=== PATIENT | male | born 1940 | race Caucasian/White ===

== ENCOUNTER → 2016-05-19 | Outpatient (CLI) | payer OTHER ==
--- NOTE | 2016-05-21 10:42 | P.ARTDOP ---
Arterial Doppler LOWER EXTREMITY ARTERIAL DOPPLER: DATE OF SERVICE: 05/19/2016 Reason for study: Foot ulcer. Doppler waveforms: Normal multiphasic throughout on the left. Multiphasic but somewhat blunted distally on the right.. Pulse volume recording: Mild distal blunting on the right.. Pressure gradients: Mild distally on the right. Ankle-brachial indices: Cannot be occluded on either side. Toe pressures: 74 on the right, 113 on the left Impression: Essentially normal on the left. Possible mild distal disease on the right. Tissue perfusion appears adequate for healing. Suspect calcific wall disease of major vessels..
== END | disposition home or self-care (01) ==
LOC: RADUSWWP 08:54
PROVIDERS: ATTEND Family Medicine
DX: L97.509 Non-pressure chronic ulcer of other part of unspecified foot with unspecified severity (principal)
CPT/HCPCS: 93923

== ENCOUNTER 2016-10-01 23:18 | Inpatient (IN) | payer OTHER, MEDICARE ==
[2016-10-01] MEDS ORDERED: SODIUM CHLORIDE 0.9% 500 ML IV STA (23:22)
[2016-10-01] MEDS ORDERED: SODIUM CHLORIDE 0.9% 1,000 ML IV STA (23:22)
[2016-10-01] MEDS ORDERED: RX INFO: IV CONTRAST WAS GIVEN 1 EACH MISC MISCELLANE PRN (23:27)
--- NOTE | 2016-10-01 23:28 | ED ---
General Adult HPI - General Stated complaint: Syncope Time Seen by Provider: 10/01/16 23:22 Source: RN notes reviewed, old records reviewed - History of Present Illness Initial comments: This is a 76-year-old male here for evaluation of syncopal event. Patient is a talkative starting him episode of syncope. Patient has a medical history,. By diabetes high blood pressure high cholesterol. History of heart disease, patient's well as of late, states he felt well today. Again at this point he has no chest pain or short of breath, no abdominal pain or nausea vomiting. Patient just states he feels confused. No headaches, no injury from this syncopal event. Per standby he had no seizure-like activity - Related Data Home Medications Medication Instructions Recorded Confirmed Aspirin 81 mg PO DAILY 10/01/16 10/01/16 Atorvastatin [Lipitor] 20 mg PO DAILY 10/01/16 10/01/16 Cholecalciferol [Vitamin D3] 2,000 unit PO DAILY 10/01/16 10/01/16 Donepezil [Aricept] 10 mg PO DAILY 10/01/16 10/01/16 Insulin Detemir [Levemir] 15 unit SQ HS 10/01/16 10/01/16 Lisinopril-Hctz 10-12.5 mg 1 tab PO DAILY 10/01/16 10/01/16 [Zestoretic 10-12.5] Multivitamins, Thera [Multivitamin 1 tab PO DAILY 10/01/16 10/01/16 (formulary)] glipiZIDE [Glucotrol] 5 mg PO AC-BID 10/01/16 10/01/16 Allergies Allergy/AdvReac Type Severity Reaction Status Date / Time No Known Allergies Allergy Unverified 10/01/16 23:33 Review of Systems ROS Statement: Those systems with pertinent positive or pertinent negative responses have been documented in the HPI. ROS Other: All systems not noted in ROS Statement are negative. General Exam General appearance: alert, in no apparent distress, anxious Head exam: Present: atraumatic, normocephalic, normal inspection Eye exam: Present: normal appearance, PERRL, EOMI. Absent: scleral icterus, conjunctival injection, periorbital swelling ENT exam: Present: normal exam, mucous membranes moist Neck exam: Present: normal inspection. Absent: tenderness, meningismus, lymphadenopathy Respiratory exam: Present: normal lung sounds bilaterally. Absent: respiratory distress, wheezes, rales, rhonchi, stridor Cardiovascular Exam: Present: regular rate, normal rhythm, normal heart sounds. Absent: systolic murmur, diastolic murmur, rubs, gallop, clicks GI/Abdominal exam: Present: soft, normal bowel sounds. Absent: distended, tenderness, guarding, rebound, rigid Extremities exam: Present: normal inspection, full ROM, normal capillary refill. Absent: tenderness, pedal edema, joint swelling, calf tenderness Back exam: Present: normal inspection Neurological exam: Present: alert, oriented X3, CN II-XII intact Psychiatric exam: Present: normal affect, normal mood Skin exam: Present: warm, dry, intact, normal color. Absent: rash Course Vital Signs 10/01/16 10/01/16 23:33 23:54 Temperature 97.7 F Pulse Rate 56 L 53 L Respiratory 16 16 Rate Blood Pressure 241/116 224/96 O2 Sat by Pulse 98 98 Oximetry - Reevaluation(s) Reevaluation #1: 10/01/16 23:28 Per EMS patient was diaphoretic upon initial encounter Reevaluation #2: 10/01/16 23:28 Patient's blood pressure is is severely elevated upon arrival to emergency room 10/02/16 00:39 Patient bloodshot pressure rechecked EKG Findings - EKG Comments: EKG Findings:: EKG shows normal sinus rhythm rate of 61, MS 200, QRS 90, QTc 442. Repeat. EKG shows sinus rhythm rate of 60, MS 196, QRS 94, QTc 463 Medical Decision Making - Medical Decision Making 76-year-old years syncope today. Patient had syncope with no evidence of seizure-like activity, - Lab Data Result diagrams: 10/01/16 23:25 10/01/16 23:25 Lab Results 10/01/16 10/01/16 10/01/16 Range/Units 23:25 23:25 23:25 WBC 7.8 (3.8-10.6) k/uL RBC 4.39 (4.30-5.90) m/uL Hgb 14.2 (13.0-17.5) gm/dL Hct 42.3 (39.0-53.0) % MCV 96.4 (80.0-100.0) fL MCH 32.4 (25.0-35.0) pg MCHC 33.6 (31.0-37.0) g/dL RDW 13.7 (11.5-15.5) % Plt Count 193 (150-450) k/uL Neutrophils % 68 % Lymphocytes % 21 % Monocytes % 7 % Eosinophils % 2 % Basophils % 1 % Neutrophils # 5.3 (1.3-7.7) k/uL Lymphocytes # 1.6 (1.0-4.8) k/uL Monocytes # 0.5 (0-1.0) k/uL Eosinophils # 0.1 (0-0.7) k/uL Basophils # 0.1 (0-0.2) k/uL PT (9.0-12.0) sec INR (<1.1) APTT (22.0-30.0) sec D-Dimer (<0.60) mg/L FEU Sodium 141 (137-145) mmol/L Potassium 3.8 (3.5-5.1) mmol/L Chloride 106 (98-107) mmol/L Carbon Dioxide 22 (22-30) mmol/L Anion Gap 13 mmol/L BUN 27 H (9-20) mg/dL Creatinine 1.56 H (0.66-1.25) mg/dL Est GFR (MDRD) Af Amer 53 (>60 ml/min/1.73 sqM) Est GFR (MDRD) Non-Af 44 (>60 ml/min/1.73 sqM) Glucose 117 H (74-99) mg/dL Plasma Lactic Acid Jerome (0.7-2.0) mmol/L Calcium 9.7 (8.4-10.2) mg/dL Phosphorus 4.6 H (2.5-4.5) mg/dL Magnesium 2.1 (1.6-2.3) mg/dL Total Bilirubin 0.8 (0.2-1.3) mg/dL AST 27 (17-59) U/L ALT 26 (21-72) U/L Alkaline Phosphatase 80 (38-126) U/L Total Creatine Kinase 42 L (55-170) U/L CK-MB (CK-2) 1.5 (0.0-2.4) ng/mL CK-MB (CK-2) Rel Index 3.6 Troponin I 0.036 H* (0.000-0.034) ng/mL NT-Pro-B Natriuret Pep pg/mL Total Protein 7.4 (6.3-8.2) g/dL Albumin 4.4 (3.5-5.0) g/dL 10/01/16 10/01/16 10/01/16 Range/Units 23:25 23:25 23:45 WBC (3.8-10.6) k/uL RBC (4.30-5.90) m/uL Hgb (13.0-17.5) gm/dL Hct (39.0-53.0) % MCV (80.0-100.0) fL MCH (25.0-35.0) pg MCHC (31.0-37.0) g/dL RDW (11.5-15.5) % Plt Count (150-450) k/uL Neutrophils % % Lymphocytes % % Monocytes % % Eosinophils % % Basophils % % Neutrophils # (1.3-7.7) k/uL Lymphocytes # (1.0-4.8) k/uL Monocytes # (0-1.0) k/uL Eosinophils # (0-0.7) k/uL Basophils # (0-0.2) k/uL PT 10.3 (9.0-12.0) sec INR 1.0 (<1.1) APTT 23.8 (22.0-30.0) sec D-Dimer 0.52 (<0.60) mg/L FEU Sodium (137-145) mmol/L Potassium (3.5-5.1) mmol/L Chloride (98-107) mmol/L Carbon Dioxide (22-30) mmol/L Anion Gap mmol/L BUN (9-20) mg/dL Creatinine (0.66-1.25) mg/dL Est GFR (MDRD) Af Amer (>60 ml/min/1.73 sqM) Est GFR (MDRD) Non-Af (>60 ml/min/1.73 sqM) Glucose (74-99) mg/dL Plasma Lactic Acid Jerome 3.4 H* (0.7-2.0) mmol/L Calcium (8.4-10.2) mg/dL Phosphorus (2.5-4.5) mg/dL Magnesium (1.6-2.3) mg/dL Total Bilirubin (0.2-1.3) mg/dL AST (17-59) U/L ALT (21-72) U/L Alkaline Phosphatase (38-126) U/L Total Creatine Kinase (55-170) U/L CK-MB (CK-2) (0.0-2.4) ng/mL CK-MB (CK-2) Rel Index Troponin I (0.000-0.034) ng/mL NT-Pro-B Natriuret Pep 379 pg/mL Total Protein (6.3-8.2) g/dL Albumin (3.5-5.0) g/dL - Radiology Data Radiology results: report reviewed (CT brain is negative for acute disease, CT angio is negative for dissection), image reviewed Disposition Clinical Impression: Syncope, Elevated troponin, Dehydration, Lactic acidosis, Hypertensive urgency Disposition: ADMITTED IP TO THIS [facility] Condition: Fair Referrals: Raoul Pugh DO [Primary Care Provider] - 1-2 days
[2016-10-01 23:38] LABS: Basophils # (A) 0.1 k/uL (0-0.2); Basophils % (A) 1 %; CH 32.2; CHCM 33.5; Eosinophils # (A) 0.1 k/uL (0-0.7); Eosinophils % (A) 2 %; HCT 42.3 % (39.0-53.0); HDW 2.41; HGB 14.2 gm/dL (13.0-17.5); Luc % (Auto) 3; Lymphocytes # (A) 1.6 k/uL (1.0-4.8); Lymphocytes % (A) 21 %; MCH 32.4 pg (25.0-35.0); MCHC 33.6 g/dL (31.0-37.0); MCV 96.4 fL (80.0-100.0); Mean Platelet Volume 7.5; Monocytes # (A) 0.5 k/uL (0-1.0); Monocytes % (A) 7 %; Neutrophils # (A) 5.3 k/uL (1.3-7.7); Neutrophils % (A) 68 %; RBC 4.39 m/uL (4.30-5.90); RDW 13.7 % (11.5-15.5); WBC 7.8 k/uL (3.8-10.6); WBC (Perox) 7.72
[2016-10-01] MEDS ORDERED: hydrALAZINE HCL 20 MG/ML 1 ML VIAL IVP STA (23:45)
[2016-10-01 23:49] LABS: Calcium 9.7 mg/dL (8.4-10.2); Magnesium 2.1 mg/dL (1.6-2.3); Phosphorous 4.6 mg/dL (2.5-4.5); Potassium 3.8 mmol/L (3.5-5.1); Total Bilirubin 0.8 mg/dL (0.2-1.3); Total Protein 7.4 g/dL (6.3-8.2)
[2016-10-01 23:57] LABS: Partial Thromboplastin Time 23.8 sec (22.0-30.0); Prothrombin Time 10.3 sec (9.0-12.0)
[2016-10-02 00:13] LABS: Creatine Kinase MB 1.5 ng/mL (0.0-2.4)
[2016-10-02 00:20] LABS: Troponin I 0.036 ng/mL (0.000-0.034)
[2016-10-02] MEDS ORDERED: SODIUM CHLORIDE 0.9% 1,000 ML IV STA (00:36)
[2016-10-02] MEDS ORDERED: ASPIRIN 81 MG CHEW PO STA (00:50)
[2016-10-02] MEDS ORDERED: NITROGLYCERIN SL TABS 0.4 MG TAB SUBLINGUAL PRN (00:50)
[2016-10-02] MEDS ORDERED: ENALAPRILAT 1.25 MG/ML 1 ML VIAL IVP STA (00:56)
[2016-10-02] MEDS ORDERED: hydrALAZINE HCL 20 MG/ML 1 ML VIAL IVP PRN (00:56)
--- NOTE | 2016-10-02 00:57 | CT ---
EXAM: CT Head Without Intravenous Contrast CLINICAL HISTORY: Reason: Pain. syncope, history of DM, and dementia TECHNIQUE: Axial computed tomography images of the head/brain without intravenous contrast. CTDI is 60.30 mGy and DLP is 1108.40 mGy-cm. This CT exam was performed using one or more of the following dose reduction techniques: automated exposure control, adjustment of the mA and/or kV according to patient size, and/or use of iterative reconstruction technique. COMPARISON: None FINDINGS: Brain: No acute infarct or hemorrhage idenitified. No extra-axial fluid collection. No mass effect or midline shift. Mild scattered areas of hypoattenuation in the supratentorial white matter likely represent chronic small vessel ischemic changes. Involutional changes. Ventricles and sulci: Prominence of the ventricles and sulci is likely secondary to cerebral volume loss. Skull: Normal. No bony lesion or fracture. Subcutaneous tissues: Normal. Sinuses: Normal. No air-fluid levels or mucosal thickening. Orbits: Grossly unremarkable. Other: Atherosclerotic calcifications in the intracranial vasculature. IMPRESSION: 1. No acute intracranial abnormality. 2. Mild chronic small vessel ischemic changes and cerebral volume loss.
--- NOTE | 2016-10-02 01:09 | CT ---
EXAM: CT Angiography Chest With Intravenous Contrast CT Angiography Abdomen With Intravenous Contrast CLINICAL HISTORY: Reason: Pain. Syncope, history of dementia and DM. TECHNIQUE: Axial computed tomographic angiography images of the chest and abdomen with intravenous contrast using CT angiography protocol. CTDI is 86.90 mGy and DLP is 839.50 mGy-cm. This CT exam was performed using one or more of the following dose reduction techniques: automated exposure control, adjustment of the mA and/or kV according to patient size, and/or use of iterative reconstruction technique. MIP reconstructed images were created and reviewed. COMPARISON: None FINDINGS: Lung parenchyma: Mild atelectasis and scarring at the medial right lung base with mild bronchiectasis. No focal consolidation. No nodule. Pleural space: Normal. No pleural effusion or pneumothorax. Mediastinum/terrence: Small mediastinal lymph nodes, not pathologically enlarged. Heart: Coronary artery calcifications and mitral annular calcifications. No cardiomegaly or pericardial effusion. Vasculature: Not well evaluated due to suboptimal contrast enhancement. Aorta: Atherosclerotic changes of the aorta. No aneurysm or dissection. Airways: Patent. Bones: Degenerative changes of the spine. No bony lesion or acute fracture. Muscles: No mass. Subcutaneous tissues: Normal. Upper abdomen: Small nonspecific 1 cm nodule in the left adrenal gland. Small splenule noted. Diverticulosis without evidence of diverticulitis. . IMPRESSION: 1. The pulmonary arteries are not well evaluated due to suboptimal contrast bolus within the pulmonary arteries (suboptimal timing). If clinical concern for pulmonary emboli persist, consider repeat CT chest for PE. 2. No acute pulmonary abnormality identified.
[2016-10-02 04:42] LABS: Creatine Kinase MB 1.7 ng/mL (0.0-2.4); Troponin I 0.024 ng/mL (0.000-0.034)
[2016-10-02] MEDS: SODIUM CHLORIDE 0.9% 1,000 ML IV SCH ×3 (07:57→20:43)
[2016-10-02] MEDS: ATORVASTATIN 80 MG TAB PO SCH (11:52)
[2016-10-02 11:59] LABS: Glucose,Whole Blood 177 mg/dL (75-99)
[2016-10-02 12:34] LABS: Creatine Kinase MB 1.5 ng/mL (0.0-2.4)
[2016-10-02 12:47] LABS: Troponin I 0.042 ng/mL (0.000-0.034)
[2016-10-02 12:50] VITALS: BMI 28.3
--- NOTE | 2016-10-02 15:01 | XR ---
EXAMINATION TYPE: XR chest 1V portable DATE OF EXAM: 10/02/2016 2:48 PM COMPARISON: NONE HISTORY: CHF TECHNIQUE: Single frontal view of the chest is obtained. FINDINGS: Marked hypertrophy of the AC joints with remote left clavicular fracture there is hypertro phic change of the spine. No acute infiltrate or pleural effusion. No pneumothorax or overt failure. IMPRESSION: 1. No definite acute process.
[2016-10-02] MEDS: LISINOPRIL 10 MG TAB PO SCH (15:52)
[2016-10-02] MEDS: HEPARIN SODIUM,PORCINE 5,000 UNIT/ML 1 ML VIAL SQ SCH ×2 (15:52→20:40)
[2016-10-02 16:48] LABS: Glucose,Whole Blood 139 mg/dL (75-99)
[2016-10-02] MEDS: glipiZIDE 5 MG TAB PO SCH (17:03)
[2016-10-02] MEDS: INSULIN LISPRO (humaLOG) 300 UNIT/3 ML VIAL SQ SCH ×2 (17:08→20:41)
--- NOTE | 2016-10-02 17:35 | HP ---
CHIEF COMPLAINT: Syncope. HISTORY OF PRESENT ILLNESS: This 76-year-old gentleman with a past medical history of diabetes, hypertension, dementia, history of appendectomy, history of alcohol, 3 to 6 beers daily, being followed by Dr. Pugh in the outpatient setting, has apparently had multiple syncopal episodes recently. The last one was yesterday when the patient was sitting on a barstool in the living room and the patient was watched by his daughter. The patient apparently became confused and the patient became diaphoretic. Patient also sweaty. Patient became unresponsive, which lasted a few minutes, and the patient was confused after that. The EMS was called. Hypoglycemia was suspected. Blood pressure was noted to be normal and the patient was admitted for further evaluation and treatment. There is no history of any fever, rigors, chills. No history of any chest pain, palpitation, hematochezia, melena at this time. Multiple lab abnormalities, including a creatinine of 1.56 and plasma lactate 3.4. Troponin was found to be indeterminate at 0.236, 0.024 and 0.042. PAST MEDICAL HISTORY: History of diabetes, hypertension, history of dementia, history of alcohol. Medications prior to admission include: 1. Metformin 1000 mg p.o. b.i.d. 2. Levemir 15 subcu q.h.s. 3. Glucotrol 5 mg a.c. b.i.d. 4. Multivitamin 1 p.o. daily 5. Zestoretic /12.5 p.o. daily. 6. Aricept 10 mg daily. 7. Vitamin D3 2000. 8. Lipitor 20 mg daily. 9. Aspirin 81 mg. Allergies are none. FAMILY HISTORY: History of cancer in the family. SOCIAL HISTORY: History of alcohol as mentioned above. No history of smoking. REVIEW OF SYSTEMS: ENT: No diminishing hearing. No diminished vision. CARDIOVASCULAR: As mentioned earlier. RESPIRATORY: As mentioned earlier. GI: No nausea. : No dysuria. NERVOUS: As mentioned earlier. ALLERGY/IMMUNOLOGY: No asthma or hay fever. MUSCULOSKELETAL: As mentioned earlier. HEMATOLOGY/ONCOLOGY: No history of anemia. ENDOCRINE: As mentioned earlier. CONSTITUTIONAL: As mentioned earlier. DERMATOLOGY: Negative. PSYCHIATRY: As mentioned earlier. PHYSICAL EXAMINATION: Patient is alert and oriented x3. The pulse is 65, blood pressure 140/67, respiration 18, temperature 97.4, pulse ox 96% on room air. HEENT: Conjunctivae normal. Oral mucosa moist. NECK: No jugular venous distension. No carotid bruits. No lymph node enlargement. No thyroid enlargement. CARDIOVASCULAR: S1 and S2 muffled. No S3. No S4. RESPIRATORY: Breath sounds diminished in the bases. A few rhonchi. No crackles. ABDOMEN: Soft, nontender. No mass palpable. LEGS: No edema. No swelling. NERVOUS SYSTEM: Higher functions as mentioned. Moves all 4 limbs. No focal motor or sensory deficits. LYMPHATIC: No lymphadenopathy in neck, axillae or groin. SKIN: No ulcer, rash or bleeding. LABS: At this time show CBC within normal limits. Creatinine 1.5. Plasma lactic acid 3.4. Troponin 0.036. ASSESSMENT: 1. Recurrent syncope for evaluation, possibly vasovagal. Rule out cardiac arrhythmia. 2. Rule out acute coronary syndrome with non-ST segment elevation myocardial infarction. Troponin indeterminate at 0.36 and 0.042. 3. Increased plasma lactic acid. 4. Increased creatinine with possible acute renal failure, possibly prerenal. 5. Diabetes mellitus type 2. 6. History of ethanol. 7. History of hypertension, essential. 8. History of dementia. 9. History of left toe amputation. 10. FULL CODE. RECOMMENDATIONS AND DISCUSSION: In this 76-year-old gentleman who presented with multiple complex medical issues, will monitor the patient closely, continue with the current medications and symptomatic treatment. I will continue with the hydration. Otherwise, continue with the rest of the medications. Avoid diuretics for now. Other than that, cardiology consultation, 2-D echo with Doppler, possible stress test. The patient also might require outpatient evaluation, including Doppler monitoring or Reveal monitor. Otherwise, continue to monitor. I would also recommend the patient to alcohol cessation as well because of the high risk. The prognosis is guarded because of multiple complex medical issues. Further recommendations to follow. A copy of this dictation will be forwarded to Dr. Pugh, who is the primary physician.
[2016-10-02 20:23] LABS: Glucose,Whole Blood 176 mg/dL (75-99)
[2016-10-02] MEDS: INSULIN DETEMIR 100 UNIT/ML 10 ML VIAL SQ SCH (20:40)
[2016-10-02] MEDS ORDERED: metFORMIN 500 MG TAB PO SCH (21:00)
[2016-10-03 00:25] LABS: Appearance,Urine Clear (Clear); Bilirubin,Urine Negative (Negative); Glucose,Urine (UA) Negative (Negative); Ketones,Urine Negative (Negative); Leukocyte Esterase,Urine Negative (Negative); Mucus,Urine Rare /hpf; Nitrite,Urine Negative (Negative); PH, Urine 5.5 (5.0-8.0); Particle Count 708; Protein,Urine 1+ (Negative); RBC,Urine <1 /hpf (0-5); Specific Gravity,Urine 1.015 (1.001-1.035); UA Billing (MACRO vs. MICRO) MICRO; Urobilinogen,Urine <2.0 mg/dL (<2.0); WBC,Urine 1 /hpf (0-5)
[2016-10-03 05:52] LABS: Basophils % (A) 0 %; CH 32.5; CHCM 34.8; Eosinophils # (A) 0.2 k/uL (0-0.7); Eosinophils % (A) 4 %; HGB 11.6 gm/dL (13.0-17.5); Luc # (Auto) 0.17; Luc % (Auto) 3; Lymphocytes # (A) 1.4 k/uL (1.0-4.8); Lymphocytes % (A) 23 %; Mean Platelet Volume 7.4; Monocytes # (A) 0.4 k/uL (0-1.0); Monocytes % (A) 7 %; Neutrophils % (A) 64 %; RBC 3.62 m/uL (4.30-5.90); RDW 13.7 % (11.5-15.5); WBC 6.3 k/uL (3.8-10.6); WBC (Perox) 6.44
[2016-10-03] MEDS: SODIUM CHLORIDE 0.9% 1,000 ML IV SCH (06:02)
[2016-10-03 06:08] LABS: Anion Gap 9 mmol/L; Blood Urea Nitrogen 25 mg/dL (9-20); Calcium 8.7 mg/dL (8.4-10.2); Carbon Dioxide 23 mmol/L (22-30); Chloride 112 mmol/L (98-107); Cholesterol 112 mg/dL (<200); Glucose 64 mg/dL (74-99); HDL Cholesterol 44 mg/dL (40-60); Non-African American GFR(MDRD) 54 (>60 ml/min/1.73 sqM); Potassium 3.9 mmol/L (3.5-5.1); Sodium 144 mmol/L (137-145); Triglycerides 85 mg/dL (<150)
[2016-10-03] MEDS: INSULIN LISPRO (humaLOG) 300 UNIT/3 ML VIAL SQ SCH ×4 (06:24→22:09)
[2016-10-03 06:32] LABS: Glucose,Whole Blood 74 mg/dL (75-99)
[2016-10-03 07:54] LABS: Hemoglobin A1C 6.1 % (4.2-6.1)
[2016-10-03] MEDS: FOLIC ACID 1 MG TAB PO SCH (08:17)
[2016-10-03] MEDS: LISINOPRIL 10 MG TAB PO SCH (08:17)
[2016-10-03] MEDS: HEPARIN SODIUM,PORCINE 5,000 UNIT/ML 1 ML VIAL SQ SCH ×2 (08:17→22:09)
[2016-10-03] MEDS: ATORVASTATIN 80 MG TAB PO SCH (08:17)
[2016-10-03] MEDS: DONEPEZIL 10 MG TAB PO SCH (08:17)
[2016-10-03] MEDS: glipiZIDE 5 MG TAB PO SCH ×2 (08:18→17:45)
[2016-10-03] MEDS: THIAMINE 100 MG TAB PO SCH (08:18)
[2016-10-03] MEDS: CHOLECALCIFEROL 1,000 UNIT TAB PO SCH (08:18)
[2016-10-03] MEDS: MULTIVITAMINS, THERA 1 EACH TAB PO SCH (08:18)
[2016-10-03] MEDS: ASPIRIN 325 MG TAB PO SCH (08:18)
--- NOTE | 2016-10-03 08:36 | P.CRDCN ---
History of Present Illness Consult date: 10/03/16 Requesting physician: Angely Chu Consult reason: sycope Chief complaint: syncope History of present illness: This is a 76-year-old gentleman with known history of hypertension, diabetes, hyperlipidemia, EtOH use, who presents to the hospital following a syncopal episode. According to the patient, he was at his son's home sitting down having a beer, he was speaking with his grandson, he states that he stood up in the next thing he recalls is waking up on the floor. Patient denies any warning prior to passing out. He does state that his grandson was speaking to him and he was unable to hear the last few words he was saying. According to the grandson, the patient became quite pale and diaphoretic. He did not lose bowel or bladder function. Upon wakening he was alert and oriented 3. CT of the brain did not reveal any acute intracranial abnormality. Mild chronic small vessel ischemic change noted. Thoracic CT was performed, the pulmonary arteries were not well evaluated due to suboptimal contrast, could not rule out PE completely. No acute pulmonary abnormality noted. EKG shows normal sinus rhythm with no acute changes. No arrhythmias have been noted on the monitor. Chest x-ray does not reveal any acute process. Hemoglobin on admission 14.2, 11.6 this morning. Potassium 3.9, d-dimer 0.5. BUN 27, creatinine 1.5 yesterday , 1.3 this morning. Troponins 0.036, 0.0-4, 0.042. Blood pressure on arrival here 241/116 with a heart rate in the 50s. 98% on room air. Orthostatic blood pressure and heart rate were obtained which did not reveal any acute abnormality. Blood pressure this morning 152/62. At the time of my examination this morning, patient is sitting up in bed eating his breakfast, denies any dizziness or lightheadedness, no palpitations. Past Medical History Past Medical History: Diabetes Mellitus, Hypertension Additional Past Medical History / Comment(s): dementia History of Any Multi-Drug Resistant Organisms: None Reported Past Surgical History: Appendectomy Additional Past Surgical History / Comment(s): LEFT GREAT TOE HALF REMOVED. Past Anesthesia/Blood Transfusion Reactions: No Reported Reaction Past Psychological History: No Psychological Hx Reported Smoking Status: Never smoker Past Alcohol Use History: Abuse, Daily Additional Past Alcohol Use History / Comment(s): 3-6 BEERS A DAY. Past Drug Use History: None Reported - Past Family History Father Family Medical History: Cancer Mother History Unknown: Yes Medications and Allergies Home Medications Medication Instructions Recorded Confirmed Type Aspirin 81 mg PO DAILY 10/01/16 10/01/16 History Atorvastatin [Lipitor] 20 mg PO DAILY 10/01/16 10/01/16 History Cholecalciferol [Vitamin D3] 2,000 unit PO DAILY 10/01/16 10/01/16 History Donepezil [Aricept] 10 mg PO DAILY 10/01/16 10/01/16 History Insulin Detemir [Levemir] 15 unit SQ HS 10/01/16 10/01/16 History Lisinopril-Hctz 10-12.5 mg 1 tab PO DAILY 10/01/16 10/01/16 History [Zestoretic 10-12.5] Multivitamins, Thera [Multivitamin 1 tab PO DAILY 10/01/16 10/01/16 History (formulary)] glipiZIDE [Glucotrol] 5 mg PO AC-BID 10/01/16 10/01/16 History metFORMIN HCL [Metformin HCl] 1,000 mg PO BID 10/02/16 10/02/16 History Allergies Allergy/AdvReac Type Severity Reaction Status Date / Time No Known Allergies Allergy Unverified 10/01/16 23:33 Physical Exam Vitals: Vital Signs Temp Pulse Pulse Resp BP BP BP 10/03/16 05:59 63 18 152/76 10/03/16 04:00 63 16 152/76 10/03/16 00:00 98.2 F 65 18 185/93 10/02/16 20:00 99.2 F 64 18 140/69 10/02/16 16:00 98.0 F 62 18 153/67 10/02/16 11:35 97.5 F L 65 18 143/71 10/02/16 11:06 73 16 140/64 10/02/16 08:48 97.9 F 94 18 144/65 10/02/16 08:45 92 16 137/63 BP BP Pulse Ox 10/03/16 05:59 153/62 156/66 10/03/16 04:00 98 10/03/16 00:00 97 10/02/16 20:00 95 10/02/16 16:00 95 10/02/16 11:35 96 10/02/16 11:06 10/02/16 08:48 96 10/02/16 08:45 Intake and Output 10/02/16 10/03/16 10/03/16 22:59 06:59 14:59 Intake Total 100 Output Total 600 Balance 100 -600 Intake: Oral 100 Output: Urine 600 Other: # Voids 0 1 Weight 85.3 kg PHYSICAL EXAMINATION: HEENT: Head is atraumatic, normocephalic. Pupils equal, round. Neck is supple. There is no elevated jugular venous pressure. HEART EXAMINATION: Heart S1, S2 normal. No murmur or gallop heard. CHEST EXAMINATION: Lungs are clear to auscultation and precussion. No chest wall tenderness is noted on palpation or with deep breathing. ABDOMEN: Soft, nontender. Bowel sounds are heard. No organomegaly noted. EXTREMITIES: 2+ peripheral pulses with no evidence of peripheral edema and no calf tenderness noted. NEUROLOGIC patient is awake, alert and oriented -3. . Results 10/03/16 05:26 10/03/16 05:26 Cardiac Enzymes 10/02/16 Range/Units 11:37 CK-MB (CK-2) 1.5 (0.0-2.4) ng/mL Troponin I 0.042 H* (0.000-0.034) ng/mL Lipids 10/03/16 Range/Units 05:26 Triglycerides 85 (<150) mg/dL Cholesterol 112 (<200) mg/dL HDL Cholesterol 44 (40-60) mg/dL CBC 10/03/16 Range/Units 05:26 WBC 6.3 (3.8-10.6) k/uL RBC 3.62 L (4.30-5.90) m/uL Hgb 11.6 L (13.0-17.5) gm/dL Hct 34.0 L (39.0-53.0) % Plt Count 162 (150-450) k/uL Comprehensive Metabolic Panel 10/03/16 Range/Units 05:26 Sodium 144 (137-145) mmol/L Potassium 3.9 (3.5-5.1) mmol/L Chloride 112 H (98-107) mmol/L Carbon Dioxide 23 (22-30) mmol/L BUN 25 H (9-20) mg/dL Creatinine 1.30 H (0.66-1.25) mg/dL Glucose 64 L (74-99) mg/dL Calcium 8.7 (8.4-10.2) mg/dL Current Medications Generic Name Dose Route Start Last Admin Trade Name Freq PRN Reason Stop Dose Admin Aspirin 325 mg 10/03/16 09:00 10/03/16 08:18 Aspirin PO 325 mg DAILY VEENA Administration Atorvastatin Calcium 80 mg 10/02/16 09:00 10/03/16 08:17 Lipitor PO 80 mg DAILY VEENA Administration Cholecalciferol 2,000 unit 10/03/16 12:00 10/03/16 08:18 Vitamin D3 PO 2,000 unit 1200 VEENA Administration Donepezil HCl 10 mg 10/03/16 09:00 10/03/16 08:17 Aricept PO 10 mg DAILY VEENA Administration Folic Acid 1 mg 10/03/16 12:00 10/03/16 08:17 Folic Acid PO 1 mg DAILY@1200 VEENA Administration Glipizide 5 mg 10/02/16 17:30 10/03/16 08:18 Glucotrol PO 5 mg AC-BID VEENA Administration Heparin Sodium (Porcine) 5,000 unit 10/02/16 14:45 10/03/16 08:17 Heparin SQ 5,000 unit Q12HR VEENA Administration Hydralazine HCl 10 mg 10/02/16 00:56 10/02/16 07:56 Apresoline IVP 10 mg Q4HR PRN Administration Blood Pressure - High Sodium Chloride 1,000 mls @ 100 mls/hr 10/02/16 01:00 10/03/16 06:02 Saline 0.9% IV 100 mls/hr .Q10H VEENA Administration Insulin Detemir 15 unit 10/02/16 21:00 10/02/16 20:40 Levemir SQ 15 unit HS VEENA Administration Insulin Human Lispro 0 unit 10/02/16 17:30 10/03/16 06:24 Humalog SQ [facility] Protocol Lisinopril 10 mg 10/02/16 14:45 10/03/16 08:17 Zestril PO 10 mg DAILY VEENA Administration Metformin HCl 1,000 mg 10/04/16 21:00 Glucophage PO BID [facility] Miscellaneous Information 1 each 10/01/16 23:27 10/02/16 00:37 Rx Info: Iv Contrast Was Given MISCELLANE 10/03/16 23:27 1 each DAILY PRN Administration Per Protocol Multivitamins 1 each 10/03/16 12:00 10/03/16 08:18 Theragran PO 1 each 1200 VEENA Administration Nitroglycerin 0.4 mg 10/02/16 00:50 Nitrostat SUBLINGUAL Q5M PRN Chest Pain Thiamine HCl 100 mg 10/03/16 12:00 10/03/16 08:18 Vitamin B-1 PO 100 mg DAILY@1200 VEENA Administration Intake and Output 10/02/16 10/03/16 10/03/16 22:59 06:59 14:59 Intake Total 100 Output Total 600 Balance 100 -600 Intake: Oral 100 Output: Urine 600 Other: # Voids 0 1 Weight 85.3 kg 10/03/16 05:26 10/03/16 05:26 EKG Interpretations (text) EKG shows normal sinus rhythm with no acute changes. Assessment and Plan Plan: Assessment and plan #1 syncope, rule out cardiac causes. EKG shows normal sinus rhythm with no acute changes. No arrhythmias noted on the monitor. No orthostatics documented. #2 accelerated hypertension #3 history of hypertension #4 diabetes #5 hyperlipidemia #6 EtOH use, patient states he drinks 3-6 beers per day #7 Abnormal troponins, not consistent with acute coronary syndrome. Patient denies having any chest discomfort. EKG shows normal sinus rhythm with no acute changes. D-dimer negative. Plan We will obtain an echocardiogram with Doppler study. Continue to monitor for any tachycardia or bradycardia arrhythmias. Further recommendations to follow. DNP note has been reviewed, I agree with a documented findings and plan of care. Patient was seen and examined.
[2016-10-03] MEDS ORDERED: HYDROcodone/APAP 5-325MG 1 EACH TAB PO PRN (11:23)
[2016-10-03 11:36] LABS: Glucose,Whole Blood 147 mg/dL (75-99)
[2016-10-03] MEDS ORDERED: LISINOPRIL 10 MG TAB PO ONE (11:45)
--- NOTE | 2016-10-03 11:49 | P.PN ---
Progress Note - Text Patient interviewed and examined 2 episodes of presyncope on an Cynthia and one a few months back. Resents with staring spells and brief presyncope on those 2 occasions. Recent fall of unclear etiology a week back. This time he had a witnessed syncopal episode lasting for several minutes. He started staring into space became white is supposed and possibly ureña, his head fell forward he was sweating profusely, he did not have any warning symptoms, lost consciousness for several minutes according to the witness was spoke to, then regained consciousness before EMS arrived and had complete normal mentation within a minute of regaining consciousness no conversions no postictal state History of diabetes and hypertension and regular alcohol use Examination is normal Impression This is cardiac syncope likely paroxysmal AV block with sudden bradycardia or sudden sinus arrest. We do not have any documentation of this at this time Other possibilities include sudden ventricular tachycardia Stage III CKD Suggest Management of hypertension, maximize mary inhibitors TSH level 2-D echo and Doppler study Telemetry monitoring over the long weekend If he has any of the above I will address it appropriately If not he gets a loop monitor on Thursday Discussed with patient and his daughter and they're agreeable with the plan See full consultation note from Dr. hein
--- NOTE | 2016-10-03 15:00 | PN ---
DATE OF SERVICE: 10/03/2016 This 76-year-old gentleman who was admitted with recurrent syncope is being evaluated. The patient also was found to have bradycardia. Loop monitoring is also being considered at this time. No chest pain. No palpitation. Neurology evaluation in progress. PHYSICAL EXAMINATION: Patient is alert and oriented x3. Pulse is 59, blood pressure 152/76. No orthostatic changes. Respiration 18, temperature 97.7, pulse ox 98% on room air. HEENT: Conjunctivae normal. NECK: No jugular venous distention. CARDIOVASCULAR SYSTEM: S1, S2 muffled. RESPIRATORY SYSTEM: Breath sounds diminished at the bases. No rhonchi. No crackles. ABDOMEN: Soft, nontender. LEGS: No edema. No swelling. NERVOUS SYSTEM: No focal deficit. LABS: WBC 6.3. Hemoglobin 11.6. Creatinine 1.3. Glucose is 74 and 147. ASSESSMENT: 1. Recurrent syncope for evaluation, possibly vasovagal. Rule out cardiac arrhythmia. 2. Troponin indeterminate at 0.36 and 0.04, to rule out coronary artery disease. 3. Increased plasma lactic acid, present on admission, secondary to dehydration. 4. Increased creatinine with possible acute renal failure, possibly prerenal with dehydration. 5. Diabetes mellitus, type 2. 6. History of ethanol. 7. Hypertension, essential. 8. History of dementia. 9. History of left toe amputation. 10. Chronic kidney disease, stage III. 11. FULL CODE. RECOMMENDATIONS AND DISCUSSION: I recommend to continue with the current medications, continue with the monitoring, symptomatic treatment. Closely follow with Cardiology and Neurology. Neurovascular workup. Continue to monitor. A thoracic aortic CT scan did not show any acute abnormality. Otherwise, will continue to monitor. Creatinine is 1.30. See orders for further details. Discussed with the daughter at the bedside.
--- NOTE | 2016-10-03 15:43 | ECHOF ---
Referral Reason:chf MEASUREMENTS -------- HEIGHT: 172.7 cm WEIGHT: 84.4 kg BP: 143/71 RVIDd: 2.7 cm (< 3.3) IVSd: 1.3 cm (0.6 - 1.1) LVIDd: 5.1 cm (3.9 - 5.3) LVPWd: 1.3 cm (0.6 - 1.1) IVSs: 2.2 cm LVIDs: 1.8 cm LVPWs: 2.1 cm LAESV Index (A-L): 34.43 ml/m Ao Diam: 3.8 cm (2.0 - 3.7) AV Cusp: 1.4 cm (1.5 - 2.6) LA Diam: 4.6 cm (2.7 - 3.8) MV EXCURSION: 17.722 mm (> 18.000) MV EF SLOPE: 69 mm/s (70 - 150) EPSS: 0.6 cm MV E Chepe: 1.01 m/s MV DecT: 294 ms MV A Chepe: 0.99 m/s MV E/A Ratio: 1.01 RAP: 5.00 mmHg RVSP: 10.24 mmHg FINDINGS -------- Sinus rhythm. This was a technically good study. There is mild concentric left ventricular hypertrophy. The right ventricle is normal in size and function. LA is moderately dilated 34-39 ml/m2 The right atrium is normal in size. Aortic valve is trileaflet and is mildly thickened. There is no evidence of aortic regurgitation. There is no evidence of aortic stenosis. Mild mitral annular calcification present. There is trace to mild mitral regurgitation. Trace tricuspid regurgitation present. There is no evidence of pulmonary hypertension. The right ventricular systolic pressure, as measured by Doppler, is 10.24mmHg. The pulmonic valve was not well visualized. The aortic root size is normal. IVC Not well visulized. The pericardium is normal. There is no pericardial effusion. CONCLUSIONS -------- 1. Sinus rhythm. 2. The pulmonic valve was not well visualized. 3. The aortic root size is normal. 4. IVC Not well visulized. 5. There is no pericardial effusion. 6. There is mild concentric left ventricular hypertrophy. 7. LA is moderately dilated 34-39 ml/m2 8. Aortic valve is trileaflet and is mildly thickened. 9. Mild mitral annular calcification present. 10. There is trace to mild mitral regurgitation. 11. Trace tricuspid regurgitation present. 12. There is no evidence of pulmonary hypertension. 13. The right ventricular systolic pressure, as measured by Doppler, is 10.24mmHg. MAGNETIC PROSPECTING SUPERVISOR: Juan Luis Lemos RDCS
[2016-10-03 16:35] LABS: Glucose,Whole Blood 55 mg/dL (75-99)
[2016-10-03 16:58] LABS: Glucose,Whole Blood 245 mg/dL (75-99)
--- NOTE | 2016-10-03 18:06 | P.CNNES ---
History of Present Illness Consult date: 10/03/16 History of Present Illness: The patient is a 76-year-old right-handed white male who states that he passed out his son's home. Port that his son stated that he looked flushed been pale and diaphoretic and then passed out. Did bruise his left elbow. Apparently the patient has been having multiple syncopal events. As have dementia. Mass was called and he was transferred to [facility]. ALLERGY requested the patient regarding sink be. He denies any headache. He has no history of seizures. He reports the syncopal event occurred quite quickly. Patient had a CT of the brain in the emergency room which was unremarkable. Neurology been consulted. He does have bradycardia. The patient is undergoing full cardiac workup for possible cardiac syncope. He is also being considered for a loop monitor. Past Medical History Past Medical History: Diabetes Mellitus, Hypertension Additional Past Medical History / Comment(s): dementia History of Any Multi-Drug Resistant Organisms: None Reported Past Surgical History: Appendectomy Additional Past Surgical History / Comment(s): LEFT GREAT TOE HALF REMOVED. Past Anesthesia/Blood Transfusion Reactions: No Reported Reaction Past Psychological History: No Psychological Hx Reported Smoking Status: Never smoker Past Alcohol Use History: Abuse, Daily Additional Past Alcohol Use History / Comment(s): 3-6 BEERS A DAY. Past Drug Use History: None Reported - Past Family History Father Family Medical History: Cancer Mother History Unknown: Yes Medications and Allergies Home Medications Medication Instructions Recorded Confirmed Type Aspirin 81 mg PO DAILY 10/01/16 10/01/16 History Atorvastatin [Lipitor] 20 mg PO DAILY 10/01/16 10/01/16 History Cholecalciferol [Vitamin D3] 2,000 unit PO DAILY 10/01/16 10/01/16 History Donepezil [Aricept] 10 mg PO DAILY 10/01/16 10/01/16 History Insulin Detemir [Levemir] 15 unit SQ HS 10/01/16 10/01/16 History Lisinopril-Hctz 10-12.5 mg 1 tab PO DAILY 10/01/16 10/01/16 History [Zestoretic 10-12.5] Multivitamins, Thera [Multivitamin 1 tab PO DAILY 10/01/16 10/01/16 History (formulary)] glipiZIDE [Glucotrol] 5 mg PO AC-BID 10/01/16 10/01/16 History metFORMIN HCL [Metformin HCl] 1,000 mg PO BID 10/02/16 10/02/16 History Allergies Allergy/AdvReac Type Severity Reaction Status Date / Time No Known Allergies Allergy Unverified 10/01/16 23:33 Physical Examination - Vital Signs Vital Signs: Vital Signs Temp Pulse Resp BP BP BP BP 10/03/16 16:00 97.7 F 56 L 18 151/72 10/03/16 12:00 97.9 F 58 L 18 138/72 10/03/16 08:00 97.7 F 59 L 18 163/63 10/03/16 05:59 63 18 152/76 153/62 156/66 10/03/16 04:00 63 16 152/76 10/03/16 00:00 98.2 F 65 18 185/93 10/02/16 20:00 99.2 F 64 18 140/69 Pulse Ox 10/03/16 16:00 97 10/03/16 12:00 98 10/03/16 08:00 98 10/03/16 05:59 10/03/16 04:00 98 10/03/16 00:00 97 10/02/16 20:00 95 Intake and Output 10/03/16 10/03/16 10/03/16 06:59 14:59 22:59 Intake Total 600 Output Total 600 350 Balance -600 250 Intake: Oral 600 Output: Urine 600 350 Other: # Voids 1 1 Weight 85.3 kg - Constitutional General appearance: average body habitus, cooperative - EENT EENT: PERRL, hearing intact, vision intact - Respiratory Respiratory: lungs clear - Cardiovascular Cardiovascular: regular rate - Integumentary Integumentary: normal - Neurologic Mental status he was awake alert and oriented he had some short-term memory loss is able to give his name he knew his street but did not know the address however he did say he moved here recently. Is no a aphasia or dysarthria Cranial nerve examination: PERRL, EOMI, VFF, V1/V2/V3 grossly intact, face symmetric, tongue midline Speech examination: intact Sensorimotor examination: intact Detailed motor examination: grossly full strength in all extremities - Psychiatric Psychiatric: cooperative Results - Laboratory Findings CBC and BMP: 10/03/16 05:26 10/03/16 05:26 Abnormal Lab Findings: Abnormal Labs 10/01/16 10/01/16 10/01/16 23:25 23:25 23:45 RBC Hgb Hct Chloride BUN 27 H Creatinine 1.56 H Glucose 117 H POC Glucose (mg/dL) Plasma Lactic Acid Jerome 3.4 H* Phosphorus 4.6 H Total Creatine Kinase 42 L Troponin I 0.036 H* Urine Protein Urine Mucus 10/02/16 10/02/16 10/02/16 03:58 11:37 11:57 RBC Hgb Hct Chloride BUN Creatinine Glucose POC Glucose (mg/dL) 177 H Plasma Lactic Acid Jerome Phosphorus Total Creatine Kinase 53 L 43 L Troponin I 0.042 H* Urine Protein Urine Mucus 10/02/16 10/02/16 10/03/16 16:42 20:21 00:00 RBC Hgb Hct Chloride BUN Creatinine Glucose POC Glucose (mg/dL) 139 H 176 H Plasma Lactic Acid Jerome Phosphorus Total Creatine Kinase Troponin I Urine Protein 1+ H Urine Mucus Rare H 10/03/16 10/03/16 10/03/16 05:26 05:26 06:23 RBC 3.62 L Hgb 11.6 L Hct 34.0 L Chloride 112 H BUN 25 H Creatinine 1.30 H Glucose 64 L POC Glucose (mg/dL) 74 L Plasma Lactic Acid Jerome Phosphorus Total Creatine Kinase Troponin I Urine Protein Urine Mucus 10/03/16 10/03/16 10/03/16 11:34 16:29 16:46 RBC Hgb Hct Chloride BUN Creatinine Glucose POC Glucose (mg/dL) 147 H 55 L 245 H Plasma Lactic Acid Jerome Phosphorus Total Creatine Kinase Troponin I Urine Protein Urine Mucus Assessment and Plan (1) Syncope Status: Acute Code(s): R55 - SYNCOPE AND COLLAPSE (2) Elevated troponin Status: Acute Code(s): R74.8 - ABNORMAL LEVELS OF OTHER SERUM ENZYMES (3) Dehydration Status: Acute Code(s): E86.0 - DEHYDRATION (4) Dementia Status: Chronic Code(s): F03.90 - UNSPECIFIED DEMENTIA WITHOUT BEHAVIORAL DISTURBANCE Plan: The patient is a 76-year-old man with recurrent syncopal events. The patient does have bradycardia. The patient's presentation with pallor diaphoresis and syncope is suggestive of possible vasovagal. He is undergoing a cardiac workup for probable cardiac syncope. Will check EEG..
[2016-10-03 21:09] LABS: Glucose,Whole Blood 110 mg/dL (75-99)
[2016-10-03] MEDS: INSULIN DETEMIR 100 UNIT/ML 10 ML VIAL SQ SCH (22:09)
[2016-10-04] MEDS ORDERED: amLODIPine 10 MG TAB PO STA (02:45)
[2016-10-04] MEDS: INSULIN LISPRO (humaLOG) 300 UNIT/3 ML VIAL SQ SCH ×4 (06:31→20:51)
[2016-10-04 06:34] LABS: Basophils # (A) 0.1 k/uL (0-0.2); Basophils % (A) 1 %; CHCM 33.5; Eosinophils # (A) 0.3 k/uL (0-0.7); Eosinophils % (A) 5 %; HCT 36.1 % (39.0-53.0); HDW 2.38; HGB 11.7 gm/dL (13.0-17.5); Luc # (Auto) 0.18; Luc % (Auto) 3; Lymphocytes # (A) 1.2 k/uL (1.0-4.8); Lymphocytes % (A) 19 %; MCH 30.9 pg (25.0-35.0); MCHC 32.3 g/dL (31.0-37.0); MCV 95.9 fL (80.0-100.0); Mean Platelet Volume 7.5; Monocytes # (A) 0.5 k/uL (0-1.0); Monocytes % (A) 7 %; Neutrophils # (A) 4.3 k/uL (1.3-7.7); Neutrophils % (A) 66 %; RBC 3.77 m/uL (4.30-5.90); RDW 13.8 % (11.5-15.5); WBC 6.5 k/uL (3.8-10.6); WBC (Perox) 6.63
[2016-10-04 06:42] LABS: Anion Gap 8 mmol/L; Blood Urea Nitrogen 20 mg/dL (9-20); Carbon Dioxide 26 mmol/L (22-30); Chloride 109 mmol/L (98-107); Glucose 62 mg/dL (74-99); Non-African American GFR(MDRD) 59 (>60 ml/min/1.73 sqM); Potassium 4.2 mmol/L (3.5-5.1); Sodium 143 mmol/L (137-145)
[2016-10-04] MEDS: glipiZIDE 5 MG TAB PO SCH ×2 (06:46→18:27)
[2016-10-04 07:01] LABS: Glucose,Whole Blood 62 mg/dL (75-99)
[2016-10-04 07:01] LABS: Glucose,Whole Blood 121 mg/dL (75-99)
[2016-10-04] MEDS: ATORVASTATIN 80 MG TAB PO SCH (08:13)
[2016-10-04] MEDS: ASPIRIN 325 MG TAB PO SCH (08:13)
[2016-10-04] MEDS: HEPARIN SODIUM,PORCINE 5,000 UNIT/ML 1 ML VIAL SQ SCH ×2 (08:13→20:51)
[2016-10-04] MEDS: LISINOPRIL 20 MG TAB PO SCH ×2 (08:13→20:51)
[2016-10-04] MEDS: DONEPEZIL 10 MG TAB PO SCH (08:13)
[2016-10-04] MEDS: MULTIVITAMINS, THERA 1 EACH TAB PO SCH (08:14)
[2016-10-04] MEDS: FOLIC ACID 1 MG TAB PO SCH (08:14)
[2016-10-04] MEDS: amLODIPine 10 MG TAB PO SCH (08:14)
[2016-10-04] MEDS: CHOLECALCIFEROL 1,000 UNIT TAB PO SCH (08:14)
[2016-10-04] MEDS: THIAMINE 100 MG TAB PO SCH (08:15)
[2016-10-04] MEDS ORDERED: LISINOPRIL 20 MG TAB PO SCH (09:00)
--- NOTE | 2016-10-04 11:27 | P.PN ---
Subjective This is a 76-year-old gentleman with known history of hypertension, diabetes, hyperlipidemia, EtOH use, who presents to the hospital following a syncopal episode. According to the patient, he was at his son's home sitting down having a beer, he was speaking with his grandson, he states that he stood up in the next thing he recalls is waking up on the floor. Patient denies any warning prior to passing out. He does state that his grandson was speaking to him and he was unable to hear the last few words he was saying. According to the grandson, the patient became quite pale and diaphoretic. He did not lose bowel or bladder function. Upon wakening he was alert and oriented 3. CT of the brain did not reveal any acute intracranial abnormality. Mild chronic small vessel ischemic change noted. Thoracic CT was performed, the pulmonary arteries were not well evaluated due to suboptimal contrast, could not rule out PE completely. No acute pulmonary abnormality noted. EKG shows normal sinus rhythm with no acute changes. No arrhythmias have been noted on the monitor. Chest x-ray does not reveal any acute process. Hemoglobin on admission 14.2, 11.6 this morning. Potassium 3.9, d-dimer 0.5. BUN 27, creatinine 1.5 yesterday , 1.3 this morning. Troponins 0.036, 0.0-4, 0.042. Blood pressure on arrival here 241/116 with a heart rate in the 50s. 98% on room air. Orthostatic blood pressure and heart rate were obtained which did not reveal any acute abnormality. 10/04/2016. Pressure this morning 173/77, we will add Dyazide to the patient's medication regime. Objective - Vital Signs Vital signs: Vital Signs Temp 97.7 F 10/04/16 08:00 Pulse 69 10/04/16 08:00 Resp 18 10/04/16 08:00 BP 153/66 10/04/16 08:00 Pulse Ox 97 10/04/16 08:00 Intake & Output 10/03/16 10/04/16 10/04/16 18:59 06:59 18:59 Intake Total 840 Output Total 350 1125 Balance 490 -1125 Weight 84.7 kg Intake: Oral 840 Output: Urine 350 1125 Other: Voiding Method Toilet Toilet Urinal Urinal # Voids 1 1 - Exam PHYSICAL EXAMINATION: HEENT: Head is atraumatic, normocephalic. Pupils equal, round. Neck is supple. There is no elevated jugular venous pressure. HEART EXAMINATION: Heart S1, S2 normal. No murmur or gallop heard. CHEST EXAMINATION: Lungs are clear to auscultation and precussion. No chest wall tenderness is noted on palpation or with deep breathing. ABDOMEN: Soft, nontender. Bowel sounds are heard. No organomegaly noted. EXTREMITIES: 2+ peripheral pulses with no evidence of peripheral edema and no calf tenderness noted. NEUROLOGIC patient is awake, alert and oriented -3. . - Labs CBC & Chem 7: 10/04/16 06:04 10/04/16 06:04 Labs: Abnormal Lab Results - Last 24 Hours (Table) 10/03/16 10/03/16 10/03/16 Range/Units 11:34 16:29 16:46 RBC (4.30-5.90) m/uL Hgb (13.0-17.5) gm/dL Hct (39.0-53.0) % Chloride (98-107) mmol/L Glucose (74-99) mg/dL POC Glucose (mg/dL) 147 H 55 L 245 H (75-99) mg/dL 10/03/16 10/04/16 10/04/16 Range/Units 20:56 06:04 06:04 RBC 3.77 L (4.30-5.90) m/uL Hgb 11.7 L (13.0-17.5) gm/dL Hct 36.1 L (39.0-53.0) % Chloride 109 H (98-107) mmol/L Glucose 62 L (74-99) mg/dL POC Glucose (mg/dL) 110 H (75-99) mg/dL 10/04/16 10/04/16 Range/Units 06:28 06:49 RBC (4.30-5.90) m/uL Hgb (13.0-17.5) gm/dL Hct (39.0-53.0) % Chloride (98-107) mmol/L Glucose (74-99) mg/dL POC Glucose (mg/dL) 62 L 121 H (75-99) mg/dL Assessment and Plan Plan: Assessment and plan #1 syncope, rule out cardiac causes. EKG shows normal sinus rhythm with no acute changes. No arrhythmias noted on the monitor. No orthostatics documented. #2 accelerated hypertension #3 history of hypertension #4 diabetes #5 hyperlipidemia #6 EtOH use, patient states he drinks 3-6 beers per day #7 Abnormal troponins, not consistent with acute coronary syndrome. Patient denies having any chest discomfort. EKG shows normal sinus rhythm with no acute changes. D-dimer negative. Plan No arrhythmias have been noted on the monitor. Patient continues to be hypertensive. We will add Dyazide to the patients medication regime. DNP note has been reviewed, I agree with a documented findings and plan of care. Patient was seen and examined.
[2016-10-04 12:20] LABS: Glucose,Whole Blood 136 mg/dL (75-99)
[2016-10-04] MEDS: TRIAMTERENE-HCTZ 37.5-25MG 1 EACH CAP PO SCH (12:34)
[2016-10-04 17:04] LABS: Glucose,Whole Blood 94 mg/dL (75-99)
[2016-10-04] MEDS: INSULIN DETEMIR 100 UNIT/ML 10 ML VIAL SQ SCH (20:51)
[2016-10-04] MEDS: metFORMIN 500 MG TAB PO SCH (20:51)
[2016-10-04 21:00] LABS: Glucose,Whole Blood 237 mg/dL (75-99)
--- NOTE | 2016-10-04 22:07 | PN ---
DATE OF SERVICE: 10/04/2016 This 76-year-old gentleman who was admitted with recurrent syncope is being evaluated for cardiac arrhythmia. No chest pain. No palpitations. No fever. On exam, alert and oriented x3. Pulse 69, blood pressure 143/66, respirations 18, temperature 97.7, pulse ox 97% on room air. HEENT: Conjunctivae normal. NECK: No jugular venous distension. CARDIOVASCULAR: S1 and S2 muffled. RESPIRATORY: Breath sounds diminished at the bases. A few scattered rhonchi and crackles. ABDOMEN: Soft, nontender. LEGS: No edema. NERVOUS SYSTEM: Nonfocal. LABS: Hemoglobin 11.6. Accu-Cheks are noted. ASSESSMENT: 1. Recurrent syncope for evaluation, possibly vasovagal or cardiac arrhythmia. 2. Troponin indeterminate, 0.063, 0.042. Rule out coronary artery disease. 3. Increased plasma lactic acid present on admission secondary to dehydration. 4. Increased creatinine with possible acute renal failure, possibly prerenal with dehydration. 5. Diabetes mellitus type 2. 6. History of ethanol. 7. Hypertension, essential. 8. History of dementia. 9. History of left toe amputation. 10. Chronic kidney disease stage 3. 11. FULL CODE. RECOMMENDATIONS AND DISCUSSION: Recommend to continue current medications. Continue with monitoring and symptomatic treatment. I recommend to closely follow with Cardiology. Guarded prognosis because of multiple complex medical issues. Further recommendations to follow.
[2016-10-05 06:19] LABS: Basophils # (A) 0.1 k/uL (0-0.2); Basophils % (A) 1 %; CHCM 33.5; Eosinophils # (A) 0.2 k/uL (0-0.7); Eosinophils % (A) 4 %; HCT 36.2 % (39.0-53.0); HDW 2.42; Luc # (Auto) 0.16; Luc % (Auto) 3; Lymphocytes # (A) 1.1 k/uL (1.0-4.8); Lymphocytes % (A) 21 %; MCH 31.7 pg (25.0-35.0); MCV 96.1 fL (80.0-100.0); Mean Platelet Volume 7.6; Monocytes # (A) 0.4 k/uL (0-1.0); Monocytes % (A) 7 %; Neutrophils # (A) 3.5 k/uL (1.3-7.7); Neutrophils % (A) 64 %; RBC 3.77 m/uL (4.30-5.90); WBC 5.5 k/uL (3.8-10.6)
[2016-10-05 06:32] LABS: Anion Gap 8 mmol/L; Blood Urea Nitrogen 24 mg/dL (9-20); Calcium 9.1 mg/dL (8.4-10.2); Carbon Dioxide 24 mmol/L (22-30); Chloride 110 mmol/L (98-107); Glucose 63 mg/dL (74-99); Non-African American GFR(MDRD) 56 (>60 ml/min/1.73 sqM); Potassium 4.1 mmol/L (3.5-5.1); Sodium 142 mmol/L (137-145)
[2016-10-05 06:33] LABS: Glucose,Whole Blood 61 mg/dL (75-99)
[2016-10-05] MEDS: INSULIN LISPRO (humaLOG) 300 UNIT/3 ML VIAL SQ SCH ×4 (06:35→21:21)
[2016-10-05] MEDS: glipiZIDE 5 MG TAB PO SCH ×2 (06:37→17:15)
[2016-10-05 06:56] LABS: Glucose,Whole Blood 85 mg/dL (75-99)
[2016-10-05] MEDS: ASPIRIN 325 MG TAB PO SCH (08:59)
[2016-10-05] MEDS: ATORVASTATIN 80 MG TAB PO SCH (08:59)
[2016-10-05] MEDS: DONEPEZIL 10 MG TAB PO SCH (09:00)
[2016-10-05] MEDS: HEPARIN SODIUM,PORCINE 5,000 UNIT/ML 1 ML VIAL SQ SCH ×2 (09:00→19:36)
[2016-10-05] MEDS: amLODIPine 10 MG TAB PO SCH (09:00)
[2016-10-05] MEDS: LISINOPRIL 20 MG TAB PO SCH ×2 (09:00→19:36)
[2016-10-05] MEDS: MULTIVITAMINS, THERA 1 EACH TAB PO SCH (09:01)
[2016-10-05] MEDS: THIAMINE 100 MG TAB PO SCH (09:01)
[2016-10-05] MEDS: CHOLECALCIFEROL 1,000 UNIT TAB PO SCH (09:01)
[2016-10-05] MEDS: FOLIC ACID 1 MG TAB PO SCH (09:02)
[2016-10-05] MEDS: TRIAMTERENE-HCTZ 37.5-25MG 1 EACH CAP PO SCH (09:02)
[2016-10-05] MEDS: metFORMIN 500 MG TAB PO SCH ×2 (09:02→19:35)
--- NOTE | 2016-10-05 11:50 | PN ---
Mr. Balderas is lying comfortably in bed. He has not been getting out of his bed too much although I have been encouraging him to start walking and today I told him specifically that I would like him to walk up and down the hallways. His blood pressure was elevated. He presented with syncope. He has not had any syncope. His blood pressure is ( ) add Amlodipine and Lisinopril 20 mg twice daily along with Dyazide. He is also diabetic. On examination, he is afebrile, 97.3 degrees Fahrenheit, pulse rate is in the 50s. Blood pressure 129/57 mmHg. Respiratory rate normal. Head and neck examination is normal. Lungs clear to auscultation. Extremities warm and no edema. IMPRESSION: 1. Recurrent syncope. 2. Uncontrolled hypertension. 3. Diabetes. Suggest: Telemetry monitoring to look for any sudden bradycardia secondary to AV block sinus arrest and that would explain syncope. Control hypertension. PLAN: Continue telemetry monitoring.
[2016-10-05 12:31] LABS: Glucose,Whole Blood 134 mg/dL (75-99)
--- NOTE | 2016-10-05 13:39 | EEG ---
DATE OF SERVICE: 10/04/2016 INDICATIONS FOR EXAMINATION: This patient is a 76 -year-old male being evaluated for syncope and collapse. AGE: 76Y EEG FINDINGS: A routine 21 channel awake digital EEG recording was accomplished utilizing the 10-20 international system with bipolar and referential montages. The background activity in the most alert resting state consists of a low to medium amplitude, fairly well developed and well sustained 6 Hz activity over the posterior head regions. This posterior rhythm attenuates to eye opening. There is a small amount of low amplitude, 18-20 Hz bet activity seen maximally over the anterior head regions. Muscle and movement artifact was observed on a few occasions during the tracing. Hyperventilation was not performed. Photic stimulation at flash frequencies of 2-30 Hz produced a minimal occipital driving response. Towards the mid and latter portion of the tracing, the patient does drift into spontaneous drowsiness. No epileptiform discharges were seen. IMPRESSION: This EEG is mildly abnormal in a diffuse fashion due to slight slowing of the EEG background. The EEG failed to reveal any focal, lateralized or epileptiform abnormalities. Clinical correlation is recommended.
[2016-10-05 17:04] LABS: Glucose,Whole Blood 78 mg/dL (75-99)
[2016-10-05] MEDS: INSULIN DETEMIR 100 UNIT/ML 10 ML VIAL SQ SCH (21:21)
[2016-10-05 21:43] LABS: Glucose,Whole Blood 196 mg/dL (75-99)
[2016-10-06 06:00] LABS: Basophils # (A) 0.1 k/uL (0-0.2); Basophils % (A) 1 %; CH 32.5; CHCM 33.4; Eosinophils # (A) 0.2 k/uL (0-0.7); Eosinophils % (A) 4 %; HCT 38.4 % (39.0-53.0); HDW 2.39; HGB 12.6 gm/dL (13.0-17.5); Luc # (Auto) 0.18; Luc % (Auto) 3; Lymphocytes # (A) 1.3 k/uL (1.0-4.8); Lymphocytes % (A) 22 %; MCHC 32.7 g/dL (31.0-37.0); MCV 97.7 fL (80.0-100.0); Mean Platelet Volume 7.9; Monocytes # (A) 0.5 k/uL (0-1.0); Monocytes % (A) 8 %; Neutrophils # (A) 3.7 k/uL (1.3-7.7); Neutrophils % (A) 62 %; RBC 3.93 m/uL (4.30-5.90); WBC (Perox) 6.08
[2016-10-06 06:13] LABS: Anion Gap 7 mmol/L; Blood Urea Nitrogen 29 mg/dL (9-20); Calcium 9.5 mg/dL (8.4-10.2); Carbon Dioxide 28 mmol/L (22-30); Chloride 108 mmol/L (98-107); Glucose 56 mg/dL (74-99); Non-African American GFR(MDRD) 50 (>60 ml/min/1.73 sqM); Potassium 4.7 mmol/L (3.5-5.1); Sodium 143 mmol/L (137-145)
[2016-10-06] MEDS: INSULIN LISPRO (humaLOG) 300 UNIT/3 ML VIAL SQ SCH ×4 (06:27→21:42)
[2016-10-06] MEDS: glipiZIDE 5 MG TAB PO SCH ×2 (06:28→17:16)
[2016-10-06 06:46] LABS: Glucose,Whole Blood 93 mg/dL (75-99)
[2016-10-06 06:46] LABS: Glucose,Whole Blood 55 mg/dL (75-99)
[2016-10-06] MEDS: amLODIPine 10 MG TAB PO SCH (07:48)
[2016-10-06] MEDS: HEPARIN SODIUM,PORCINE 5,000 UNIT/ML 1 ML VIAL SQ SCH ×2 (07:48→19:47)
[2016-10-06] MEDS: ASPIRIN 325 MG TAB PO SCH (07:48)
[2016-10-06] MEDS: ATORVASTATIN 80 MG TAB PO SCH (07:48)
[2016-10-06] MEDS: LISINOPRIL 20 MG TAB PO SCH ×2 (07:48→19:47)
[2016-10-06] MEDS: DONEPEZIL 10 MG TAB PO SCH (07:48)
[2016-10-06] MEDS: TRIAMTERENE-HCTZ 37.5-25MG 1 EACH CAP PO SCH (07:49)
[2016-10-06] MEDS: metFORMIN 500 MG TAB PO SCH ×2 (07:49→19:47)
--- NOTE | 2016-10-06 10:14 | PN ---
Mr. Balderas is doing well. He has not had any syncope. He has not had any sudden episode of bradycardia. His blood pressures are very well controlled. He has the following issues: 1. Recurrent loss of consciousness of unclear etiology but worrisome for sudden sonia episodes. 2. Mild sinus bradycardia in the 50s. 3. Very high blood pressure. 4. History of diabetes. With antihypertensive therapy, his blood pressures are now very well controlled on amlodipine 10 mg daily, Lisinopril 20 b.i.d. along with diuretic. He is ambulating in the halls. He denies any chest discomfort, dizziness or lightheadedness. I have not seen any significant arrhythmia over the monitor. We will continue to monitor him for the next 24 hours. Heart sounds S1, S2 are normal. Blood pressure is in normal range now. Breath sounds are equal bilaterally. No rhonchi. No crackles. ABDOMEN: Soft, nontender. EXTREMITIES: Warm. No edema. IMPRESSION: 1. Recurrent syncope. 2. Essential hypertension. 3. Diabetes. SUGGEST: 1. Low-salt diet. 2. Minimal alcohol use. 3. Antihypertensive medications to continue lifelong. 4. Diabetes management per primary. 5. If he has no further arrhythmias ( ) than loop monitor will be implanted. This has all been discussed with him as well as his daughter.
--- NOTE | 2016-10-06 11:14 | PN ---
DATE OF SERVICE: 10/05/2016 This 76-year-old gentleman who was admitted with recurrent syncope is being closely monitored at this time. Cardiology is following the patient closely. Telemetry is being carried out by Cardiology looking for any bradycardia. No chest pain. No palpitations. No fever. On exam, alert, oriented x3. Pulse 57, blood pressure 140/74, respirations 18, temperature 98.2, pulse ox 97% on room air. HEENT: Conjunctivae normal. NECK: No jugular venous distention. CARDIOVASCULAR: S1 and S2. RESPIRATORY: Breath sounds diminished at the bases. ABDOMEN: Soft, nontender. LEGS: No edema, no swelling. NERVOUS SYSTEM: No focal deficits. Labs at this time shows WBC is 5.5, hemoglobin is 12 and glucose 134. ASSESSMENT: 1. Recurrent syncope for evaluation, possibly vasovagal or cardiac arrhythmias. 2. Troponin indeterminate, 0.060 and 0.04, rule out coronary artery disease. 3. Increased plasma lactic acid present on admission secondary to dehydration. 4. Increased creatinine, possible acute renal failure, possibly secondary to prerenal with dehydration, present on admission, improved. 5. Diabetes type 2. 6. History of ethanol. 7. Hypertension, essential. 8. History of dementia. 9. History of left toe amputations. 10. Chronic kidney disease, stage III. 11. FULL CODE. RECOMMENDATIONS AND DISCUSSION: I recommend to continue the current medications, continue monitoring and symptomatic treatment. Continue to monitor closely. Telemetry. Increase ambulation. Closely follow with Cardiology. Prognosis guarded. Further recommendations to follow.
[2016-10-06 12:09] LABS: Glucose,Whole Blood 89 mg/dL (75-99)
[2016-10-06] MEDS: FOLIC ACID 1 MG TAB PO SCH (12:14)
[2016-10-06] MEDS: CHOLECALCIFEROL 1,000 UNIT TAB PO SCH (12:14)
[2016-10-06] MEDS: SODIUM CHLORIDE 0.9% 1,000 ML IV SCH (12:14)
[2016-10-06] MEDS: THIAMINE 100 MG TAB PO SCH (12:14)
[2016-10-06] MEDS: MULTIVITAMINS, THERA 1 EACH TAB PO SCH (12:15)
[2016-10-06 17:12] LABS: Glucose,Whole Blood 94 mg/dL (75-99)
[2016-10-06 20:24] LABS: Glucose,Whole Blood 203 mg/dL (75-99)
[2016-10-06] MEDS ORDERED: INSULIN DETEMIR 100 UNIT/ML 10 ML VIAL SQ SCH (21:00)
[2016-10-07 05:52] LABS: Basophils # (A) 0.1 k/uL (0-0.2); Basophils % (A) 1 %; CH 32.5; CHCM 33.5; Eosinophils # (A) 0.2 k/uL (0-0.7); Eosinophils % (A) 4 %; HGB 12.5 gm/dL (13.0-17.5); Luc # (Auto) 0.18; Luc % (Auto) 3; Lymphocytes # (A) 1.2 k/uL (1.0-4.8); Lymphocytes % (A) 19 %; MCH 32.1 pg (25.0-35.0); MCV 97.5 fL (80.0-100.0); Mean Platelet Volume 7.9; Monocytes # (A) 0.4 k/uL (0-1.0); Monocytes % (A) 7 %; Neutrophils # (A) 4.3 k/uL (1.3-7.7); Neutrophils % (A) 67 %; RDW 13.8 % (11.5-15.5); WBC 6.4 k/uL (3.8-10.6); WBC (Perox) 6.49
[2016-10-07 06:01] LABS: Calcium 9.6 mg/dL (8.4-10.2); Potassium 4.6 mmol/L (3.5-5.1)
[2016-10-07 06:12] LABS: Glucose,Whole Blood 68 mg/dL (75-99)
[2016-10-07] MEDS: INSULIN LISPRO (humaLOG) 300 UNIT/3 ML VIAL SQ SCH ×3 (06:28→17:05)
[2016-10-07 06:30] LABS: Glucose,Whole Blood 90 mg/dL (75-99)
[2016-10-07] MEDS: glipiZIDE 5 MG TAB PO SCH ×2 (06:38→17:05)
--- NOTE | 2016-10-07 08:04 | PN ---
DATE OF SERVICE: 10/06/2016 This 76-year-old gentleman admitted with syncope is being closely monitored. The patient . Cardiology is following the patient closely. Recommended to continue the current medications. No chest pain, no palpitations. No fever. On exam, alert and oriented x3. Pulse is 54, blood pressure 120/66, respirations 17, temperature 97.2, pulse ox 94% on room air. HEENT: Conjunctivae normal. NECK: No jugular venous distention. CARDIOVASCULAR: S1 and S2. RESPIRATORY: Breath sounds diminished at the bases. No rhonchi, no crackles. ABDOMEN: Soft, nontender. LEGS: No edema, no swelling. NERVOUS SYSTEM: No focal deficits. LABS: WBC 6, hemoglobin 12, creatinine 1.38. ASSESSMENT: 1. Recurrent syncope for evaluation, possibly vasovagal, rule out cardiac arrhythmia. 2. Troponin indeterminate, 0.060 and 0.040, rule out coronary artery disease. 3. Increased plasma lactic acid present on admission secondary to dehydration. 4. Increased creatinine possibly acute renal failure, possibly secondary to renal failure with dehydration present on admission. 5. Diabetes mellitus type 2. 6. History of EtOH. 7. Hypertension, essential history. 8. History of dementia. 9. History of left toe amputation. 10. Chronic kidney disease stage III. 11. FULL CODE. RECOMMENDATIONS AND DISCUSSION: I recommend to continue the current medications, continue symptomatic treatment. Otherwise at this time, will monitor the patient closely. Otherwise, closely follow with cardiology. Continue with telemetry. Prognosis guarded. Monitor blood sugar closely. Further recommendations to follow. RACHELD
[2016-10-07] MEDS: MULTIVITAMINS, THERA 1 EACH TAB PO SCH (09:01)
[2016-10-07] MEDS: FOLIC ACID 1 MG TAB PO SCH (09:01)
[2016-10-07] MEDS: ASPIRIN 325 MG TAB PO SCH (09:01)
[2016-10-07] MEDS: ATORVASTATIN 80 MG TAB PO SCH (09:02)
[2016-10-07] MEDS: LISINOPRIL 20 MG TAB PO SCH (09:02)
[2016-10-07] MEDS: THIAMINE 100 MG TAB PO SCH (09:02)
[2016-10-07] MEDS: TRIAMTERENE-HCTZ 37.5-25MG 1 EACH CAP PO SCH (09:02)
[2016-10-07] MEDS: amLODIPine 10 MG TAB PO SCH (09:02)
[2016-10-07] MEDS: SODIUM CHLORIDE 0.9% 1,000 ML IV SCH (09:03)
[2016-10-07] MEDS: metFORMIN 500 MG TAB PO SCH (09:03)
[2016-10-07] MEDS: HEPARIN SODIUM,PORCINE 5,000 UNIT/ML 1 ML VIAL SQ SCH (09:03)
[2016-10-07] MEDS: CHOLECALCIFEROL 1,000 UNIT TAB PO SCH (09:03)
[2016-10-07] MEDS: DONEPEZIL 10 MG TAB PO SCH (09:03)
[2016-10-07 10:44] VITALS: RESP 18
[2016-10-07 12:21] LABS: Glucose,Whole Blood 95 mg/dL (75-99)
[2016-10-07] MEDS ORDERED: ceFAZolin 1,000 MG in DEXTROSE/WATER 1 50ML.BAG IVPB STA (12:48)
[2016-10-07] MEDS ORDERED: SODIUM CHLORIDE 0.9% 500 ML IV ONE (13:00)
[2016-10-07] MEDS ORDERED: MIDAZOLAM 2 MG/2 ML VIAL ONE (13:05)
[2016-10-07] MEDS ORDERED: MIDAZOLAM 2 MG/2 ML VIAL IV ONE (13:08)
[2016-10-07] MEDS ORDERED: LIDOCAINE 2% INJ 20 MG/ML SQ ONE (13:08)
--- NOTE | 2016-10-07 13:24 | P.PCN ---
Preoperative Diagnosis: Loop monitor implant Primary physicians: Dr. Kwan Continuous Dryout Operator Helper: Dr. Lopez Indication: Recurrent syncope while sitting Patient was brought to the EP lab in a fasting state. Written informed consent was obtained prior to the procedure. The left pectoral area was prepped and draped per protocol. Intravenous antibiotic was administered preoperatively. A subcutaneous Loop monitor was implanted successfully and the wound was closed per protocol. The device was programmed to detect significant sonia- arrhythmic and tachy-arrhythmic events, per protocol. Device and programming details: Syncope protocol Patient underwent EP procedure under conscious sedation/moderate sedation, monitoring of the level of consciousness and physiologic parameters including but not limited to vital signs and oxygenation. Patient tolerated the procedure well without any acute complications. Start time: 1308 Stop time: 1318 Postoperative Diagnosis: Procedure(s) Performed: Implants: Anesthesia: local, other Condition: stable Disposition: floor Indications for Procedure: Operative Findings: Description of Procedure:
--- NOTE | 2016-10-07 13:28 | P.PN ---
Progress Note - Text Impression Recurrent syncopal spells Mild sinus bradycardia mild WV prolongation no sudden bradycardia or arrhythmias noted in the last 72 hours on telemetry Uncontrolled hypertension with left ventricular hypertrophy Diabetes adult onset Stage III ckd Borderline troponins Status post implantation of a loop monitor On multiple antihypertensive medications at this time HDL 44 LDL 51 total cholesterol 112 triglycerides 85 Plan Continue antihypertensive therapy Follow-up in the office in 5 days He will dry
[2016-10-07 16:48] VITALS: BP 163/72; PULSE 65; TEMP 98.1
[2016-10-07 16:55] LABS: Glucose,Whole Blood 192 mg/dL (75-99)
--- NOTE | 2016-10-08 08:27 | DS ---
DATE OF ADMISSION: 10/02/2016 DATE OF DISCHARGE: 10/07/2016 DATE OF SERVICE: 09/27/2016 FINAL DIAGNOSES: 1. Recurrent syncope for evaluation possible vasovagal, rule out cardiac arrhythmia. 2. Troponin indeterminate at 0.060 and 0.040, rule out coronary artery disease. 3. Increased plasma lactic acid present on admission secondary to dehydration. 4. Increased creatinine, possibly acute renal failure, possibly secondary to renal failure with dehydration, present on admission. 5. Diabetes mellitus type 2. 6. History of ethyl alcohol. 7. Hypertension, essential history. 8. History of dimensions. 9. History of left toe amputation. 10. Chronic kidney disease stage III. 11. FULL CODE. DISCHARGE DISPOSITION: The patient will be discharged in a stable condition with guarded prognosis. HISTORY OF PRESENT ILLNESS: This is a 76-year-old gentleman with a past medical history of syncope. The patient was monitored on telemetry and did not show any acute abnormality and Loop monitor was inserted and Cardiology will follow the patient in the outpatient setting. On exam, vitals are stable. CARDIOVASCULAR: S1, S2. ABDOMEN: Soft, nontender. NERVOUS SYSTEM: No focal deficits. DISCHARGE ADVICE: 1. Diet is cardiac. 2. Activity limited until followup. 3. Follow up with Dr. Lawrence as advised. 4. Follow up with Dr. Pugh in 2 to 3 days. Medications are as follows: 1. Norvasc 10 mg p.o. daily. 2. Aspirin 81 mg daily. 3. Lipitor 80 mg q.h.s. 4. Vitamin D3 two thousand daily. 5. Aricept 10 mg daily. 6. Glucotrol 5 mg a.c. meals b.i.d. 7. Levemir 150 mg q.h.s. 8. Zestril 20 mg b.i.d. 9. Metformin 1000 mg b.i.d. 10. Multivitamin 1 p.o. daily. 11. Dyazide 37.5/25 mg p.o. q.a.m. Once again, the patient will be discharged in a stable condition with guarded prognosis.
== END 2016-10-07 18:19 | disposition home or self-care (01) | DRG 261 ==
LOC: EC 23:18 → 6SEL 10-02 00:50 → 2CATHESU 10-02 09:16 → 6SEL 10-02 11:27
PROVIDERS: ADMIT Hospitalist; ATTEND Hospitalist
PROC: 0JH632Z Insertion of Monitoring Device into Chest Subcutaneous Tissue and Fascia, Percutaneous Approach (ICD-10-PCS; principal; 2016-10-07 12:30)
DX: R55 Syncope and collapse (principal); N17.9 Acute kidney failure, unspecified; E11.22 Type 2 diabetes mellitus with diabetic chronic kidney disease; F03.90 Unspecified dementia, unspecified severity, without behavioral disturbance, psychotic disturbance, mood disturbance, and anxiety; E86.0 Dehydration; I49.9 Cardiac arrhythmia, unspecified; E78.00 Pure hypercholesterolemia, unspecified; E78.5 Hyperlipidemia, unspecified; I10 Essential (primary) hypertension; I51.7 Cardiomegaly; N18.3 Chronic kidney disease, stage 3 (moderate); R00.1 Bradycardia, unspecified; I25.10 Atherosclerotic heart disease of native coronary artery without angina pectoris; Z79.82 Long term (current) use of aspirin; Z79.899 Other long term (current) drug therapy; Z79.4 Long term (current) use of insulin; Z89.422 Acquired absence of other left toe(s)
CPT/HCPCS: 33282; 36415; 70450; 71010; 71275; 75635; 80048; 80053; 80061; 80306; 81001; 82550; 82553; 83036; 83605; 83735; 83880; 84100; 84484; 85025; 85379; 85610; 85730; 93005; 93306; 95819; 96361; 96374; 96375; 96376; 99285

== ENCOUNTER → 2017-02-20 | Outpatient (CLI) | payer OTHER, MEDICARE ==
[2017-02-20 16:48] LABS: CH 31.6; CHCM 32.1; HCT 39.7 % (39.0-53.0); HGB 12.7 gm/dL (13.0-17.5); MCH 31.6 pg (25.0-35.0); MCHC 31.9 g/dL (31.0-37.0); Mean Platelet Volume 8.3; RBC 4.01 m/uL (4.30-5.90); RDW 13.7 % (11.5-15.5); WBC 7.9 k/uL (3.8-10.6)
[2017-02-20 17:16] LABS: Calcium 9.2 mg/dL (8.4-10.2); Potassium 5.3 mmol/L (3.5-5.1)
== END ==
LOC: LABWHC1 16:28
PROVIDERS: ATTEND Internal Medicine Clinical Cardiac Electrophysiology
DX: I44.2 Atrioventricular block, complete (principal); R55 Syncope and collapse; I10 Essential (primary) hypertension
CPT/HCPCS: 36415; 80048; 85027

== ENCOUNTER 2018-04-01 20:10 | Inpatient (IN) | payer MEDICARE ==
[2018-04-01] MEDS ORDERED: SODIUM CHLORIDE 0.9% 1,000 ML IV STA (20:45)
--- NOTE | 2018-04-01 20:49 | ED ---
General Adult HPI - General Chief complaint: Dizziness Stated complaint: Foot infection Time Seen by Provider: 04/01/18 20:31 Source: patient, family, RN notes reviewed, old records reviewed Mode of arrival: ambulatory Limitations: no limitations - History of Present Illness Initial comments: 77-year-old male presents for evaluation of elevated blood sugar and erythema in his right foot. Patient is known diabetic, states his blood sugar has been running high. He noted some erythema in his right foot and discoloration of his right third toe approximately 2 days ago. Denies fever or chills. Denies headache. Denies chest pain. Denies focal numbness or weakness. Patient does report some unsteady gait. He also reports to daily drinking, drinks approximately 6 beers daily. - Related Data Home Medications Medication Instructions Recorded Confirmed Aspirin 81 mg PO BID 10/01/16 04/01/18 Cholecalciferol [Vitamin D3] 2,000 unit PO DAILY 10/01/16 04/01/18 Donepezil [Aricept] 10 mg PO DAILY 10/01/16 04/01/18 Insulin Detemir [Levemir] 15 unit SQ HS 10/01/16 04/01/18 Multivitamins, Thera [Multivitamin 1 tab PO DAILY 10/01/16 04/01/18 (formulary)] glipiZIDE [Glucotrol] 5 mg PO AC-BID 10/01/16 04/01/18 metFORMIN HCL [Metformin HCl] 1,000 mg PO BID 10/02/16 04/01/18 Calcium 80mg 80 mg PO HS 04/01/18 04/01/18 Previous Rx's Medication Instructions Recorded Lisinopril [Zestril] 20 mg PO BID #60 tab 10/07/16 Triamterene-Hctz 37.5-25Mg 1 cap PO QAM #90 capsule 10/07/16 [Dyazide 37.5-25 Capsule] amLODIPine [Norvasc] 10 mg PO DAILY #30 tab 10/07/16 Allergies Allergy/AdvReac Type Severity Reaction Status Date / Time No Known Allergies Allergy Verified 04/01/18 21:29 Review of Systems ROS Statement: Those systems with pertinent positive or pertinent negative responses have been documented in the HPI. ROS Other: All systems not noted in ROS Statement are negative. Past Medical History Past Medical History: Diabetes Mellitus, Hypertension Additional Past Medical History / Comment(s): dementia History of Any Multi-Drug Resistant Organisms: None Reported Past Surgical History: Appendectomy Additional Past Surgical History / Comment(s): LEFT GREAT TOE HALF REMOVED. Past Anesthesia/Blood Transfusion Reactions: No Reported Reaction Past Psychological History: No Psychological Hx Reported Smoking Status: Never smoker Past Alcohol Use History: Abuse, Daily Past Drug Use History: None Reported - Past Family History Father Family Medical History: Cancer Mother History Unknown: Yes General Exam Limitations: no limitations General appearance: alert, in no apparent distress Head exam: Present: atraumatic, normocephalic Eye exam: Present: normal appearance, PERRL ENT exam: Present: mucous membranes dry Neck exam: Present: normal inspection. Absent: tenderness, meningismus Respiratory exam: Present: normal lung sounds bilaterally. Absent: respiratory distress, wheezes Cardiovascular Exam: Present: regular rate, normal rhythm GI/Abdominal exam: Present: soft. Absent: distended, tenderness Extremities exam: Present: pedal edema, other ((Within normal limits, round, normal cap refill, no signs of infection. Right foot: Erythema which progresses to mid calf, there is gangrene of the third toe.) Neurological exam: Present: alert. Absent: motor sensory deficit Skin exam: Present: warm. Absent: cyanosis, diaphoretic Course Vital Signs 04/01/18 04/01/18 20:23 23:02 Temperature 98.9 F Pulse Rate 103 H 97 Respiratory 18 16 Rate Blood Pressure 153/71 167/82 O2 Sat by Pulse 98 97 Oximetry EKG Findings - EKG Comments: EKG Findings:: EKG: Sinus rhythm, premature atrial complexes, ventricular rate 96, NE interval 206, QRS duration 88, QTC [address] segment elevation or depression. Medical Decision Making - Medical Decision Making 71 sexual male presenting with multiple issues including dizziness, elevated blood sugar, and infection in his right foot. Workup in the emergency department reveals elevated white blood cell count 8.4, hemoglobin 12.8, normal lactic acid. Sodium is low 128, likely component of pseudohyponatremia secondary to hyperglycemia. Creatinine 1.63 which is baseline for this patient. Acetone is positive however CO2 is normal and anion gap is normal. Troponin elevated in the setting of renal failure and this is compared to old, patient has had previous troponin elevation. This level will be trended. X- ray of the foot shows some soft tissue gas at the base of the third digit consistent with exam, patient has gangrene and cellulitis up the foot into the mid calvo. He started on broad-spectrum antibiotics, ceftriaxone and vancomycin. He will be admitted for treatment of both hyperglycemia, and right foot infection. Vascular surgery placed on consult. - Lab Data Result diagrams: 04/01/18 21:30 04/01/18 21:30 Lab Results 04/01/18 04/01/18 04/01/18 Range/Units 20:42 21:30 21:30 WBC 18.4 H (3.8-10.6) k/uL RBC 4.15 L (4.30-5.90) m/uL Hgb 12.8 L (13.0-17.5) gm/dL Hct 38.2 L (39.0-53.0) % MCV 92.1 (80.0-100.0) fL MCH 30.8 (25.0-35.0) pg MCHC 33.4 (31.0-37.0) g/dL RDW 13.3 (11.5-15.5) % Plt Count 195 (150-450) k/uL Neutrophils % 92 % Lymphocytes % 3 % Monocytes % 4 % Eosinophils % 0 % Basophils % 0 % Neutrophils # 16.8 H (1.3-7.7) k/uL Lymphocytes # 0.5 L (1.0-4.8) k/uL Monocytes # 0.8 (0-1.0) k/uL Eosinophils # 0.1 (0-0.7) k/uL Basophils # 0.0 (0-0.2) k/uL PT (9.0-12.0) sec INR (<1.2) APTT (22.0-30.0) sec Sodium (137-145) mmol/L Potassium (3.5-5.1) mmol/L Chloride (98-107) mmol/L Carbon Dioxide (22-30) mmol/L Anion Gap mmol/L BUN (9-20) mg/dL Creatinine (0.66-1.25) mg/dL Est GFR (CKD-EPI)AfAm (>60 ml/min/1.73 sqM) Est GFR (CKD-EPI)NonAf (>60 ml/min/1.73 sqM) Glucose (74-99) mg/dL POC Glucose (mg/dL) 438 H (75-99) mg/dL POC Glu Park Keeper ID Amelia Brennan Plasma Lactic Acid Jerome (0.7-2.0) mmol/L Calcium (8.4-10.2) mg/dL Magnesium (1.6-2.3) mg/dL Total Bilirubin (0.2-1.3) mg/dL AST (17-59) U/L ALT (21-72) U/L Alkaline Phosphatase (38-126) U/L Total Creatine Kinase 42 L (55-170) U/L CK-MB (CK-2) 0.9 (0.0-2.4) ng/mL CK-MB (CK-2) Rel Index 2.1 Troponin I 0.054 H* (0.000-0.034) ng/mL Total Protein (6.3-8.2) g/dL Albumin (3.5-5.0) g/dL Acetone, Qual (Negative) 04/01/18 04/01/18 04/01/18 Range/Units 21:30 21:30 21:30 WBC (3.8-10.6) k/uL RBC (4.30-5.90) m/uL Hgb (13.0-17.5) gm/dL Hct (39.0-53.0) % MCV (80.0-100.0) fL MCH (25.0-35.0) pg MCHC (31.0-37.0) g/dL RDW (11.5-15.5) % Plt Count (150-450) k/uL Neutrophils % % Lymphocytes % % Monocytes % % Eosinophils % % Basophils % % Neutrophils # (1.3-7.7) k/uL Lymphocytes # (1.0-4.8) k/uL Monocytes # (0-1.0) k/uL Eosinophils # (0-0.7) k/uL Basophils # (0-0.2) k/uL PT 10.4 (9.0-12.0) sec INR 1.1 (<1.2) APTT 30.9 H (22.0-30.0) sec Sodium 128 L (137-145) mmol/L Potassium 5.0 (3.5-5.1) mmol/L Chloride 92 L (98-107) mmol/L Carbon Dioxide 23 (22-30) mmol/L Anion Gap 13 mmol/L BUN 34 H (9-20) mg/dL Creatinine 1.63 H (0.66-1.25) mg/dL Est GFR (CKD-EPI)AfAm 47 (>60 ml/min/1.73 sqM) Est GFR (CKD-EPI)NonAf 40 (>60 ml/min/1.73 sqM) Glucose 462 H (74-99) mg/dL POC Glucose (mg/dL) (75-99) mg/dL POC Glu Park Keeper ID Plasma Lactic Acid Jerome 2.0 (0.7-2.0) mmol/L Calcium 8.5 (8.4-10.2) mg/dL Magnesium 1.9 (1.6-2.3) mg/dL Total Bilirubin 0.7 (0.2-1.3) mg/dL AST 38 (17-59) U/L ALT 39 (21-72) U/L Alkaline Phosphatase 128 H (38-126) U/L Total Creatine Kinase (55-170) U/L CK-MB (CK-2) (0.0-2.4) ng/mL CK-MB (CK-2) Rel Index Troponin I (0.000-0.034) ng/mL Total Protein 6.0 L (6.3-8.2) g/dL Albumin 3.1 L (3.5-5.0) g/dL Acetone, Qual Positive (Negative) Disposition Clinical Impression: Dehydration, Gangrene of toe of right foot, Cellulitis, Elevated troponin, Dementia Disposition: ADMITTED IP TO THIS HOSP Condition: Stable Is patient prescribed a controlled substance at d/c from ED?: No Referrals: [facility],Clinic [Primary Care Provider] - 1-2 days Decision to Admit Reason: Admit from EC Decision Date: 04/01/18 Decision Time: 23:35
[2018-04-01 21:02] LABS: Glucose,Whole Blood 438 mg/dL (75-99)
[2018-04-01 21:50] LABS: Basophils % (A) 0 %; Eosinophils # (A) 0.1 k/uL (0-0.7); Eosinophils % (A) 0 %; HCT 38.2 % (39.0-53.0); HGB 12.8 gm/dL (13.0-17.5); Lymphocytes # (A) 0.5 k/uL (1.0-4.8); Lymphocytes % (A) 3 %; MCH 30.8 pg (25.0-35.0); MCHC 33.4 g/dL (31.0-37.0); MCV 92.1 fL (80.0-100.0); Mean Platelet Volume 7.5; Monocytes # (A) 0.8 k/uL (0-1.0); Monocytes % (A) 4 %; Neutrophils # (A) 16.8 k/uL (1.3-7.7); Neutrophils % (A) 92 %; Platelet Count 195 k/uL (150-450); RBC 4.15 m/uL (4.30-5.90); RDW 13.3 % (11.5-15.5); WBC 18.4 k/uL (3.8-10.6)
[2018-04-01] MEDS ORDERED: VANCOMYCIN IV PER PHARMACY 1 EACH MISC MISCELLANE PRN (21:59)
[2018-04-01 22:01] LABS: ALT 39 U/L (21-72); AST 38 U/L (17-59); Albumin 3.1 g/dL (3.5-5.0); Alkaline Phosphatase 128 U/L (38-126); Anion Gap 13 mmol/L; Blood Urea Nitrogen 34 mg/dL (9-20); Calcium 8.5 mg/dL (8.4-10.2); Carbon Dioxide 23 mmol/L (22-30); Chloride 92 mmol/L (98-107); Glucose 462 mg/dL (74-99); Magnesium 1.9 mg/dL (1.6-2.3); Sodium 128 mmol/L (137-145); Total Bilirubin 0.7 mg/dL (0.2-1.3)
[2018-04-01 22:02] LABS: INR 1.1 (<1.2); Prothrombin Time 10.4 sec (9.0-12.0)
[2018-04-01] MEDS ORDERED: VANCOMYCIN 1,500 MG in SODIUM CHLORIDE 0.9% 250 ML IVPB STA (22:02)
[2018-04-01 22:03] LABS: Partial Thromboplastin Time 30.9 sec (22.0-30.0)
[2018-04-01] MEDS ORDERED: INSULIN REGULAR 100 UNIT/ML VIAL IV ONE (22:22)
[2018-04-01] MEDS ORDERED: SODIUM CHLORIDE 0.9% 500 ML 500 ML IV ONE (22:22)
[2018-04-01 22:23] LABS: Creatine Kinase MB 0.9 ng/mL (0.0-2.4)
[2018-04-01 22:28] LABS: Troponin I 0.054 ng/mL (0.000-0.034)
[2018-04-01] MEDS ORDERED: THIAMINE 100 MG/ML 2 ML VIAL IM STA (22:53)
[2018-04-01] MEDS ORDERED: LORazepam 2 MG/ML INJ IV PRN ×3 (22:53)
--- NOTE | 2018-04-01 22:53 | CT ---
EXAMINATION TYPE: CT brain wo con DATE OF EXAM: 04/01/2018 COMPARISON: 10/01/2016 HISTORY: dizziness, syncope CT DLP: 1005.4 mGycm Automated exposure control for dose reduction was used. FINDINGS: There is cerebral cortical atrophy. There is no mass effect nor midline shift. There is no sign of in tracranial hemorrhage. The calvarium is intact. IMPRESSION: CEREBRAL ATROPHY. NO ACUTE INTRACRANIAL ABNORMALITY. NO CHANGE.
--- NOTE | 2018-04-01 22:55 | XR ---
EXAMINATION TYPE: XR foot complete RT DATE OF EXAM: 04/01/2018 COMPARISON: NONE HISTORY: Black middle toe TECHNIQUE: 3 views FINDINGS: There is severe narrowing of the first MP joint space with spur formation. There appears to be soft tissue air at the base of the first second and third toes. I see no fracture. There is no fo uarora bone destruction. There is a large plantar calcaneal spur. IMPRESSION: Soft tissue air as above could relate to gangrene. No fracture seen. 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
--- NOTE | 2018-04-01 22:56 | XR ---
EXAMINATION TYPE: XR chest 2V DATE OF EXAM: 04/01/2018 COMPARISON: 10/02/2016 HISTORY: Dizziness TECHNIQUE: Frontal and lateral views of the chest are obtained. FINDINGS: There is no heart failure nor confluent pneumonic infiltrate. Costophrenic angles are jarod r. There is left axillary pacemaker noted. Lead tips are over the right ventricle. Bony thorax appear s intact. IMPRESSION: No active cardiopulmonary disease. No change.
[2018-04-01] MEDS ORDERED: NALOXONE 0.4 MG/ML 1 ML VIAL IV PRN (23:19)
[2018-04-01] MEDS ORDERED: ASPIRIN 325 MG TAB PO STA (23:21)
[2018-04-02] MEDS: SODIUM CHLORIDE 0.9% 1,000 ML IV SCH ×3 (01:21→23:24)
[2018-04-02] MEDS: THIAMINE 100 MG TAB PO SCH ×3 (01:21→16:27)
[2018-04-02 05:05] LABS: Troponin I 0.073 ng/mL (0.000-0.034)
[2018-04-02 06:19] LABS: Glucose,Whole Blood 351 mg/dL (75-99)
[2018-04-02] MEDS: INSULIN ASPART 100 UNIT/ML 1 ML 10 ML VIAL SQ SCH ×4 (06:54→23:20)
[2018-04-02] MEDS: DONEPEZIL 10 MG TAB PO SCH (09:00)
[2018-04-02] MEDS: ASPIRIN 81 MG PO SCH ×2 (09:00→20:46)
[2018-04-02] MEDS: amLODIPine 10 MG TAB PO SCH (09:00)
[2018-04-02] MEDS: LISINOPRIL 20 MG TAB PO SCH ×2 (09:00→20:46)
[2018-04-02] MEDS: metFORMIN 500 MG TAB PO SCH ×2 (09:00→23:14)
[2018-04-02 10:22] LABS: Creatine Kinase MB 1.2 ng/mL (0.0-2.4)
[2018-04-02 10:33] LABS: Troponin I 0.054 ng/mL (0.000-0.034)
[2018-04-02] MEDS: TRIAMTERENE-HCTZ 37.5-25MG 1 EACH CAP PO SCH (11:54)
[2018-04-02 12:29] LABS: Glucose,Whole Blood 285 mg/dL (75-99)
[2018-04-02] MEDS ORDERED: SODIUM CHLORIDE 0.9% 1,000 ML IV ONE (12:39)
[2018-04-02] MEDS ORDERED: HYDROcodone/APAP 5-325MG 1 EACH TAB PO PRN (12:57)
[2018-04-02] MEDS ORDERED: MELATONIN 3 MG TABLET PO PRN (12:57)
[2018-04-02] MEDS ORDERED: ALPRAZolam 0.25 MG TAB PO PRN (12:57)
--- NOTE | 2018-04-02 13:11 | P.PN ---
Progress Note - Text 77-year-old white male came to the emergency room with a high blood sugar. Patient has developed right foot second toe wet gangrene with marked swelling redness on the dorsal aspect of the foot patient was seen by the infectious disease on IV antibiotic. Vascular examination brachial radial pulses are present femorals are 1+ dorsal pedis by the Doppler patient has a wet gangrene in the right foot second toe and marked cellulitis or redness noted on the dorsal suspect of the foot plan is a had amputation the right foot second toe and we take the deep culture this can complication discussed with the patient
--- NOTE | 2018-04-02 13:22 | CONS ---
CONSULTATION This is a 77-year-old diabetic male who has been admitted with history of right foot second toe wet gangrene. The patient has been started on IV antibiotic. MEDICAL HISTORY: History of diabetes, hypertension. SURGICAL HISTORY: History of appendectomy in the past. PERSONAL HISTORY: ALLERGIES: No known allergies. PHYSICAL EXAMINATION: On examination: Neck is supple. Trachea central. Chest is clear to auscultation and percussion. Abdomen is soft, nontender. Vascular examination femorals are 1+ on the right side, left side is 2+. Posterior tibial, dorsalis pedis by the Doppler. The patient has a wet gangrene of the right foot second toe. There is marked redness of the dorsal aspect of the foot and also on the plantar aspect of the foot. There is a foul odor smell noted of the right foot second toe. PLAN: Ray amputation. Risks and complications of bleeding, infection, nonhealing has been discussed. MMODL / IJN: [id number] /
[2018-04-02] MEDS ORDERED: fentaNYL (PF) 50 MCG/ML 2 ML AMP ONE (14:10)
[2018-04-02] MEDS ORDERED: MIDAZOLAM 2 MG/2 ML VIAL ONE (14:10)
[2018-04-02] MEDS ORDERED: PROPOFOL 10 MG/ML 20 ML VIAL IV ONE (14:10)
[2018-04-02] MEDS ORDERED: LIDOCAINE 1% INJ 10MG/ML (20 ML MDV) SQ ONE ×2 (14:37)
[2018-04-02 15:18] LABS: Glucose,Whole Blood 239 mg/dL (75-99)
[2018-04-02] MEDS ORDERED: INSULIN ASPART 100 UNIT/ML 1 ML 10 ML VIAL SQ ONE (15:27)
--- NOTE | 2018-04-02 15:55 | OP ---
OPERATIVE REPORT PREOPERATIVE DIAGNOSIS: Wet gangrene of the right foot second toe and skin necrosis noted on the plantar and dorsal aspects of the foot with redness. PROCEDURE: Ray amputation of the right foot second toe and head of the metatarsal bone of the second toe and deep culture for aerobic and anaerobic. PROCEDURE DESCRIPTION: This patient was brought to the operating room. Right foot was prepped and draped in sterile manner. Under local and IV sedation, elliptical incisions were made on the dorsal aspect of the foot, went circumferentially around the second toe, and the incision was extended to the plantar aspect of the foot, deepened through skin, fat and fascia. Tendons were divided of the dorsum and plantar aspects of the foot. There was foul odor noted. There was extensive necrotic tissue present, and all the necrotic tissue was excised from the plantar and dorsal aspects of the foot. Head of the metatarsal was also necrotic, which was excised with the bone cutter, and specimen was removed. We took deep culture from the wound and hemostasis was controlled. Wound was irrigated with hydrogen peroxide and saline. Iodoform gauze was applied to the wound and dressing was applied. Prognosis is guarded. We will watch him very closely. He may lose the third toe also. PLAN: We will continue the IV and local wound care. We will change dressing tomorrow. MMODL / IJN: [id number] /
[2018-04-02] MEDS: glipiZIDE 5 MG TAB PO SCH ×2 (16:27→16:28)
[2018-04-02 16:46] LABS: Glucose,Whole Blood 246 mg/dL (75-99)
[2018-04-02] MEDS ORDERED: TEMAZEPAM 15 MG CAP PO PRN (17:32)
[2018-04-02 17:33] LABS: Amorphous Sediment,Urine Rare /hpf; Appearance,Urine Clear (Clear); Bilirubin,Urine Negative (Negative); Blood,Urine Trace (Negative); Color,Urine Light Yellow; Glucose,Urine (UA) 3+ (Negative); Ketones,Urine Trace (Negative); Leukocyte Esterase,Urine Negative (Negative); Mucus,Urine Rare /hpf; Nitrite,Urine Negative (Negative); PH, Urine 5.5 (5.0-8.0); Protein,Urine 1+ (Negative); RBC,Urine <1 /hpf (0-5); Specific Gravity,Urine 1.008 (1.001-1.035); Urobilinogen,Urine <2.0 mg/dL (<2.0); WBC,Urine 1 /hpf (0-5)
[2018-04-02] MEDS ORDERED: cloNIDine HCL 0.1 MG TAB PO PRN (17:35)
--- NOTE | 2018-04-02 19:25 | HP ---
HISTORY AND PHYSICAL DATE OF SERVICE: 04/02/2018. CHIEF COMPLAINT: Dizziness as well as right toe gangrene. HISTORY: This 77-year-old gentleman with a past medical history of multiple medical problems including CHF, history of dementia, diabetes, hypertension, syncope, being followed by [facility] and Dr. Pugh in the outpatient setting, was noted to have right foot ulcer. The patient apparently bumped into something which is increasing in intensity. Patient came to [facility]. Gangrene was noted and Dr. Espinoza performed amputation of right foot second toe and head of the metatarsal bone on the second toe. Deep culture was taken. Initial culture showed gram-positive cocci in chains. Patient started on combination of vancomycin and antibiotics. Dr. William is also following the patient closely: Of note, patient also reports drinking 1 to 2 drinks per day and the patient has some shaking chills at this time, indicating possibly early withdrawal symptom. There is no history of fever. No history of headache, loss of consciousness, chest pain, palpitations, hematochezia or melena at this time. PAST MEDICAL HISTORY: History of CHF, dementia, diabetes type 2, hypertension, syncope, history of appendectomy, history of EtOH. MEDICATIONS: 1. Metformin 1000 mg p.o. b.i.d. 2. Glucotrol 5 mg with meals b.i.d. 3. Dyazide 1 capsule every a.m. 4. Multivitamins 1 orally daily. 5. Zestril 20 mg p.o. b.i.d. 6. Levemir 15 units subcu at bedtime. 7. Aricept 10 mg p.o. daily. 8. D3, 2000 daily. 9. Calcium 80 mg at bedtime. 10.Aspirin 81 mg p.o. b.i.d. ALLERGIES: None family. FAMILY HISTORY: History of cancer in the family. SOCIAL HISTORY: No history of smoking. History of alcohol as mentioned earlier. REVIEW OF SYSTEMS: ENT: No diminished hearing or vision. CARDIOVASCULAR: No angina. GI: No nausea. : No dysuria or retention. ALLERGY: No history of asthma or hayfever. MUSCULOSKELETAL: As mentioned earlier. HEMATOLOGY/ONCOLOGY: No history of anemia. ENDOCRINE: Diabetes. CONSTITUTIONAL: As mentioned earlier. PHYSICAL EXAMINATION: Alert and oriented x3. Pulse 77, blood pressure 157/70, respiration 18, temperature 98.3, pulse ox 97% on room air. HEENT: Oral mucosa moist. NECK: No jugular venous distention. No lymph node enlargement. CARDIOVASCULAR: S1 and S2 muffled. LUNGS: Breath sounds diminished at the bases. No rhonchi or crackles. ABDOMEN: Soft, nontender. No mass palpable. LEGS: No edema. NERVOUS SYSTEM: No focal deficits. His right foot status post surgery. LAB INVESTIGATIONS: At this time shows WBC 18, hemoglobin 12.8, creatinine 1.63. Troponins are noted. ASSESSMENT: 1. Acute right foot second toe gangrene with sepsis present on admission. 2. Status post amputation of the second toe as well as metatarsophalangeal head. 3. Troponin 0.05 indeterminate. 4. Diabetes mellitus type 2, uncontrolled. 5. Increased creatinine with chronic kidney stage III. 6. Hyponatremia. 7. Increased WBC. 8. Anemia, normocytic, of undetermined etiology. 9. History of congestive heart failure. 10.Dementia. 11.Hypertension. 12.Diabetes mellitus type 2. 13.History of syncope. 14.History of peripheral vascular disease. 15.History of EtOH. RECOMMENDATIONS AND DISCUSSION: This 77-year-old gentleman presented with multiple complex medical problems. We will monitor the patient closely. Continue the current management and current treatment. I would recommend broad-spectrum IV antibiotics, vancomycin. Follow the cultures. DVT prophylaxis. I would also recommend [facility] protocol for alcohol withdrawal symptoms. Ativan may be used for anxiety and as well as withdrawal symptoms and agitation. Otherwise, DVT prophylaxis. See orders for details. Prognosis guarded and further recommendations to follow. MMODL / IJN: [id number] /
[2018-04-02] MEDS: ACETAMINOPHEN TAB 325 MG TAB PO PRN (20:45)
[2018-04-02] MEDS: HEPARIN SODIUM,PORCINE 5,000 UNIT/ML 1 ML VIAL SQ SCH (20:46)
[2018-04-02] MEDS: INSULIN DETEMIR 100 UNIT/ML 10 ML VIAL SQ SCH (20:46)
[2018-04-02 20:59] LABS: Glucose,Whole Blood 230 mg/dL (75-99)
[2018-04-02] MEDS ORDERED: VANCOMYCIN 1,500 MG in SODIUM CHLORIDE 0.9% 250 ML IVPB SCH (22:00)
[2018-04-03] MEDS: AMPICILLIN-SULBACTAM 3 GM in SODIUM CHLORIDE 0.9% 100 ML IVPB SCH ×4 (02:47→21:23)
--- NOTE | 2018-04-03 02:58 | CONS ---
CONSULTATION DATE OF SERVICE: 04/02/2018. REASON FOR CONSULTATION: Right second toe gangrene and diabetic foot infection. HISTORY OF PRESENT ILLNESS: The patient is a 77-year-old male with past medical history significant for diabetes mellitus uncontrolled presenting to the ER with chief complaints of right 2nd toe getting discolored over the last 2 days. The patient did not recall any history of any trauma to the toe, he may have had a small wound that her noticed with also some swelling and redness of the toes that has progressed to becoming necrotic for the last 2 days. The patient did have underlying diabetic neuropathy. He denies significant pain. Some occasional dull aching and pressure sensation that he describes for the last 2 days. Intensity is noted 10 of 10 and no radiation. The patient did have associated swelling and redness of the dorsum of his left foot. Some mild foul smelling drainage. The patient did have some chills for the last day or 2, but no fever was recorded when he presented to hospital with the patient was evaluated by the ER physician. On arrival to the ER, the patient did have a chest x-ray as well as x- rays of the right foot which shows narrowing of the 1st MTP joint space with spur formation. This should be soft tissue area in the base of the 1st, 2nd and 3rd toes. The patient subsequently was evaluated by Vascular Surgery. He was taken to the OR and is status post amputation of his gangrenous toe right 2nd. He was noted to have significant infection at that site. The patient did have blood cultures drawn, which subsequently grew positive for gram-positive cocci. The patient did spike a fever of 101.9 degrees Fahrenheit this evening that prompted this infectious disease consultation. REVIEW OF SYSTEMS: Constitutional: Positive for weakness along with fever and chills. Eyes: No complaint. ENT no complaint. Respiratory: No complaint. Cardiovascular no complaint. Genitourinary no complaint. Gastrointestinal: No complaint. Musculoskeletal no complaint. . Integumentary as per HPI. Psychological no complaint. Endocrine: Blood sugar has been high with no symptoms. Neurological: No complaint. PAST MEDICAL HISTORY: Significant for diabetes mellitus, insulin dependent wound, hypertension. PAST SURGICAL HISTORY: Appendectomy and left big toe partial amputation. SOCIAL HISTORY: Denies smoking. Does admit to drinking. No drug use. FAMILY HISTORY: Father history of cancer. Mother: No medical problems. ALLERGIES: No known drug allergies. MEDICATION: Include the patient is currently on Tylenol, Fitzpatrick, Xanax, Norvasc, Rocephin 1 g daily, aspirin, vitamin D3, Catapres, Aricept, Glucotrol, NovoLog, Levemir, Zestril, Ativan, melatonin, Glucophage, Theragran, Narcan, Protonix, Restoril, Dyazide. PHYSICAL EXAMINATION: Blood pressure is 139/77 with a pulse of 83, temperature 101.9. He is 97% on room air. General description is an elderly male lying in bed in no distress. No tachypnea or accessory muscle of respiration use. HEENT: Shows pallor. No scleral icterus. Oral mucosa membranes is dry. No pharyngeal erythema or thrush. Neck: Trachea central. No thyromegaly. Lungs: Unlabored breathing. Clear to auscultation anteriorly. No wheeze or crackles. Heart S1, S2. Regular rate and rhythm. ABDOMEN: Soft, no tenderness. No guarding or rigidity. EXTREMITIES: No edema of the feet. Examination of the right foot 2nd toe was gangrenous with malodorous drainage at the base with erythema extending to the dorsum of his right foot which is warm to touch. No blister formation. NEUROLOGIC: The patient is awake, alert, oriented times three. Mood and affect normal. LABS: Hemoglobin is 12.8, white count of 18.4, BUN of 34, creatinine is 1.63. Electrolytes have been normal. Liver enzymes are normal. Troponin slightly elevated. Urine is negative. DIAGNOSTIC IMPRESSION/PLAN: 1. Patient admitted to the hospital with right diabetic foot infection. Adela's grade 4 with creatinine of the right second toe with significant foul smelling drainage and associated cellulitis likely organism to cover would be the polymicrobial beni including both gram-positive as well as gram-negative. The patient has not been on antibiotic in the recent past, could be sensitive MSSA and staph however resistant pathogen not excluded. 2. Patient with gram-positive bacteremia, concern for possible Staphylococcus aureus and possible community sensitive MRSA. 3. The patient kidney function putting him at high risk of drug associated nephrotoxicity. PLAN: 1. Blood culture has been repeated to document clearance of bacteremia. 2. Discontinue Rocephin. 3. We will start the patient on Unasyn 3 g every 6 hours. 4. Vancomycin, pharmacy to dose, target of 15 while watching the vanco trough and the kidney function closely. 5. We will follow up on his clinical condition and culture to further adjust medication if needed. Thank you for this consultation. We will follow this patient along with you. GEGE / ANTONIAN: [id number] /
[2018-04-03 08:58] LABS: Basophils % (A) 0 %; Eosinophils # (A) 0.3 k/uL (0-0.7); Eosinophils % (A) 2 %; HGB 10.9 gm/dL (13.0-17.5); Lymphocytes # (A) 0.7 k/uL (1.0-4.8); Lymphocytes % (A) 6 %; MCH 30.6 pg (25.0-35.0); MCV 92.7 fL (80.0-100.0); Mean Platelet Volume 7.3; Monocytes # (A) 0.5 k/uL (0-1.0); Monocytes % (A) 4 %; Neutrophils % (A) 87 %; Platelet Count 198 k/uL (150-450); RBC 3.56 m/uL (4.30-5.90); RDW 13.7 % (11.5-15.5); WBC 12.6 k/uL (3.8-10.6)
[2018-04-03] MEDS: INSULIN ASPART 100 UNIT/ML 1 ML 10 ML VIAL SQ SCH ×4 (09:26→21:18)
[2018-04-03 09:30] LABS: Calcium 7.7 mg/dL (8.4-10.2)
[2018-04-03] MEDS: CHOLECALCIFEROL 1,000 UNIT TAB PO SCH (09:34)
[2018-04-03] MEDS: LISINOPRIL 20 MG TAB PO SCH ×2 (09:34→21:18)
[2018-04-03] MEDS: ASPIRIN 81 MG PO SCH ×2 (09:34→21:23)
[2018-04-03] MEDS: PANTOPRAZOLE 40 MG TABLET PO SCH (09:34)
[2018-04-03] MEDS: amLODIPine 10 MG TAB PO SCH (09:34)
[2018-04-03] MEDS: glipiZIDE 5 MG TAB PO SCH ×2 (09:34→17:37)
[2018-04-03] MEDS: HEPARIN SODIUM,PORCINE 5,000 UNIT/ML 1 ML VIAL SQ SCH ×2 (09:34→21:18)
[2018-04-03] MEDS: DONEPEZIL 10 MG TAB PO SCH (09:34)
[2018-04-03] MEDS: metFORMIN 500 MG TAB PO SCH ×2 (09:34→21:17)
[2018-04-03] MEDS: SODIUM CHLORIDE 0.9% 1,000 ML IV SCH (09:35)
--- NOTE | 2018-04-03 09:35 | PN ---
PROGRESS NOTE This is a 77 -year-old gentleman who came with infected gangrene right foot second toe. Patient went for ray amputation with extensive debridement. This morning we have changed the dressing. We will use Santyl cream and IV antibiotic. Continue with local wound care. MMLOVELYL / IJN: [id number] /
[2018-04-03 10:40] VITALS: BMI 26.6
[2018-04-03 12:31] LABS: Glucose,Whole Blood 141 mg/dL (75-99)
[2018-04-03] MEDS: THIAMINE 100 MG TAB PO SCH ×2 (13:47→18:19)
[2018-04-03] MEDS: MULTIVITAMINS, THERA 1 EACH TAB PO SCH (13:48)
[2018-04-03] MEDS: TRIAMTERENE-HCTZ 37.5-25MG 1 EACH CAP PO SCH ×2 (13:49→13:50)
--- NOTE | 2018-04-03 15:05 | PN ---
PROGRESS NOTE DATE OF SERVICE: 04/03/2018 This 77-year-old gentleman who was admitted with acute right foot gangrene, had surgery. The patient is being closely monitored. Dr. William is also following the patient closely. The cultures are showing Staph aureus. Final ID is pending at this time. Patient is on broad spectrum IV antibiotics. Dr. Espinoza is also following the patient closely. PAST MEDICAL HISTORY: Reviewed. REVIEW OF SYSTEMS: CARDIOVASCULAR: No angina or palpitations. RESPIRATORY: As mentioned earlier. GI: As mentioned earlier. : No dysuria. NERVOUS SYSTEM: noted MEDICATIONS: Current medications are reviewed and include: 1. Tylenol 650 q.6 p.r.n. 2. [place] 5 mg q.6 p.r.n. 3. Xanax 0.25 t.i.d. 4. Norvasc 10 mg daily. 5. Aspirin 81 mg. 6. Vitamin D3, 2000 daily. 7. Catapres 0.1 q.4 p.r.n. 8. Santyl application daily. 9. Aricept 10 mg daily. 10.Glucotrol 5 mg a.c. b.i.d. 11.Heparin 5000 subcutaneous b.i.d. 12.NovoLog insulin. 13.Levemir 15 units subcutaneous q.h.s. 14.Zestril 20 mg b.i.d. 15.Ativan. 16.Glucophage 1000 mg p.o. b.i.d. 17.Narcan. 18.Protonix. 19.Restoril. 20.Vitamin B1, 100 mg p.o. b.i.d. 21.Dyazide 1 daily. 22.Vancomycin 1.5 grams daily. PHYSICAL EXAM: Patient is alert and oriented x3. Pulse 83, blood pressure 134/67, respiration 18, temperature 98.4, pulse ox 94% on room air. HEENT: Conjunctivae normal. Oral mucosa moist. Neck is no jugular venous distention. No carotid bruit. No lymph node enlargement. CARDIOVASCULAR: S1, S2 muffled. RESPIRATORY: Breath sounds diminished in the bases. No rhonchi, no crackles. ABDOMEN: Soft, nontender. No mass palpable. LEGS: Status post surgery on the right foot. NERVOUS SYSTEM: No focal deficits. LABS: WBC 12.6, hemoglobin 10.9. Sodium 137, potassium 4. Calcium is 7.7. ASSESSMENT: 1. Acute right foot second toe gangrene with sepsis, status post amputation of the second toe as well as metatarsophalangeal head. 2. Troponin 0.05 indeterminate. 3. Diabetes mellitus type 2, uncontrolled. 4. Increased creatinine with chronic kidney disease stage III. 5. Hyponatremia. 6. Increased WBC. 7. Anemia, normocytic of undetermined etiology. 8. History of congestive heart failure. 9. Dementia. 10.Hypertension. 11.Diabetes mellitus type 2. 12.History of syncope. 13.History of peripheral vascular disease. 14.History of EtOH. 15.Gait dysfunction. 16.FULL CODE. RECOMMENDATIONS AND DISCUSSION: I recommend to continue current medications and symptomatic treatment. Otherwise monitor blood sugars closely, insulin scale, DVT prophylaxis. The patient is on IV Unasyn. Closely follow with Dr. William. Await final culture report. Continue the vancomycin. Guarded prognosis. Further recommendations to follow. MMODL / IJN: [id number] / MTDAmos
[2018-04-03 17:15] LABS: Glucose,Whole Blood 132 mg/dL (75-99)
[2018-04-03] MEDS: COLLAGENASE 250 UNIT/GM OINTMENT 30 GM TUBE TOPICAL SCH (17:37)
[2018-04-03] MEDS: VANCOMYCIN 1,500 MG in SODIUM CHLORIDE 0.9% 250 ML IVPB SCH (18:20)
[2018-04-03] MEDS: ATORVASTATIN 40 MG TAB PO SCH (19:34)
[2018-04-03 20:52] LABS: Glucose,Whole Blood 137 mg/dL (75-99)
[2018-04-03] MEDS: ACETAMINOPHEN TAB 325 MG TAB PO PRN (21:17)
[2018-04-03] MEDS: INSULIN DETEMIR 100 UNIT/ML 10 ML VIAL SQ SCH (21:19)
--- NOTE | 2018-04-03 22:44 | CONS ---
CONSULTATION HISTORY: Mr. Balderas is a 77-year-old male who has a known history of diabetes mellitus, who has a history of hypertension, followed at the [facility], was found to have a right foot ulcer and underwent amputation of the 2nd toe by Dr. Espinoza. Cardiology consultation was requested because of mild elevation of the troponin. The patient denies any symptoms of chest discomfort. Denies any tightness in the chest. Denies any prior cardiac history. He has a history of peripheral vascular disease. According to the record, he has a history of dementia and chronic alcohol intake. He has peripheral edema. Denies any PND or orthopnea. No syncope. He denies smoking. MEDICATION: At home include: 1. Metformin. 2. Glucotrol. 3. Norvasc 10 mg daily. 4. Dyazide once a day. 5. Lisinopril 20 mg twice a day. 6. Aricept. 7. Calcium. 8. Aspirin. REVIEW OF SYSTEMS: RESPIRATORY: He denies any wheezing or cough. No history of obstructive lung disease. GI SYSTEM: No recent GI bleeding. No peptic ulcer disease. SYSTEM: No dysuria or hematuria. NERVOUS SYSTEM:He denies stroke or seizure. PHYSICAL EXAMINATION: A 77-year-old male, alert, in no apparent distress. Blood pressure 134/67 with a heart in the 80s. HEAD: Normocephalic. Eyes, sclerae anicteric. NECK: Good upstroke, no bruits, no jugular venous distention. LUNGS: Clear to auscultation. HEART: Regular rate and rhythm. S1, S2. No S3. No rub or gallop appreciated. ABDOMEN: Soft nontender. EXTREMITIES: No edema. Reviewing the old records, the patient was admitted to the hospital in September 2016 and at that time had an echocardiogram which revealed a preserved ventricular size and systolic function with no significant valvular disease. LAB DATA: Showed BUN and creatinine 22 and 1.2. Hemoglobin of 10.9. His troponin was 0.073 and 0.054. In September of 2016 his troponin was mildly elevated as well. His EKG on this admission revealed a sinus mechanism with rare PACs and nonspecific ST-T wave changes. His chest x-ray shows no acute infiltrate. IMPRESSION: 1. Gangrene of the toe on the right foot status post amputation with peripheral vascular disease. 2. Mild elevation of the troponin, most likely representing a type 2 myocardial infarction. 3. History of chronic alcohol intake. 4. Hypertension. 5. Diabetes mellitus. 6. History of dementia. RECOMMENDATIONS: From the cardiac standpoint, I will obtain an echocardiogram with Doppler. I will add to his regimen a statin. Depending on his progress, further recommendations will be made. Of note, the patient had a permanent pacemaker implantation performed in February of [address] Lawrence because of bradycardia and pauses noted on his loop recorder. MMODL / IJN: [id number] /
[2018-04-04] MEDS: AMPICILLIN-SULBACTAM 3 GM in SODIUM CHLORIDE 0.9% 100 ML IVPB SCH ×3 (02:11→13:26)
[2018-04-04] MEDS: SODIUM CHLORIDE 0.9% 1,000 ML IV SCH (05:39)
--- NOTE | 2018-04-04 06:36 | PN ---
PROGRESS NOTE DATE OF SERVICE: 04/03/2018 REASON FOR FOLLOWUP: Right diabetic foot infection ( ) with staph bacteremia. INTERVAL HISTORY: The patient is currently afebrile. He has been breathing comfortably. Denies having any chest pain, shortness of breath or cough. No abdominal pain or any pain to the right foot area. No diarrhea. EXAMINATION: Blood pressure 140/74 with a pulse of 82, temperature of 99.8. He is 96% on room air. General description is an elderly male lying in bed in no distress. Respiratory System: Unlabored breathing, clear to auscultation anteriorly. Heart S1, S2. Regular rate and rhythm. Right foot significantly deep wound at the site of the 2nd toe amputation. Minimal surrounding swelling and redness and no drainage. LABS: Hemoglobin is 10.8, white count 6. BUN of 22, creatinine 1.20. Blood cultures as well as wound culture showing staph aureus. DIAGNOSTIC IMPRESSION AND PLAN: Patient with right diabetic foot infection, Xiong's grade 4 with gangrenous 2nd toe which has been amputated. The wound looks deep with concern for underlying osteomyelitis. The patient did have evidence of Staphylococcus aureus bacteremia. Patient to continue on vancomycin pharmacy to dose as well as Unasyn while waiting for the final ID of this pathogen. Repeat blood culture has been ordered to document clearance of bacteremia and continue supportive care. MMODL / IJN: [id number] /
[2018-04-04 07:05] LABS: Glucose,Whole Blood 63 mg/dL (75-99)
[2018-04-04 07:28] LABS: Glucose,Whole Blood 93 mg/dL (75-99)
[2018-04-04] MEDS: INSULIN ASPART 100 UNIT/ML 1 ML 10 ML VIAL SQ SCH ×4 (07:37→21:11)
[2018-04-04 07:49] LABS: Basophils % (A) 0 %; Eosinophils # (A) 0.4 k/uL (0-0.7); Eosinophils % (A) 3 %; HCT 32.8 % (39.0-53.0); HGB 10.8 gm/dL (13.0-17.5); Lymphocytes # (A) 1.4 k/uL (1.0-4.8); Lymphocytes % (A) 11 %; MCH 30.9 pg (25.0-35.0); MCV 93.5 fL (80.0-100.0); Mean Platelet Volume 7.8; Monocytes # (A) 0.5 k/uL (0-1.0); Monocytes % (A) 4 %; Neutrophils # (A) 9.9 k/uL (1.3-7.7); Neutrophils % (A) 80 %; Platelet Count 206 k/uL (150-450); RDW 13.5 % (11.5-15.5); WBC 12.4 k/uL (3.8-10.6)
[2018-04-04 08:12] LABS: Calcium 7.7 mg/dL (8.4-10.2); Potassium 3.7 mmol/L (3.5-5.1)
[2018-04-04] MEDS: PANTOPRAZOLE 40 MG TABLET PO SCH (09:08)
[2018-04-04] MEDS: MULTIVITAMINS, THERA 1 EACH TAB PO SCH (09:08)
[2018-04-04] MEDS: metFORMIN 500 MG TAB PO SCH ×2 (09:08→21:08)
[2018-04-04] MEDS: glipiZIDE 5 MG TAB PO SCH ×2 (09:08→17:52)
[2018-04-04] MEDS: amLODIPine 10 MG TAB PO SCH (09:09)
[2018-04-04] MEDS: THIAMINE 100 MG TAB PO SCH ×2 (09:09→17:52)
[2018-04-04] MEDS: LISINOPRIL 20 MG TAB PO SCH ×2 (09:09→21:08)
[2018-04-04] MEDS: ASPIRIN 81 MG PO SCH ×2 (09:09→21:08)
[2018-04-04] MEDS: DONEPEZIL 10 MG TAB PO SCH (09:09)
[2018-04-04] MEDS: HEPARIN SODIUM,PORCINE 5,000 UNIT/ML 1 ML VIAL SQ SCH ×2 (09:09→21:07)
[2018-04-04] MEDS: CHOLECALCIFEROL 1,000 UNIT TAB PO SCH (09:09)
[2018-04-04] MEDS: ATORVASTATIN 40 MG TAB PO SCH (09:09)
[2018-04-04] MEDS: VANCOMYCIN 1,500 MG in SODIUM CHLORIDE 0.9% 250 ML IVPB SCH (09:17)
[2018-04-04 11:46] LABS: Glucose,Whole Blood 197 mg/dL (75-99)
--- NOTE | 2018-04-04 13:21 | PN ---
PROGRESS NOTE Mr. Balderas is a 77-year-old male who underwent amputation of his toes. He has a history of permanent pacemaker implantation. He continues to be in sinus mechanism. He denies any chest pain. His breathing has been stable. He denies any dizziness or palpitation. He had minimal elevation of troponin that does not appear to be related to a primary event and most likely represents type 2 myocardial infarction. He continues to be at this time on amlodipine 10 mg daily, aspirin 81 mg daily, Lipitor 40 mg daily, glipizide, Aricept, insulin, Zestril 20 mg twice a day, metformin, and Dyazide. PHYSICAL EXAMINATION: Blood pressure 136/60 with a heart rate in the 70s. LUNGS: Clear. Heart regular rate and rhythm. S1, S2. No S3. No rub. With a systolic murmur. ABDOMEN: Soft, nontender. Extremities: Dressing in place. No significant edema. LAB DATA: BUN and creatinine of 19 and 1.45, potassium 3.7, hemoglobin of 10.8. IMPRESSION: 1. Status post amputation of the toe on the right foot. 2. Status post permanent pacemaker implantation. 3. Hypertension. 4. Diabetes mellitus. RECOMMENDATIONS: From the cardiac standpoint, he is stable. We will continue present therapy. I would expect he should be able to be discharged home soon and he can follow up as an outpatient with Dr. Lawrence. I will see him on as needed basis. Please feel free to call us for any questions. MMODL / IJN: [id number] /
[2018-04-04] MEDS: metroNIDAZOLE 500 MG TAB PO SCH ×2 (17:52→21:08)
[2018-04-04] MEDS: ACETAMINOPHEN TAB 325 MG TAB PO PRN (17:52)
[2018-04-04] MEDS: ceFAZolin IN SWFI 2 GM/20 ML SYRINGE IVP SCH (17:52)
[2018-04-04 17:56] LABS: Glucose,Whole Blood 216 mg/dL (75-99)
[2018-04-04] MEDS: COLLAGENASE 250 UNIT/GM OINTMENT 30 GM TUBE TOPICAL SCH (21:08)
[2018-04-04] MEDS: INSULIN DETEMIR 100 UNIT/ML 10 ML VIAL SQ SCH (21:08)
[2018-04-04 21:27] LABS: Glucose,Whole Blood 221 mg/dL (75-99)
[2018-04-04] MEDS ORDERED: VANCOMYCIN TROUGH DUE 1 EACH MISC MISCELLANE ONE (23:00)
--- NOTE | 2018-04-04 23:18 | PN ---
PROGRESS NOTE DATE OF SERVICE: 04/04/2018 This 77-year-old gentleman who was admitted with right foot gangrene, is being closely monitored. No chest pain. No palpitations. No fever. Patient also complains of gait dysfunction. On exam, the patient running fever. PAST MEDICAL HISTORY: Reviewed. REVIEW OF SYSTEMS: CARDIOVASCULAR: No angina or palpitations. Respiration: As mentioned. GI: No nausea or vomiting. no dysuria. Nervous system: No numbness, weakness. Musculoskeletal: As mentioned earlier. CURRENT MEDICATIONS ARE: Reviewed and include: 1. Tylenol 650 q.6h p.r.n. 2. Gordon 5 mg q.i.d. p.r.n. 3. Xanax 0.25 t.i.d. 4. Norvasc 10 mg. 5. Aspirin 81 mg b.i.d. 6. Lipitor 40 mg. 7. Kefzol 2 g IV q.8 hours. 8. Santyl. 9. Aricept. 10.Glucotrol. 11.NovoLog. 12.Levemir 15 subcu q.h.s. 13.Zestril. 14.Ativan. 15.Melatonin. 16.Glucophage. 17.Flagyl. 18.Multivitamins. 19.Protonix. 20. . 21.Vitamin B1. 22.Dyazide. PHYSICAL EXAM: Patient is alert, oriented x3. Pulse 89, blood pressure 153/80, respirations 16 , temperature 100.8, pulse ox 98% on room air. HEENT: Conjunctivae normal. Oral mucosa moist. Neck is no jugular venous distention. No carotid bruit. No lymph node enlargement. No thyroid enlargement. Cardiovascular systems: S1, S2 muffled. Respirations: Breath sounds diminished in the bases. Breath sounds diminished in the bases. A few scattered rhonchi. ABDOMEN: Soft, nontender. Legs: Right 3rd toe gangrene present. Central nervous system: No focal deficits. LAB STUDIES: WBC 12.8, hemoglobin is 10.2, sodium 140, potassium 4.7, glucose noted, fluctuating. ASSESSMENT: 1. Acute right foot second toe gangrene and sepsis status post amputation of the 2nd as well as metatarsophalangeal head. MSSA 2. Troponin 0.0 0.5 indeterminate. 3. Diabetes mellitus type 2, uncontrolled with hyper and hypoglycemia. 4. Increased creatinine with chronic kidney stage 3. 5. Hyponatremia. 6. Increased WBC. 7. Anemia, normocytic with undetermined etiology. 8. History of congestive heart failure. 9. Demential. 10.Hypertension. 11.History of syncope. 12.History of peripheral vascular disease. 13.History of EtOH. 14.Gait dysfunction. 15.FULL CODE. RECOMMENDATIONS AND DISCUSSION: Recommend to continue current medications. Continue to monitor. Continue symptomatic treatment. Otherwise, closely monitor. The patient is currently on broad- spectrum IV antibiotics. Recommend cultures because of continued fever. Monitor blood sugars closely. Continue the DVT prophylaxis. Guarded prognosis because of multiple complex medical issues. Further recommendations recommendations to follow. The patient is on insulin at home as well. MMODL / IJN: [id number] / ANN-MARIE
--- NOTE | 2018-04-04 23:54 | PN ---
PROGRESS NOTE DATE OF SERVICE: 04/04/2018. REASON FOR FOLLOWUP: Right diabetic foot infection with MSSA bacteremia. INTERVAL HISTORY: The patient did have a low-grade fever of 100.8 this afternoon. The patient denies having any chest pain, shortness of breath or cough. No abdominal pain or any worsening pain to the right foot area. EXAMINATION: Blood pressure is 144/73 with a pulse of 73, temperature 98, T-max is 100.8. He is 97% on room air. GENERAL DESCRIPTION: An elderly male lying in bed in no distress. RESPIRATORY SYSTEM: Unlabored breathing. Clear to auscultation anteriorly. HEART: S1, S2. Regular rate and rhythm. ABDOMEN: Soft, no tenderness. EXTREMITIES: Right foot wound is currently dressed. No obvious drainage on the dressing. LABS: Blood culture as well as local culture positive for MSSA. DIAGNOSTIC IMPRESSION AND PLAN: Patient with MSSA bacteremia secondary to right diabetic foot infection, status post amputation of the right second toe. Plan at this time is to switch antibiotic therapy to cefazolin 2 g daily along with oral Flagyl. Will get a PICC line once his followup blood culture has been negative for outpatient IV antibiotic therapy, which could be either IV cefazolin, however, in view of national shortage of this medication may send home on daptomycin. Continue supportive care. MMODL / IJN: [id number] /
[2018-04-05] MEDS: ceFAZolin IN SWFI 2 GM/20 ML SYRINGE IVP SCH ×4 (00:37→23:29)
[2018-04-05] MEDS: SODIUM CHLORIDE 0.9% 1,000 ML IV SCH ×3 (00:38→21:03)
[2018-04-05 07:19] LABS: Glucose,Whole Blood 55 mg/dL (75-99)
[2018-04-05] MEDS: INSULIN ASPART 100 UNIT/ML 1 ML 10 ML VIAL SQ SCH ×4 (07:25→21:03)
[2018-04-05 08:12] LABS: Glucose,Whole Blood 85 mg/dL (75-99)
[2018-04-05 08:21] LABS: Basophils % (A) 0 %; Eosinophils # (A) 0.2 k/uL (0-0.7); Eosinophils % (A) 2 %; HCT 34.9 % (39.0-53.0); Lymphocytes # (A) 0.7 k/uL (1.0-4.8); Lymphocytes % (A) 6 %; MCH 29.7 pg (25.0-35.0); MCHC 31.4 g/dL (31.0-37.0); MCV 94.6 fL (80.0-100.0); Mean Platelet Volume 7.2; Monocytes # (A) 0.6 k/uL (0-1.0); Monocytes % (A) 4 %; Neutrophils # (A) 11.3 k/uL (1.3-7.7); Neutrophils % (A) 87 %; Platelet Count 254 k/uL (150-450); RBC 3.69 m/uL (4.30-5.90); RDW 13.7 % (11.5-15.5); WBC 13.1 k/uL (3.8-10.6)
[2018-04-05 08:35] LABS: Calcium 8.1 mg/dL (8.4-10.2); Potassium 4.3 mmol/L (3.5-5.1)
[2018-04-05 09:09] LABS: C Reactive Protein 243.6 mg/L (<10.0)
--- NOTE | 2018-04-05 11:19 | ECHOF ---
Referral Reason:htn MEASUREMENTS -------- HEIGHT: 180.3 cm WEIGHT: 81.6 kg BP: 158/72 IVSd: 1.3 cm (0.6 - 1.1) LVIDd: 3.5 cm (3.9 - 5.3) LVPWd: 1.4 cm (0.6 - 1.1) IVSs: 1.8 cm LVIDs: 2.1 cm LVPWs: 1.8 cm Ao Diam: 3.5 cm (2.0 - 3.7) AV Cusp: 2.3 cm (1.5 - 2.6) LA Diam: 3.0 cm (2.7 - 3.8) MV EXCURSION: 14.230 mm (> 18.000) MV EF SLOPE: 50 mm/s (70 - 150) EPSS: 0.5 cm MV E Chepe: 1.10 m/s MV DecT: 191 ms MV A Chepe: 0.91 m/s MV E/A Ratio: 1.20 RAP: 5.00 mmHg RVSP: 11.24 mmHg FINDINGS -------- Sinus rhythm. Pacerwire seen in RV and RA. This was a technically difficult study with suboptimal views. The left ventricular size is normal. There is mild concentric left ventricular hypertrophy. Overa ll left ventricular systolic function is normal with, an EF between 55 - 60 %. The right ventricle is normal in size and function. The left atrium is normal in size. The right atrium is normal in size. Lumason used The aortic valve is trileaflet, and appears structurally normal. No aortic stenosis or regurgitation. The mitral valve is normal. There is trace mitral regurgitation. Trace tricuspid regurgitation present. There is no evidence of pulmonary hypertension. The right ventricular systolic pressure, as measured by Doppler, is 11.24mmHg. There is no pulmonic regurgitation present. The aortic root size is normal. There is no pericardial effusion. CONCLUSIONS -------- 1. Sinus rhythm. 2. Pacerwire seen in RV and RA. 3. This was a technically difficult study with suboptimal views. 4. The left ventricular size is normal. 5. There is mild concentric left ventricular hypertrophy. 6. Overall left ventricular systolic function is normal with, an EF between 55 - 60 %. 7. The left atrium is normal in size. 8. Lumason used 9. The aortic valve is trileaflet, and appears structurally normal. No aortic stenosis or regurgitati on. 10. There is trace mitral regurgitation. 11. Trace tricuspid regurgitation present. 12. There is no evidence of pulmonary hypertension. 13. There is no pulmonic regurgitation present. 14. The aortic root size is normal. 15. There is no pericardial effusion. PORT CAPTAIN: Daphne Almodovar RDCS
[2018-04-05] MEDS: LISINOPRIL 20 MG TAB PO SCH ×2 (11:47→21:07)
[2018-04-05] MEDS: CHOLECALCIFEROL 1,000 UNIT TAB PO SCH (11:47)
[2018-04-05] MEDS: MULTIVITAMINS, THERA 1 EACH TAB PO SCH (11:48)
[2018-04-05] MEDS: amLODIPine 10 MG TAB PO SCH (11:48)
[2018-04-05] MEDS: PANTOPRAZOLE 40 MG TABLET PO SCH (11:48)
[2018-04-05] MEDS: TRIAMTERENE-HCTZ 37.5-25MG 1 EACH CAP PO SCH (11:48)
[2018-04-05] MEDS: ASPIRIN 81 MG PO SCH ×2 (11:48→21:04)
[2018-04-05] MEDS: metroNIDAZOLE 500 MG TAB PO SCH ×3 (11:48→21:04)
[2018-04-05] MEDS: HEPARIN SODIUM,PORCINE 5,000 UNIT/ML 1 ML VIAL SQ SCH ×2 (11:48→21:04)
[2018-04-05] MEDS: ATORVASTATIN 40 MG TAB PO SCH (11:48)
[2018-04-05] MEDS: THIAMINE 100 MG TAB PO SCH ×2 (11:49→18:26)
[2018-04-05] MEDS: DONEPEZIL 10 MG TAB PO SCH (11:49)
[2018-04-05] MEDS: metFORMIN 500 MG TAB PO SCH ×2 (11:49→21:04)
[2018-04-05 11:54] LABS: Glucose,Whole Blood 134 mg/dL (75-99)
[2018-04-05] MEDS: glipiZIDE 5 MG TAB PO SCH ×2 (12:36→18:27)
[2018-04-05] MEDS: COLLAGENASE 250 UNIT/GM OINTMENT 30 GM TUBE TOPICAL SCH (12:37)
--- NOTE | 2018-04-05 13:04 | PN ---
PROGRESS NOTE This is a 77-year-old gentleman who had a right foot second toe ray amputation for an infected gangrene of the toe. We took the deep culture. The culture is pending. Today, we changed the dressing. We have been using Santyl cream for chemical debridement. PLAN: Continue with IV antibiotic. If the patient goes home, we need home care for local wound care and the patient will be seen by me in the wound clinic next Thursday. In the meantime, we will follow with you. MMODL / IJN: [id number] /
[2018-04-05 15:19] LABS: Erythrocyte Sedimentation Rate 104 mm/hr (0-15)
--- NOTE | 2018-04-05 15:59 | P.PN ---
Subjective Progress Note Date: 04/05/18 Progress Note being dictated for Dr. Chu. Interval history: This is a 77-year-old gentleman admitted with right foot gangrene. Maintained on IV antibiotics as per infectious disease. T-max 100.8. Renal function improving, creatinine down to 1.3. Denies chest pain, palpitations. Denies increased shortness of breath. Objective - Vital Signs Vital signs: Vital Signs Temp 98 F 04/05/18 15:00 Pulse 70 04/05/18 15:00 Resp 16 04/05/18 15:00 BP 144/70 04/05/18 15:00 Pulse Ox 98 04/05/18 15:00 Intake & Output 04/04/18 04/05/18 04/05/18 18:59 06:59 18:59 Intake Total 575 1210 Output Total 400 Balance 575 -400 1210 Weight 81.647 kg Intake: Intake, IV Titration 575 550 Amount Sodium Chloride 0.9% 1, 450 550 000 ml @ 75 mls/hr IV . [id number] VEENA Rx#:[id number] Vancomycin 1,500 mg In 125 Sodium Chloride 0.9% 250 ml @ 125 mls/hr IVPB Q16H VEENA Rx#:[id number] Oral 660 Output: Urine 400 Other: # Voids 1 2 - Exam PHYSICAL EXAM: VITAL SIGNS: As above GENERAL: Sitting up in bed, no acute distress HEENT: Conjunctivae normal. eyes normal. Oral mucosa moist NECK: No JVD. No thyroid enlargement. No LNs CARDIOVASCULAR: S1, S2 muffled. No murmur RESPIRATION: Breath sounds diminished in the bases. Occasional scattered rhonchi. No crackles. No bronchial breathing. ABDOMEN: Soft, nontender . No guarding. no masses palpable. No ascites, No hepatosplenomegaly.Bowel sounds heard. LEGS: RIght foot wound dressing clean, dry and intact. PSYCHIATRY: Alert and oriented -3, mood and affect normal. NERVOUS SYSTEM: Cranial N 2-12 grossly normal. Moves all 4 limbs. Diffuse weakness No focal deficits. Joints: No active swelling. No inflammation. Lymphatic system. No LN neck axilla or groin. Microbiology 04/04/18 21:03 Urine,Clean Catch Urine Culture - Preliminary 04/01/18 21:30 Blood Blood Culture Gram Stain - Final 04/01/18 21:30 Blood Blood Culture - Final Staphylococcus aureus 04/01/18 21:30 Blood Blood Culture Gram Stain - Final 04/01/18 21:30 Blood Blood Culture - Final Staphylococcus aureus 04/03/18 00:20 Blood Blood Culture - Preliminary No Growth after 48 hours 04/02/18 14:45 Toe - Right Second Gram Stain - Final 04/02/18 14:45 Toe - Right Second Wound Culture - Final Staphylococcus aureus 04/02/18 14:45 Toe - Right Second Gram Stain - Final 04/02/18 14:45 Toe - Right Second Wound Culture - Final Staphylococcus aureus 04/02/18 14:45 Toe - Right Second Anaerobic Culture - Preliminary 04/02/18 14:45 Toe - Right Second Anaerobic Culture - Preliminary 04/01/18 21:30 Blood Blood Culture - Final - Labs CBC & Chem 7: 04/05/18 07:51 04/05/18 07:51 Labs: Abnormal Lab Results - Last 24 Hours (Table) 04/04/18 04/04/18 04/05/18 Range/Units 17:54 21:07 07:18 WBC (3.8-10.6) k/uL RBC (4.30-5.90) m/uL Hgb (13.0-17.5) gm/dL Hct (39.0-53.0) % Neutrophils # (1.3-7.7) k/uL Lymphocytes # (1.0-4.8) k/uL ESR (0-15) mm/hr Chloride (98-107) mmol/L Creatinine (0.66-1.25) mg/dL Glucose (74-99) mg/dL POC Glucose (mg/dL) 216 H 221 H 55 L (75-99) mg/dL Calcium (8.4-10.2) mg/dL C-Reactive Protein (<10.0) mg/L 04/05/18 04/05/18 04/05/18 Range/Units 07:51 07:51 11:43 WBC 13.1 H (3.8-10.6) k/uL RBC 3.69 L (4.30-5.90) m/uL Hgb 11.0 L (13.0-17.5) gm/dL Hct 34.9 L (39.0-53.0) % Neutrophils # 11.3 H (1.3-7.7) k/uL Lymphocytes # 0.7 L (1.0-4.8) k/uL ESR 104 H (0-15) mm/hr Chloride 109 H (98-107) mmol/L Creatinine 1.30 H (0.66-1.25) mg/dL Glucose 104 H (74-99) mg/dL POC Glucose (mg/dL) 134 H (75-99) mg/dL Calcium 8.1 L (8.4-10.2) mg/dL C-Reactive Protein 243.6 H (<10.0) mg/L Microbiology - Last 24 Hours (Table) 04/04/18 21:03 Urine Culture - Preliminary Urine,Clean Catch 04/01/18 21:30 Blood Culture Gram Stain - Final Blood Blood Culture - Final Staphylococcus aureus 04/01/18 21:30 Blood Culture Gram Stain - Final Blood Blood Culture - Final Staphylococcus aureus 04/03/18 00:20 Blood Culture - Preliminary Blood No Growth after 48 hours 04/02/18 14:45 Gram Stain - Final Toe - Right Second Wound Culture - Final Staphylococcus aureus 04/02/18 14:45 Gram Stain - Final Toe - Right Second Wound Culture - Final Staphylococcus aureus Assessment and Plan Assessment: -Acute right foot second toe gait creatinine and sepsis status post amputation of the second toe as well as metartarsophalangeal head.MSSA Bacteremia -Troponin 0.054, indeterminate -Diabetes mellitus type 2, uncontrolled with hyper and hypoglycemia -Acute on chronic renal failure, stage III -Hyponatremia -Leukocytosis -Anemia, normocytic with undetermined etiology -History of CHF -Dementia -Hypertension -Gait dysfunction Plan: Continue current medication regime ,monitoring and symptomatic treatment. Maintain IV antibiotics as per infectious disease. Follow up cultures in progress.Close monitoring of renal function with repeat labs ordered for a.m. Close monitoring of Accu-Cheks. Discharge planning in progress for tomorrow. The impression and plan of care has been dictated as directed. : I performed a history and examination of this patient, discussed the same with the dictator. I agree with the dictator's note ,documented as a scribe. Any additional findings or plans will be noted.
[2018-04-05 17:06] LABS: Glucose,Whole Blood 182 mg/dL (75-99)
[2018-04-05 20:39] LABS: Glucose,Whole Blood 220 mg/dL (75-99)
--- NOTE | 2018-04-05 20:46 | PN ---
PROGRESS NOTE DATE OF SERVICE: 04/05/2018 REASON FOR FOLLOWUP: Right diabetic foot infection with gangrene. INTERVAL HISTORY: The patient has been afebrile. He has been breathing comfortably. Denies significant chest pain, shortness of breath or cough. No abdominal pain or any worsening pain in the right foot area and no diarrhea. PHYSICAL EXAMINATION: Blood pressure 144/70 with a pulse of 70, temperature 98. He is 98% on room air. General description is an elderly male lying in bed in no distress. RESPIRATORY SYSTEM: Unlabored breathing. Clear to auscultation anteriorly. HEART: S1, S2. Regular rate and rhythm. ABDOMEN: Soft. No tenderness. Right foot is currently dressed up. No obvious drainage on the dressing. LABS: Hemoglobin is 11, white count 13.1 and BUN of 14, creatinine 1.30, sed rate of 104 with a CRP of 243. DIAGNOSTIC IMPRESSION AND PLAN: Patient with a right diabetic foot infection, Adela's grade 4, in a patient who did have acute osteomyelitis with underlying diabetes mellitus. Culture positive for MSSA and anaerobic gram-positive cocci. Patient is currently covered with cefazolin 2 grams q.8 in addition to the oral Flagyl. That should be continued for at least 6 weeks. To get a PICC line tomorrow. If outpatient IV cefazolin is not available because of national shortage, he will be transitioned to daptomycin 6 mg/kg in addition with oral Flagyl. Continue with supportive care. MMODL / IJN: [id number] /
[2018-04-05] MEDS: INSULIN DETEMIR 100 UNIT/ML 10 ML VIAL SQ SCH (21:03)
[2018-04-06 00:46] VITALS: RESP 16
[2018-04-06 07:09] LABS: Basophils % (A) 0 %; Eosinophils # (A) 0.3 k/uL (0-0.7); Eosinophils % (A) 3 %; HCT 34.7 % (39.0-53.0); HGB 10.9 gm/dL (13.0-17.5); Lymphocytes # (A) 0.8 k/uL (1.0-4.8); Lymphocytes % (A) 7 %; MCH 29.8 pg (25.0-35.0); MCHC 31.4 g/dL (31.0-37.0); MCV 94.8 fL (80.0-100.0); Mean Platelet Volume 8.6; Monocytes # (A) 0.6 k/uL (0-1.0); Monocytes % (A) 5 %; Neutrophils % (A) 84 %; Platelet Count 273 k/uL (150-450); RBC 3.66 m/uL (4.30-5.90); RDW 13.8 % (11.5-15.5); WBC 11.9 k/uL (3.8-10.6)
[2018-04-06 07:16] LABS: Glucose,Whole Blood 67 mg/dL (75-99)
[2018-04-06 07:33] LABS: Glucose,Whole Blood 82 mg/dL (75-99)
[2018-04-06 07:42] LABS: Calcium 8.1 mg/dL (8.4-10.2); Potassium 4.1 mmol/L (3.5-5.1)
[2018-04-06] MEDS: metFORMIN 500 MG TAB PO SCH (08:07)
[2018-04-06] MEDS: HEPARIN SODIUM,PORCINE 5,000 UNIT/ML 1 ML VIAL SQ SCH (08:07)
[2018-04-06] MEDS: ASPIRIN 81 MG PO SCH (08:08)
[2018-04-06] MEDS: PANTOPRAZOLE 40 MG TABLET PO SCH (08:08)
[2018-04-06] MEDS: LISINOPRIL 20 MG TAB PO SCH (08:08)
[2018-04-06] MEDS: metroNIDAZOLE 500 MG TAB PO SCH ×2 (08:08→17:36)
[2018-04-06] MEDS: DONEPEZIL 10 MG TAB PO SCH (08:08)
[2018-04-06] MEDS: glipiZIDE 5 MG TAB PO SCH ×2 (08:08→17:36)
[2018-04-06] MEDS: ATORVASTATIN 40 MG TAB PO SCH (08:08)
[2018-04-06] MEDS: CHOLECALCIFEROL 1,000 UNIT TAB PO SCH (08:08)
[2018-04-06] MEDS: ceFAZolin IN SWFI 2 GM/20 ML SYRINGE IVP SCH ×2 (08:11→17:37)
[2018-04-06] MEDS: INSULIN ASPART 100 UNIT/ML 1 ML 10 ML VIAL SQ SCH ×2 (08:11→17:39)
[2018-04-06] MEDS: amLODIPine 10 MG TAB PO SCH (10:07)
[2018-04-06] MEDS: TRIAMTERENE-HCTZ 37.5-25MG 1 EACH CAP PO SCH (10:07)
[2018-04-06 11:49] LABS: Glucose,Whole Blood 127 mg/dL (75-99)
--- NOTE | 2018-04-06 14:58 | P.DS ---
Providers Date of admission: 04/01/18 23:35 Attending physician: Angely Chu Consults: 04/01/18 23:24 Consult Physician Routine Consulting Provider: Giacomo Espinoza Consult Reason/Comments: Gangrene right third toe Do you want consulting provider notified?: Yes 04/02/18 12:54 Consult Physician Routine Consulting Provider: Viji Mak Consult Reason/Comments: indeterminate trops Do you want consulting provider notified?: Yes 04/02/18 23:16 Consult Physician Routine Consulting Provider: Alli William Consult Reason/Comments: positive blood cultures Do you want consulting provider notified?: Already Contacted Primary care physician: [facility] Hospital Course: Final diagnosis Acute right foot the second toe gangrene and sepsis status post amputation of the second toe as well as metatarsophalangeal head MSSA Troponin 0.053 indeterminate Diabetes mellitus type 2 uncontrolled hyperglycemia and hypoglycemia Acute on chronic renal failure stage III Hyponatremia Leukocytosis Anemia normocytic of undetermined etiology. History of CHF. Ejection fraction unknown. History dementia. History hypertension. gait dysfunction. History of present illness this 77-year-old gentleman with a past medical history multiple medical problems was admitted with acute right foot second toe gangrene and as well as sepsis. Dr. Espinoza performed palpitation as well as metatarsophalangeal had amputation. the patient improved significantly. Patient treated antibiotics. MSSA was grown from the cultures. The patient had a PICC line. Infectious diseases recommended outpatient antibiotics. Patient be discharged in a stable condition with guarded prognosis to the [facility] Total time taken 35 minutes. On exam vitals stable. Cardio S1 and S2 normal. Respirator system clear to auscultation. Abdomen soft nontender. Nervous system no focal deficit. Right foot postoperative wound present Patient Condition at Discharge: Stable Plan - Discharge Summary Discharge Rx Participant: No New Discharge Prescriptions: New Acetaminophen Tab [Tylenol] 650 mg PO Q6HR PRN tab PRN Reason: Mild Pain Or Fever > 100.5 Atorvastatin [Lipitor] 40 mg PO DAILY tab Collagenase [Santyl] 1 applic TOPICAL DAILY applic Folic Acid 1 mg PO DAILY #30 tablet Insulin Aspart [NovoLOG (formulary)] 0 unit SQ ACHS vial metroNIDAZOLE [Flagyl] 500 mg PO TID #21 tab Pantoprazole [Protonix] 40 mg PO AC-BRKFST tablet. Thiamine [Vitamin B-1] 100 mg PO BID@1200,1700 tab Continue Insulin Detemir [Levemir] 15 unit SQ HS glipiZIDE [Glucotrol] 5 mg PO AC-BID Multivitamins, Thera [Multivitamin (formulary)] 1 tab PO DAILY Donepezil [Aricept] 10 mg PO DAILY Cholecalciferol [Vitamin D3] 2,000 unit PO DAILY Aspirin 81 mg PO BID metFORMIN HCL [Metformin HCl] 1,000 mg PO BID amLODIPine [Norvasc] 10 mg PO DAILY #30 tab Lisinopril [Zestril] 20 mg PO BID #60 tab Triamterene-Hctz 37.5-25Mg [Dyazide 37.5-25 Capsule] 1 cap PO QAM #90 capsule Calcium 80mg 80 mg PO HS Discharge Medication List Aspirin 81 mg PO BID 10/01/16 [History] Cholecalciferol [Vitamin D3] 2,000 unit PO DAILY 10/01/16 [History] Donepezil [Aricept] 10 mg PO DAILY 10/01/16 [History] Insulin Detemir [Levemir] 15 unit SQ HS 10/01/16 [History] Multivitamins, Thera [Multivitamin (formulary)] 1 tab PO DAILY 10/01/16 [History ] glipiZIDE [Glucotrol] 5 mg PO AC-BID 10/01/16 [History] metFORMIN HCL [Metformin HCl] 1,000 mg PO BID 10/02/16 [History] Lisinopril [Zestril] 20 mg PO BID #60 tab 10/07/16 [Rx] Triamterene-Hctz 37.5-25Mg [Dyazide 37.5-25 Capsule] 1 cap PO QAM #90 capsule [Rx] amLODIPine [Norvasc] 10 mg PO DAILY #30 tab 10/07/16 [Rx] Calcium 80mg 80 mg PO HS 04/01/18 [History] Acetaminophen Tab [Tylenol] 650 mg PO Q6HR PRN tab 04/06/18 [Rx] Atorvastatin [Lipitor] 40 mg PO DAILY tab 04/06/18 [Rx] Collagenase [Santyl] 1 applic TOPICAL DAILY applic 04/06/18 [Rx] Folic Acid 1 mg PO DAILY #30 tablet 04/06/18 [Rx] Insulin Aspart [NovoLOG (formulary)] 0 unit SQ ACHS vial 04/06/18 [Rx] Pantoprazole [Protonix] 40 mg PO AC-BRKFST tablet. 04/06/18 [Rx] Thiamine [Vitamin B-1] 100 mg PO BID@1200,1700 tab 04/06/18 [Rx] metroNIDAZOLE [Flagyl] 500 mg PO TID #21 tab 04/06/18 [Rx] Follow up Appointment(s)/Referral(s): [facility],Clinic [Primary Care Provider] - 1-2 days Activity/Diet/Wound Care/Special Instructions: picc line placement wound care center weekly with Dr. Espinoza antibiotics per ID Discharge Disposition: HOME WITH HOME HEALTH SERVICES
[2018-04-06 16:03] VITALS: BP 149/68; PULSE 75; TEMP 98.1
[2018-04-06] MEDS: COLLAGENASE 250 UNIT/GM OINTMENT 30 GM TUBE TOPICAL SCH (17:33)
[2018-04-06] MEDS: MULTIVITAMINS, THERA 1 EACH TAB PO SCH (17:36)
--- NOTE | 2018-04-06 18:05 | PN ---
PROGRESS NOTE DATE OF SERVICE: 04/06/2018. REASON FOR FOLLOWUP: Right diabetic foot infection with gangrenous second toe. INTERVAL HISTORY: The patient is currently afebrile. He did get his PICC line. He is currently waiting for placement. Denies having any chest pain, shortness of breath, cough. No abdominal pain, diarrhea, no pain to the right foot. EXAMINATION: Blood pressure 149/68 with a pulse of 75, temperature 98.1. He is 98% on room air. General description is an elderly male lying in bed in no distress. Respiratory system: Unlabored breathing, clear to auscultation anteriorly. Heart S1, S2. Regular rate and rhythm. Abdomen soft, no tenderness. Right foot is currently dressed up. No obvious drainage on the dressing. LABS: Hemoglobin is 10.1, white count 11.9, BUN of 13, creatinine 1.25. DIAGNOSTIC IMPRESSION AND PLAN: Patient with right diabetic foot infection with second toe underlying osteomyelitis. Plan will be for cefazolin 2 g q.8h in addition to oral Flagyl 500 mg 3 times a day for a total of 6 weeks with weekly monitoring of CBC, BMP and sed rate. Follow up in the office in 1 week. Continue supportive care. MMODL / IJN: [id number] /
--- NOTE | 2018-04-07 09:20 | IR ---
PICC LINE PLACEMENT: HISTORY: Infection requiring long-term antibiotic therapy PROCEDURE: Ultrasound and fluoroscopic guidance of PICC line placement. COMPLICATIONS: None ANESTHESIA: 1. 1% Lidocaine locally. FINDINGS/TECHNIQUE: The procedure was explained to the patient. The risks, complications, benefits and alternatives were discussed and any questions were answered. Informed consent was obtained. The patient was placed supine on the fluoroscopic table and prepped and draped in the usual sterile fash ion. Utilizing a 21 gauge needle and sonographic and fluoroscopic guidance, access in the right bas ilic vein was achieved and there is placement of a 0.018 guidewire. The vein is patent. A 4-F sheat h was placed over the guidewire. The guidewire and dilator were removed and a 4-F. PICC line was anna eulalio through the sheath with the tip at the level of the SVC. The sheath was removed, the catheter wa s flushed and sutured into position. The patient was stable throughout the procedure and remained st able upon discharge from the Department of Radiology. The vein puncture was patent under ultrasound. A ureña scale image was obtained to document patency of the vein punctured. All elements of the maximal barrier technique were utilized. FLUOROSCOPY TIME: One image submitted and 0.4 minutes of fluoroscopy provided IMPRESSION: Successful PICC line placement under ultrasound and fluoroscopic guidance.
--- NOTE | 2018-04-07 13:09 | CDI ---
Last Revision, April 2017 Documentation Clarification Form Date: 04/07/2018 1:01:45 PM From: Tomasa Don Phone: If you have a question about this query, please contact Dominique Kam Cash Teller at [phone] between 8am and 5pm. Admit Date: 04/01/2018 11:35:00 PM Patient Name: Gilberto Balderas Visit Number: [id number] Discharge Date:04/06/18 ATTENTION: The Clinical Documentation Specialists (CDI) and [facility] Coding Staff appreciate your assistance in clarifying documentation. Please respond to the clarification below the line at the bottom and electronically sign. The CDI & [facility] Coding staff will review the response and follow-up if needed. Please note: Queries are made part of the Legal Health Record. If you have any questions, please contact the author of this message via ITS. Angely Clemente MD Conflicting documentation has been found in the medical record. Cardiology documents elevation of troponins in consult and progress notes as Type 2 IL. DCS documents elevated troponins as Indeterminate. Please clarify. History/Risk Factors: sepsis, gangrene, MSSA, HTN, CKD, hx of CHF Clinical Indicators: Troponin 0.053 In your opinion what is the most clinically appropriate diagnosis for this patient? Type 2 IL elevated troponins Other explanation of clinical findings Unable to determine (no explanation for clinical findings) Type 2 IL elevated troponins MTDD
--- NOTE | 2018-04-15 05:10 | CDI ---
Last Revision, April 2017 Documentation Clarification Form Date: 04/15/2018 4:53:42 AM From: Tomasa Don Phone: If you have a question about this query, please contact Dominique Kam Comb Winder at [phone] between 8am and 5pm. Admit Date: 04/01/2018 11:35:00 PM Patient Name: Gilberto Balderas Visit Number: [id number] Discharge Date:04/06/18 ATTENTION: The Clinical Documentation Specialists (CDI) and [facility] Coding Staff appreciate your assistance in clarifying documentation. Please respond to the clarification below the line at the bottom and electronically sign. The CDI & [facility] Coding staff will review the response and follow-up if needed. Please note: Queries are made part of the Legal Health Record. If you have any questions, please contact the author of this message via ITS. Angely Clemente MD Acute osteomyelitis has been documented in the path report, but has not been carried through chart or in DCS. Please clarifiy if patient had acute osteomyelitis. History/Risk Factors: DM uncontrolled, gangrene right foot second toe, sepsis, MSSA X-Ray Results:No fracture Osteoarthritis first MP, Soft tissue air Treatment: Amputation Please clarify, did patient have: Acute osteomyelitis Osteomyelitis ruled out Unable to determine Other:(please specify): Associated condition (if applicable): Diabetic Major osseous defect (specify site) Other (please specify): Acute osteomyelitis MTDD
== END 2018-04-06 17:57 | DRG 853 ==
LOC: EC 20:10 → 3SCARD 23:35 → 4SSUR 04-03 00:09
PROVIDERS: ADMIT Hospitalist; ATTEND Hospitalist
PROC: 0Y6M0ZB Detachment at Right Foot, Partial 2nd Ray, Open Approach (ICD-10-PCS; 2018-04-02)
PROC: 0Y6R0Z0 Detachment at Right 2nd Toe, Complete, Open Approach (ICD-10-PCS; principal; 2018-04-02 09:00)
PROC: 02HV33Z Insertion of Infusion Device into Superior Vena Cava, Percutaneous Approach (ICD-10-PCS; 2018-04-06 08:37)
DX: A41.01 Sepsis due to Methicillin susceptible Staphylococcus aureus (principal); I21.A1 Myocardial infarction type 2; E11.52 Type 2 diabetes mellitus with diabetic peripheral angiopathy with gangrene; I96 Gangrene, not elsewhere classified; E87.1 Hypo-osmolality and hyponatremia; I13.0 Hypertensive heart and chronic kidney disease with heart failure and stage 1 through stage 4 chronic kidney disease, or unspecified chronic kidney disease; L03.115 Cellulitis of right lower limb; N17.9 Acute kidney failure, unspecified; F10.239 Alcohol dependence with withdrawal, unspecified; M86.171 Other acute osteomyelitis, right ankle and foot; E11.65 Type 2 diabetes mellitus with hyperglycemia; Z79.4 Long term (current) use of insulin; D64.9 Anemia, unspecified; E11.22 Type 2 diabetes mellitus with diabetic chronic kidney disease; E11.40 Type 2 diabetes mellitus with diabetic neuropathy, unspecified; E11.621 Type 2 diabetes mellitus with foot ulcer; E11.628 Type 2 diabetes mellitus with other skin complications; E11.649 Type 2 diabetes mellitus with hypoglycemia without coma; E86.0 Dehydration; F03.90 Unspecified dementia, unspecified severity, without behavioral disturbance, psychotic disturbance, mood disturbance, and anxiety; I50.9 Heart failure, unspecified; L97.519 Non-pressure chronic ulcer of other part of right foot with unspecified severity; N18.3 Chronic kidney disease, stage 3 (moderate); Z79.82 Long term (current) use of aspirin; Z79.899 Other long term (current) drug therapy; Z80.9 Family history of malignant neoplasm, unspecified; Z95.0 Presence of cardiac pacemaker; R26.9 Unspecified abnormalities of gait and mobility; M77.8 Other enthesopathies, not elsewhere classified; E11.69 Type 2 diabetes mellitus with other specified complication
CPT/HCPCS: 36415; 36569; 70450; 71046; 76937; 77001; 80048; 80053; 81001; 82009; 82550; 82553; 83036; 83605; 83735; 84484; 85025; 85610; 85652; 85730; 86140; 87040; 87070; 87075; 87077; 87086; 87186; 87205; 88305; 88311; 93005; 93306; 94760; 96361; 96365; 96367; 99285

== ENCOUNTER 2018-05-25 19:41 | Observation (INO) | payer MEDICARE ==
[2018-05-25 20:07] LABS: Glucose,Whole Blood 106 mg/dL (75-99)
[2018-05-25] MEDS ORDERED: SODIUM CHLORIDE 0.9% 500 ML 500 ML IV STA (20:09)
--- NOTE | 2018-05-25 20:18 | ED ---
General Adult HPI - General Chief complaint: Syncope Stated complaint: Syncope Time Seen by Provider: 05/25/18 19:45 Source: patient, RN notes reviewed Mode of arrival: wheelchair Limitations: no limitations - History of Present Illness Initial comments: This is a 77-year-old male who has a past medical history significant for diabetes. Patient recently had his toe amputated secondary to diabetes. Patient was at [facility] and his family decided to come out to a restaurant. Patient sat down at the table did not eat and then slowly became unresponsive. Family states he was unresponsive for about 1-2 minutes. They were able to get him up and get him into the car and drive him to the hospital on the way he also became unresponsive for another one to 2 minutes. Patient states he had no chest pain before after the event he had no difficulty breathing before or after the event patient denies any palpitations prior to or after the event. Patient states currently he feels at his baseline a family states he is at his baseline currently. Patient has had no recent fever or chills. Patient denies feeling lightheaded or dizzy. Patient's sugar on arrival was 110. Patient denies any headache patient denies any numbness or weakness. - Related Data Home Medications Medication Instructions Recorded Confirmed Aspirin 81 mg PO HS 10/01/16 05/25/18 Donepezil [Aricept] 10 mg PO HS 10/01/16 05/25/18 Insulin Detemir [Levemir] 15 unit SQ HS 10/01/16 05/25/18 Multivitamins, Thera [Multivitamin 1 tab PO HS 10/01/16 05/25/18 (formulary)] glipiZIDE [Glucotrol] 5 mg PO AC-BID 10/01/16 05/25/18 Acetaminophen Tab [Tylenol] 650 mg PO Q6HR PRN 05/25/18 05/25/18 Ampicillin Sodium/Sulbactam Na 3 gm IVPB Q6H 05/25/18 05/25/18 [Ampicillin-Sulbactam 3 gm Vial] DAPTOmycin [Cubicin Rf] 500 mg IVPB HS 05/25/18 05/25/18 Famotidine [Pepcid] 20 mg PO BID 05/25/18 05/25/18 Folic Acid 1 mg PO HS 05/25/18 05/25/18 HYDROcodone/APAP 5-325MG [[place] 5] 1 tab PO Q6H PRN 05/25/18 05/25/18 INSULIN LISPRO (humaLOG) [humaLOG] See Protocol SQ ACHS 05/25/18 05/25/18 Insulin Aspart [NovoLOG 5 unit SQ AC-TID 05/25/18 05/25/18 (formulary)] L.acidoph,Paracasei, B.lactis 2 cap PO HS 05/25/18 05/25/18 [Probiotic] Lisinopril [Zestril] 20 mg PO DAILY 05/25/18 05/25/18 Melatonin 3 mg PO HS 05/25/18 05/25/18 Menthol-Zinc Oxide Oint 1 applic TOPICAL TID 05/25/18 05/25/18 [Calmoseptine Oint] Thiamine [Vitamin B-1] 100 mg PO BID 05/25/18 05/25/18 guaiFENesin-DM 600/30MG [Mucinex 1 tab PO Q12HR 05/25/18 05/25/18 Dm] Previous Rx's Medication Instructions Recorded amLODIPine [Norvasc] 10 mg PO DAILY #30 tab 10/07/16 Allergies Allergy/AdvReac Type Severity Reaction Status Date / Time No Known Allergies Allergy Verified 05/25/18 20:39 Review of Systems ROS Statement: Those systems with pertinent positive or pertinent negative responses have been documented in the HPI. ROS Other: All systems not noted in ROS Statement are negative. Past Medical History Past Medical History: Heart Failure, Dementia, Diabetes Mellitus, Hypertension, Syncope Additional Past Medical History / Comment(s): PT. HAD SEVERAL SYNCOPAL EPISODES PRIOR TO RECEIVING HIS PACEMAKER,PVD History of Any Multi-Drug Resistant Organisms: None Reported Past Surgical History: Appendectomy, Pacemaker Additional Past Surgical History / Comment(s): LEFT GREAT TOE HALF REMOVED. Past Anesthesia/Blood Transfusion Reactions: Previous Problems w/ Anesthesia Additional Past Anesthesia/Blood Transfusion Reaction / Comment(s): PER PTS. DAUGHTER HE HAS A HARD TIME WAKING UP FROM ANESETHIA Type of Cardiac Device: Permanent Pacemaker Device Placement Date:: 03/02/2017 Past Psychological History: No Psychological Hx Reported Smoking Status: Never smoker Past Alcohol Use History: Abuse, Daily Past Drug Use History: None Reported - Past Family History Father Family Medical History: Cancer Mother History Unknown: Yes General Exam - General Exam Comments Initial Comments: GENERAL: Patient is well-developed and well-nourished. Patient is nontoxic and well- hydrated and is in no acute distress. ENT: Neck is soft and supple. No significant lymphadenopathy is noted. Oropharynx is clear. Moist mucous membranes. Neck has full range of motion without eliciting any pain. EYES: The sclera were anicteric and conjunctiva were pink and moist. Extraocular movements were intact and pupils were equal round and reactive to light. Eyelids were unremarkable. PULMONARY: Unlabored respirations. Good breath sounds bilaterally. No audible rales rhonchi or wheezing was noted. CARDIOVASCULAR: There is a regular rate and rhythm without any murmurs gallops or rubs. ABDOMEN: Soft and nontender with normal bowel sounds. No palpable organomegaly was noted. There is no palpable pulsatile mass. SKIN: Skin is clear with no lesions or rashes and otherwise unremarkable. NEUROLOGIC: Patient is alert and oriented x3. Cranial nerves II through XII are grossly intact. Motor and sensory are also intact. Normal speech, volume and content. Symmetrical smile. MUSCULOSKELETAL: Normal extremities with adequate strength and full range of motion. LYMPHATICS: No significant lymphadenopathy is noted PSYCHIATRIC: Normal psychiatric evaluation. Limitations: no limitations Course Vital Signs 05/25/18 05/25/18 19:42 20:21 Temperature 97.6 F Pulse Rate 57 L Pulse Rate [ 69 Left Sitting Pulse Oximetery ] Pulse Rate [ 64 Left Standing Pulse Oximetery ] Pulse Rate [ 59 L Left Supine Pulse Oximetery ] Respiratory 18 18 Rate Blood Pressure 101/59 Blood Pressure 105/54 [Left Arm Sitting] Blood Pressure 114/67 [Left Arm Standing] Blood Pressure 142/63 [Left Arm Supine] O2 Sat by Pulse 98 Oximetry Medical Decision Making - Medical Decision Making EKG shows sinus bradycardia 54 bpm [place] interval is 258 QRSs 80 QT interval 440 QTC is 417. Patient's EKG shows no ST segment elevation or depression or T wave abnormalities are noted. Patient's d-dimer came back elevated however patient's creatinine was such that a CAT scan could not be done a VQ scan will be done in the morning in the meantime I will heparinize the patient - Lab Data Result diagrams: 05/25/18 20:05 05/25/18 20:05 Lab Results 05/25/18 05/25/18 05/25/18 Range/Units 19:55 20:05 20:05 WBC 9.9 (3.8-10.6) k/uL RBC 3.83 L (4.30-5.90) m/uL Hgb 11.3 L (13.0-17.5) gm/dL Hct 34.7 L (39.0-53.0) % MCV 90.7 (80.0-100.0) fL MCH 29.6 (25.0-35.0) pg MCHC 32.6 (31.0-37.0) g/dL RDW 13.7 (11.5-15.5) % Plt Count 284 (150-450) k/uL Neutrophils % 73 % Lymphocytes % 13 % Monocytes % 6 % Eosinophils % 5 % Basophils % 1 % Neutrophils # 7.2 (1.3-7.7) k/uL Lymphocytes # 1.2 (1.0-4.8) k/uL Monocytes # 0.6 (0-1.0) k/uL Eosinophils # 0.5 (0-0.7) k/uL Basophils # 0.1 (0-0.2) k/uL PT (9.0-12.0) sec INR (<1.2) APTT (22.0-30.0) sec D-Dimer (<0.60) mg/L FEU Sodium (137-145) mmol/L Potassium (3.5-5.1) mmol/L Chloride (98-107) mmol/L Carbon Dioxide (22-30) mmol/L Anion Gap mmol/L BUN (9-20) mg/dL Creatinine (0.66-1.25) mg/dL Est GFR (CKD-EPI)AfAm (>60 ml/min/1.73 sqM) Est GFR (CKD-EPI)NonAf (>60 ml/min/1.73 sqM) Glucose (74-99) mg/dL POC Glucose (mg/dL) 106 H (75-99) mg/dL POC Glu Medical Claims Manager ID Lashay Darling Calcium (8.4-10.2) mg/dL Magnesium (1.6-2.3) mg/dL Total Bilirubin (0.2-1.3) mg/dL AST (17-59) U/L ALT (21-72) U/L Alkaline Phosphatase (38-126) U/L Total Creatine Kinase 32 L (55-170) U/L CK-MB (CK-2) 1.1 (0.0-2.4) ng/mL CK-MB (CK-2) Rel Index 3.4 Troponin I <0.012 (0.000-0.034) ng/mL NT-Pro-B Natriuret Pep pg/mL Total Protein (6.3-8.2) g/dL Albumin (3.5-5.0) g/dL 05/25/18 05/25/18 05/25/18 Range/Units 20:05 20:05 20:05 WBC (3.8-10.6) k/uL RBC (4.30-5.90) m/uL Hgb (13.0-17.5) gm/dL Hct (39.0-53.0) % MCV (80.0-100.0) fL MCH (25.0-35.0) pg MCHC (31.0-37.0) g/dL RDW (11.5-15.5) % Plt Count (150-450) k/uL Neutrophils % % Lymphocytes % % Monocytes % % Eosinophils % % Basophils % % Neutrophils # (1.3-7.7) k/uL Lymphocytes # (1.0-4.8) k/uL Monocytes # (0-1.0) k/uL Eosinophils # (0-0.7) k/uL Basophils # (0-0.2) k/uL PT 10.3 (9.0-12.0) sec INR 1.0 (<1.2) APTT 28.9 (22.0-30.0) sec D-Dimer 1.36 H (<0.60) mg/L FEU Sodium 140 (137-145) mmol/L Potassium 4.6 (3.5-5.1) mmol/L Chloride 105 (98-107) mmol/L Carbon Dioxide 23 (22-30) mmol/L Anion Gap 12 mmol/L BUN 20 (9-20) mg/dL Creatinine 1.80 H (0.66-1.25) mg/dL Est GFR (CKD-EPI)AfAm 41 (>60 ml/min/1.73 sqM) Est GFR (CKD-EPI)NonAf 36 (>60 ml/min/1.73 sqM) Glucose 88 (74-99) mg/dL POC Glucose (mg/dL) (75-99) mg/dL POC Glu Medical Claims Manager ID Calcium 9.3 (8.4-10.2) mg/dL Magnesium 2.2 (1.6-2.3) mg/dL Total Bilirubin 0.4 (0.2-1.3) mg/dL AST 66 H (17-59) U/L ALT 117 H (21-72) U/L Alkaline Phosphatase 86 (38-126) U/L Total Creatine Kinase (55-170) U/L CK-MB (CK-2) (0.0-2.4) ng/mL CK-MB (CK-2) Rel Index Troponin I (0.000-0.034) ng/mL NT-Pro-B Natriuret Pep 146 pg/mL Total Protein 7.3 (6.3-8.2) g/dL Albumin 3.8 (3.5-5.0) g/dL Disposition Clinical Impression: Syncope and collapse, Elevated d-dimer, Orthostatic hypotension Disposition: ADMITTED IP TO THIS HOSP Referrals: [facility] [Primary Care Provider] - 1-2 days Time of Disposition: 21:08
[2018-05-25 20:31] LABS: Basophils # (A) 0.1 k/uL (0-0.2); Basophils % (A) 1 %; Eosinophils # (A) 0.5 k/uL (0-0.7); Eosinophils % (A) 5 %; HCT 34.7 % (39.0-53.0); HGB 11.3 gm/dL (13.0-17.5); Lymphocytes # (A) 1.2 k/uL (1.0-4.8); Lymphocytes % (A) 13 %; MCH 29.6 pg (25.0-35.0); MCHC 32.6 g/dL (31.0-37.0); MCV 90.7 fL (80.0-100.0); Mean Platelet Volume 7.4; Monocytes # (A) 0.6 k/uL (0-1.0); Monocytes % (A) 6 %; Neutrophils # (A) 7.2 k/uL (1.3-7.7); Neutrophils % (A) 73 %; Platelet Count 284 k/uL (150-450); RBC 3.83 m/uL (4.30-5.90); RDW 13.7 % (11.5-15.5); WBC 9.9 k/uL (3.8-10.6)
[2018-05-25 20:42] LABS: Albumin 3.8 g/dL (3.5-5.0); Calcium 9.3 mg/dL (8.4-10.2); Magnesium 2.2 mg/dL (1.6-2.3); Potassium 4.6 mmol/L (3.5-5.1); Total Bilirubin 0.4 mg/dL (0.2-1.3); Total Protein 7.3 g/dL (6.3-8.2)
[2018-05-25 20:45] LABS: Partial Thromboplastin Time 28.9 sec (22.0-30.0); Prothrombin Time 10.3 sec (9.0-12.0)
[2018-05-25 20:50] LABS: Creatine Kinase 32 U/L (55-170)
[2018-05-25 20:51] LABS: D-Dimer 1.36 mg/L FEU (<0.60)
--- NOTE | 2018-05-25 20:55 | XR ---
EXAMINATION: XR chest 2V DATE AND TIME: 05/25/2018 8:40 PM CLINICAL INDICATION: PHH; Chest Pain TECHNIQUE: PA and 2 lateral views COMPARISON: 04/01/2018 FINDINGS: Cardiac pacemaker appears similar to the prior study. Right upper extremity PICC line tip s uperimposes over the proximal SVC. The cardiac silhouette is mildly enlarged, unchanged. The lungs are clear. The pleural spaces are negative. The skeletal structures and soft tissues are negative for acute findings. IMPRESSION: NO ACUTE PROCESS.
[2018-05-25] MEDS ORDERED: SODIUM CHLORIDE 0.9% 500 ML 500 ML IV ONE (20:56)
[2018-05-25 21:03] LABS: Creatine Kinase MB 1.1 ng/mL (0.0-2.4); Troponin I <0.012 ng/mL (0.000-0.034)
[2018-05-25] MEDS ORDERED: NITROGLYCERIN SL TABS 0.4 MG TAB SUBLINGUAL PRN (21:09)
[2018-05-25] MEDS ORDERED: HEPARIN SODIUM,PORCINE 10,000 UNIT/ML 1 ML VIAL IV ONE (21:15)
[2018-05-25 22:00] LABS: Creatine Kinase 31 U/L (55-170)
[2018-05-25] MEDS: HEPARIN SOD,PORK IN 0.45% NACL 25,000 UNIT in 0.45% NACL 1 250ML.BAG IV SCH (22:08)
[2018-05-25 22:14] LABS: Creatine Kinase MB 1.1 ng/mL (0.0-2.4); Troponin I <0.012 ng/mL (0.000-0.034)
[2018-05-25] MEDS: SODIUM CHLORIDE 0.9% 1,000 ML IV SCH (22:16)
[2018-05-26 03:41] LABS: Cholesterol 179 mg/dL (<200); HDL Cholesterol 26 mg/dL (40-60); LDL Cholesterol,Calculated 134 mg/dL (0-99); Triglycerides 97 mg/dL (<150)
[2018-05-26 03:50] LABS: Creatine Kinase 31 U/L (55-170)
[2018-05-26 04:03] LABS: Creatine Kinase MB 1.3 ng/mL (0.0-2.4); Troponin I <0.012 ng/mL (0.000-0.034)
--- NOTE | 2018-05-26 09:12 | P.HPIM ---
History of Present Illness This is a pleasant 77 years old male with past medical history of dementia, diabetes mellitus, hypertension, heart failure, syncope with history of several syncopal episodes. Patient status post pacemaker. Patient has been evaluated by neurologist for similar syncopal attack on last September 2016. It's mostly cardiac in origin. This time patient presents with syncope 2. Patient says that he was watching TV on his chair when he passed out. He couldn't give wished details and he wasn't sure how long it lasted. Patient denies headache or vision his tongue. No urine or bowel incontinence. He states that his son who lives next are found his slight done and came to check on him and then he came to the emergency room. Patient denies chest pain or dyspnea. No blurry vision. No weakness in arms or legs or abnormal sensation or numbness. No diarrhea. No change in urine or bowel habits. No abdominal pain or nausea or vomiting. No fever. Patient states that usually he follows up with [facility] and last time he presented to them was about 8-10 months ago as per patient. Also is complaining of from right foods ulcer with a wedge wounds between the first and the second toe but not much pain On admission his has Vitas looks stable. Heart rate in 50s to 60s. Blood pressure 140/69. CBC and CMP were unremarkable except for creatinine 1.8, baseline is 1.2-1.4, EKG shows sinus bradycardia with first-degree AV block, at a rate of 54/m and QTC 417. Chest x-ray: No acute event as per radiologist Review of Systems CONSTITUTIONAL: No fever, no malaise, no fatigue. HEENT: No recent visual problems or hearing problems. Denied any sore throat. CARDIOVASCULAR: No orthopnea, PND, no palpitations, no syncope. PULMONARY: No shortness of breath, no cough, no hemoptysis. GASTROINTESTINAL: No diarrhea, no nausea, no vomiting, no abdominal pain. Normoactive bowel sounds. NEUROLOGICAL: No headaches, no weakness, no numbness. HEMATOLOGICAL: Denies any bleeding or petechiae. GENITOURINARY: Denies any burning micturition, frequency, or urgency. MUSCULOSKELETAL/RHEUMATOLOGICAL: Denies any joint pain, swelling, or any muscle pain. ENDOCRINE: Denies any polyuria or polydipsia. Past Medical History Past Medical History: Heart Failure, Dementia, Diabetes Mellitus, Hypertension, Syncope Additional Past Medical History / Comment(s): PT. HAD SEVERAL SYNCOPAL EPISODES PRIOR TO RECEIVING HIS PACEMAKER,PVD History of Any Multi-Drug Resistant Organisms: None Reported Past Surgical History: Appendectomy, Pacemaker Additional Past Surgical History / Comment(s): LEFT GREAT TOE HALF REMOVED. Past Anesthesia/Blood Transfusion Reactions: Previous Problems w/ Anesthesia Additional Past Anesthesia/Blood Transfusion Reaction / Comment(s): PER PTS. DAUGHTER HE HAS A HARD TIME WAKING UP FROM ANESETHIA Type of Cardiac Device: Permanent Pacemaker Device Placement Date:: 03/02/2017 Past Psychological History: No Psychological Hx Reported Smoking Status: Never smoker Past Alcohol Use History: Abuse, Daily Past Drug Use History: None Reported - Past Family History Father Family Medical History: Cancer Mother History Unknown: Yes Medications and Allergies Home Medications Medication Instructions Recorded Confirmed Type Aspirin 81 mg PO HS 10/01/16 05/25/18 History Donepezil [Aricept] 10 mg PO HS 10/01/16 05/25/18 History Insulin Detemir [Levemir] 15 unit SQ HS 10/01/16 05/25/18 History Multivitamins, Thera [Multivitamin 1 tab PO HS 10/01/16 05/25/18 History (formulary)] glipiZIDE [Glucotrol] 5 mg PO AC-BID 10/01/16 05/25/18 History amLODIPine [Norvasc] 10 mg PO DAILY #30 tab 10/07/16 05/25/18 Rx Acetaminophen Tab [Tylenol] 650 mg PO Q6HR PRN 05/25/18 05/25/18 History Ampicillin Sodium/Sulbactam Na 3 gm IVPB Q6H 05/25/18 05/25/18 History [Ampicillin-Sulbactam 3 gm Vial] DAPTOmycin [Cubicin Rf] 500 mg IVPB HS 05/25/18 05/25/18 History Famotidine [Pepcid] 20 mg PO BID 05/25/18 05/25/18 History Folic Acid 1 mg PO HS 05/25/18 05/25/18 History HYDROcodone/APAP 5-325MG [[place] 5] 1 tab PO Q6H PRN 05/25/18 05/25/18 History INSULIN LISPRO (humaLOG) [humaLOG] See Protocol SQ ACHS 05/25/18 05/25/18 History Insulin Aspart [NovoLOG 5 unit SQ AC-TID 05/25/18 05/25/18 History (formulary)] L.acidoph,Paracasei, B.lactis 2 cap PO HS 05/25/18 05/25/18 History [Probiotic] Lisinopril [Zestril] 20 mg PO DAILY 05/25/18 05/25/18 History Melatonin 3 mg PO HS 05/25/18 05/25/18 History Menthol-Zinc Oxide Oint 1 applic TOPICAL TID 05/25/18 05/25/18 History [Calmoseptine Oint] Thiamine [Vitamin B-1] 100 mg PO BID 05/25/18 05/25/18 History guaiFENesin-DM 600/30MG [Mucinex 1 tab PO Q12HR 05/25/18 05/25/18 History Dm] Allergies Allergy/AdvReac Type Severity Reaction Status Date / Time No Known Allergies Allergy Verified 05/25/18 20:39 Physical Exam Vitals: Vital Signs Temp Pulse Pulse Pulse Pulse Resp BP 05/26/18 06:24 98.1 F 73 17 149/76 05/26/18 06:00 67 10 L 05/26/18 05:00 60 17 05/26/18 04:00 59 L 17 142/73 05/26/18 03:00 60 19 131/73 05/26/18 02:00 56 L 18 141/70 05/26/18 01:19 63 18 141/70 05/26/18 01:00 61 17 145/63 05/26/18 00:22 60 18 145/63 05/25/18 23:30 05/25/18 23:00 68 18 143/62 05/25/18 20:21 69 64 59 L 18 05/25/18 19:42 97.6 F 57 L 18 101/59 BP BP BP Pulse Ox 05/26/18 06:24 97 05/26/18 06:00 05/26/18 05:00 05/26/18 04:00 05/26/18 03:00 05/26/18 02:00 95 05/26/18 01:19 97 05/26/18 01:00 95 05/26/18 00:22 95 05/25/18 23:30 97 05/25/18 23:00 97 01/15/19 20:21 105/54 114/67 142/63 05/25/18 19:42 98 Intake and Output 05/25/18 05/26/18 05/26/18 22:59 06:59 14:59 Intake Total 103.963 Balance 103.963 Intake: Intake, IV Titration 103.963 Amount Heparin Sod,Pork in 0.45% 103.963 NaCl 25,000 unit In 0.45 % NaCl 1 250ml.bag @ 18 UNITS/KG/HR 16.16 mls/hr IV .[id number] ON LICENSE OF [facility] Rx#: [id number] Other: Weight 89.811 kg GENERAL: The patient is alert and oriented x3, not in any acute distress. Well developed, well nourished. HEENT: Pupils are round and equally reacting to light. EOMI. No scleral icterus. No conjunctival pallor. Normocephalic, atraumatic. No pharyngeal erythema. No thyromegaly. CARDIOVASCULAR: S1 and S2 present. No murmurs, rubs, or gallops. PULMONARY: Chest is clear to auscultation, no wheezing or crackles. ABDOMEN: Soft, nontender, nondistended, normoactive bowel sounds. No palpable organomegaly. MUSCULOSKELETAL: No joint swelling or deformity. EXTREMITIES: No cyanosis, clubbing, or pedal edema. Right foods: wedge wounds between the first and the second toe with granulation tissue and some greenish purulent discharge, no surrounding cellulitis. NEUROLOGICAL: Gross neurological examination did not reveal any focal deficits. SKIN: No rashes. Results CBC & Chem 7: 05/25/18 20:05 05/25/18 20:05 Labs: Abnormal Lab Results - Last 24 Hours (Table) 05/25/18 05/25/18 05/25/18 Range/Units 19:55 20:05 20:05 RBC 3.83 L (4.30-5.90) m/uL Hgb 11.3 L (13.0-17.5) gm/dL Hct 34.7 L (39.0-53.0) % APTT (22.0-30.0) sec D-Dimer (<0.60) mg/L FEU Creatinine (0.66-1.25) mg/dL POC Glucose (mg/dL) 106 H (75-99) mg/dL AST (17-59) U/L ALT (21-72) U/L Total Creatine Kinase 32 L (55-170) U/L LDL Cholesterol, Calc (0-99) mg/dL HDL Cholesterol (40-60) mg/dL 05/25/18 05/25/18 05/25/18 Range/Units 20:05 20:05 21:22 RBC (4.30-5.90) m/uL Hgb (13.0-17.5) gm/dL Hct (39.0-53.0) % APTT (22.0-30.0) sec D-Dimer 1.36 H (<0.60) mg/L FEU Creatinine 1.80 H (0.66-1.25) mg/dL POC Glucose (mg/dL) (75-99) mg/dL AST 66 H (17-59) U/L ALT 117 H (21-72) U/L Total Creatine Kinase 31 L (55-170) U/L LDL Cholesterol, Calc (0-99) mg/dL HDL Cholesterol (40-60) mg/dL 05/26/18 05/26/18 05/26/18 Range/Units 03:06 03:06 03:06 RBC (4.30-5.90) m/uL Hgb (13.0-17.5) gm/dL Hct (39.0-53.0) % APTT >200.0 H* (22.0-30.0) sec D-Dimer (<0.60) mg/L FEU Creatinine (0.66-1.25) mg/dL POC Glucose (mg/dL) (75-99) mg/dL AST (17-59) U/L ALT (21-72) U/L Total Creatine Kinase 31 L (55-170) U/L LDL Cholesterol, Calc 134 H (0-99) mg/dL HDL Cholesterol 26 L (40-60) mg/dL Assessment and Plan Assessment: Syncope Recurrent syncope attacks Acute kidney injury Right Diabetic foot ulcer Mild leukocytosis with no fever. Most likely reactive. Follow-up WBC History of dementia Diabetes mellitus Essential hypertension History of heart regular Plan: This is a pleasant 77 years old male who presents because of recurrent syncope. Cardiology been consulted. Continue with IV fluids and check hemoglobin A1c. Pain management. Continue with IV fluids. We'll check ESR: Infectious disease consult for his right foods.Labs and medication were reviewed.. Continue same treatment. Continue with symptomatic treatment. Resume home medication. Monitor lytes and vitals. DVT and GI prophylaxis. Further recommendations of the clinical course of the patient DVT prophylaxis: Subcutaneous heparin GI Prophylaxis: Pepcid PT/OT: Pending Prognosis is guarded
--- NOTE | 2018-05-26 09:33 | CONS ---
BIRD Au is a 77-year-old gentleman with history of diabetes, hypertension, right foot ulcer who underwent amputation of the second toe in March of 2018. He comes into hospital having had an episode of syncope. The patient is recuperating in a group home and apparently suddenly passed out. He has had 2 episodes of this. Sudden onset at rest without clear-cut relieving or exacerbating factors, it was unassociated with any focal neurological deficits. There is no history of seizure disorder. No bladder or bowel incontinence. At the time of my evaluation, he appears comfortable at rest and is free of significant symptoms. Patient has known permanent pacemaker secondary because of history of bradycardia. PAST MEDICAL HISTORY: Significant for [id number] diabetes, hypertension, dyslipidemia, sick sinus syndrome status post permanent pacemaker. MEDICATIONS: Include Glucotrol 5 b.i.d., Norvasc 10 q. daily, thiamine, multivitamin, Zestril 20 q. daily, insulin, Pepcid, folic acid. ALLERGIES: There are no known drug allergies. FAMILY HISTORY: Negative for premature coronary artery disease. SOCIAL HISTORY: Negative for current smoking, EtOH abuse, or drug abuse. REVIEW OF SYSTEMS: HEENT is unremarkable. CARDIAC: As described above. RESPIRATORY: Negative. GI: Negative. GENITOURINARY: Negative. ALLERGY/IMMUNOLOGY: Negative. MUSCULOSKELETAL: Significant for arthritis. PSYCHOSOCIAL: Negative. ENDOCRINE: Negative. DERM: Negative. CONSTITUTIONAL: Negative. ONCOLOGICAL: Negative. Rest of the system review is not relevant. PHYSICAL EXAM: Patient is comfortable at rest. Heart rate is 73 beats per minute. Blood pressure is 150/70, respiratory rate is 18. There is no jugular venous distention. Chest exam reveals good air entry bilaterally. Heart exam reveals first and second heart sounds. No gallop. No murmur. Abdomen is soft. Exam of the extremities reveals that the dorsalis pedis pulses are palpable. Patient is status post toe amputation. LABS: Show that the troponins are negative. Creatinine is 1.8. D-dimer is elevated at 1.3. Hemoglobin is 11.3. Patient has orthostatic changes. The blood pressure dropping from 140 to 105. EKG shows sinus bradycardia. ASSESSMENT: 1. Syncope, rule out cardiac causes. 2. Elevated D-dimer, rule out pulmonary embolism. 3. History of bradycardia, status post permanent pacemaker. 4. Hypertension. 5. Dyslipidemia. 6. Status post amputation. PLAN: Patient underwent a V/Q scan to rule out pulmonary embolism. I will obtain a 2D echo. Will check his pacemaker to make sure that it is functioning appropriately. Myocardial infarction is ruled out. If there is no recent stress test after discharge, we can perform an outpatient stress test on him. GEGE / DEVEN: [id number] /
--- NOTE | 2018-05-26 11:35 | ECHOF ---
Referral Reason:Syncope MEASUREMENTS -------- HEIGHT: 172.7 cm WEIGHT: 89.8 kg BP: 149/76 RVIDd: 3.8 cm (< 3.3) IVSd: 1.6 cm (0.6 - 1.1) LVIDd: 4.4 cm (3.9 - 5.3) LVPWd: 1.4 cm (0.6 - 1.1) IVSs: 2.0 cm LVIDs: 2.9 cm LVPWs: 1.6 cm LA Diam: 3.1 cm (2.7 - 3.8) LAESV Index (A-L): 32.76 ml/m Ao Diam: 4.0 cm (2.0 - 3.7) AV Cusp: 2.5 cm (1.5 - 2.6) EPSS: 0.3 cm MV E Chepe: 1.04 m/s MV DecT: 292 ms MV A Chepe: 0.97 m/s MV E/A Ratio: 1.06 RAP: 15.00 mmHg RVSP: 40.46 mmHg MV EF SLOPE: 71.15 mm/s (70 - 150) MV EXCURSION: 2.14 cm (> 18.000) FINDINGS -------- Paced rhythm. This was a technically good study. The left ventricular size is normal. There is moderate concentric left ventricular hypertrophy. O verall left ventricular systolic function is normal with, an EF between 55 - 60 %. The right ventricle is mild to moderately enlarged. LA is midly dilated 29-33ml/m2. The right atrium is normal in size. Aortic valve is trileaflet and is mildly thickened. Trace amount of aortic regurgitation. There is trace to mild mitral regurgitation. Mild tricuspid regurgitation present. There is mild pulmonary hypertension. The right ventricular systolic pressure, as measured by Doppler, is 40.46mmHg. There is no pulmonic regurgitation present. The aortic root is dilated measuring 4.0cm. The inferior vena cava is dilated with no significant inspiratory collapse which is consistent estima jessie right atrial pressure of >15 mmHg. CONCLUSIONS -------- 1. Paced rhythm. 2. This was a technically good study. 3. The left ventricular size is normal. 4. There is moderate concentric left ventricular hypertrophy. 5. The right ventricle is mild to moderately enlarged. 6. LA is midly dilated 29-33ml/m2. 7. The right atrium is normal in size. 8. Aortic valve is trileaflet and is mildly thickened. 9. Trace amount of aortic regurgitation. 10. There is trace to mild mitral regurgitation. 11. Mild tricuspid regurgitation present. 12. There is mild pulmonary hypertension. 13. The right ventricular systolic pressure, as measured by Doppler, is 40.46mmHg. 14. There is no pulmonic regurgitation present. 15. The aortic root is dilated measuring 4.0cm. 16. The inferior vena cava is dilated with no significant inspiratory collapse which is consistent es timated right atrial pressure of >15 mmHg. INSPECTOR PLATING: SKY Paul
--- NOTE | 2018-05-26 11:39 | NM ---
EXAMINATION TYPE: NM pul vent and perfuse DATE OF EXAM: 05/26/2018 COMPARISON: Chest x-ray 05/25/2017 HISTORY: Elevated d-dimer, syncope, difficulty breathing TECHNIQUE: Utilizing inhalation of 35.7 mCi Tc 99m DTPA aerosol and intravenous injection of 5 mCi o f Tc 99m MAA, ventilation and perfusion images are acquired post injection in multiple projections. FINDINGS: Normal radiotracer distribution is noted in the lungs. There is no evidence of mismatched defects. IMPRESSION: Low probability for pulmonary embolism
[2018-05-26 12:04] LABS: Glucose,Whole Blood 106 mg/dL (75-99)
[2018-05-26] MEDS ORDERED: HYDROcodone/APAP 5-325MG 1 EACH TAB PO PRN (13:21)
[2018-05-26] MEDS ORDERED: ACETAMINOPHEN TAB 325 MG TAB PO PRN (13:21)
[2018-05-26] MEDS ORDERED: AMPICILLIN-SULBACTAM 3 GM in SODIUM CHLORIDE 0.9% 100 ML IVPB STA (16:06)
[2018-05-26 16:13] LABS: Glucose,Whole Blood 194 mg/dL (75-99)
[2018-05-26] MEDS: LISINOPRIL 20 MG TAB PO SCH (16:49)
[2018-05-26] MEDS: glipiZIDE 5 MG TAB PO SCH (16:49)
[2018-05-26] MEDS: FAMOTIDINE 20 MG TAB PO SCH ×2 (16:49→21:52)
[2018-05-26] MEDS: ASPIRIN 325 MG TAB PO SCH (16:50)
[2018-05-26] MEDS: INSULIN ASPART 100 UNIT/ML 1 ML 10 ML VIAL SQ SCH ×3 (16:50→21:34)
[2018-05-26] MEDS: MENTHOL-ZINC OXIDE OINT 113 GM TUBE TOPICAL SCH ×2 (16:50→21:58)
[2018-05-26] MEDS: DAPTOmycin 500 MG in SODIUM CHLORIDE 0.9% 50 ML IVPB SCH (17:02)
[2018-05-26] MEDS ORDERED: INSULIN ASPART 100 UNIT/ML 1 ML 10 ML VIAL SQ SCH (17:30)
[2018-05-26] MEDS: HEPARIN SOD,PORK IN 0.45% NACL 25,000 UNIT in 0.45% NACL 1 250ML.BAG IV SCH (18:13)
[2018-05-26 19:33] LABS: Hemoglobin A1C 7.6 % (4.0-6.0)
[2018-05-26] MEDS: SODIUM CHLORIDE 0.9% 1,000 ML IV SCH ×2 (20:56→21:52)
[2018-05-26 21:09] LABS: Glucose,Whole Blood 102 mg/dL (75-99)
[2018-05-26] MEDS: DONEPEZIL 10 MG TAB PO SCH (21:48)
[2018-05-26] MEDS: LACTOBACILLUS ACIDOPH & BULGAR 1 EACH PACKET PO SCH (21:48)
[2018-05-26] MEDS: MULTIVITAMINS, THERA 1 EACH TAB PO SCH (21:48)
[2018-05-26] MEDS: MELATONIN 3 MG TABLET PO SCH (21:48)
[2018-05-26] MEDS: FOLIC ACID 1 MG TAB PO SCH (21:48)
[2018-05-26] MEDS: THIAMINE 100 MG TAB PO SCH (21:48)
[2018-05-26] MEDS: guaiFENesin-DM 600/30MG 1 EACH TAB.ER.12H PO SCH (21:49)
[2018-05-27] MEDS: INSULIN DETEMIR 100 UNIT/ML 10 ML VIAL SQ SCH ×2 (00:04→21:41)
[2018-05-27 05:36] LABS: Glucose,Whole Blood 103 mg/dL (75-99)
[2018-05-27] MEDS: INSULIN ASPART 100 UNIT/ML 1 ML 10 ML VIAL SQ SCH ×7 (05:41→21:34)
[2018-05-27] MEDS: HEPARIN SOD,PORK IN 0.45% NACL 25,000 UNIT in 0.45% NACL 1 250ML.BAG IV SCH (06:14)
[2018-05-27] MEDS: SODIUM CHLORIDE 0.9% 1,000 ML IV SCH ×2 (06:14→17:50)
--- NOTE | 2018-05-27 07:59 | CONS ---
CONSULTATION DATE OF SERVICE: 05/26/2018 REASON FOR CONSULTATION: Right diabetic foot wound and osteomyelitis. HISTORY OF PRESENT ILLNESS: The patient is a 77-year-old male well known to my service in this patient who did have history of right second toe gangrene status post amputation. The patient's blood and local wound culture were positive for MSSA. The patient is status post amputation of his right second toe and subsequently patient was sent to the [facility] for rehab. While there, the patient did develop worsening of his wound with secondary infection as the patient did have cultures done at the [facility] which VRE and . Thus antibiotic has been switched over to daptomycin and Unasyn which the patient currently has been receiving. Local wound care has been Hydrofera Blue dressing. The patient apparently went with his family for dinner yesterday while he was sitting there the patient apparently did pass out and then passed out again on the way to the hospital. The patient did not recall the events. Denies having any dizziness or any headache. No fever. No chills. No chest pain. No shortness of breath or cough. No abdominal pain or pain to the right foot. Only pain to the right foot when the dressing was changed or somebody messed his foot per the patient. The patient denies any problem with the PICC line and no diarrhea with antibiotic therapy. The patient subsequently was evaluated by the ER physician. On arrival to the hospital, the patient did have a chest x-ray that was negative for any acute pulmonary process. The patient did have ventilation-perfusion lung test which was low probability for PE. The patient has been afebrile and hemodynamically stable. The creatinine was mildly elevated at 1.80, white count was normal at 9.9. I was asked to see the patient for continued care of his foot wound as well as antibiotic therapy. REVIEW OF SYSTEMS: Positive points have been mentioned in HPI. Rest of the system has been negative. 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 Also history of hypertension and syncope. PAST SURGICAL HISTORY: Appendectomy, pacemaker placement and right second toe amputation. SOCIAL HISTORY: No history of smoking. Did admit to drinking. No drug use. FAMILY HISTORY: Father history of cancer. ALLERGIES: No known drug allergies. MEDICATIONS: Medications include the patient is currently on Tylenol, [place], Norvasc, aspirin, Calmoseptine, Aricept, Pepcid, folic acid, Glucotrol, heparin, NovoLog, Levemir, Lactinex, Zestril, Melatonin, Nitrostat and vitamin B1. PHYSICAL EXAMINATION: On examination, blood pressure is 165/73 with a pulse of 72, temperature 98.5. He is 96% on room air. General description is an elderly male lying in bed in no distress. No tachypnea or accessory muscle of respiration use. HEENT examination shows slight pallor. No scleral icterus. Oral mucous membrane is dry. No pharyngeal erythema or thrush. NECK: Trachea central. No thyromegaly. LUNGS: Unlabored breathing, clear to auscultation anteriorly. No wheeze or crackle. HEART: S1, S2. Regular rate and rhythm. ABDOMEN: Soft, no tenderness. No guarding or rigidity. EXTREMITIES: No edema of feet. Examination right foot wound with minimal slough tissue at the base of the wound. No significant swelling, redness or any foul-smelling drainage. NEUROLOGICAL: Patient is awake, alert, oriented x3. Mood and affect normal. LABS: Hemoglobin 11.3, white count of 9.9, BUN of 20, creatinine 1.80. Electrolytes have been normal. Liver enzymes slightly elevated. DIAGNOSTIC IMPRESSION AND PLAN: 1. Patient with right diabetic foot wound in this patient who did have a history of right second toe gangrene status post amputation initial culture with MSSA. Followup culture has been VRE and for which the patient currently receiving daptomycin and Unasyn. The patient being admitted to the hospital with syncopal episodes, being monitored and managed by the admitting and cardiology team. 2. The patient with elevated liver enzymes, questionable drug effect versus gallbladder disease. PLAN: 1. We will restart the patient on daptomycin mg daily and Unasyn 3 grams q.6 hours. 2. Local wound care to the right foot wound with Medihoney to be changed daily. 3. We will obtain ultrasound of the gallbladder and the liver area in view of elevated liver enzymes. 4. We will follow up on his clinical condition and culture to further adjust medication if needed. Thank you for this consultation. Will follow this patient along with you. MMODL / IJN: [id number] /
[2018-05-27] MEDS: amLODIPine 10 MG TAB PO SCH (08:10)
[2018-05-27] MEDS: LISINOPRIL 20 MG TAB PO SCH (08:10)
[2018-05-27] MEDS: ASPIRIN 325 MG TAB PO SCH (08:10)
[2018-05-27] MEDS: glipiZIDE 5 MG TAB PO SCH ×2 (08:10→17:49)
[2018-05-27] MEDS: FAMOTIDINE 20 MG TAB PO SCH (08:10)
[2018-05-27] MEDS: THIAMINE 100 MG TAB PO SCH ×2 (08:10→21:42)
--- NOTE | 2018-05-27 08:29 | US ---
EXAMINATION TYPE: US abdomen limited DATE OF EXAM: 05/27/2018 COMPARISON: NONE CLINICAL HISTORY: elevated LFT. EXAM MEASUREMENTS: Liver Length: 15.5 cm Gallbladder Wall: 0.2 cm CBD: 0.3 cm Right Kidney: 10.6 x 5.7 x 4.5 cm Pancreas: Tail obscured by overlying bowel gas Liver: Very limited exam due to overlying bowel gas and patient body habitus. There is increased ech ogenicity of the hepatic parenchyma with diminished visualization of the portal triads most commonly relating to hepatic steatosis and limiting evaluation for underlying hepatic masses. Gallbladder: Limited visualization, visualized portions show no stones or sludge. No gallbladder wal l thickening Evidence for sonographic Pineda's sign: No CBD: wnl as visualized, distal portion obscured by bowel gas Right Kidney: No hydronephrosis or masses seen IMPRESSION: Although visualization is suboptimal as there appears to be increased echogenicity of the hepatic parenchyma most commonly related to hepatic steatosis. Correlate with liver function tests r esults.
[2018-05-27] MEDS: MENTHOL-ZINC OXIDE OINT 113 GM TUBE TOPICAL SCH ×3 (09:02→21:42)
[2018-05-27] MEDS: guaiFENesin-DM 600/30MG 1 EACH TAB.ER.12H PO SCH ×2 (09:02→21:34)
[2018-05-27 11:50] LABS: Glucose,Whole Blood 107 mg/dL (75-99)
[2018-05-27] MEDS: MIDODRINE 5 MG TAB PO SCH ×2 (16:56→17:49)
[2018-05-27 17:29] LABS: Glucose,Whole Blood 84 mg/dL (75-99)
[2018-05-27] MEDS: DAPTOmycin 500 MG in SODIUM CHLORIDE 0.9% 50 ML IVPB SCH (17:51)
[2018-05-27 20:46] LABS: Glucose,Whole Blood 123 mg/dL (75-99)
[2018-05-27] MEDS: LACTOBACILLUS ACIDOPH & BULGAR 1 EACH PACKET PO SCH (21:41)
[2018-05-27] MEDS: MELATONIN 3 MG TABLET PO SCH (21:42)
[2018-05-27] MEDS: HEPARIN SODIUM,PORCINE 5,000 UNIT/ML 1 ML VIAL SQ SCH (21:42)
[2018-05-27] MEDS: MULTIVITAMINS, THERA 1 EACH TAB PO SCH (21:42)
[2018-05-27] MEDS: FOLIC ACID 1 MG TAB PO SCH (21:42)
[2018-05-27] MEDS: DONEPEZIL 10 MG TAB PO SCH (21:42)
[2018-05-27 21:56] VITALS: RESP 16
--- NOTE | 2018-05-27 23:13 | PN ---
PROGRESS NOTE DATE OF SERVICE: 05/27/2018 This 77-year-old gentleman with recurrent episode of syncope. Patient also had acute kidney injury. The patient being closely monitored at this time. The blood pressure is 151/88 and multiple consultants are following the patient closely. EKG, present on admission, showed some sinus bradycardia with first-degree AV block. Cardiology has seen the patient today and evaluating to rule out the possibility of any cardiac cause. The D-dimer was found to be 1.36 at this time. A V/Q scan was done to rule the possibility of pulmonary embolus, which was low probability. A 2D echo with Doppler was also done which showed ejection fraction about 55 to 60 percent and mild valvular abnormalities with some moderate ventricular hypertrophy. PAST MEDICAL HISTORY: Reviewed. REVIEW OF SYSTEMS: CARDIOVASCULAR: No angina. No palpitations. RESPIRATORY: As mentioned earlier. GI as mentioned earlier. : No dysuria. CENTRAL NERVOUS SYSTEM: No focal deficits. CURRENT MEDICATIONS: Reviewed and include: 1. Tylenol 650 q.6. 2. [place] 5 mg. 3. Norvasc 10 mg. 4. Aspirin 320. 5. Ketamine ointment. 6. Daptomycin 500 mg daily. 7. Aricept 10 mg q.h.s. 8. Pepcid 20 mg daily. 9. Folic acid. 10.Glucotrol. 11.Mucinex. 12.Heparin 5000 subcu b.i.d. 13.Levemir 15 units subcu q.h.s. 14.Lactinex. 15.Zestril 20 mg p.o. daily. 16.Melatonin 3 mg q.h.s. 17.Midodrine. 18.Multivitamins one p.o. daily. 19.Nitrostat. 20.Thiamine 100 mg p.o. daily. PHYSICAL EXAM: Patient is alert, oriented times three. Pulse is 66. Blood pressure 151/70, respiration 18, temperature 98.4, pulse ox 98% on room air. HEENT: Conjunctivae normal. NECK: No jugular venous distention. CARDIOVASCULAR: S1, S2. RESPIRATORY: Breath sounds diminished in the bases. A few scattered rhonchi and crackles. Abdomen is soft, nontender. LEGS: No edema, no swelling. CENTRAL NERVOUS SYSTEM: No focal deficits. LABS: WBC 9.2, hemoglobin 11.3, and D-dimer is 1.38. Creatinine is 1.8. AST/ALT noted. LDL is 134. ASSESSMENT: 1. Recurrent syncope for evaluation, rule out cardiac cause. 2. Sinus bradycardia, prolonged [place] interval, present on admission. 3. Acute kidney injury, present on admission. 4. Right foot diabetic ulcer. 5. Leukocytosis. 6. History of dementia. 7. History of recent 2nd toe gangrenous sepsis and amputation of the 2nd toe as well as metatarsal phalangeal head with MSSA. 8. Indeterminate troponin recently. 9. History of congestive heart failure with chronic diastolic dysfunction, ejection fraction 55-60 percent. 10.History of hypertension. 11.Gait dysfunction. RECOMMENDATIONS AND DISCUSSION: In this 77-year-old gentleman who presented with multiple complex medical issues, we will monitor the patient closely, continue the current medications, management and symptomatic treatment. Recommend repeat labs. I would also recommend continue to monitor closely. Empiric antibiotics. Antibiotics given, continued by Infectious Disease in the form of daptomycin. I would recommend orthostatic vitals and closely monitor. Guarded prognosis because of multiple complex medical issues. Further recommendations to follow. See orders for details. MMODL / IJN: [id number] /
--- NOTE | 2018-05-27 23:43 | PN ---
PROGRESS NOTE DATE OF SERVICE: 05/27/2018 REASON FOR FOLLOWUP: Right diabetic foot wound and osteomyelitis. INTERVAL HISTORY: The patient is currently afebrile. He has been breathing comfortably. He denies having any chest pain, shortness of breath or cough. No abdominal pain and no diarrhea. PHYSICAL EXAMINATION: Blood pressure is 147/66, pulse of 58, temperature 98.4. He is 96% on room air. General description is an elderly male lying in bed in no distress. RESPIRATORY SYSTEM: Unlabored breathing. Clear to auscultation anteriorly. HEART: S1, S2. Regular rate and rhythm. ABDOMEN: Soft. No tenderness. Right foot is currently dressed up, with no obvious drainage on the dressing. LABS: Hemoglobin 11.3, white count 9.9. No BNP was done. CRP was 70.6. DIAGNOSTIC IMPRESSION AND PLAN: Patient with right diabetic foot infection in this patient who did have right second toe gangrene, status post amputation. Initial culture with MSSA. Repeat has been VRE, . Patient is currently on daptomycin and Unasyn; to continue. Local wound care with [facility]. Re-evaluate the patient tomorrow. Continue supportive care. MMODL / IJN: [id number] /
--- NOTE | 2018-05-28 00:19 | US ---
EXAMINATION TYPE: US carotid duplex BILAT DATE OF EXAM: 05/27/2018 COMPARISON: NONE CLINICAL HISTORY: syncope. Syncope EXAM MEASUREMENTS: RIGHT: Peak Systolic Velocity (PSV) cm/sec ----- Right CCA: 91.4 ----- Right ICA: 230.2 ----- Right ECA: 324.8 ICA/CCA ratio: 2.5 RIGHT: End Diastole cm/sec ----- Right CCA: 11.5 ----- Right ICA: 40.7 ----- Right ECA: 0 LEFT: Peak Systolic Velocity (PSV) cm/sec ----- Left CCA: 114.0 ----- Left ICA: 153.0 ----- Left ECA: 212.1 ICA/CCA ratio: 1.3 LEFT: End Diastole cm/sec ----- Left CCA: 7.4 ----- Left ICA: 24.8 ----- Left ECA: 0 VERTEBRALS (direction of flow): Right Vertebral: Antegrade Left Vertebral: Antegrade Rhythm: Normal Elevated velocities in bilateral ICA and ECA. Bilateral plaque visualized. IMPRESSION: There is bilateral plaque formation. There is evidence for more than 70% stenosis of the right internal carotid artery and 50-70% stenosis of the left internal carotid artery. There is ante grade flow in the vertebral arteries. Criteria for Assigning % of Stenosis / Diameter reduction (Estimation based on the indirect measurements of the internal carotid artery velocities (ICA PSV). 1. Normal (no stenosis)=ICA PSV < 125 cm/s: ratio < 2.0: ICA EDV<40 cm/s. 2. Less than 50% stenosis=ICA PSV < 125 cm/s: ratio < 2.0: ICA EDV<40 cm/s. 3. 50 to 69% stenosis=ICA PSV of 125 to 230 cm/s: ration 2.0 ? 4.0: ICA EDV 40-100 cm/s. 4. Greater than 70% stenosis to near occlusion= ICA PSV > 230 cm/s: ratio > 4.0: ICA EDV > 100 cm/s. 5. Near occlusion= ICA PSV velocities may be low or undetectable: variable ratio and ICA EDV. 6. Total occlusion=unable to detect flow.
[2018-05-28 03:37] LABS: Appearance,Urine Clear (Clear); Bilirubin,Urine Negative (Negative); Blood,Urine Negative (Negative); Color,Urine Light Yellow; Glucose,Urine (UA) Negative (Negative); Ketones,Urine Negative (Negative); Leukocyte Esterase,Urine Negative (Negative); Nitrite,Urine Negative (Negative); Protein,Urine 1+ (Negative); RBC,Urine 1 /hpf (0-5); Specific Gravity,Urine 1.007 (1.001-1.035); Squamous Epithelial Cell,Urine <1 /hpf (0-4); Urobilinogen,Urine <2.0 mg/dL (<2.0); WBC,Urine <1 /hpf (0-5)
[2018-05-28 03:46] LABS: Amphetamine Screen,Urine Not Detected (NotDetected); Barbiturate Screen,Urine Not Detected (NotDetected); Benzodiazepines Screen,Urine Not Detected (NotDetected); Cocaine Screen,Urine Not Detected (NotDetected); Methadone Screen, Urine Not Detected (NotDetected); Opiate Screen,Urine Not Detected (NotDetected); Oxycodone Screen, Urine Not Detected (NotDetected); Phencyclidine Screen,Urine Not Detected (NotDetected); Tricyclic Antidepressant,Urine Not Detected (NotDetected); Urn Cannabinoid Scrn Not Detected (NotDetected)
[2018-05-28 06:04] LABS: Glucose,Whole Blood 49 mg/dL (75-99)
[2018-05-28] MEDS: INSULIN ASPART 100 UNIT/ML 1 ML 10 ML VIAL SQ SCH ×4 (06:08→11:54)
[2018-05-28 06:24] LABS: Glucose,Whole Blood 70 mg/dL (75-99)
[2018-05-28 06:36] LABS: Basophils # (A) 0.1 k/uL (0-0.2); Basophils % (A) 1 %; Eosinophils # (A) 0.3 k/uL (0-0.7); Eosinophils % (A) 4 %; HCT 32.8 % (39.0-53.0); HGB 10.2 gm/dL (13.0-17.5); Lymphocytes # (A) 1.4 k/uL (1.0-4.8); Lymphocytes % (A) 17 %; MCHC 30.9 g/dL (31.0-37.0); MCV 90.7 fL (80.0-100.0); Mean Platelet Volume 6.9; Monocytes # (A) 0.5 k/uL (0-1.0); Monocytes % (A) 6 %; Neutrophils # (A) 5.6 k/uL (1.3-7.7); Neutrophils % (A) 69 %; Platelet Count 275 k/uL (150-450); RBC 3.62 m/uL (4.30-5.90); RDW 13.7 % (11.5-15.5); WBC 8.1 k/uL (3.8-10.6)
[2018-05-28 06:47] LABS: Glucose,Whole Blood 115 mg/dL (75-99)
[2018-05-28 06:54] LABS: Calcium 8.8 mg/dL (8.4-10.2); Potassium 4.5 mmol/L (3.5-5.1); Total Bilirubin 0.3 mg/dL (0.2-1.3); Total Protein 6.1 g/dL (6.3-8.2)
[2018-05-28] MEDS: MIDODRINE 5 MG TAB PO SCH ×2 (07:00→12:32)
[2018-05-28] MEDS: SODIUM CHLORIDE 0.9% 1,000 ML IV SCH (07:01)
[2018-05-28] MEDS: glipiZIDE 5 MG TAB PO SCH (07:43)
--- NOTE | 2018-05-28 08:09 | CT ---
EXAMINATION TYPE: CT brain wo con DATE OF EXAM: 05/28/2018 COMPARISON: 04/01/2018 HISTORY: weakness CT DLP: 1099.[address] of the brain was performed. The ventricles, basal cisterns and sulci overlying the cerebral convexities demonstrate mild enlargem ent. There is no evidence for intracranial hemorrhage or sulcal effacement. There is decreased attenuation about the periventricular white matter and deep white matter of both c erebral hemispheres, compatible with chronic small vessel ischemia. Differential diagnosis does inclu de demyelination. No mass effects are seen.No midline shift. Osseous calvarium is intact. If symptoms persist consider MRI. IMPRESSION: 1. Age related atrophic and chronic small vessel ischemic change without acute intracranial process s een at this time.
[2018-05-28] MEDS ORDERED: FAMOTIDINE 20 MG TAB PO SCH (09:00)
[2018-05-28 09:03] VITALS: TEMP 97.4
[2018-05-28] MEDS: LISINOPRIL 20 MG TAB PO SCH (09:09)
[2018-05-28] MEDS: THIAMINE 100 MG TAB PO SCH (09:10)
[2018-05-28] MEDS: HEPARIN SODIUM,PORCINE 5,000 UNIT/ML 1 ML VIAL SQ SCH (09:10)
[2018-05-28] MEDS: MENTHOL-ZINC OXIDE OINT 113 GM TUBE TOPICAL SCH (09:10)
[2018-05-28] MEDS: ASPIRIN 325 MG TAB PO SCH (09:10)
[2018-05-28] MEDS: amLODIPine 10 MG TAB PO SCH (09:10)
[2018-05-28] MEDS: guaiFENesin-DM 600/30MG 1 EACH TAB.ER.12H PO SCH (09:10)
[2018-05-28 11:22] LABS: Glucose,Whole Blood 95 mg/dL (75-99)
--- NOTE | 2018-05-28 11:38 | P.PN ---
Subjective Progress Note Date: 05/28/18 Principal diagnosis: Syncope This is a 77-year-old gentleman with known history of hypertension, diabetes, status post amputation of the second toe on his right foot in March of this year, dementia, presented to the hospital after experiencing an episode of syncope. He resides in an extended care facility. Patient does have history of prior pacemaker implantation. His EKG on admission here showed a sinus bradycardia with first-degree AV block. Echocardiogram with Doppler study was performed which revealed an ejection fraction of 55-60%. Ultrasound of the abdomen was performed which revealed increase echogenicity of the hepatic parenchyma most likely related to hepatic steatosis. Carotid Doppler study revealed bilateral plaque formation. Evidence for more than 70% stenosis of the right internal carotid artery and around 50-70% stenosis of the left internal carotid artery. CAT scan of the brain revealed age-related atrophic and chronic small vessel ischemic change without any acute intracranial process. Orthostatics were obtained yesterday which came back to be positive, 132/60 lying and 110/60 standing. He was initiated yesterday on a small dose of midodrine. At the time of my examination today he is sitting up in the chair at bedside. Denies any dizziness or lightheadedness. White blood cell count 8.1, hemoglobin 10.2, platelet count 275. Sodium 139, potassium 4.5, BUN 15, creatinine 1.3. Objective - Vital Signs Vital signs: Vital Signs Temp 97.4 F L 05/28/18 08:00 Pulse 58 L 05/28/18 08:00 Resp 16 05/28/18 08:00 BP 147/65 05/28/18 08:00 Pulse Ox 100 05/28/18 08:00 Intake & Output 05/27/18 05/28/18 05/28/18 18:59 06:59 18:59 Intake Total 186.784 240 Output Total 1000 300 320 Balance -813.216 -300 -80 Weight 89.7 kg Intake: Intake, IV Titration 186.784 Amount Heparin Sod,Pork in 0.45% 186.784 NaCl 25,000 unit In 0.45 % NaCl 1 250ml.bag @ 18 UNITS/KG/HR 16.16 mls/hr IV .[id number] [facility] Rx#: [id number] Oral 240 Output: Urine 1000 300 320 Other: Voiding Method Diaper # Voids 1 - Exam PHYSICAL EXAMINATION: GENERAL: 77-year-old gentleman in no acute distress at the time of my examination HEENT: Head is atraumatic, normocephalic. Pupils equal, round. Sclera anicteric. Conjunctiva are clear. Mucous membranes of the mouth are moist. Neck is supple. There is no elevated jugular venous pressure. bruit is heard. HEART EXAMINATION: Heart S1, S2 normal. No murmur or gallop heard. CHEST EXAMINATION: Lungs are clear to auscultation and precussion. No chest wall tenderness is noted on palpation or with deep breathing. ABDOMEN: Soft, nontender. Bowel sounds are heard. No organomegaly noted. EXTREMITIES: 2+ peripheral pulses with no evidence of peripheral edema and no calf tenderness noted. NEUROLOGIC patient is awake, alert and oriented 2. . - Labs CBC & Chem 7: 05/28/18 05:27 05/28/18 05:27 Labs: Abnormal Lab Results - Last 24 Hours (Table) 05/27/18 05/27/18 05/28/18 Range/Units 11:45 20:44 03:26 RBC (4.30-5.90) m/uL Hgb (13.0-17.5) gm/dL Hct (39.0-53.0) % MCHC (31.0-37.0) g/dL Chloride (98-107) mmol/L Carbon Dioxide (22-30) mmol/L Creatinine (0.66-1.25) mg/dL Glucose (74-99) mg/dL POC Glucose (mg/dL) 107 H 123 H (75-99) mg/dL Total Protein (6.3-8.2) g/dL Albumin (3.5-5.0) g/dL Urine Protein 1+ H (Negative) 05/28/18 05/28/18 05/28/18 Range/Units 05:27 05:27 06:02 RBC 3.62 L (4.30-5.90) m/uL Hgb 10.2 L (13.0-17.5) gm/dL Hct 32.8 L (39.0-53.0) % MCHC 30.9 L (31.0-37.0) g/dL Chloride 112 H (98-107) mmol/L Carbon Dioxide 20 L (22-30) mmol/L Creatinine 1.37 H (0.66-1.25) mg/dL Glucose 42 L* (74-99) mg/dL POC Glucose (mg/dL) 49 L (75-99) mg/dL Total Protein 6.1 L (6.3-8.2) g/dL Albumin 3.0 L (3.5-5.0) g/dL Urine Protein (Negative) 05/28/18 05/28/18 Range/Units 06:22 06:46 RBC (4.30-5.90) m/uL Hgb (13.0-17.5) gm/dL Hct (39.0-53.0) % MCHC (31.0-37.0) g/dL Chloride (98-107) mmol/L Carbon Dioxide (22-30) mmol/L Creatinine (0.66-1.25) mg/dL Glucose (74-99) mg/dL POC Glucose (mg/dL) 70 L 115 H (75-99) mg/dL Total Protein (6.3-8.2) g/dL Albumin (3.5-5.0) g/dL Urine Protein (Negative) Assessment and Plan Plan: Assessment and plan #1 syncope, could be secondary to orthostatic hypotension. Midodrine was added yesterday #2 history of permanent pacemaker, we will interrogate the pacemaker today. #3 hypertension #4 hyperlipidemia #5 status post amputation of the second toe on the right foot in March Plan Echocardiogram with Doppler study was performed which revealed a normal left ventricular systolic function. We will continue the patient on midodrine, we will also interrogate his pacemaker today. DNP note has been reviewed, I agree with a documented findings and plan of care. Patient was seen and examined.
[2018-05-28 11:56] VITALS: BP 148/70
[2018-05-28 11:58] VITALS: PULSE 74
--- NOTE | 2018-05-28 15:03 | P.DS ---
Providers Date of admission: 05/25/18 21:11 Expected date of discharge: 05/28/18 Attending physician: MD Dr. Vlad Morrow Consults: 05/25/18 21:25 Consult Physician Stat Consulting Provider: [facility] Consult Reason/Comments: syncope Do you want consulting provider notified?: Yes, Notify in am 05/26/18 10:25 Consult Physician Routine Consulting Provider: Alli William Consult Reason/Comments: infection right 2nd toe amputation Do you want consulting provider notified?: Yes Primary care physician: [facility] Hospital Course: Final Diagnoses: -Recurrent syncope for evaluation, possibly related to orthostatic hypotension, pacemaker interrogated. -Bilateral carotid stenosis, follow-up with vascular surgery next week. -Sinus bradycardia, prolonged [place] interval, present on admission -Acute renal failure, present on admission -Right foot diabetic ulcer -Recent second toe gangrene sepsis and amputation,[facility] Hospital course: This is a 77-year-old gentleman admitted with recurrent syncope , acute renal failure, multiple complex medical issues. Evaluated by multiple consults. EKG on admission showed sinus bradycardia first-degree AV block. Pacemaker interrogated,cleared by cardiology. VQ scan reported low probability for PE. 2-D echo reported EF 55-60% with mild valvular abnormalities, some moderate ventricular hypertrophy. Positive for orthostatic hypotension, Midodrin added to med. regimen with significant clinical improvement. Brain CT nonacute. Bilateral carotid stenosis, 70% right internal carotid stenosis of 50 -70% stenosis of left internal carotid artery-to follow with vascular surgery next week. Patient has been cleared by all consults. Patient is being discharged back to [facility] subacute rehab to complete IV antibiotic therapy in a stable condition with guarded prognosis. EXAM: GENERAL: Alert and oriented 3, no acute distress. CV: Regular S1-S2. LUNGS. Bilateral bases diminished.ABD.: Soft, nontender, positive bowel sounds. NEURO: No focal Deficits. The impression and plan of care has been dictated as directed. : I performed a history and examination of this patient, discussed the same with the dictator. I agree with the dictator's note ,documented as a scribe. Any additional findings or plans will be noted. Time taken: 35 minutes Patient Condition at Discharge: Stable Plan - Discharge Summary Discharge Rx Participant: No New Discharge Prescriptions: New Midodrine [ProAmatine] 2.5 mg PO AC-TID tab Continue Insulin Detemir [Levemir] 15 unit SQ HS glipiZIDE [Glucotrol] 5 mg PO AC-BID Multivitamins, Thera [Multivitamin (formulary)] 1 tab PO HS Donepezil [Aricept] 10 mg PO HS Aspirin 81 mg PO HS amLODIPine [Norvasc] 10 mg PO DAILY #30 tab guaiFENesin-DM 600/30MG [Mucinex Dm] 1 tab PO Q12HR Melatonin 3 mg PO HS Famotidine [Pepcid] 20 mg PO BID DAPTOmycin [Cubicin Rf] 500 mg IVPB HS Menthol-Zinc Oxide Oint [Calmoseptine Oint] 1 applic TOPICAL TID L.acidoph,Paracasei, B.lactis [Probiotic] 2 cap PO HS INSULIN LISPRO (humaLOG) [humaLOG] See Protocol SQ ACHS Ampicillin Sodium/Sulbactam Na [Ampicillin-Sulbactam 3 gm Vial] 3 gm IVPB Q6H Lisinopril [Zestril] 20 mg PO DAILY Insulin Aspart [NovoLOG (formulary)] 5 unit SQ AC-TID Folic Acid 1 mg PO HS Acetaminophen Tab [Tylenol] 650 mg PO Q6HR PRN PRN Reason: Fever And/ Or Pain Thiamine [Vitamin B-1] 100 mg PO BID HYDROcodone/APAP 5-325MG [[place] 5-325] 1 tab PO Q6H PRN #12 tab PRN Reason: Pain Discharge Medication List Aspirin 81 mg PO HS 10/01/16 [History] Donepezil [Aricept] 10 mg PO HS 10/01/16 [History] Insulin Detemir [Levemir] 15 unit SQ HS 10/01/16 [History] Multivitamins, Thera [Multivitamin (formulary)] 1 tab PO HS 10/01/16 [History] glipiZIDE [Glucotrol] 5 mg PO AC-BID 10/01/16 [History] amLODIPine [Norvasc] 10 mg PO DAILY #30 tab 10/07/16 [Rx] Acetaminophen Tab [Tylenol] 650 mg PO Q6HR PRN 05/25/18 [History] Ampicillin Sodium/Sulbactam Na [Ampicillin-Sulbactam 3 gm Vial] 3 gm IVPB Q6H [History] DAPTOmycin [Cubicin Rf] 500 mg IVPB HS 05/25/18 [History] Famotidine [Pepcid] 20 mg PO BID 05/25/18 [History] Folic Acid 1 mg PO HS 05/25/18 [History] INSULIN LISPRO (humaLOG) [humaLOG] See Protocol SQ ACHS 05/25/18 [History] Insulin Aspart [NovoLOG (formulary)] 5 unit SQ AC-TID 05/25/18 [History] L.acidoph,Paracasei, B.lactis [Probiotic] 2 cap PO HS 05/25/18 [History] Lisinopril [Zestril] 20 mg PO DAILY 05/25/18 [History] Melatonin 3 mg PO HS 05/25/18 [History] Menthol-Zinc Oxide Oint [Calmoseptine Oint] 1 applic TOPICAL TID 05/25/18 [ History] Thiamine [Vitamin B-1] 100 mg PO BID 05/25/18 [History] guaiFENesin-DM 600/30MG [Mucinex Dm] 1 tab PO Q12HR 05/25/18 [History] HYDROcodone/APAP 5-325MG [[place] 5-325] 1 tab PO Q6H PRN #12 tab 05/28/18 [Rx] Midodrine [ProAmatine] 2.5 mg PO AC-TID tab 05/28/18 [Rx] Follow up Appointment(s)/Referral(s): [facility] [Provider Group] - 1 Week Russ York MD [REFERRING] - 1 Week Tiburcio Martines [NON-STAFF] - 1 Week [facility] [Primary Care Provider] - 1 Week (Per office policy, you must call to make your own appointment After DC from subacute rehab) Giacomo Espinoza MD [STAFF PHYSICIAN] - 1 Week Patient Instructions/Handouts: Syncope (DC), Pain Management (DC), Safe Use of Opioids (DC) Activity/Diet/Wound Care/Special Instructions: Confirm Cardiology F/U Prior to dc. F/U with ID as prev. scheduled. CBC, BMP in 3 days Diet: Consistent carb Activity: As tolerated
[2018-05-28 16:13] LABS: Glucose,Whole Blood 123 mg/dL (75-99)
--- NOTE | 2018-05-28 17:00 | PN ---
PROGRESS NOTE DATE OF SERVICE: 05/28/2018. REASON FOR FOLLOW UP: Right diabetic foot wound and osteomyelitis. INTERVAL HISTORY: The patient is currently afebrile. He is breathing comfortably. The patient denies having any chest pain, shortness of breath, cough, abdominal pain, or any worsening pain in the right foot area. PHYSICAL EXAMINATION: Blood pressure 143/57, pulse of 64, temp 97.4. He is 95% on room air. General description is an elderly male lying in bed in no distress. Respiratory system: Unlabored breathing. Clear to auscultation anteriorly. Heart S1, S2. Regular rate and rhythm. Abdomen soft, no tenderness. Right foot is currently dressed up. No obvious drainage on the dressing. LABS: Hemoglobin 10.2, white count 8.1. BUN of 15, creatinine is 1.37. DIAGNOSTIC IMPRESSION AND PLAN: Patient with right diabetic foot infection Adela's Grade IV in a patient who did have a right second toe gangrene status post amputation. Initial culture MSSA. Repeat has been VRE and Acinetobacter. Patient on daptomycin and Unasyn that will be continued with expected last day of antibiotics to be on June 04. Local wound care will be switched over to Hydrofera blue dressing to be changed q.48 hours and will re-evaluate patient [facility] before making any further plans for antibiotics continue. Plan of care discussed in detail with the caser shoe parts. Questions were answered. Continue supportive care. MMODL / IJN: [id number] /
== END 2018-05-28 17:31 ==
LOC: EC 19:41 → 3SCARD 21:11
PROVIDERS: ADMIT Internal Medicine; ATTEND Internal Medicine
DX: R55 Syncope and collapse (principal); I95.1 Orthostatic hypotension; I65.23 Occlusion and stenosis of bilateral carotid arteries; N17.9 Acute kidney failure, unspecified; I44.0 Atrioventricular block, first degree; R00.1 Bradycardia, unspecified; E11.621 Type 2 diabetes mellitus with foot ulcer; L97.519 Non-pressure chronic ulcer of other part of right foot with unspecified severity; E11.628 Type 2 diabetes mellitus with other skin complications; E11.69 Type 2 diabetes mellitus with other specified complication; I50.32 Chronic diastolic (congestive) heart failure; I11.0 Hypertensive heart disease with heart failure; F03.90 Unspecified dementia, unspecified severity, without behavioral disturbance, psychotic disturbance, mood disturbance, and anxiety; Z95.0 Presence of cardiac pacemaker; R26.9 Unspecified abnormalities of gait and mobility; E78.5 Hyperlipidemia, unspecified; K76.0 Fatty (change of) liver, not elsewhere classified; D72.829 Elevated white blood cell count, unspecified; R79.89 Other specified abnormal findings of blood chemistry; Z89.412 Acquired absence of left great toe; Z89.421 Acquired absence of other right toe(s); Z80.9 Family history of malignant neoplasm, unspecified; Z79.82 Long term (current) use of aspirin; Z79.4 Long term (current) use of insulin; Z79.899 Other long term (current) drug therapy; Z79.84 Long term (current) use of oral hypoglycemic drugs; Z86.19 Personal history of other infectious and parasitic diseases
CPT/HCPCS: 96361 ×4; 96366 ×4; 96372 ×2; 96368; 96376; 96365; 99285; 36415; 94760; 93005; 93306; 97116; 97162; 97530; 97165; 85379; 83880; 80061; 80053 ×2; 85652; 82550 ×2; 82553 ×2; 83735; 84484 ×2; 85025 ×2; 85610; 85730 ×3; 86140; 81001; 80306; 83036; 71046; 76705; 93880; 70450; 78582; G0378 ×4; A9540; A9567; J1644 ×5; J0878 ×2; J0295; 96367

== ENCOUNTER 2019-08-06 23:44 | Inpatient (IN) | payer BC, MEDICARE ==
[2019-08-07] MEDS ORDERED: MORPHINE SULFATE 4 MG/ML SYRINGE IV STA (00:11)
[2019-08-07 00:28] LABS: Basophils % (A) 0 %; Eosinophils # (A) 0.7 k/uL (0-0.7); Eosinophils % (A) 6 %; HCT 36.2 % (39.0-53.0); HGB 11.9 gm/dL (13.0-17.5); Lymphocytes % (A) 9 %; MCH 28.6 pg (25.0-35.0); MCV 86.8 fL (80.0-100.0); Mean Platelet Volume 7.8; Monocytes # (A) 0.7 k/uL (0-1.0); Monocytes % (A) 6 %; Neutrophils # (A) 8.5 k/uL (1.3-7.7); Neutrophils % (A) 76 %; Platelet Count 335 k/uL (150-450); RBC 4.17 m/uL (4.30-5.90); RDW 12.5 % (11.5-15.5); WBC 11.2 k/uL (3.8-10.6)
[2019-08-07 00:46] LABS: Albumin 2.8 g/dL (3.5-5.0); Calcium 7.7 mg/dL (8.4-10.2); Potassium 5.1 mmol/L (3.5-5.1); Total Bilirubin 0.4 mg/dL (0.2-1.3); Total Protein 5.7 g/dL (6.3-8.2)
[2019-08-07 00:53] LABS: Creatine Kinase MB 2.5 ng/mL (0.0-2.4); Troponin I 0.012 ng/mL (0.000-0.034)
[2019-08-07 01:09] LABS: Appearance,Urine Clear (Clear); Bilirubin,Urine Negative (Negative); Blood,Urine Negative (Negative); Color,Urine Light Yellow; Glucose,Urine (UA) 4+ (Negative); Ketones,Urine Negative (Negative); Leukocyte Esterase,Urine Negative (Negative); Mucus,Urine Rare /hpf; Nitrite,Urine Negative (Negative); Protein,Urine 3+ (Negative); RBC,Urine <1 /hpf (0-5); Squamous Epithelial Cell,Urine <1 /hpf (0-4); Urobilinogen,Urine <2.0 mg/dL (<2.0); WBC,Urine 2 /hpf (0-5)
[2019-08-07] MEDS ORDERED: INSULIN REGULAR 100 UNIT/ML VIAL IV STA (01:42)
[2019-08-07] MEDS ORDERED: SODIUM CHLORIDE 0.9% 1,000 ML IV ONE (01:42)
[2019-08-07] MEDS ORDERED: HYDROcodone/APAP 5-325MG 1 EACH TAB PO PRN (01:45)
[2019-08-07] MEDS ORDERED: ACETAMINOPHEN TAB 325 MG TAB PO PRN (01:45)
[2019-08-07] MEDS ORDERED: NALOXONE 0.4 MG/ML 1 ML VIAL IV PRN (01:45)
--- NOTE | 2019-08-07 01:53 | ED ---
Extremity Problem HPI - General Chief complaint: Extremity Problem,Nontraumatic Stated complaint: Lt foot infection Time Seen by Provider: 08/06/19 23:57 Source: patient, EMS Mode of arrival: EMS Limitations: physical limitation - History of Present Illness Initial comments: This patient is a 79-year-old man with history of diabetes and hypertension who presents to have evaluation of his left foot. The patient states that his daughter had called the ambulance after noting that there was no blackness to the distal end of his left second toe. Patient states she had similar that required amputation of the distal portion of this left first toe. Patient denies systemic symptoms of infection. He has not had fever or chills, palpitations, dyspnea chest pain, nausea or vomiting. He does complain of little bit of discomfort to the left forefoot and toe. The patient states that he hasn't noted symptoms going back for a few days. MD Complaint: extremity pain, extremity swelling Onset/Timin -: days(s) Location: left, lower extremity History of Same: Yes Radiation: none Quality: aching Consistency: constant Improves with: nothing Worsens with: walking Associated Symptoms: denies other symptoms - Related Data Home Medications Medication Instructions Recorded Confirmed Aspirin 81 mg PO HS 10/01/16 05/25/18 Donepezil [Aricept] 10 mg PO HS 10/01/16 05/25/18 Insulin Detemir (Levemir) [Levemir] 15 unit SQ HS 10/01/16 05/25/18 Multivitamins, Thera [Multivitamin 1 tab PO HS 10/01/16 05/25/18 (formulary)] glipiZIDE [Glucotrol] 5 mg PO AC-BID 10/01/16 05/25/18 Acetaminophen Tab [Tylenol] 650 mg PO Q6HR PRN 05/25/18 05/25/18 Ampicillin Sodium/Sulbactam Na 3 gm IVPB Q6H 05/25/18 05/25/18 [Ampicillin-Sulbactam 3 gm Vial] DAPTOmycin [Cubicin Rf] 500 mg IVPB HS 05/25/18 05/25/18 Famotidine [Pepcid] 20 mg PO BID 05/25/18 05/25/18 Folic Acid 1 mg PO HS 05/25/18 05/25/18 INSULIN LISPRO (humaLOG) [humaLOG] See Protocol SQ ACHS 05/25/18 05/25/18 L.acidoph,Paracasei, B.lactis 2 cap PO HS 05/25/18 05/25/18 [Probiotic] Lisinopril [Zestril] 20 mg PO DAILY 05/25/18 05/25/18 Melatonin 3 mg PO HS 05/25/18 05/25/18 Menthol-Zinc Oxide Oint 1 applic TOPICAL TID 05/25/18 05/25/18 [Calmoseptine Oint] Thiamine [Vitamin B-1] 100 mg PO BID 05/25/18 05/25/18 guaiFENesin-DM 600/30MG [Mucinex 1 tab PO Q12HR 05/25/18 05/25/18 Dm] Previous Rx's Medication Instructions Recorded amLODIPine [Norvasc] 10 mg PO DAILY #30 tab 10/07/16 HYDROcodone/APAP 5-325MG [[place] 1 tab PO Q6H PRN #12 tab 05/28/18 5-325] Midodrine [ProAmatine] 2.5 mg PO AC-TID tab 05/28/18 Allergies Allergy/AdvReac Type Severity Reaction Status Date / Time No Known Allergies Allergy Verified 05/25/18 20:39 Review of Systems ROS Statement: Those systems with pertinent positive or pertinent negative responses have been documented in the HPI. ROS Other: All systems not noted in ROS Statement are negative. Constitutional: Denies: fever, chills Respiratory: Denies: cough, dyspnea Cardiovascular: Denies: chest pain, palpitations, edema, syncope Gastrointestinal: Denies: abdominal pain, nausea, vomiting Genitourinary: Denies: dysuria, hematuria Skin: Reports: as per HPI, change in color. Denies: rash Neurological: Denies: headache, weakness, numbness Past Medical History Past Medical History: Heart Failure, Dementia, Diabetes Mellitus, Hypertension, Syncope, Vascular Disorder Additional Past Medical History / Comment(s): IDDM type II, recent R 3rd toe amputation/wound, SEVERAL SYNCOPAL EPISODES PRIOR TO RECEIVING HIS PACEMAKER, PVD History of Any Multi-Drug Resistant Organisms: None Reported Past Surgical History: Appendectomy, Pacemaker, Tonsillectomy Additional Past Surgical History / Comment(s): LEFT GREAT TOE HALF REMOVED, R 3RD TOE AMP, PICC LINE IN UPPER R ARM, COLONOSCOPY. Past Anesthesia/Blood Transfusion Reactions: Previous Problems w/ Anesthesia Additional Past Anesthesia/Blood Transfusion Reaction / Comment(s): HARD TIME WAKING UP FROM ANESETHIA Type of Cardiac Device: Permanent Pacemaker Device Placement Date:: 03/02/2017 Past Psychological History: No Psychological Hx Reported Smoking Status: Never smoker - Past Family History Father Family Medical History: Cancer Additional Family Medical History / Comment(s): PT STATES HIS FATHER NEVER WENT TO THE DOCTORS. HE HAD A BAD COUGH AND AT THE AGE OF 78YRS. Mother History Unknown: Yes Additional Family Medical History / Comment(s): MOTHER LEFT FAMILY WHEN PT WAS 12 YRS OLD. PT STATES SHE WAS A HEAVY SMOKER. General Exam Limitations: physical limitation General appearance: alert, in no apparent distress Head exam: Present: atraumatic, normocephalic Eye exam: Present: normal appearance. Absent: scleral icterus, conjunctival injection Respiratory exam: Present: normal lung sounds bilaterally. Absent: respiratory distress, wheezes, rales, rhonchi, stridor Cardiovascular Exam: Present: regular rate, normal rhythm, normal heart sounds. Absent: systolic murmur, diastolic murmur, rubs, gallop GI/Abdominal exam: Present: soft. Absent: distended, tenderness, guarding, rebound, rigid, mass Extremities exam: Present: normal capillary refill, other (Patient does have dry gangrene to the distal centimeter of the left second toe. Proximal to that there is a little bit of erythema and some duskiness to the base of the toe. There is no erythema or warmth. No drainage.). Absent: normal inspection, pedal edema, calf tenderness Neurological exam: Present: alert. Absent: motor sensory deficit Skin exam: Present: warm, dry, intact, other (See above). Absent: rash Course Vital Signs 08/06/19 23:46 Temperature 97.0 F L Pulse Rate 65 Respiratory 16 Rate Blood Pressure 149/79 O2 Sat by Pulse 99 Oximetry Medical Decision Making - Medical Decision Making Patient is 71-year-old man with diabetes and history of previous amputation of the left first toe. Presents with dry gangrene to the distal portion of the second toe. At this point there is not appear to be significant secondary i nfection. More concerning, the patient's creatinine is well e his baseline. I will admit patient to manage his blood sugar, to provide some some analgesia for the toe and to also have vascular surgery consultation, though at this point it does not appear any emergent intervention is necessary. - Lab Data Result diagrams: 08/07/19 00:15 08/07/19 00:15 Lab Results 08/07/19 08/07/19 08/07/19 Range/Units 00:15 00:15 00:15 WBC 11.2 H (3.8-10.6) k/uL RBC 4.17 L (4.30-5.90) m/uL Hgb 11.9 L (13.0-17.5) gm/dL Hct 36.2 L (39.0-53.0) % MCV 86.8 (80.0-100.0) fL MCH 28.6 (25.0-35.0) pg MCHC 33.0 (31.0-37.0) g/dL RDW 12.5 (11.5-15.5) % Plt Count 335 (150-450) k/uL Neutrophils % 76 % Lymphocytes % 9 % Monocytes % 6 % Eosinophils % 6 % Basophils % 0 % Neutrophils # 8.5 H (1.3-7.7) k/uL Lymphocytes # 1.0 (1.0-4.8) k/uL Monocytes # 0.7 (0-1.0) k/uL Eosinophils # 0.7 (0-0.7) k/uL Basophils # 0.0 (0-0.2) k/uL Sodium 126 L (137-145) mmol/L Potassium 5.1 (3.5-5.1) mmol/L Chloride 93 L (98-107) mmol/L Carbon Dioxide 24 (22-30) mmol/L Anion Gap 9 mmol/L BUN 46 H (9-20) mg/dL Creatinine 2.26 H (0.66-1.25) mg/dL Est GFR (CKD-EPI)AfAm 31 (>60 ml/min/1.73 sqM) Est GFR (CKD-EPI)NonAf 27 (>60 ml/min/1.73 sqM) Glucose 420 H (74-99) mg/dL Plasma Lactic Acid Jerome 1.7 (0.7-2.0) mmol/L Calcium 7.7 L (8.4-10.2) mg/dL Total Bilirubin 0.4 (0.2-1.3) mg/dL AST 28 (17-59) U/L ALT 15 (4-49) U/L Alkaline Phosphatase 144 H (38-126) U/L CK-MB (CK-2) (0.0-2.4) ng/mL Troponin I (0.000-0.034) ng/mL Total Protein 5.7 L (6.3-8.2) g/dL Albumin 2.8 L (3.5-5.0) g/dL Urine Color Urine Appearance (Clear) Urine pH (5.0-8.0) Ur Specific Percival (1.001-1.035) Urine Protein (Negative) Urine Glucose (UA) (Negative) Urine Ketones (Negative) Urine Blood (Negative) Urine Nitrite (Negative) Urine Bilirubin (Negative) Urine Urobilinogen (<2.0) mg/dL Ur Leukocyte Esterase (Negative) Urine RBC (0-5) /hpf Urine WBC (0-5) /hpf Ur Squamous Epith Cells (0-4) /hpf Urine Mucus (None) /hpf 08/07/19 08/07/19 Range/Units 00:15 01:00 WBC (3.8-10.6) k/uL RBC (4.30-5.90) m/uL Hgb (13.0-17.5) gm/dL Hct (39.0-53.0) % MCV (80.0-100.0) fL MCH (25.0-35.0) pg MCHC (31.0-37.0) g/dL RDW (11.5-15.5) % Plt Count (150-450) k/uL Neutrophils % % Lymphocytes % % Monocytes % % Eosinophils % % Basophils % % Neutrophils # (1.3-7.7) k/uL Lymphocytes # (1.0-4.8) k/uL Monocytes # (0-1.0) k/uL Eosinophils # (0-0.7) k/uL Basophils # (0-0.2) k/uL Sodium (137-145) mmol/L Potassium (3.5-5.1) mmol/L Chloride (98-107) mmol/L Carbon Dioxide (22-30) mmol/L Anion Gap mmol/L BUN (9-20) mg/dL Creatinine (0.66-1.25) mg/dL Est GFR (CKD-EPI)AfAm (>60 ml/min/1.73 sqM) Est GFR (CKD-EPI)NonAf (>60 ml/min/1.73 sqM) Glucose (74-99) mg/dL Plasma Lactic Acid Jerome (0.7-2.0) mmol/L Calcium (8.4-10.2) mg/dL Total Bilirubin (0.2-1.3) mg/dL AST (17-59) U/L ALT (4-49) U/L Alkaline Phosphatase (38-126) U/L CK-MB (CK-2) 2.5 H (0.0-2.4) ng/mL Troponin I 0.012 (0.000-0.034) ng/mL Total Protein (6.3-8.2) g/dL Albumin (3.5-5.0) g/dL Urine Color Light Yellow Urine Appearance Clear (Clear) Urine pH 6.0 (5.0-8.0) Ur Specific Percival 1.010 (1.001-1.035) Urine Protein 3+ H (Negative) Urine Glucose (UA) 4+ H (Negative) Urine Ketones Negative (Negative) Urine Blood Negative (Negative) Urine Nitrite Negative (Negative) Urine Bilirubin Negative (Negative) Urine Urobilinogen <2.0 (<2.0) mg/dL Ur Leukocyte Esterase Negative (Negative) Urine RBC <1 (0-5) /hpf Urine WBC 2 (0-5) /hpf Ur Squamous Epith Cells <1 (0-4) /hpf Urine Mucus Rare H (None) /hpf Disposition Clinical Impression: Acute kidney injury, Hyperglycemia, Gangrene of toe of left foot Narrative: First visit for gangrene to the second toe left foot. Disposition: ADMITTED IP TO THIS HOSP Condition: Fair Referrals: [facility],Clinic [Primary Care Provider] - 1-2 days
[2019-08-07 02:59] LABS: Glucose,Whole Blood 335 mg/dL (75-99)
[2019-08-07 07:03] LABS: Glucose,Whole Blood 216 mg/dL (75-99)
[2019-08-07] MEDS: amLODIPine 10 MG TAB PO SCH (08:48)
[2019-08-07] MEDS: MIDODRINE 5 MG TAB PO SCH ×3 (08:48→17:10)
[2019-08-07] MEDS: THIAMINE 100 MG TAB PO SCH ×2 (08:48→21:49)
[2019-08-07] MEDS: glipiZIDE 5 MG TAB PO SCH ×2 (08:49→17:10)
[2019-08-07] MEDS: FAMOTIDINE 20 MG TAB PO SCH ×2 (08:49→21:49)
[2019-08-07] MEDS: guaiFENesin-DM 600/30MG 1 EACH TAB.ER.12H PO SCH ×2 (08:52→21:50)
[2019-08-07] MEDS ORDERED: LISINOPRIL 20 MG TAB PO SCH (09:00)
--- NOTE | 2019-08-07 10:59 | P.GSCN ---
History of Present Illness Consult date: 08/07/19 Reason for Consult: Gangrene left second toe History of present illness: This patient is a 79-year-old man with history of diabetes and hypertension who presents to have evaluation of his left foot. The patient has a history of a right below-knee amputation which he states was due to gangrene. He also has a great toe amputation on the left which she states was from gangrene a couple years ago. Currently he denies any fevers, chills, chest pain or shortness of breath. Per the nursing staff last night he had some episodes of altered mental status and requires a sitter currently. He states he has not seen a vascular surgeon in a while and has not had any evaluation of his lower extremity including arterial Dopplers. Review of Systems All systems: negative (What is mentioned in the HPI or past medical history) Past Medical History Past Medical History: Heart Failure, Dementia, Diabetes Mellitus, Hypertension, Syncope, Vascular Disorder Additional Past Medical History / Comment(s): IDDM type II, recent R 3rd toe amputation/wound, SEVERAL SYNCOPAL EPISODES PRIOR TO RECEIVING HIS PACEMAKER, PVD, carotid stenosis History of Any Multi-Drug Resistant Organisms: None Reported Past Surgical History: Appendectomy, Pacemaker, Tonsillectomy Additional Past Surgical History / Comment(s): LEFT GREAT TOE HALF REMOVED, R 3RD TOE AMP, PICC LINE IN UPPER R ARM, COLONOSCOPY. Past Anesthesia/Blood Transfusion Reactions: Previous Problems w/ Anesthesia Additional Past Anesthesia/Blood Transfusion Reaction / Comm: HARD TIME WAKING UP FROM ANESETHIA Type of Cardiac Device: Permanent Pacemaker Device Placement Date:: 03/02/2017 Past Psychological History: No Psychological Hx Reported Additional Psychological History / Comment(s): PT CURRENTLY AT [facility]. NORMALLY LIVES ALONE. PT IS GETTING UP WITH WALKER. HE NORMALLY IS INDEPENDENT. Smoking Status: Never smoker Past Alcohol Use History: Abuse, Daily Additional Past Alcohol Use History / Comment(s): PT. REPORTS DRINKING 2-3 BEERS A DAY BUT NONE SINCE GOING TO [facility], PER PAST MEDICAL RECORD, PTS. DAUGHTER HAS STATED IT IS MORE THAN THAT AND ALSO INCLUDES SCOTCH Past Drug Use History: None Reported - Past Family History Father Family Medical History: Cancer Additional Family Medical History / Comment(s): PT STATES HIS FATHER NEVER WENT TO THE DOCTORS. HE HAD A BAD COUGH AND AT THE AGE OF 78YRS. Mother History Unknown: Yes Additional Family Medical History / Comment(s): MOTHER LEFT FAMILY WHEN PT WAS 12 YRS OLD. PT STATES SHE WAS A HEAVY SMOKER. Medications and Allergies Home Medications Medication Instructions Recorded Confirmed Type Donepezil [Aricept] 10 mg PO DAILY 10/01/16 08/07/19 History Insulin Detemir (Levemir) [Levemir] 15 unit SQ HS 10/01/16 08/07/19 History Folic Acid 1 mg PO DAILY 05/25/18 08/07/19 History Thiamine [Vitamin B-1] 100 mg PO BID 05/25/18 08/07/19 History Apixaban [Eliquis] 2.5 mg PO BID 08/07/19 08/07/19 History Atorvastatin [Lipitor] 80 mg PO HS 08/07/19 08/07/19 History Cholecalciferol [Vitamin D3 (25 1,000 unit PO DAILY 08/07/19 08/07/19 History Mcg = 1000 Iu)] DULoxetine HCL [Cymbalta] 30 mg PO DAILY 08/07/19 08/07/19 History Triamterene/Hydrochlorothiazid 1 tab PO DAILY 08/07/19 08/07/19 History [Triamterene-Hctz 37.5-25 mg Tb] amLODIPine [Norvasc] 5 mg PO DAILY 08/07/19 08/07/19 History Allergies Allergy/AdvReac Type Severity Reaction Status Date / Time No Known Allergies Allergy Verified 08/07/19 09:43 Surgical - Exam Vital Signs Temp Pulse Resp BP Pulse Ox 97.0 F L 65 16 149/79 99 08/06/19 23:46 08/06/19 23:46 08/06/19 23:46 08/06/19 23:46 08/06/19 23:46 Right below knee amputation site is well-healed without any signs of infection or wounds. Palpable femoral pulse on the right. There is a scar noted at the right lower quadrant consistent of an appendectomy. Palpable left femoral pulse and popliteal pulse. Nonpalpable DP or PT pulses. Left great toe amputation is well-healed. There is gangrene noted at the base of the second toe extending to the tip. There is some malodor but otherwise dry. No purulent drainage noted. No tenderness to palpation. There is a small wound noted on the dorsal surface of the foot as well as. - General well developed, well nourished, no distress - Eyes PERRL - Neck no masses - Respiratory normal expansion - Cardiovascular Rhythm: regular - Abdomen Abdomen: soft, non tender - Integumentary no rash - Neurologic no normal sensation - Psychiatric oriented to person, speech is normal Results - Labs 08/07/19 00:15 08/07/19 00:15 Abnormal Lab Results - Last 24 Hours (Table) 08/07/19 08/07/19 08/07/19 Range/Units 00:15 00:15 00:15 WBC 11.2 H (3.8-10.6) k/uL RBC 4.17 L (4.30-5.90) m/uL Hgb 11.9 L (13.0-17.5) gm/dL Hct 36.2 L (39.0-53.0) % Neutrophils # 8.5 H (1.3-7.7) k/uL Sodium 126 L (137-145) mmol/L Chloride 93 L (98-107) mmol/L BUN 46 H (9-20) mg/dL Creatinine 2.26 H (0.66-1.25) mg/dL Glucose 420 H (74-99) mg/dL POC Glucose (mg/dL) (75-99) mg/dL Calcium 7.7 L (8.4-10.2) mg/dL Alkaline Phosphatase 144 H (38-126) U/L CK-MB (CK-2) 2.5 H (0.0-2.4) ng/mL Total Protein 5.7 L (6.3-8.2) g/dL Albumin 2.8 L (3.5-5.0) g/dL Urine Protein (Negative) Urine Glucose (UA) (Negative) Urine Mucus (None) /hpf 08/07/19 08/07/19 08/07/19 Range/Units 01:00 02:55 07:01 WBC (3.8-10.6) k/uL RBC (4.30-5.90) m/uL Hgb (13.0-17.5) gm/dL Hct (39.0-53.0) % Neutrophils # (1.3-7.7) k/uL Sodium (137-145) mmol/L Chloride (98-107) mmol/L BUN (9-20) mg/dL Creatinine (0.66-1.25) mg/dL Glucose (74-99) mg/dL POC Glucose (mg/dL) 335 H 216 H (75-99) mg/dL Calcium (8.4-10.2) mg/dL Alkaline Phosphatase (38-126) U/L CK-MB (CK-2) (0.0-2.4) ng/mL Total Protein (6.3-8.2) g/dL Albumin (3.5-5.0) g/dL Urine Protein 3+ H (Negative) Urine Glucose (UA) 4+ H (Negative) Urine Mucus Rare H (None) /hpf Diabetes panel 08/07/19 Range/Units 00:15 Sodium 126 L (137-145) mmol/L Potassium 5.1 (3.5-5.1) mmol/L Chloride 93 L (98-107) mmol/L Carbon Dioxide 24 (22-30) mmol/L BUN 46 H (9-20) mg/dL Creatinine 2.26 H (0.66-1.25) mg/dL Glucose 420 H (74-99) mg/dL Calcium 7.7 L (8.4-10.2) mg/dL AST 28 (17-59) U/L ALT 15 (4-49) U/L Alkaline Phosphatase 144 H (38-126) U/L Total Protein 5.7 L (6.3-8.2) g/dL Albumin 2.8 L (3.5-5.0) g/dL Calcium panel 08/07/19 Range/Units 00:15 Calcium 7.7 L (8.4-10.2) mg/dL Albumin 2.8 L (3.5-5.0) g/dL Pituitary panel 08/07/19 Range/Units 00:15 Sodium 126 L (137-145) mmol/L Potassium 5.1 (3.5-5.1) mmol/L Chloride 93 L (98-107) mmol/L Carbon Dioxide 24 (22-30) mmol/L BUN 46 H (9-20) mg/dL Creatinine 2.26 H (0.66-1.25) mg/dL Glucose 420 H (74-99) mg/dL Calcium 7.7 L (8.4-10.2) mg/dL Adrenal panel 08/07/19 Range/Units 00:15 Sodium 126 L (137-145) mmol/L Potassium 5.1 (3.5-5.1) mmol/L Chloride 93 L (98-107) mmol/L Carbon Dioxide 24 (22-30) mmol/L BUN 46 H (9-20) mg/dL Creatinine 2.26 H (0.66-1.25) mg/dL Glucose 420 H (74-99) mg/dL Calcium 7.7 L (8.4-10.2) mg/dL Total Bilirubin 0.4 (0.2-1.3) mg/dL AST 28 (17-59) U/L ALT 15 (4-49) U/L Alkaline Phosphatase 144 H (38-126) U/L Total Protein 5.7 L (6.3-8.2) g/dL Albumin 2.8 L (3.5-5.0) g/dL Assessment and Plan Assessment: #1 left lower extremity critical limb ischemia with second toe gangrene #2 diabetes #3 acute kidney injury #4 history of right below-knee amputation #5 bilateral internal carotid artery stenosis seen on Plan: Continue antibiotics. Will need likely amputation of his second toe this week. We will obtain arterial Dopplers of the left lower extremity to evaluate the extent of his travis pheral vascular disease. We will also continue to monitor him in the outpatient setting for his carotid stenosis. Thank you for allowing me to participate in your patient's care.
[2019-08-07 11:33] LABS: Glucose,Whole Blood 252 mg/dL (75-99)
[2019-08-07 12:39] VITALS: BMI 23.2
[2019-08-07] MEDS ORDERED: VANCOMYCIN IV PER PHARMACY 1 EACH MISC MISCELLANE PRN (12:41)
[2019-08-07] MEDS: INSULIN ASPART (NovoLOG) 100 UNIT/ML VIAL SQ SCH ×3 (12:55→21:50)
[2019-08-07] MEDS ORDERED: VANCOMYCIN 1,500 MG in SODIUM CHLORIDE 0.9% 250 ML IVPB SCH (14:00)
--- NOTE | 2019-08-07 14:13 | P.HPIM ---
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 Patient is having cellulitis and gangrene in the right foot second toe with cellulitis on the dorsal and plantar aspect of the right foot appears to be bit gangrene and infectious gangrene. Patient is diabetic patient the was on ceftezole and which will be discontinued and patient will be started on Zosyn to cover anaerobes including pseudomonas and gram- negative organisms and vancomycin infectious disease consult and vascular surgery did evaluate the patient and the recommending amputation and Doppler of the left lower limb is being updated at this time. Review of Systems REVIEW OF SYSTEMS: CONSTITUTIONAL: No fever, no malaise, no fatigue. HEENT: No recent visual problems or hearing problems. Denied any sore throat. CARDIOVASCULAR: No chest pain, orthopnea, PND, no palpitations, no syncope. PULMONARY: No shortness of breath, no cough, no hemoptysis. GASTROINTESTINAL: No diarrhea, no nausea, no vomiting, no abdominal pain. NEUROLOGICAL: No headaches, no weakness, no numbness. HEMATOLOGICAL: Denies any bleeding or petechiae. GENITOURINARY: Denies any burning micturition, frequency, or urgency. MUSCULOSKELETAL/RHEUMATOLOGICAL: As mentioned in HPI ENDOCRINE: Denies any polyuria or polydipsia. The rest of the 14-point review of systems is negative. Past Medical History Past Medical History: Heart Failure, Dementia, Diabetes Mellitus, Hypertension, Syncope, Vascular Disorder Additional Past Medical History / Comment(s): IDDM type II, recent R 3rd toe amputation/wound, SEVERAL SYNCOPAL EPISODES PRIOR TO RECEIVING HIS PACEMAKER, PVD, carotid stenosis History of Any Multi-Drug Resistant Organisms: None Reported Past Surgical History: Appendectomy, Pacemaker, Tonsillectomy Additional Past Surgical History / Comment(s): LEFT GREAT TOE HALF REMOVED, R 3RD TOE AMP, PICC LINE IN UPPER R ARM, COLONOSCOPY. Past Anesthesia/Blood Transfusion Reactions: Previous Problems w/ Anesthesia Additional Past Anesthesia/Blood Transfusion Reaction / Comment(s): HARD TIME WAKING UP FROM ANESETHIA Type of Cardiac Device: Permanent Pacemaker Device Placement Date:: 03/02/2017 Past Psychological History: No Psychological Hx Reported Additional Psychological History / Comment(s): PT CURRENTLY AT [facility] FOR [facility]. NORMALLY LIVES ALONE. PT IS GETTING UP WITH WALKER. HE NORMALLY IS INDEPENDENT. Smoking Status: Never smoker Past Alcohol Use History: Abuse, Daily Additional Past Alcohol Use History / Comment(s): PT. REPORTS DRINKING 2-3 BEERS A DAY BUT NONE SINCE GOING TO [facility], PER PAST MEDICAL RECORD, PTS. DAUGHTER HAS STATED IT IS MORE THAN THAT AND ALSO INCLUDES SCOTCH Past Drug Use History: None Reported - Past Family History Father Family Medical History: Cancer Additional Family Medical History / Comment(s): PT STATES HIS FATHER NEVER WENT TO THE DOCTORS. HE HAD A BAD COUGH AND AT THE AGE OF 78YRS. Mother History Unknown: Yes Additional Family Medical History / Comment(s): MOTHER LEFT FAMILY WHEN PT WAS 12 YRS OLD. PT STATES SHE WAS A HEAVY SMOKER. Medications and Allergies Home Medications Medication Instructions Recorded Confirmed Type Donepezil [Aricept] 10 mg PO DAILY 10/01/16 08/07/19 History Insulin Detemir (Levemir) [Levemir] 15 unit SQ 10/01/16 08/07/19 History Folic Acid 1 mg PO DAILY 05/25/18 08/07/19 History Thiamine [Vitamin B-1] 100 mg PO BID 05/25/18 08/07/19 History Apixaban [Eliquis] 2.5 mg PO BID 08/07/19 08/07/19 History Atorvastatin [Lipitor] 80 mg PO HS 08/07/19 08/07/19 History Cholecalciferol [Vitamin D3 (25 1,000 unit PO DAILY 08/07/19 08/07/19 History Mcg = 1000 Iu)] DULoxetine HCL [Cymbalta] 30 mg PO DAILY 08/07/19 08/07/19 History Triamterene/Hydrochlorothiazid 1 tab PO DAILY 08/07/19 08/07/19 History [Triamterene-Hctz 37.5-25 mg Tb] amLODIPine [Norvasc] 5 mg PO DAILY 08/07/19 08/07/19 History Allergies Allergy/AdvReac Type Severity Reaction Status Date / Time No Known Allergies Allergy Verified 08/07/19 09:43 Physical Exam Vitals: Vital Signs Temp Pulse Pulse Resp BP BP Pulse Ox 08/07/19 04:59 97.3 F L 63 16 120/68 99 08/07/19 03:06 97.4 F L 58 L 16 149/76 99 08/07/19 02:00 97.8 F 57 L 18 136/74 99 08/06/19 23:46 97.0 F L 65 16 149/79 99 Intake and Output 08/06/19 08/07/19 08/07/19 22:59 06:59 14:59 Output Total 200 Balance -200 Output: Urine 200 Other: Voiding Method Urinal Weight 73.482 kg 73.482 kg PHYSICAL EXAMINATION: GENERAL: The patient is alert and oriented x3, not in any acute distress. Well developed, well nourished. HEENT: Pupils are round and equally reacting to light. EOMI. No scleral icterus. No conjunctival pallor. Normocephalic, atraumatic. No pharyngeal erythema. No thyromegaly. CARDIOVASCULAR: S1 and S2 present. No murmurs, rubs, or gallops. PULMONARY: Chest is clear to auscultation, no wheezing or crackles. ABDOMEN: Soft, nontender, nondistended, normoactive bowel sounds. No palpable organomegaly. MUSCULOSKELETAL: No joint swelling or deformity. EXTREMITIES: No cyanosis, clubbing, or pedal edema. Patient has a right below- knee amputation and left side patient has gangrenous second toe gangrene extending up to the proximal phalangeal joint with cellulitis on the dorsal and plantar aspect of the left foot doesn't appear to be infectious gangrene NEUROLOGICAL: Gross neurological examination did not reveal any focal deficits. SKIN: No rashes. Results CBC & Chem 7: 08/07/19 00:15 08/07/19 00:15 Labs: Abnormal Lab Results - Last 24 Hours (Table) 08/07/19 08/07/19 08/07/19 Range/Units 00:15 00:15 00:15 WBC 11.2 H (3.8-10.6) k/uL RBC 4.17 L (4.30-5.90) m/uL Hgb 11.9 L (13.0-17.5) gm/dL Hct 36.2 L (39.0-53.0) % Neutrophils # 8.5 H (1.3-7.7) k/uL Sodium 126 L (137-145) mmol/L Chloride 93 L (98-107) mmol/L BUN 46 H (9-20) mg/dL Creatinine 2.26 H (0.66-1.25) mg/dL Glucose 420 H (74-99) mg/dL POC Glucose (mg/dL) (75-99) mg/dL Calcium 7.7 L (8.4-10.2) mg/dL Alkaline Phosphatase 144 H (38-126) U/L CK-MB (CK-2) 2.5 H (0.0-2.4) ng/mL Total Protein 5.7 L (6.3-8.2) g/dL Albumin 2.8 L (3.5-5.0) g/dL Urine Protein (Negative) Urine Glucose (UA) (Negative) Urine Mucus (None) /hpf 08/07/19 08/07/19 08/07/19 Range/Units 01:00 02:55 07:01 WBC (3.8-10.6) k/uL RBC (4.30-5.90) m/uL Hgb (13.0-17.5) gm/dL Hct (39.0-53.0) % Neutrophils # (1.3-7.7) k/uL Sodium (137-145) mmol/L Chloride (98-107) mmol/L BUN (9-20) mg/dL Creatinine (0.66-1.25) mg/dL Glucose (74-99) mg/dL POC Glucose (mg/dL) 335 H 216 H (75-99) mg/dL Calcium (8.4-10.2) mg/dL Alkaline Phosphatase (38-126) U/L CK-MB (CK-2) (0.0-2.4) ng/mL Total Protein (6.3-8.2) g/dL Albumin (3.5-5.0) g/dL Urine Protein 3+ H (Negative) Urine Glucose (UA) 4+ H (Negative) Urine Mucus Rare H (None) /hpf 08/07/19 Range/Units 11:31 WBC (3.8-10.6) k/uL RBC (4.30-5.90) m/uL Hgb (13.0-17.5) gm/dL Hct (39.0-53.0) % Neutrophils # (1.3-7.7) k/uL Sodium (137-145) mmol/L Chloride (98-107) mmol/L BUN (9-20) mg/dL Creatinine (0.66-1.25) mg/dL Glucose (74-99) mg/dL POC Glucose (mg/dL) 252 H (75-99) mg/dL Calcium (8.4-10.2) mg/dL Alkaline Phosphatase (38-126) U/L CK-MB (CK-2) (0.0-2.4) ng/mL Total Protein (6.3-8.2) g/dL Albumin (3.5-5.0) g/dL Urine Protein (Negative) Urine Glucose (UA) (Negative) Urine Mucus (None) /hpf Thrombosis Risk Factor Assmnt - Choose All That Apply Each Factor Represents 1 point: Age 41-60 years Each Risk Factor Represents 3 Points: Age 75 years or older Thrombosis Risk Factor Assessment Total Risk Factor Score: 4 Thrombosis Risk Factor Assessment Level: Moderate Risk Assessment and Plan Plan: -Gangrene of the toe patient has diabetes and critical limb ischemia: Patient will be started on broad-spectrum antibiotics although patient has poor renal function because of his is a concern with vancomycin and infectious disease will be consulted if he can the culture any of the discharge on the gangrenous area will obtain wound cultures and blood culture was obtained -Hyponatremia hypovolemic hyponatremia and secondary to beer patient was started on IV fluids and the diuretics will be discontinued. 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
[2019-08-07] MEDS: SODIUM CHLORIDE 0.9% 1,000 ML IV SCH ×2 (14:37→21:51)
[2019-08-07] MEDS ORDERED: PIPERACILLIN-TAZOBACTAM 3.375 GM in SODIUM CHLORIDE 0.9% 100 ML IVPB SCH (16:00)
[2019-08-07 16:51] LABS: Glucose,Whole Blood 95 mg/dL (75-99)
[2019-08-07] MEDS: HEPARIN SODIUM,PORCINE 5,000 UNIT/ML 1 ML VIAL SQ SCH ×2 (17:10→23:53)
[2019-08-07 20:44] LABS: Glucose,Whole Blood 278 mg/dL (75-99)
[2019-08-07] MEDS ORDERED: INSULIN DETEMIR (LEVEMIR) 100 UNIT/ML SYR SQ SCH (21:00)
[2019-08-07] MEDS: DONEPEZIL 10 MG TAB PO SCH (21:49)
[2019-08-07] MEDS: ASPIRIN 81 MG PO SCH (21:49)
[2019-08-07] MEDS: FOLIC ACID 1 MG TAB PO SCH (21:49)
[2019-08-07] MEDS: MULTIVITAMINS, THERA 1 EACH TAB PO SCH (21:49)
[2019-08-07] MEDS: MELATONIN 3 MG TABLET PO SCH (21:49)
[2019-08-07] MEDS: INSULIN DETEMIR (LEVEMIR) 100 UNIT/ML SYR SQ SCH (21:50)
--- NOTE | 2019-08-07 23:53 | P.CONS ---
History of Present Illness - Reason for Consult Consult date: 08/07/19 left diabetic foot infection Requesting physician: Kamilla Ho - Chief Complaint left 2nd toe discoloed x few days - History of Present Illness Patient is a 79-year male with past medical history taken for right upper to full infection ended up right below the knee amputation in this patient now presenting to the hospital with a left second toe infection apparently the patient also noticed his left second toe to be coming swollen and discolored EMS was called and the patient has been brought to the hospital patient did not recall if he has any trauma or anything fell on his left foot patient did have diabetic neuropathy denies pain to the left foot area patient denies high-grade fever or chills no chest pain shortness with cough no abdominal pain or any diarrhea on presented to the hospital patient has been afebrile white count was mild elevated 11.2 creatinine is 2.26 urine has been negative patient previous culture positive for MSSA anaerobic gram-positive cocci patient did not have any x-rays he has been started on vancomycin and Zosyn infectious disease was consulted for further recommendation regarding antibiotic therapy. Review of Systems Positive point has been mentioned in HPI rest of the systems are negative Past Medical History Past Medical History: Heart Failure, Dementia, Diabetes Mellitus, Hypertension, Syncope, Vascular Disorder Additional Past Medical History / Comment(s): IDDM type II, recent R 3rd toe amputation/wound, SEVERAL SYNCOPAL EPISODES PRIOR TO RECEIVING HIS PACEMAKER, PVD, carotid stenosis History of Any Multi-Drug Resistant Organisms: None Reported Past Surgical History: Appendectomy, Pacemaker, Tonsillectomy Additional Past Surgical History / Comment(s): LEFT GREAT TOE HALF REMOVED, R 3RD TOE AMP, PICC LINE IN UPPER R ARM, COLONOSCOPY. Past Anesthesia/Blood Transfusion Reactions: Previous Problems w/ Anesthesia Additional Past Anesthesia/Blood Transfusion Reaction / Comm: HARD TIME WAKING UP FROM ANESETHIA Type of Cardiac Device: Permanent Pacemaker Device Placement Date:: 03/02/2017 Past Psychological History: No Psychological Hx Reported Additional Psychological History / Comment(s): PT CURRENTLY AT [facility] FOR REHAB. NORMALLY LIVES ALONE. PT IS GETTING UP WITH WALKER. HE NORMALLY IS INDEPENDENT. Smoking Status: Never smoker Past Alcohol Use History: Abuse, Daily Additional Past Alcohol Use History / Comment(s): PT. REPORTS DRINKING 2-3 BEERS A DAY BUT NONE SINCE GOING TO [facility], PER PAST MEDICAL RECORD, PTS. DAUGHTER HAS STATED IT IS MORE THAN THAT AND ALSO INCLUDES SCOTCH Past Drug Use History: None Reported - Past Family History Father Family Medical History: Cancer Additional Family Medical History / Comment(s): PT STATES HIS FATHER NEVER WENT TO THE DOCTORS. HE HAD A BAD COUGH AND AT THE AGE OF 78YRS. Mother History Unknown: Yes Additional Family Medical History / Comment(s): MOTHER LEFT FAMILY WHEN PT WAS 12 YRS OLD. PT STATES SHE WAS A HEAVY SMOKER. Medications and Allergies Home Medications Medication Instructions Recorded Confirmed Type Donepezil [Aricept] 10 mg PO DAILY 10/01/16 08/07/19 History Insulin Detemir (Levemir) [Levemir] 15 unit SQ HS 10/01/16 08/07/19 History Folic Acid 1 mg PO DAILY 05/25/18 08/07/19 History Thiamine [Vitamin B-1] 100 mg PO BID 05/25/18 08/07/19 History Apixaban [Eliquis] 2.5 mg PO BID 08/07/19 08/07/19 History Atorvastatin [Lipitor] 80 mg PO HS 08/07/19 08/07/19 History Cholecalciferol [Vitamin D3 (25 1,000 unit PO DAILY 08/07/19 08/07/19 History Mcg = 1000 Iu)] DULoxetine HCL [Cymbalta] 30 mg PO DAILY 08/07/19 08/07/19 History Triamterene/Hydrochlorothiazid 1 tab PO DAILY 08/07/19 08/07/19 History [Triamterene-Hctz 37.5-25 mg Tb] amLODIPine [Norvasc] 5 mg PO DAILY 08/07/19 08/07/19 History Allergies Allergy/AdvReac Type Severity Reaction Status Date / Time No Known Allergies Allergy Verified 08/07/19 09:43 Physical Exam Vitals: Vital Signs Temp Pulse Pulse Resp BP BP Pulse Ox 08/07/19 04:59 97.3 F L 63 16 120/68 99 08/07/19 03:06 97.4 F L 58 L 16 149/76 99 08/07/19 02:00 97.8 F 57 L 18 136/74 99 08/06/19 23:46 97.0 F L 65 16 149/79 99 Intake and Output 08/06/19 08/07/19 08/07/19 22:59 06:59 14:59 Output Total 200 Balance -200 Output: Urine 200 Other: Voiding Method Urinal Weight 73.482 kg 73.482 kg GENERAL DESCRIPTION: Elderly male lying in bed, no distress. No tachypnea or accessory muscle of respiration use. HEENT: Shows Pallor , no scleral icterus. Oral mucous membrane is dry. NECK: Trachea central, no thyromegaly. LUNGS: Unlabored breathing. Clear to auscultation anteriorly. No wheeze or crackle. HEART: S1, S2, regular rate and rhythm. ABDOMEN: Soft, no tenderness , guarding or rigidity EXTREMITIES: Left second toe is swollen red with some discoloration and some redness extending to dorsum of the left foot. SKIN: No rash, no masses palpable. NEUROLOGICAL: The patient is awake, alert, oriented x3, mood and affect normal. Results CBC & Chem 7: 08/07/19 00:15 08/07/19 00:15 Labs: Abnormal Lab Results - Last 24 Hours (Table) 08/07/19 08/07/19 08/07/19 Range/Units 00:15 00:15 00:15 WBC 11.2 H (3.8-10.6) k/uL RBC 4.17 L (4.30-5.90) m/uL Hgb 11.9 L (13.0-17.5) gm/dL Hct 36.2 L (39.0-53.0) % Neutrophils # 8.5 H (1.3-7.7) k/uL Sodium 126 L (137-145) mmol/L Chloride 93 L (98-107) mmol/L BUN 46 H (9-20) mg/dL Creatinine 2.26 H (0.66-1.25) mg/dL Glucose 420 H (74-99) mg/dL POC Glucose (mg/dL) (75-99) mg/dL Calcium 7.7 L (8.4-10.2) mg/dL Alkaline Phosphatase 144 H (38-126) U/L CK-MB (CK-2) 2.5 H (0.0-2.4) ng/mL Total Protein 5.7 L (6.3-8.2) g/dL Albumin 2.8 L (3.5-5.0) g/dL Urine Protein (Negative) Urine Glucose (UA) (Negative) Urine Mucus (None) /hpf 08/07/19 08/07/19 08/07/19 Range/Units 01:00 02:55 07:01 WBC (3.8-10.6) k/uL RBC (4.30-5.90) m/uL Hgb (13.0-17.5) gm/dL Hct (39.0-53.0) % Neutrophils # (1.3-7.7) k/uL Sodium (137-145) mmol/L Chloride (98-107) mmol/L BUN (9-20) mg/dL Creatinine (0.66-1.25) mg/dL Glucose (74-99) mg/dL POC Glucose (mg/dL) 335 H 216 H (75-99) mg/dL Calcium (8.4-10.2) mg/dL Alkaline Phosphatase (38-126) U/L CK-MB (CK-2) (0.0-2.4) ng/mL Total Protein (6.3-8.2) g/dL Albumin (3.5-5.0) g/dL Urine Protein 3+ H (Negative) Urine Glucose (UA) 4+ H (Negative) Urine Mucus Rare H (None) /hpf 08/07/19 Range/Units 11:31 WBC (3.8-10.6) k/uL RBC (4.30-5.90) m/uL Hgb (13.0-17.5) gm/dL Hct (39.0-53.0) % Neutrophils # (1.3-7.7) k/uL Sodium (137-145) mmol/L Chloride (98-107) mmol/L BUN (9-20) mg/dL Creatinine (0.66-1.25) mg/dL Glucose (74-99) mg/dL POC Glucose (mg/dL) 252 H (75-99) mg/dL Calcium (8.4-10.2) mg/dL Alkaline Phosphatase (38-126) U/L CK-MB (CK-2) (0.0-2.4) ng/mL Total Protein (6.3-8.2) g/dL Albumin (3.5-5.0) g/dL Urine Protein (Negative) Urine Glucose (UA) (Negative) Urine Mucus (None) /hpf Assessment and Plan Assessment: 1-patient with a left foot diabetic foot infection in this patient presented hospital with possible gangrene of his left second toe and will need to call for both gram-positive as well as gram-negative pathogen in this patient previously has grown MSSA and anaerobic gram-positive cocci 2-patient with borderline kidney function and high risk of nephrotoxicity from vancomycin (1) Cellulitis of left foot Current Visit: Yes Status: Acute Code(s): L03.116 - CELLULITIS OF LEFT LOWER LIMB SNOMED Code(s): 183390679 (2) Gangrene of toe of left foot Current Visit: Yes Status: Acute Code(s): I96 - GANGRENE, NOT ELSEWHERE CLASSIFIED SNOMED Code(s): 92636646745592824 Plan: 1-discontinue vancomycin and Zosyn 2-we will start the patient on Unasyn 3 g every 12 hour 3-obtain x-rays of the left foot We will follow on clinical condition and cultures to further adjust medication if needed Thank you for this consultation we will follow the patient along with you Time with Patient: Greater than 30
[2019-08-08] MEDS: AMPICILLIN-SULBACTAM 3 GM in SODIUM CHLORIDE 0.9% 100 ML IVPB SCH ×3 (00:10→23:39)
[2019-08-08 06:27] LABS: HCT 31.1 % (39.0-53.0); HGB 10.6 gm/dL (13.0-17.5); MCH 29.5 pg (25.0-35.0); MCHC 34.2 g/dL (31.0-37.0); MCV 86.3 fL (80.0-100.0); Mean Platelet Volume 7.6; Platelet Count 326 k/uL (150-450); RDW 12.6 % (11.5-15.5); WBC 10.8 k/uL (3.8-10.6)
[2019-08-08 06:51] LABS: Calcium 7.4 mg/dL (8.4-10.2)
[2019-08-08 07:23] LABS: Glucose,Whole Blood 71 mg/dL (75-99)
[2019-08-08] MEDS: amLODIPine 10 MG TAB PO SCH (07:30)
[2019-08-08] MEDS: INSULIN ASPART (NovoLOG) 100 UNIT/ML VIAL SQ SCH ×4 (07:30→21:19)
[2019-08-08] MEDS: glipiZIDE 5 MG TAB PO SCH ×2 (07:30→17:14)
[2019-08-08] MEDS: guaiFENesin-DM 600/30MG 1 EACH TAB.ER.12H PO SCH ×2 (07:30→21:19)
[2019-08-08] MEDS: HEPARIN SODIUM,PORCINE 5,000 UNIT/ML 1 ML VIAL SQ SCH ×3 (07:30→23:39)
[2019-08-08] MEDS: THIAMINE 100 MG TAB PO SCH ×2 (07:30→21:19)
[2019-08-08] MEDS: MIDODRINE 5 MG TAB PO SCH ×3 (07:30→17:14)
[2019-08-08] MEDS: FAMOTIDINE 20 MG TAB PO SCH (07:30)
[2019-08-08] MEDS: SODIUM CHLORIDE 0.9% 1,000 ML IV SCH ×2 (07:31→17:15)
--- NOTE | 2019-08-08 08:41 | XR ---
EXAMINATION TYPE: XR foot complete LT DATE OF EXAM: 08/08/2019 CLINICAL HISTORY: Left second toe diabetic foot infection TECHNIQUE: Frontal, lateral and oblique images of the left foot are obtained. COMPARISON: None. FINDINGS: There appears to be soft tissue ulceration at the tip of the left second toe. Correlate cli nically. Vague lucency involving the subungual tuft of the distal phalanx left second toe suspicious for underlying osteomyelitis. Correlate clinically. No acute fracture or dislocation is seen. IMPRESSION: Correlate for osteomyelitis of the subungual tuft distal phalanx left second toe. ICD 10 NO FRACTURE, INITIAL EVALUATION
[2019-08-08 12:30] LABS: Glucose,Whole Blood 192 mg/dL (75-99)
--- NOTE | 2019-08-08 13:05 | P.PN ---
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 Patient is having cellulitis and gangrene in the right foot second toe with cellulitis on the dorsal and plantar aspect of the right foot appears to be bit gangrene and infectious gangrene. Patient is diabetic patient the was on ceftezole and which will be discontinued and patient will be started on Zosyn to cover anaerobes including pseudomonas and gram-negative organisms and vancomycin infectious disease consult and vascular surgery did evaluate the patient and the recommending amputation and Doppler of the left lower limb is being updated at this time. 08/08/2019 Patient is seen and evaluated in follow-up today and currently remains on IV antibiotics in the form of Unasyn. Infectious disease is following. Patient is scheduled to undergo left second toe amputation tomorrow. No acute overnight events. Currently no reports of chest pain, shortness of breath, or palpitations. Patient is afebrile. No reports of nausea or vomiting and patient is tolerating diet. Objective - Vital Signs Vital signs: Vital Signs Temp 97.8 F 08/08/19 05:16 Pulse 63 08/08/19 05:16 Resp 16 08/08/19 05:16 BP 132/53 08/08/19 05:16 Pulse Ox 97 08/08/19 05:16 Intake & Output 08/07/19 08/08/19 08/08/19 18:59 06:59 18:59 Intake Total 0 Output Total 800 Balance 0 -800 Weight 73.482 kg Intake: Other 0 Output: Urine 800 Other: Voiding Method Urinal - Exam GENERAL: The patient is alert and oriented x3, not in any acute distress. Well developed, well nourished. HEENT: Pupils are round and equally reacting to light. EOMI. No scleral icterus. No conjunctival pallor. Normocephalic, atraumatic. No pharyngeal erythema. No thyromegaly. CARDIOVASCULAR: S1 and S2 present. No murmurs, rubs, or gallops. PULMONARY: Chest is clear to auscultation, no wheezing or crackles. ABDOMEN: Soft, nontender, nondistended, normoactive bowel sounds. No palpable organomegaly. MUSCULOSKELETAL: No joint swelling or deformity. EXTREMITIES: No cyanosis, clubbing, or pedal edema. Patient has a right below-knee amputation. left side patient has gangrenous second toe, gangrene extending up to the proximal phalangeal joint with cellulitis on the dorsal and plantar aspect of the left foot doesn't appear to be infectious gangrene NEUROLOGICAL: Gross neurological examination did not reveal any focal deficits. SKIN: No rashes. - Labs CBC & Chem 7: 08/08/19 05:45 08/08/19 05:45 Labs: Abnormal Lab Results - Last 24 Hours (Table) 08/07/19 08/07/19 08/08/19 Range/Units 11:31 20:41 05:45 WBC 10.8 H (3.8-10.6) k/uL RBC 3.60 L (4.30-5.90) m/uL Hgb 10.6 L (13.0-17.5) gm/dL Hct 31.1 L (39.0-53.0) % Sodium (137-145) mmol/L BUN (9-20) mg/dL Creatinine (0.66-1.25) mg/dL Glucose (74-99) mg/dL POC Glucose (mg/dL) 252 H 278 H (75-99) mg/dL Calcium (8.4-10.2) mg/dL 08/08/19 08/08/19 Range/Units 05:45 07:21 WBC (3.8-10.6) k/uL RBC (4.30-5.90) m/uL Hgb (13.0-17.5) gm/dL Hct (39.0-53.0) % Sodium 136 L (137-145) mmol/L BUN 40 H (9-20) mg/dL Creatinine 2.30 H (0.66-1.25) mg/dL Glucose 58 L (74-99) mg/dL POC Glucose (mg/dL) 71 L (75-99) mg/dL Calcium 7.4 L (8.4-10.2) mg/dL Microbiology - Last 24 Hours (Table) 08/07/19 00:15 Blood Culture - Preliminary Blood No Growth after 24 hours Assessment and Plan Assessment: -Gangrene of the second toe left foot. Patient has diabetes and critical limb ischemia: Patient currently remains on Unasyn and will continue at this time. Infectious disease is following. Plan is for left second toe amputation tomorrow. -Hyponatremia hypovolemic hyponatremia and secondary to beer. Patient remains on IV fluids normal saline at 100 mL per hour. Sodium today is 136. -Acute renal failure prerenal azotemia from diuretic therapy which is being held and lisinopril is being held as well amlodipine will be continued and patient was started on IV fluids. Creatinine continues to be elevated and is 2.30. 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 Doppler study of the left lower extremity was done and is pending at this time. -DVT prophylaxis with subcutaneous heparin
--- NOTE | 2019-08-08 13:35 | CDI ---
Documentation Clarification Form Date: 08/08/2019 12:42:33 PM From: Fern Arauz Admit Date: 08/07/2019 01:51:00 AM Patient Name: Gilberto Balderas Visit Number: [id number] Discharge Date: ATTENTION: The Clinical Documentation Specialists (CDI) and [facility] Coding Staff appreciate your assistance in clarifying documentation. Please respond to the clarification below the line at the bottom and electronically sign. The CDI & [facility] Coding staff will review the response and follow-up if needed. Please note: Queries are made part of the Legal Health Record. If you have any questions, please contact the author of this message via ITS. Dr. Kamilla Ho The patient has diabetes, as indicated on H&P 08/06 History/Risk Factors: 71-year-old male presents to the ED for evaluation of his left foot with blackness to the distal end of the left second toe. Medical History of DM 2, Dementia, HTN and recent third toe amputation. Clinical Indicators: Per the ED Note 08/06 I will admit patient to manage his blood sugar< to provide some analgesia for the toe and to also have vascular surg. Labs POC Glucose 08/06 02:55 355, 07:01 216, 11:31 252, 16:49 95, 20:41 278, 08/07 07:21 71 Treatment: 08/06 10 units iv x1, Levemir HS 22 units, Novolog 2 Units ACHS Please document any body system complications or specific manifestations related to the diabetes: Poorly controlled Type 2 Diabetes with Hyperglycemia Other, please specify Unable to determine. Diabetes mellitus2, poorly controlled, with hyperglycemia Documented in DCS 08/08 Dr. Ho (Last Revision: February 2017) MTDD
--- NOTE | 2019-08-08 13:37 | CDI ---
Documentation Clarification Form Date: 08/08/2019 01:22:56 PM From: Fern Arauz Admit Date: 08/07/2019 01:51:00 AM Patient Name: Gilberto Balderas Visit Number: [id number] Discharge Date: ATTENTION: The Clinical Documentation Specialists (CDI) and [facility] Coding Staff appreciate your assistance in clarifying documentation. Please respond to the clarification below the line at the bottom and electronically sign. The CDI & [facility] Coding staff will review the response and follow-up if needed. Please note: Queries are made part of the Legal Health Record. If you have any questions, please contact the author of this message via ITS. Dr. Kamilla Ho The patient has Type 2 DM documented in the H&P 08/06 History/Risk Factors: 71-year-old male presents to the ED for evaluation of his left foot with blackness to the distal end of the left second toe. Medical History of DM 2, Dementia, HTN and recent third toe amputation. 08/06 ID consult Cellulitis of left foot. Clinical Indicators: Treatment: 08/06 Cefazolin Ivpb Q 12 Hrs, Vancomycin Ivpb x1, Piperacillin Ivpb Q 8 Hrs, 08/06 10 units iv x1, Levemir HS 22 units, Novolog 2 Units ACHS Please document any body system complications or specific manifestations related to the diabetes: Left foot Cellulitis Associated with Diabetes No association with Diabetes Other condition Unable to Determine Left foot cellulitis possibly due to diabetes mellitus 2 Documented In DCS 08/08 Dr. Ho (Last Revision: February 2017) MTDD
--- NOTE | 2019-08-08 15:42 | P.PN ---
Subjective Progress Note Date: 08/08/19 Patient was seen and examined at the bedside with Dr. Lynn. The patient has a history of a right qbuen-hhd-qazx amputation several years ago and left great toe amputation a couple years ago which was also due to gangrene. The patient currently denies any fevers, chills, chest pain or shortness of breath. No acute changes through the night. Arterial Doppler studies to the lower extremity showed a right brachial index of 147 with a left brachial index 144, left PT and DP noncompressible. However does show positive waveforms. X-ray of left foot shows soft tissue ulceration at the tip the left second toe. Correlate for osteomyelitis of the subungual tuft distal phalanx left second toe. Objective - Vital Signs Vital signs: Vital Signs Temp 97.8 F 08/08/19 05:16 Pulse 63 08/08/19 05:16 Resp 16 08/08/19 05:16 BP 132/53 08/08/19 05:16 Pulse Ox 97 08/08/19 05:16 Intake & Output 08/07/19 08/08/19 08/08/19 18:59 06:59 18:59 Intake Total 0 Output Total 800 200 Balance 0 -800 -200 Weight 73.482 kg Intake: Other 0 Output: Urine 800 200 Other: Voiding Method Urinal - Exam General appearance: The patient is alert, oriented, in no acute distress. HET: Head is normocephalic and atraumatic. Pupils are equal and reactive. Neck: Supple without lymphadenopathy. Trachea midline. Heart: S1 S2. Regular rate and rhythm. Lungs: No crackles or wheezes are heard. Extremities: Left lower extremity without palpable PT or DP pulses. Left foot pink and warm to the touch. Left second toe with dry gangrene with surrounding erythema and scaling to dorsal side of foot with malodor. Left foot medial dorsal region with small wound, without drainage or erythema. Neurological: No focal deficits. Strength and sensation are grossly intact. - Labs CBC & Chem 7: 08/08/19 05:45 08/08/19 05:45 Labs: Abnormal Lab Results - Last 24 Hours (Table) 08/07/19 08/08/19 08/08/19 Range/Units 20:41 05:45 05:45 WBC 10.8 H (3.8-10.6) k/uL RBC 3.60 L (4.30-5.90) m/uL Hgb 10.6 L (13.0-17.5) gm/dL Hct 31.1 L (39.0-53.0) % Sodium 136 L (137-145) mmol/L BUN 40 H (9-20) mg/dL Creatinine 2.30 H (0.66-1.25) mg/dL Glucose 58 L (74-99) mg/dL POC Glucose (mg/dL) 278 H (75-99) mg/dL Calcium 7.4 L (8.4-10.2) mg/dL 08/08/19 Range/Units 07:21 WBC (3.8-10.6) k/uL RBC (4.30-5.90) m/uL Hgb (13.0-17.5) gm/dL Hct (39.0-53.0) % Sodium (137-145) mmol/L BUN (9-20) mg/dL Creatinine (0.66-1.25) mg/dL Glucose (74-99) mg/dL POC Glucose (mg/dL) 71 L (75-99) mg/dL Calcium (8.4-10.2) mg/dL Microbiology - Last 24 Hours (Table) 08/07/19 00:15 Blood Culture - Preliminary Blood No Growth after 24 hours Assessment and Plan Assessment: 1. Left lower extremity critical limb ischemia was second toe gangrene. 2. Diabetes 3. Acute kidney injury 4. History of right tdvzc-tio-cwlc amputation 5. Bilateral internal carotid artery stenosis Plan: Continue current antibiotics. Patient is to be nothing by mouth after midnight. Plan for scheduled left second toe amputation tomorrow morning. Continue to follow recommendations per infectious disease.
[2019-08-08 17:03] LABS: Glucose,Whole Blood 132 mg/dL (75-99)
[2019-08-08 20:06] LABS: Glucose,Whole Blood 249 mg/dL (75-99)
[2019-08-08] MEDS: MELATONIN 3 MG TABLET PO SCH (21:19)
[2019-08-08] MEDS: MULTIVITAMINS, THERA 1 EACH TAB PO SCH (21:19)
[2019-08-08] MEDS: FOLIC ACID 1 MG TAB PO SCH (21:19)
[2019-08-08] MEDS: ASPIRIN 81 MG PO SCH (21:19)
[2019-08-08] MEDS: DONEPEZIL 10 MG TAB PO SCH (21:19)
[2019-08-08] MEDS: INSULIN DETEMIR (LEVEMIR) 100 UNIT/ML SYR SQ SCH (21:20)
--- NOTE | 2019-08-09 00:11 | PN ---
PROGRESS NOTE DATE OF SERVICE: 08/08/2019. REASON FOR FOLLOW UP: Left second toe cellulitis. INTERVAL HISTORY: The patient is currently afebrile. Patient has been breathing comfortably. The patient denies having any chest pain or shortness of breath or cough. No nausea or abdominal pain. No pain to the left foot area. PHYSICAL EXAMINATION: Blood pressure is 137/63 with a pulse of 50, temperature 97.7. He is 98% on room air. General description: The patient is an elderly male lying in bed in no distress. Respiratory system: Unlabored breathing. Clear to auscultation anteriorly. Heart S1, S2. Regular rate and rhythm. Abdomen soft, no tenderness. Left second toe still having swelling and redness. No drainage. LABS: Hemoglobin is 10.6, white count 10.9, BUN of 40, creatinine is 2.30. Blood culture has been negative. No local cultures were done. X-rays of the foot: Correlate for osteomyelitis. DIAGNOSTIC IMPRESSION AND PLAN: Patient with left second toe diabetic foot infection with concern for underlying ischemia and osteomyelitis. Patient is covered with Unasyn. Await surgical debridement and deep cultures. Continue with Unasyn. Monitor clinical course closely. MMODL / IJN: [id number] /
[2019-08-09] MEDS: SODIUM CHLORIDE 0.9% 1,000 ML IV SCH ×2 (04:09→11:03)
[2019-08-09] MEDS: HEPARIN SODIUM,PORCINE 5,000 UNIT/ML 1 ML VIAL SQ SCH ×2 (06:33→15:05)
[2019-08-09] MEDS ORDERED: LACTATED RINGERS 1,000 ML IV ONE (06:55)
[2019-08-09 07:11] LABS: Glucose,Whole Blood 90 mg/dL (75-99)
[2019-08-09] MEDS ORDERED: diphenhydrAMINE 50 MG/ML 1 ML VIAL ONE (07:23)
[2019-08-09] MEDS ORDERED: MIDAZOLAM 2 MG/2 ML VIAL ONE (07:23)
[2019-08-09] MEDS ORDERED: fentaNYL (PF) 50 MCG/ML 2 ML AMP ONE (07:23)
[2019-08-09] MEDS ORDERED: LIDOCAINE 1% (PF) 10 MG/ML (30 ML SDV) SQ ONE (07:30)
[2019-08-09] MEDS: INSULIN ASPART (NovoLOG) 100 UNIT/ML VIAL SQ SCH ×2 (08:07→12:27)
--- NOTE | 2019-08-09 08:33 | P.OP ---
Date of Procedure: 08/09/19 Description of Procedure: SURGEON: Jackie Lynn DO [employer] SUPPLY TECHNICIAN: None PREOPERATIVE DIAGNOSIS: Gangrene left second toe with abscess. POSTOPERATIVE DIAGNOSIS: [Same]. OPERATION: [Left second toe amputation. ANESTHESIA: Monitored anesthesia care with local anesthetic ESTIMATED BLOOD LOSS: 5 mL SPECIMENS REMOVED: Left second toe, culture COMPLICATIONS: None immediately apparent OPERATIVE FINDINGS: The patient is a 79-year-old male previous partial great toe amputation and a right lower extremity below-knee amputation who presented with abscess and infection of his left second toe with gangrene. Initial ankle brachial indices were performed revealing noncompressibility but biphasic appearing waveforms. He had palpable pulses to the popliteal artery. At this time discussion was had with him regarding a second toe amputation and if there is nonhealing to go forward with possible use of revascularization. He is in agreement with this plan, we'll give this a chance to heal and if it has any further issues going forward with local wound care, then would plan further interventions. He is here today for a second toe amputation. Risks and benefits were discussed. He seemingly understands and is willing proceed DESCRIPTION OF PROCEDURE: This patient was brought to the operating room, and given local and IV sedation. The operative foot was prepped and draped in sterile manner. An incision was made at the base of the second toe deep into skin and fascia on plantar and dorsal aspect until we reached the head of the metatarsal bone. There was no evidence of abscess at this spot. The bone itself looked to be in adequate healthy condition. The head of the metatarsal was from the second toe. The tendons were divided in plantar and dorsal aspects. The second toe was removed. There were minimal bleeding points which were controlled with electrocautery. Base of the wound looked clean, and the wound was copiously irrigated with saline. Tissue was approximated with 3-0 Vicryl interrupted sutures. The skin was reapproximated with interrupted sutures of 3-0 nylon. Hemostasis was well controlled and pressure dressing was applied. The patient tolerated the procedure well.
[2019-08-09] MEDS ORDERED: FAMOTIDINE 20 MG TAB PO SCH (09:00)
[2019-08-09] MEDS: amLODIPine 10 MG TAB PO SCH (09:22)
[2019-08-09] MEDS: THIAMINE 100 MG TAB PO SCH (09:22)
[2019-08-09] MEDS: MIDODRINE 5 MG TAB PO SCH ×2 (09:22→11:03)
[2019-08-09] MEDS: guaiFENesin-DM 600/30MG 1 EACH TAB.ER.12H PO SCH (09:22)
[2019-08-09] MEDS: glipiZIDE 5 MG TAB PO SCH (09:22)
[2019-08-09] MEDS: AMPICILLIN-SULBACTAM 3 GM in SODIUM CHLORIDE 0.9% 100 ML IVPB SCH (11:03)
[2019-08-09 12:07] LABS: Glucose,Whole Blood 82 mg/dL (75-99)
--- NOTE | 2019-08-09 12:53 | P.DS ---
Providers Date of admission: 08/07/19 01:51 Expected date of discharge: 08/09/19 Attending physician: Angely Chu Consults: 08/07/19 01:46 Consult Physician Routine Consulting Provider: Tomy Portillo Consult Reason/Comments: Toe gangrene. Do you want consulting provider notified?: Yes 08/07/19 14:04 Consult Physician Routine Consulting Provider: Alli William Consult Reason/Comments: gangrene Do you want consulting provider notified?: Yes Primary care physician: [facility] Course: Final diagnosis -Gangrene of the second toe left foot. 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 Patient will continue on a short course of oral antibiotics in the form of Augmentin twice daily for the next 3 days and then may discontinue. Patient will need follow-up with Dr. Lynn vascular surgery in 2-3 weeks upon discharge. Total time taken is 35 minutes. History of present illness This is a 79-year-old male who was recently admitted for left foot pain, gangrene, and cellulitis and is being closely monitored. Infectious disease is following. Patient was treated with IV antibiotics in the form of Unasyn and will transition to oral Augmentin for the next 3 days and then may discontinue. Patient underwent left second toe amputation today with Dr. Lynn and will need follow-up in the outpatient setting in 2-3 weeks in her office. Patient is to remain heal touch weightbearing of the left foot and will need continued PT/OT therapy. 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 Patient does have poorly controlled diabetes mellitus type 2 and will need continued blood glucose monitoring before meals at bedtime and treat accordingly with sliding scale along with oral diabetic medications. Currently no reports of chest pain, shortness of breath, or palpitations. Patient is afebrile. No reports of nausea or vomiting and patient is tolerating diet. Patient will be going to ECF today. Recommended repeat labs in 2-3 days to monitor creatinine as it was slightly elevated. Lisinopril and chlorthalidone being held due to current creatinine. On exam vital signs are stable. Temp is 98F, pulse is 55, respirations are 18, blood pressure is 136/63, oxygen saturation is 100% on room air. Cardio S1, S2 are present. Respiratory shows clear to auscultation. Abdomen is soft and nontender. Nervous system shows no focal deficits. Please refer to medication reconciliation sheet for a list of medications. Patient Condition at Discharge: Stable Plan - Discharge Summary Discharge Rx Participant: No New Discharge Prescriptions: New Aspirin 81 mg PO HS chew Amoxic-Pot Clav 875-125Mg [Augmentin 875-125] 1 tab PO Q12HR 3 Days #6 tab glipiZIDE [Glucotrol] 5 mg PO AC-BID tab Insulin Detemir (Levemir) [Levemir] 22 unit SQ HS syr Melatonin 3 mg PO HS tablet guaiFENesin-DM 600/30MG [Mucinex Dm] 1 each PO Q12HR tab.er.12h Multivitamins, Thera [Multivitamin (formulary)] 1 each PO HS tab HYDROcodone/APAP 5-325MG [[place] 5-325] 1 each PO Q4HR PRN #4 tab PRN Reason: Moderate Pain amLODIPine [Norvasc] 10 mg PO DAILY tab INSULIN ASPART (NovoLOG) [NovoLOG (formulary)] 0 unit SQ ACHS vial Famotidine [Pepcid] 20 mg PO DAILY tab Midodrine [ProAmatine] 2.5 mg PO AC-TID tab Acetaminophen Tab [Tylenol] 650 mg PO Q6HR PRN tab PRN Reason: Mild Pain Or Fever > 100.5 Continue Donepezil [Aricept] 10 mg PO DAILY Folic Acid 1 mg PO DAILY Thiamine [Vitamin B-1] 100 mg PO BID Atorvastatin [Lipitor] 80 mg PO HS Cholecalciferol [Vitamin D3 (25 Mcg = 1000 Iu)] 1,000 unit PO DAILY DULoxetine HCL [Cymbalta] 30 mg PO DAILY Apixaban [Eliquis] 2.5 mg PO BID #0 Discontinued Insulin Detemir (Levemir) [Levemir] 15 unit SQ HS amLODIPine [Norvasc] 5 mg PO DAILY Triamterene/Hydrochlorothiazid [Triamterene-Hctz 37.5-25 mg Tb] 1 tab PO DAILY Discharge Medication List Donepezil [Aricept] 10 mg PO DAILY 10/01/16 [History] Folic Acid 1 mg PO DAILY 05/25/18 [History] Thiamine [Vitamin B-1] 100 mg PO BID 05/25/18 [History] Atorvastatin [Lipitor] 80 mg PO HS 08/07/19 [History] Cholecalciferol [Vitamin D3 (25 Mcg = 1000 Iu)] 1,000 unit PO DAILY 08/07/19 [History] DULoxetine HCL [Cymbalta] 30 mg PO DAILY 08/07/19 [History] Acetaminophen Tab [Tylenol] 650 mg PO Q6HR PRN tab 08/09/19 [Rx] Amoxic-Pot Clav 875-125Mg [Augmentin 875-125] 1 tab PO Q12HR 3 Days #6 tab 08/09/19 [Rx] Apixaban [Eliquis] 2.5 mg PO BID #0 08/09/19 [Rx] Aspirin 81 mg PO HS chew 08/09/19 [Rx] Famotidine [Pepcid] 20 mg PO DAILY tab 08/09/19 [Rx] HYDROcodone/APAP 5-325MG [[place] 5-325] 1 each PO Q4HR PRN #4 tab 08/09/19 [Rx] INSULIN ASPART (NovoLOG) [NovoLOG (formulary)] 0 unit SQ ACHS vial 08/09/19 [Rx] Insulin Detemir (Levemir) [Levemir] 22 unit SQ HS syr 08/09/19 [Rx] Melatonin 3 mg PO HS tablet 08/09/19 [Rx] Midodrine [ProAmatine] 2.5 mg PO AC-TID tab 08/09/19 [Rx] Multivitamins, Thera [Multivitamin (formulary)] 1 each PO HS tab 08/09/19 [Rx] amLODIPine [Norvasc] 10 mg PO DAILY tab 08/09/19 [Rx] glipiZIDE [Glucotrol] 5 mg PO AC-BID tab 08/09/19 [Rx] guaiFENesin-DM 600/30MG [Mucinex Dm] 1 each PO Q12HR tab.er.12h 08/09/19 [Rx] Follow up Appointment(s)/Referral(s): Jackie Lynn DO [STAFF PHYSICIAN] - 2 Weeks [facility],Clinic [Primary Care Provider] - 1-2 days Ambulatory/Diagnostic Orders: Basic Metabolic Panel [LAB.AMB] Time Frame: 2 Days, Location: None Selected Activity/Diet/Wound Care/Special Instructions: Patient is going to [facility] Continue current diet Activity as tolerated Patient is to maintain heel touch weightbearing of the left foot Continue with antibiotics for 3 days and then may discontinue Follow-up with Dr. Lynn vascular surgery in 2-3 weeks Continue working with physical therapy Continue monitoring blood sugars before meals at bedtime and treat accordingly with sliding scale Repeat labs in 2-3 days Discharge Disposition: TRANSFER TO SNF/ECF
[2019-08-09 14:27] VITALS: BP 168/72; PULSE 52; RESP 16; TEMP 96.8
--- NOTE | 2019-08-09 14:37 | PN ---
PROGRESS NOTE DATE OF SERVICE: 08/09/2019 REASON FOR FOLLOWUP: Left second toe gangrene. INTERVAL HISTORY: Patient is currently afebrile. The patient is taken to OR. The patient amputation of the left second toe. Patient tolerated the procedure. Deep culture has been obtained for the vascular surgery. Infection is out and would like the patient to be discharged home. The patient currently has no symptoms. PHYSICAL EXAMINATION: Blood pressure 128/63 with a pulse of 56 temperature 98 he is 98% on room air the patient is an elderly male lying in bed in no distress respiratory system: Unlabored breathing to auscultation anteriorly heart S1, S2. Regular rate and rhythm. LABS: No new labs have been obtained today. DIAGNOSTIC IMPRESSION AND PLAN: Patient with left diabetic foot infection with secondary left second toe. The patient overall clinical improvement. Will give a short course of oral Augmentin on discharge and monitor clinical course closely. MMODL / IJN: [id number] /
[2019-08-09 17:14] LABS: Glucose,Whole Blood 202 mg/dL (75-99)
--- NOTE | 2019-08-10 11:52 | CDI ---
Documentation Clarification Form Date: 08/10/19 From: Amber Bills Phone: If you have a question about this query, please contact Dominique Kam, Permastone Applicator at [phone] between 8am and 5pm. Admit Date: 08/07/19 Discharge Date: 08/09/19 Patient Name: COCO LIZARRAGA Visit Number: [id number] ATTENTION: The Clinical Documentation Specialists (CDI) and [facility] Coding Staff appreciate your assistance in clarifying documentation. Please respond to the clarification below the line at the bottom and electronically sign. The CDI & [facility] Coding staff will review the response and follow-up if needed. Please note: Queries are made part of the Legal Health Record. If you have any questions, please contact the author of this message via ITS. Dear Dr. Jackie Lynn, PVD is documented in the ED Note, both consults and H&P. History/Risk Factors: DM w gangrene, CKD, hyperglycemia, HTN w CKD II & heart failure, KATHY Clinical Indicators: Gangrene of left second toe w ulcer. Doppler Reports: Right brachial index of 147 with left brachial index of 144, left PT and DP noncompressible. Left foot x-ray: shows soft tissue ulceration at the tip the left second toe. Treatment: Left second toe amputation In your professional opinion, can the PVD be further specified? Type of PVD Due to atherosclerosis Not due to atherosclerosis Can you please clarify the type of vessel if known? [place] G[place] Autologous vein Nonautologous biological Nonbiological Other, please specify Unable to Determine Other, please specify Unable to determine In your professional opinion, in order to capture the severity of condition; can you please clarify if the above clinical indicators and treatment signify if there were any associated conditions? Gangrene Intermittent Claudication Rest Pain Ulceration No related conditions Other, please specify Unable to determine MTDD
--- NOTE | 2019-08-10 13:22 | P.ARTDOP ---
Arterial Doppler LOWER EXTREMITY ARTERIAL DOPPLER: DATE OF SERVICE: 08/07/2019 Reason for study: Gangrene toes left foot. Doppler waveforms: Blunted but multiphasic throughout. Pulse volume recording: []. Pressure gradients: No pressures recorded. Ankle-brachial indices: []. Toe brachial indices: [] on the right, [] on the left Impression: Limited study. No pressures done. Waveforms appear to suggest adequate flow at least in the proximal areas..
--- NOTE | 2019-08-15 07:39 | CDI ---
Documentation Clarification Form Date: 08/10/19 From: Amber Bills Phone: If you have a question about this query, please contact Dominique Kam, Filter Changing Technician at [phone] between 8am and 5pm. Admit Date: 08/07/19 Discharge Date: 08/09/19 Patient Name: COCO LIZARRAGA Visit Number: [id number] ATTENTION: The Clinical Documentation Specialists (CDI) and [facility] Coding Staff appreciate your assistance in clarifying documentation. Please respond to the clarification below the line at the bottom and electronically sign. The CDI & [facility] Coding staff will review the response and follow-up if needed. Please note: Queries are made part of the Legal Health Record. If you have any questions, please contact the author of this message via ITS. Dear Dr. Jackie Lynn, PVD is documented in the ED Note, both consults and H&P. History/Risk Factors: DM w gangrene, CKD, hyperglycemia, HTN w CKD II & heart failure, KATHY Clinical Indicators: Gangrene of left second toe w ulcer. Doppler Reports: Right brachial index of 147 with left brachial index of 144, left PT and DP noncompressible. Left foot x-ray: shows soft tissue ulceration at the tip the left second toe. Treatment: Left second toe amputation In your professional opinion, can the PVD be further specified? Type of PVD Due to atherosclerosis Can you please clarify the type of vessel if known? [place] In your professional opinion, in order to capture the severity of condition; can you please clarify if the above clinical indicators and treatment signify if there were any associated conditions? Gangrene MTDD
== END 2019-08-09 17:33 | DRG 256 ==
LOC: EC 23:44 → 6NMEDSUR 08-07 01:51
PROVIDERS: ADMIT Hospitalist; ATTEND Hospitalist
PROC: 0Y6S0Z0 Detachment at Left 2nd Toe, Complete, Open Approach (ICD-10-PCS; principal; 2019-08-07)
DX: E11.52 Type 2 diabetes mellitus with diabetic peripheral angiopathy with gangrene (principal); I96 Gangrene, not elsewhere classified; N17.9 Acute kidney failure, unspecified; L03.116 Cellulitis of left lower limb; I13.0 Hypertensive heart and chronic kidney disease with heart failure and stage 1 through stage 4 chronic kidney disease, or unspecified chronic kidney disease; E87.1 Hypo-osmolality and hyponatremia; E11.22 Type 2 diabetes mellitus with diabetic chronic kidney disease; E11.621 Type 2 diabetes mellitus with foot ulcer; I50.9 Heart failure, unspecified; L97.529 Non-pressure chronic ulcer of other part of left foot with unspecified severity; F03.90 Unspecified dementia, unspecified severity, without behavioral disturbance, psychotic disturbance, mood disturbance, and anxiety; L03.032 Cellulitis of left toe; E11.65 Type 2 diabetes mellitus with hyperglycemia; N18.2 Chronic kidney disease, stage 2 (mild); I99.8 Other disorder of circulatory system; E86.1 Hypovolemia; I65.23 Occlusion and stenosis of bilateral carotid arteries; R40.2362 Coma scale, best motor response, obeys commands, at arrival to emergency department; R40.2142 Coma scale, eyes open, spontaneous, at arrival to emergency department; R40.2242 Coma scale, best verbal response, confused conversation, at arrival to emergency department; Z79.01 Long term (current) use of anticoagulants; Z79.4 Long term (current) use of insulin; Z79.899 Other long term (current) drug therapy; Z95.0 Presence of cardiac pacemaker; Z89.511 Acquired absence of right leg below knee; Z89.412 Acquired absence of left great toe; Z90.49 Acquired absence of other specified parts of digestive tract; Z98.890 Other specified postprocedural states
CPT/HCPCS: 36415; 80048; 80053; 81001; 82553; 83605; 84484; 85025; 85027; 87040; 87070; 87075; 87077; 87186; 87205; 88305; 88311; 93922; 96365; 96374; 99285

== ENCOUNTER 2019-09-21 13:47 | Inpatient (IN) | payer OTHER, MEDICARE ==
[2019-09-21 14:03] LABS: Glucose,Whole Blood 103 mg/dL (75-99)
[2019-09-21 14:52] LABS: Basophils % (A) 0 %; Eosinophils % (A) 0 %; HCT 28.8 % (39.0-53.0); HGB 9.2 gm/dL (13.0-17.5); Hypochromasia Slight; Lymphocytes # (A) 0.4 k/uL (1.0-4.8); Lymphocytes % (A) 2 %; MCH 28.2 pg (25.0-35.0); MCHC 31.8 g/dL (31.0-37.0); MCV 88.7 fL (80.0-100.0); Mean Platelet Volume 7.7; Monocytes # (A) 0.7 k/uL (0-1.0); Monocytes % (A) 5 %; Neutrophils # (A) 13.9 k/uL (1.3-7.7); Neutrophils % (A) 91 %; Platelet Count 276 k/uL (150-450); RBC 3.24 m/uL (4.30-5.90); RDW 13.6 % (11.5-15.5); WBC 15.2 k/uL (3.8-10.6)
[2019-09-21 15:04] LABS: Albumin 2.9 g/dL (3.5-5.0); Calcium 7.9 mg/dL (8.4-10.2); Potassium 3.5 mmol/L (3.5-5.1); Total Bilirubin 0.3 mg/dL (0.2-1.3)
--- NOTE | 2019-09-21 15:06 | ED ---
General Adult HPI - General Chief complaint: Recheck/Abnormal Lab/Rx Stated complaint: Low Blood Sugar Time Seen by Provider: 09/21/19 13:55 Source: patient, EMS Mode of arrival: EMS Limitations: no limitations - History of Present Illness Initial comments: The patient is a 79-year-old male with past history of diabetes, hypertension and dementia who presents to the emergency room after he was found unresponsive at home. The patient states that he did not eat breakfast and then took his insulin. He was found by his daughter who lives next door. The patient reports that he felt as if he was went to pass out previous to the event therefore sat down without suffering any trauma. EMS arrived and found the patient to have a blood sugar of 40. They gave him an amp of D50 and the patient had improvement in his mental status. The patient denies any blunt head trauma or neck pain. Denies any chest pain or shortness of breath. No pain in his extremities. Denies any abdominal pain. The patient is not really with his medications however he does have medication list at bedside. It shows the patient takes insulin at night. The patient denies taking any of his excess medications. Denies any new medications. Patient states he felt well over the past 4 days. No fevers or chills. There are no other alleviating, precipitating or modifying factors - Related Data Home Medications Medication Instructions Recorded Confirmed Donepezil [Aricept] 10 mg PO DAILY 10/01/16 09/21/19 Atorvastatin [Lipitor] 80 mg PO HS 08/07/19 09/21/19 Cholecalciferol [Vitamin D3 (25 1,000 unit PO DAILY 08/07/19 09/21/19 Mcg = 1000 Iu)] DULoxetine HCL [Cymbalta] 30 mg PO DAILY 08/07/19 09/21/19 INSULIN ASPART (NovoLOG) [NovoLOG 4 unit SQ AC-TID 09/21/19 09/21/19 (formulary)] Insulin Glargine,Hum.rec.anlog 22 unit SQ HS 09/21/19 09/21/19 [Lantus Solostar] Midodrine [ProAmatine] 2.5 mg PO Q8H 09/21/19 09/21/19 Omeprazole 20 mg PO DAILY 09/21/19 09/21/19 amLODIPine BESYLATE 5 mg PO DAILY 09/21/19 09/21/19 glipiZIDE [Glucotrol] 5 mg PO BID 09/21/19 09/21/19 Previous Rx's Medication Instructions Recorded Apixaban [Eliquis] 2.5 mg PO BID #0 08/09/19 Aspirin 81 mg PO HS chew 08/09/19 Allergies Allergy/AdvReac Type Severity Reaction Status Date / Time No Known Allergies Allergy Verified 09/21/19 17:47 Review of Systems ROS Statement: Those systems with pertinent positive or pertinent negative responses have been documented in the HPI. ROS Other: All systems not noted in ROS Statement are negative. Past Medical History Past Medical History: Heart Failure, Dementia, Diabetes Mellitus, Hypertension, Syncope, Vascular Disorder Additional Past Medical History / Comment(s): IDDM type II, recent R 3rd toe amputation/wound, SEVERAL SYNCOPAL EPISODES PRIOR TO RECEIVING HIS PACEMAKER, PVD, carotid stenosis History of Any Multi-Drug Resistant Organisms: None Reported Past Surgical History: Appendectomy, Pacemaker, Tonsillectomy Additional Past Surgical History / Comment(s): LEFT GREAT TOE HALF REMOVED, R 3RD TOE AMP, PICC LINE IN UPPER R ARM, COLONOSCOPY. Past Anesthesia/Blood Transfusion Reactions: Previous Problems w/ Anesthesia Additional Past Anesthesia/Blood Transfusion Reaction / Comment(s): HARD TIME WAKING UP FROM ANESETHIA Type of Cardiac Device: Permanent Pacemaker Device Placement Date:: 03/02/2017 Past Psychological History: No Psychological Hx Reported Smoking Status: Never smoker Past Alcohol Use History: Abuse, Daily Past Drug Use History: None Reported - Past Family History Father Family Medical History: Cancer Additional Family Medical History / Comment(s): PT STATES HIS FATHER NEVER WENT TO THE DOCTORS. HE HAD A BAD COUGH AND AT THE AGE OF 78YRS. Mother History Unknown: Yes Additional Family Medical History / Comment(s): MOTHER LEFT FAMILY WHEN PT WAS 12 YRS OLD. PT STATES SHE WAS A HEAVY SMOKER. General Exam Limitations: no limitations General appearance: alert, in no apparent distress Head exam: Present: atraumatic, normocephalic, normal inspection Eye exam: Present: normal appearance, PERRL, EOMI. Absent: scleral icterus, conjunctival injection, periorbital swelling ENT exam: Present: normal exam, mucous membranes moist Neck exam: Present: normal inspection. Absent: tenderness, meningismus, lymphadenopathy Respiratory exam: Present: normal lung sounds bilaterally. Absent: respiratory distress, wheezes, rales, rhonchi, stridor Cardiovascular Exam: Present: regular rate, normal rhythm, normal heart sounds. Absent: systolic murmur, diastolic murmur, rubs, gallop, clicks GI/Abdominal exam: Present: soft, normal bowel sounds. Absent: distended, tenderness, guarding, rebound, rigid Extremities exam: Present: normal capillary refill, other (right BKA, left has amputation of second digit. surgical incision is open with purulent drainage and surrounding redness. ). Absent: tenderness, pedal edema, joint swelling, calf tenderness Back exam: Present: normal inspection Neurological exam: Present: alert, oriented X3, CN II-XII intact Psychiatric exam: Present: normal affect, normal mood Skin exam: Present: warm, dry, intact, normal color. Absent: rash Course Vital Signs 09/21/19 09/21/19 09/21/19 13:53 15:07 16:16 Temperature 97.8 F Pulse Rate 67 67 75 Respiratory 18 16 18 Rate Blood Pressure 139/79 149/75 135/68 O2 Sat by Pulse 95 99 100 Oximetry 09/21/19 17:20 Temperature Pulse Rate 68 Respiratory 16 Rate Blood Pressure 141/75 O2 Sat by Pulse 99 Oximetry EKG Findings - EKG Comments: EKG Findings:: EKG demonstrates an atrial sensed, ventricularly paced rhythm with a rate of 70. TN interval 128. QRS 168. QTC of 586. Negative for sgarbossa criteria. Medical Decision Making - Medical Decision Making Upon arrival the patient is placed in room 23. A thorough history of physical exam was performed. The patient does have a wound on his left second toe which does appear to have surrounding cellulitis. There is pertinent drainage from the site. I did review the patient's records as he is a poor historian. We did complete an Accu-Chek on the patient which demonstrates blood sugars 103. Remainder of laboratory studies demonstrate a white blood count of 15.2. Sodium 134. Creatinine 2.9 from patient's baseline of 2.3. I did complete an x-ray of the left foot which demonstrated interval amputation of the second digit. Did culture the patient's wound. Recommend hospital admission for IV antibi otics and evaluation by vascular. I also recommended trending patient's hemoglobin. The patient did agree to this. I call discuss case with Dr. Foster who accepted admission. He is awaiting a bed on the floor - Lab Data Result diagrams: 09/22/19 07:45 09/22/19 07:45 Lab Results 09/21/19 09/21/19 09/21/19 Range/Units 13:59 14:48 14:48 WBC 15.2 H (3.8-10.6) k/uL RBC 3.24 L (4.30-5.90) m/uL Hgb 9.2 L (13.0-17.5) gm/dL Hct 28.8 L (39.0-53.0) % MCV 88.7 (80.0-100.0) fL MCH 28.2 (25.0-35.0) pg MCHC 31.8 (31.0-37.0) g/dL RDW 13.6 (11.5-15.5) % Plt Count 276 (150-450) k/uL Neutrophils % 91 % Lymphocytes % 2 % Monocytes % 5 % Eosinophils % 0 % Basophils % 0 % Neutrophils # 13.9 H (1.3-7.7) k/uL Lymphocytes # 0.4 L (1.0-4.8) k/uL Monocytes # 0.7 (0-1.0) k/uL Eosinophils # 0.0 (0-0.7) k/uL Basophils # 0.0 (0-0.2) k/uL Hypochromasia Slight PT 10.2 (9.0-12.0) sec INR 1.0 (<1.2) APTT 33.5 H (22.0-30.0) sec Sodium (137-145) mmol/L Potassium (3.5-5.1) mmol/L Chloride (98-107) mmol/L Carbon Dioxide (22-30) mmol/L Anion Gap mmol/L BUN (9-20) mg/dL Creatinine (0.66-1.25) mg/dL Est GFR (CKD-EPI)AfAm (>60 ml/min/1.73 sqM) Est GFR (CKD-EPI)NonAf (>60 ml/min/1.73 sqM) Glucose (74-99) mg/dL POC Glucose (mg/dL) 103 H (75-99) mg/dL POC Glu Skip Operator ID Millicent Sterling Plasma Lactic Acid Jerome (0.7-2.0) mmol/L Calcium (8.4-10.2) mg/dL Total Bilirubin (0.2-1.3) mg/dL AST (17-59) U/L ALT (4-49) U/L Alkaline Phosphatase (38-126) U/L Total Protein (6.3-8.2) g/dL Albumin (3.5-5.0) g/dL 09/21/19 09/21/19 Range/Units 14:48 14:48 WBC (3.8-10.6) k/uL RBC (4.30-5.90) m/uL Hgb (13.0-17.5) gm/dL Hct (39.0-53.0) % MCV (80.0-100.0) fL MCH (25.0-35.0) pg MCHC (31.0-37.0) g/dL RDW (11.5-15.5) % Plt Count (150-450) k/uL Neutrophils % % Lymphocytes % % Monocytes % % Eosinophils % % Basophils % % Neutrophils # (1.3-7.7) k/uL Lymphocytes # (1.0-4.8) k/uL Monocytes # (0-1.0) k/uL Eosinophils # (0-0.7) k/uL Basophils # (0-0.2) k/uL Hypochromasia PT (9.0-12.0) sec INR (<1.2) APTT (22.0-30.0) sec Sodium 134 L (137-145) mmol/L Potassium 3.5 (3.5-5.1) mmol/L Chloride 104 (98-107) mmol/L Carbon Dioxide 22 (22-30) mmol/L Anion Gap 8 mmol/L BUN 32 H (9-20) mg/dL Creatinine 2.93 H (0.66-1.25) mg/dL Est GFR (CKD-EPI)AfAm 23 (>60 ml/min/1.73 sqM) Est GFR (CKD-EPI)NonAf 20 (>60 ml/min/1.73 sqM) Glucose 85 (74-99) mg/dL POC Glucose (mg/dL) (75-99) mg/dL POC Glu Skip Operator ID Plasma Lactic Acid Jerome 1.0 (0.7-2.0) mmol/L Calcium 7.9 L (8.4-10.2) mg/dL Total Bilirubin 0.3 (0.2-1.3) mg/dL AST 42 (17-59) U/L ALT 20 (4-49) U/L Alkaline Phosphatase 103 (38-126) U/L Total Protein 6.0 L (6.3-8.2) g/dL Albumin 2.9 L (3.5-5.0) g/dL Disposition Clinical Impression: Syncope and collapse, Cellulitis of left foot, Hypoglycemia Disposition: ADMITTED IP TO THIS [facility] Condition: Stable Is patient prescribed a controlled substance at d/c from ED?: No Decision to Admit Reason: Admit from EC Decision Date: 09/21/19 Decision Time: 16:21
[2019-09-21 15:24] LABS: Partial Thromboplastin Time 33.5 sec (22.0-30.0); Prothrombin Time 10.2 sec (9.0-12.0)
--- NOTE | 2019-09-21 15:37 | XR ---
EXAMINATION TYPE: XR foot complete LT DATE OF EXAM: 09/21/2019 COMPARISON: 08/08/2019 HISTORY: Infection TECHNIQUE: Three-view left foot FINDINGS: There is been prior amputation of the distal phalanx of the first digit. There is amputatio n of the second digit at the metatarsal phalangeal joint space. Large plantar calcaneal heel spur is present. No suspicious cortical erosions are identified. IMPRESSION: 1. Interval amputation of the second digit.
[2019-09-21] MEDS ORDERED: NALOXONE 0.4 MG/ML 1 ML VIAL IV PRN (16:21)
[2019-09-21] MEDS ORDERED: SODIUM CHLORIDE 0.9% 1,000 ML IV SCH (16:30)
[2019-09-21 16:34] LABS: Glucose,Whole Blood 85 mg/dL (75-99)
[2019-09-21 18:02] LABS: Glucose,Whole Blood 88 mg/dL (75-99)
--- NOTE | 2019-09-21 18:18 | P.GSCN ---
History of Present Illness Consult date: 09/21/19 History of present illness: Patient is a 79-year-old male who is known to me from previous left second toe amputation due to gangrene. He was supposed to have a follow-up appointment in the office but declined due to increasing swelling. He has a past medical history including diabetes, peripheral arterial disease, right below-knee amputation who presented for increasing swelling and wanting his incision site evaluated. He denies any fevers or chills. He denies any nausea or vomiting. He denies any significant pain. He does state he isn't having some increasing swelling in his left upper extremity that is new from previously. He does have a history of a PICC line that has been removed. Past Medical History Past Medical History: Heart Failure, Dementia, Diabetes Mellitus, Hypertension, Syncope, Vascular Disorder Additional Past Medical History / Comment(s): IDDM type II, recent R 3rd toe amputation/wound, SEVERAL SYNCOPAL EPISODES PRIOR TO RECEIVING HIS PACEMAKER, PVD, carotid stenosis History of Any Multi-Drug Resistant Organisms: None Reported Past Surgical History: Appendectomy, Pacemaker, Tonsillectomy Additional Past Surgical History / Comment(s): LEFT GREAT TOE HALF REMOVED, R 3RD TOE AMP, PICC LINE IN UPPER R ARM, COLONOSCOPY. Past Anesthesia/Blood Transfusion Reactions: Previous Problems w/ Anesthesia Additional Past Anesthesia/Blood Transfusion Reaction / Comm: HARD TIME WAKING UP FROM ANESETHIA Type of Cardiac Device: Permanent Pacemaker Device Placement Date:: 03/02/2017 Past Psychological History: No Psychological Hx Reported Smoking Status: Never smoker Past Alcohol Use History: Abuse, Daily Past Drug Use History: None Reported - Past Family History Father Family Medical History: Cancer Additional Family Medical History / Comment(s): PT STATES HIS FATHER NEVER WENT TO THE DOCTORS. HE HAD A BAD COUGH AND AT THE AGE OF 78YRS. Mother History Unknown: Yes Additional Family Medical History / Comment(s): MOTHER LEFT FAMILY WHEN PT WAS 12 YRS OLD. PT STATES SHE WAS A HEAVY SMOKER. Medications and Allergies Home Medications Medication Instructions Recorded Confirmed Type RX: Donepezil [Aricept] 10 mg PO DAILY 10/01/16 09/21/19 History RX: Atorvastatin [Lipitor] 80 mg PO HS 08/07/19 09/21/19 History RX: Cholecalciferol [Vitamin D3 1,000 unit PO DAILY 08/07/19 09/21/19 History (25 Mcg = 1000 Iu)] RX: DULoxetine HCL [Cymbalta] 30 mg PO DAILY 08/07/19 09/21/19 History RX: Apixaban [Eliquis] 2.5 mg PO BID #0 08/09/19 09/21/19 Rx RX: Aspirin 81 mg PO HS chew 08/09/19 09/21/19 Rx Insulin Glargine,Hum.rec.anlog 22 unit SQ HS 09/21/19 09/21/19 History [Lantus Solostar] RX: INSULIN ASPART (NovoLOG) 4 unit SQ AC-TID 09/21/19 09/21/19 History [NovoLOG (formulary)] RX: Midodrine [ProAmatine] 2.5 mg PO Q8H 09/21/19 09/21/19 History RX: Omeprazole 20 mg PO DAILY 09/21/19 09/21/19 History RX: amLODIPine BESYLATE 5 mg PO DAILY 09/21/19 09/21/19 History RX: glipiZIDE [Glucotrol] 5 mg PO BID 09/21/19 09/21/19 History Allergies Allergy/AdvReac Type Severity Reaction Status Date / Time No Known Allergies Allergy Verified 09/21/19 17:47 Surgical - Exam Vital Signs Temp Pulse Resp BP Pulse Ox 97.8 F 67 18 139/79 95 09/21/19 13:53 09/21/19 13:53 09/21/19 13:53 09/21/19 13:53 09/21/19 13:53 Genitals a pleasant cooperative male in no acute distress. HEENT is normal cephalic, atraumatic, excellent motion intact, poor dentition. Heart is regular at this time. Lungs are clear bilaterally. Heart is soft, obese and nontender. The left upper extremity there is significant 2+ edema up to the level of the shoulder. His right lower extremity BKA which is well-healed. The left lower extremity is clean and dry. There is 1+ edema. Sutures are ingrown at the second toe amputation site and are removed. The areas probed. There is no purulent drainage. It is probed to bone without any significant necrotic appearing tissue. Overall the majority of it does appear to be healing well. Soft tissue is removed sharply. The deep tissues are cultured. Normal mood and affect. Cranial nerves II through XII grossly intact Results - Labs 09/21/19 14:48 09/21/19 14:48 Abnormal Lab Results - Last 24 Hours (Table) 09/21/19 09/21/19 09/21/19 Range/Units 13:59 14:48 14:48 WBC 15.2 H (3.8-10.6) k/uL RBC 3.24 L (4.30-5.90) m/uL Hgb 9.2 L (13.0-17.5) gm/dL Hct 28.8 L (39.0-53.0) % Neutrophils # 13.9 H (1.3-7.7) k/uL Lymphocytes # 0.4 L (1.0-4.8) k/uL APTT 33.5 H (22.0-30.0) sec Sodium (137-145) mmol/L BUN (9-20) mg/dL Creatinine (0.66-1.25) mg/dL POC Glucose (mg/dL) 103 H (75-99) mg/dL Calcium (8.4-10.2) mg/dL Total Protein (6.3-8.2) g/dL Albumin (3.5-5.0) g/dL 09/21/19 Range/Units 14:48 WBC (3.8-10.6) k/uL RBC (4.30-5.90) m/uL Hgb (13.0-17.5) gm/dL Hct (39.0-53.0) % Neutrophils # (1.3-7.7) k/uL Lymphocytes # (1.0-4.8) k/uL APTT (22.0-30.0) sec Sodium 134 L (137-145) mmol/L BUN 32 H (9-20) mg/dL Creatinine 2.93 H (0.66-1.25) mg/dL POC Glucose (mg/dL) (75-99) mg/dL Calcium 7.9 L (8.4-10.2) mg/dL Total Protein 6.0 L (6.3-8.2) g/dL Albumin 2.9 L (3.5-5.0) g/dL Diabetes panel 09/21/19 Range/Units 14:48 Sodium 134 L (137-145) mmol/L Potassium 3.5 (3.5-5.1) mmol/L Chloride 104 (98-107) mmol/L Carbon Dioxide 22 (22-30) mmol/L BUN 32 H (9-20) mg/dL Creatinine 2.93 H (0.66-1.25) mg/dL Glucose 85 (74-99) mg/dL Calcium 7.9 L (8.4-10.2) mg/dL AST 42 (17-59) U/L ALT 20 (4-49) U/L Alkaline Phosphatase 103 (38-126) U/L Total Protein 6.0 L (6.3-8.2) g/dL Albumin 2.9 L (3.5-5.0) g/dL Calcium panel 09/21/19 Range/Units 14:48 Calcium 7.9 L (8.4-10.2) mg/dL Albumin 2.9 L (3.5-5.0) g/dL Pituitary panel 09/21/19 Range/Units 14:48 Sodium 134 L (137-145) mmol/L Potassium 3.5 (3.5-5.1) mmol/L Chloride 104 (98-107) mmol/L Carbon Dioxide 22 (22-30) mmol/L BUN 32 H (9-20) mg/dL Creatinine 2.93 H (0.66-1.25) mg/dL Glucose 85 (74-99) mg/dL Calcium 7.9 L (8.4-10.2) mg/dL Adrenal panel 09/21/19 Range/Units 14:48 Sodium 134 L (137-145) mmol/L Potassium 3.5 (3.5-5.1) mmol/L Chloride 104 (98-107) mmol/L Carbon Dioxide 22 (22-30) mmol/L BUN 32 H (9-20) mg/dL Creatinine 2.93 H (0.66-1.25) mg/dL Glucose 85 (74-99) mg/dL Calcium 7.9 L (8.4-10.2) mg/dL Total Bilirubin 0.3 (0.2-1.3) mg/dL AST 42 (17-59) U/L ALT 20 (4-49) U/L Alkaline Phosphatase 103 (38-126) U/L Total Protein 6.0 L (6.3-8.2) g/dL Albumin 2.9 L (3.5-5.0) g/dL Assessment and Plan Assessment: #1 left second toe gangrene status post amputation, nonhealing wound #2 left upper extremity swelling #3 diabetes #4 hypertension Plan: At this point doubt significant overall infection to the left toe amputation sit e. Local wound care at this time with wet-to-dry dressings. X-ray was reviewed, no evidence of bony disruption. Await cultures. Antibiotics per primary. I will also obtain a left upper cavity ultrasound to evaluate for DVT.
--- NOTE | 2019-09-21 19:33 | US ---
EXAMINATION TYPE: US venous doppler duplex UE LT DATE OF EXAM: 09/21/2019 COMPARISON: NONE CLINICAL HISTORY: UE Swelling, r/o DVT. UE swelling x 1 month. R/O DVT. Patient takes blood thinners. SIDE PERFORMED: Left Left Arm: No evidence of DVT in veins imaged at this time in left arm. There appears to be edema left forearm. IMPRESSION: No ultrasound evidence for acute deep or superficial venous thrombus in the left upper ex tremity. Moderate subcutaneous edema seen at level of left forearm towards end of study.
[2019-09-21 20:26] LABS: Glucose,Whole Blood 49 mg/dL (75-99)
[2019-09-21 20:38] LABS: Glucose,Whole Blood 47 mg/dL (75-99)
[2019-09-21 21:02] LABS: Glucose,Whole Blood 86 mg/dL (75-99)
[2019-09-21] MEDS: APIXABAN 2.5 MG TABLET PO SCH (23:06)
[2019-09-21] MEDS: MIDODRINE 5 MG TAB PO SCH (23:07)
[2019-09-21] MEDS ORDERED: INSULIN DETEMIR (LEVEMIR) 100 UNIT/ML SYR SQ SCH (23:30)
--- NOTE | 2019-09-21 23:35 | P.HPIM ---
History of Present Illness H&P Date: 09/21/19 Chief Complaint: Passed out Patient is a 79-year-old male with a known history of hypertension, diabetes type 2 insulin-dependent, dementia, vascular disease status post right BKA and history of recent left second toe amputation and other multiple medical problems including pacemaker placement was brought to the ER after he was found unresponsive at home. Patient is currently awake alert and oriented now. States that he did not eat his breakfast and took his insulin and also he takes glipizide. Patient was found by his daughter who lives next door. Patient states that he did not fall suddenly and sat down without suffering any trauma. Denied any head injury. Patient does have some left hip soreness otherwise able to bear weight. Patient was found to have blood sugar 40 by EMS. He was given D50 and patient is doing improved clinically and improved mental status as well. Otherwise patient denied any complaints of chest pain or shortness of breath. Denied any recent illnesses. No fever no chills. Patient denied any taking excess insulin. No complaints of chest pain or shortness of breath. No dysuria or hematuria. Patient also noticed to have some serous discharge from the ambulation site of the left second toe and some swelling of the foot last couple of days. Denied any purulent discharge. X-ray of the foot showed interval amputation of the second digit EKG showed atrial sensing ventricular paced rhythm Laboratory data showed WBC 15.2, hemoglobin 9.2, lymphocytes 0.4 Sodium 134, potassium 3.5, BUN 32 and creatinine 2.93 Calcium 7.9 Albumin 2.9 and blood sugar is 49 now Review of Systems Constitutional: Patient denies any fever or chills . No generalized weakness or weight loss. Abdomen: Patient denied nausea vomiting and diarrhea and abdominal pain. Cardiovascular: Patient denies any chest pain or short of breath no palpitations. Respiratory: patient denied any cough is from production. No shortness of breath Neurologic: Patient denied any numbness or tingling. Musculoskeletal: Patient denies any complaints of joint swelling or deformity. Skin: Negative Psychiatric: Negative Endocrine: No heat or cold intolerance. No recent weight gain. Genitourinary: No dysuria or hematuria. All other 14 point ROS negative except the above Past Medical History Past Medical History: Heart Failure, Dementia, Diabetes Mellitus, Hypertension, Syncope, Vascular Disorder Additional Past Medical History / Comment(s): IDDM type II, recent R 3rd toe amputation/wound, SEVERAL SYNCOPAL EPISODES PRIOR TO RECEIVING HIS PACEMAKER, PVD, carotid stenosis History of Any Multi-Drug Resistant Organisms: None Reported Past Surgical History: Appendectomy, Pacemaker, Tonsillectomy Additional Past Surgical History / Comment(s): LEFT GREAT TOE HALF REMOVED, R 3RD TOE AMP, PICC LINE IN UPPER R ARM, COLONOSCOPY. Past Anesthesia/Blood Transfusion Reactions: Previous Problems w/ Anesthesia Additional Past Anesthesia/Blood Transfusion Reaction / Comment(s): HARD TIME WAKING UP FROM ANESETHIA Type of Cardiac Device: Permanent Pacemaker Device Placement Date:: 03/02/2017 Past Psychological History: No Psychological Hx Reported Smoking Status: Never smoker Past Alcohol Use History: Abuse, Daily Past Drug Use History: None Reported - Past Family History Father Family Medical History: Cancer Additional Family Medical History / Comment(s): PT STATES HIS FATHER NEVER WENT TO THE DOCTORS. HE HAD A BAD COUGH AND AT THE AGE OF 78YRS. Mother History Unknown: Yes Additional Family Medical History / Comment(s): MOTHER LEFT FAMILY WHEN PT WAS 12 YRS OLD. PT STATES SHE WAS A HEAVY SMOKER. Medications and Allergies Home Medications Medication Instructions Recorded Confirmed Type Donepezil [Aricept] 10 mg PO DAILY 10/01/16 09/21/19 History Atorvastatin [Lipitor] 80 mg PO HS 08/07/19 09/21/19 History Cholecalciferol [Vitamin D3 (25 1,000 unit PO DAILY 08/07/19 09/21/19 History Mcg = 1000 Iu)] DULoxetine HCL [Cymbalta] 30 mg PO DAILY 08/07/19 09/21/19 History Apixaban [Eliquis] 2.5 mg PO BID #0 08/09/19 09/21/19 Rx Aspirin 81 mg PO HS chew 08/09/19 09/21/19 Rx INSULIN ASPART (NovoLOG) [NovoLOG 4 unit SQ AC-TID 09/21/19 09/21/19 History (formulary)] Insulin Glargine,Hum.rec.anlog 22 unit SQ HS 09/21/19 09/21/19 History [Lantus Solostar] Midodrine [ProAmatine] 2.5 mg PO Q8H 09/21/19 09/21/19 History Omeprazole 20 mg PO DAILY 09/21/19 09/21/19 History amLODIPine BESYLATE 5 mg PO DAILY 09/21/19 09/21/19 History glipiZIDE [Glucotrol] 5 mg PO BID 09/21/19 09/21/19 History Allergies Allergy/AdvReac Type Severity Reaction Status Date / Time No Known Allergies Allergy Verified 09/21/19 17:47 Physical Exam Vitals: Vital Signs Temp Pulse Pulse Resp BP BP Pulse Ox 09/21/19 21:36 98.2 F 71 18 158/74 93 L 09/21/19 19:15 16 09/21/19 17:36 98 F 09/21/19 17:20 68 16 141/75 99 09/21/19 16:16 75 18 135/68 100 09/21/19 15:07 67 16 149/75 99 09/21/19 13:53 97.8 F 67 18 139/79 95 Intake and Output 09/21/19 09/21/19 09/22/19 14:59 22:59 06:59 Other: Voiding Method Urinal Weight 83.915 kg 83.915 kg PHYSICAL EXAMINATION: Patient is lying in the bed comfortably, no acute distress, awake alert and oriented.. HEENT: Normocephalic. Neck is supple. Pupils reactive. Nostrils clear. Oral cavity is moist. Ears reveal no drainage. Neck reveals no JVD, carotid bruits, or thyromegaly. CHEST EXAMINATION: Trachea is central. Symmetrical expansion. Lung conklin clear to auscultation and percussion. CARDIAC: Normal S1, S2 with no gallops. No murmurs ABDOMEN: Soft. Bowel sounds normal. No organomegaly. No abdominal bruits. Extremities: reveal no edema. LUE swelling. RT BKA, No clubbing or cyanosis Left second toe amputation site intact. Redness and serous discharge noted around the amputation site. Minimal tenderness and warmth. Neurologically awake, alert, oriented x3 with well-coordinated movements. No focal deficits noted Skin: No rash or skin lesions. Psychiatric: Coperative. Nonsuicidal Musculoskeletal: No joint swelling or deformity. Normal range of motion. Results CBC & Chem 7: 09/21/19 14:48 09/21/19 14:48 Labs: Abnormal Lab Results - Last 24 Hours (Table) 09/21/19 09/21/19 09/21/19 Range/Units 13:59 14:48 14:48 WBC 15.2 H (3.8-10.6) k/uL RBC 3.24 L (4.30-5.90) m/uL Hgb 9.2 L (13.0-17.5) gm/dL Hct 28.8 L (39.0-53.0) % Neutrophils # 13.9 H (1.3-7.7) k/uL Lymphocytes # 0.4 L (1.0-4.8) k/uL APTT 33.5 H (22.0-30.0) sec Sodium (137-145) mmol/L BUN (9-20) mg/dL Creatinine (0.66-1.25) mg/dL POC Glucose (mg/dL) 103 H (75-99) mg/dL Calcium (8.4-10.2) mg/dL Total Protein (6.3-8.2) g/dL Albumin (3.5-5.0) g/dL 09/21/19 09/21/19 09/21/19 Range/Units 14:48 20:21 20:37 WBC (3.8-10.6) k/uL RBC (4.30-5.90) m/uL Hgb (13.0-17.5) gm/dL Hct (39.0-53.0) % Neutrophils # (1.3-7.7) k/uL Lymphocytes # (1.0-4.8) k/uL APTT (22.0-30.0) sec Sodium 134 L (137-145) mmol/L BUN 32 H (9-20) mg/dL Creatinine 2.93 H (0.66-1.25) mg/dL POC Glucose (mg/dL) 49 L 47 L (75-99) mg/dL Calcium 7.9 L (8.4-10.2) mg/dL Total Protein 6.0 L (6.3-8.2) g/dL Albumin 2.9 L (3.5-5.0) g/dL Thrombosis Risk Factor Assmnt - DVT/VTE Prophylaxis DVT/VTE Prophylaxis: Pharmacologic Prophylaxis ordered - Choose All That Apply Each Factor Represents 1 point: Medical pt on bed rest, Obesity (BMI >25), Swollen legs (current) Each Risk Factor Represents 3 Points: Age 75 years or older Thrombosis Risk Factor Assessment Total Risk Factor Score: 6 Thrombosis Risk Factor Assessment Level: High Risk Assessment and Plan Assessment: Unresponsiveness due to hypoglycemia. Not encephalopathic. Hypoglycemia due to insulin and leukocyte. Left direct second toe serous discharge with surrounding redness. Possible infection at the amputation site. Peripheral vascular disease with history of right BKA and left second toe amputation Diabetes type 2 insulin-dependent Hypertension Dementia Chronic CHF ejection fraction unknown Previous history of syncopal episode prior to receiving pacemaker History of carotid stenosis Daily alcohol abuse DVT prophylaxis patient is already on Eliquis at home. Plan: Patient was given D50 and blood sugar is improving now. Will hold Lantus tonight and continue with insulin sliding scale. Glipizide will be held. Patient was given a dose of ceftezole in the ER. Wound cultures will be sent. Monitor WBC count. Continue with antibiotics and vascular surgery as well as ID will be consulted. Continue the home medications and follow-up closely. Pain management. Further recommendations based on the clinical course. Time with Patient: Greater than 30
[2019-09-22] MEDS: DEXTROSE 5%-0.9% NACL 1,000 ML IV SCH ×2 (01:12→11:01)
[2019-09-22] MEDS: AMPICILLIN-SULBACTAM 3 GM in SODIUM CHLORIDE 0.9% 100 ML IVPB SCH ×2 (01:12→10:59)
[2019-09-22 01:58] LABS: Glucose,Whole Blood 92 mg/dL (75-99)
[2019-09-22] MEDS ORDERED: INSULIN DETEMIR (LEVEMIR) 100 UNIT/ML SYR SQ SCH ×2 (04:07→21:00)
[2019-09-22 06:56] LABS: Glucose,Whole Blood 102 mg/dL (75-99)
[2019-09-22] MEDS ORDERED: INSULIN ASPART (NovoLOG) 100 UNIT/ML VIAL SQ SCH (07:30)
[2019-09-22 08:46] LABS: Basophils % (A) 0 %; Eosinophils # (A) 0.1 k/uL (0-0.7); Eosinophils % (A) 1 %; HCT 28.2 % (39.0-53.0); HGB 9.1 gm/dL (13.0-17.5); Hypochromasia Slight; Lymphocytes % (A) 8 %; MCH 28.5 pg (25.0-35.0); MCHC 32.3 g/dL (31.0-37.0); MCV 88.2 fL (80.0-100.0); Mean Platelet Volume 7.9; Monocytes # (A) 0.7 k/uL (0-1.0); Monocytes % (A) 6 %; Neutrophils # (A) 10.1 k/uL (1.3-7.7); Neutrophils % (A) 83 %; Platelet Count 304 k/uL (150-450); RBC 3.19 m/uL (4.30-5.90); RDW 13.5 % (11.5-15.5); WBC 12.2 k/uL (3.8-10.6)
[2019-09-22 08:48] LABS: Calcium 7.7 mg/dL (8.4-10.2); Potassium 3.8 mmol/L (3.5-5.1)
[2019-09-22] MEDS: DULoxetine HCL 30 MG CAPSULE.DR PO SCH (09:25)
[2019-09-22] MEDS: MIDODRINE 5 MG TAB PO SCH ×3 (09:25→16:54)
[2019-09-22] MEDS: APIXABAN 2.5 MG TABLET PO SCH ×2 (09:25→21:13)
[2019-09-22] MEDS: DONEPEZIL 10 MG TAB PO SCH (09:27)
[2019-09-22] MEDS: amLODIPine 5 MG TAB PO SCH (09:27)
--- NOTE | 2019-09-22 10:01 | P.PN ---
Subjective Progress Note Date: 09/22/19 Pt s/e. no complaints. no pain. Objective - Vital Signs Vital signs: Vital Signs Temp 98.9 F 09/22/19 07:00 Pulse 84 09/22/19 07:00 Resp 20 09/22/19 07:00 BP 157/79 09/22/19 07:00 Pulse Ox 92 L 09/22/19 07:00 Intake & Output 09/21/19 09/22/19 09/22/19 18:59 06:59 18:59 Output Total 600 Balance -600 Weight 84 kg Output: Urine 600 Other: Voiding Method Urinal # Voids 1 - Exam Gen. is a pleasant cooperative male in no acute distress. HEENT is normocephalic and heart is regular at this time. Lungs are clear bilaterally. Abdomen is soft. There is still extremity swelling and left upper extremity. There is minimal swelling left lower extremity. Wound still clean, and dry. - Labs CBC & Chem 7: 09/22/19 07:45 09/22/19 07:45 Labs: Abnormal Lab Results - Last 24 Hours (Table) 09/21/19 09/21/19 09/21/19 Range/Units 13:59 14:48 14:48 WBC 15.2 H (3.8-10.6) k/uL RBC 3.24 L (4.30-5.90) m/uL Hgb 9.2 L (13.0-17.5) gm/dL Hct 28.8 L (39.0-53.0) % Neutrophils # 13.9 H (1.3-7.7) k/uL Lymphocytes # 0.4 L (1.0-4.8) k/uL APTT 33.5 H (22.0-30.0) sec Sodium (137-145) mmol/L BUN (9-20) mg/dL Creatinine (0.66-1.25) mg/dL POC Glucose (mg/dL) 103 H (75-99) mg/dL Calcium (8.4-10.2) mg/dL Total Protein (6.3-8.2) g/dL Albumin (3.5-5.0) g/dL 09/21/19 09/21/19 09/21/19 Range/Units 14:48 20:21 20:37 WBC (3.8-10.6) k/uL RBC (4.30-5.90) m/uL Hgb (13.0-17.5) gm/dL Hct (39.0-53.0) % Neutrophils # (1.3-7.7) k/uL Lymphocytes # (1.0-4.8) k/uL APTT (22.0-30.0) sec Sodium 134 L (137-145) mmol/L BUN 32 H (9-20) mg/dL Creatinine 2.93 H (0.66-1.25) mg/dL POC Glucose (mg/dL) 49 L 47 L (75-99) mg/dL Calcium 7.9 L (8.4-10.2) mg/dL Total Protein 6.0 L (6.3-8.2) g/dL Albumin 2.9 L (3.5-5.0) g/dL 09/22/19 09/22/19 09/22/19 Range/Units 06:54 07:45 07:45 WBC 12.2 H (3.8-10.6) k/uL RBC 3.19 L (4.30-5.90) m/uL Hgb 9.1 L (13.0-17.5) gm/dL Hct 28.2 L (39.0-53.0) % Neutrophils # 10.1 H (1.3-7.7) k/uL Lymphocytes # (1.0-4.8) k/uL APTT (22.0-30.0) sec Sodium (137-145) mmol/L BUN 33 H (9-20) mg/dL Creatinine 2.92 H (0.66-1.25) mg/dL POC Glucose (mg/dL) 102 H (75-99) mg/dL Calcium 7.7 L (8.4-10.2) mg/dL Total Protein (6.3-8.2) g/dL Albumin (3.5-5.0) g/dL Microbiology - Last 24 Hours (Table) 09/21/19 17:20 Gram Stain - Preliminary Foot - Left Wound Culture - Preliminary Assessment and Plan Assessment: #1 left second toe gangrene status post amputation, nonhealing wound #2 left upper extremity swelling #3 diabetes #4 hypertension Plan: Ultrasound of the left upper extremity is reviewed. No evidence of DVT. Compression and elevation for the left upper extremity. I still believe there is no significant infection requiring debridement of the left lower extremity wound. Continue local wound care, wet-to-dry dressings. Consult wound care for further recommendations. No planned interventions at this time.
--- NOTE | 2019-09-22 10:03 | P.NPCON ---
History of Present Illness - Reason for Consult acute renal failure, chronic renal failure - History of Present Illness Reason for consultation: Acute kidney injury on chronic kidney disease History of present illness: Patient is a 79-year-old male seen in renal consultation for acute kidney injury on chronic kidney disease. Patient was last seen in our office in 2017. Patient's creatinine in July 2018 was near 1.4-1.5. This admission it is stable at 2.9. Patient presented to the hospital due to unresponsiveness and hypoglycemia. Patient has long-standing history of diabetes mellitus and is ma intained on insulin. He has history of right BKA. This morning his blood sugar was 103. He admits to good urine output. No hematuria or dysuria. Denies regular use of nonsteroidals. No vomiting or diarrhea. Oral intake is fair. He is maintained on normal saline at 75 mL an hour. Denies chest pain or shortness of breath. Blood pressure has been stable. No evidence of hypotension. Vital signs are stable. General: The patient appeared well nourished and normally developed. HEENT: Head exam is unremarkable. Neck is without jugular venous distension. LUNGS: Lungs are clear to auscultation and percussion. Breath sounds decreased. HEART: Rate and Rhythm are regular. ABDOMEN: Nontender, nondistended. EXTREMITITES: Right BKA. No edema. Past Medical History Past Medical History: Heart Failure, Dementia, Diabetes Mellitus, Hypertension, Syncope, Vascular Disorder Additional Past Medical History / Comment(s): IDDM type II, recent R 3rd toe amputation/wound, SEVERAL SYNCOPAL EPISODES PRIOR TO RECEIVING HIS PACEMAKER, P VD, carotid stenosis History of Any Multi-Drug Resistant Organisms: None Reported Past Surgical History: Appendectomy, Pacemaker, Tonsillectomy Additional Past Surgical History / Comment(s): LEFT GREAT TOE HALF REMOVED, R 3RD TOE AMP, PICC LINE IN UPPER R ARM, COLONOSCOPY. Past Anesthesia/Blood Transfusion Reactions: Previous Problems w/ Anesthesia Additional Past Anesthesia/Blood Transfusion Reaction / Comment(s): HARD TIME WAKING UP FROM ANESETHIA Type of Cardiac Device: Permanent Pacemaker Device Placement Date:: 03/02/2017 Past Psychological History: No Psychological Hx Reported Smoking Status: Never smoker Past Alcohol Use History: Abuse, Daily Past Drug Use History: None Reported - Past Family History Father Family Medical History: Cancer Additional Family Medical History / Comment(s): PT STATES HIS FATHER NEVER WENT TO THE DOCTORS. HE HAD A BAD COUGH AND AT THE AGE OF 78YRS. Mother History Unknown: Yes Additional Family Medical History / Comment(s): MOTHER LEFT FAMILY WHEN PT WAS 12 YRS OLD. PT STATES SHE WAS A HEAVY SMOKER. Medications and Allergies Home Medications Medication Instructions Recorded Confirmed Type Donepezil [Aricept] 10 mg PO DAILY 10/01/16 09/21/19 History Atorvastatin [Lipitor] 80 mg PO HS 08/07/19 09/21/19 History Cholecalciferol [Vitamin D3 (25 1,000 unit PO DAILY 08/07/19 09/21/19 History Mcg = 1000 Iu)] DULoxetine HCL [Cymbalta] 30 mg PO DAILY 08/07/19 09/21/19 History Apixaban [Eliquis] 2.5 mg PO BID #0 08/09/19 09/21/19 Rx Aspirin 81 mg PO HS chew 08/09/19 09/21/19 Rx INSULIN ASPART (NovoLOG) [NovoLOG 4 unit SQ AC-TID 09/21/19 09/21/19 History (formulary)] Insulin Glargine,Hum.rec.anlog 22 unit SQ HS 09/21/19 09/21/19 History [Lantus Solostar] Midodrine [ProAmatine] 2.5 mg PO Q8H 09/21/19 09/21/19 History Omeprazole 20 mg PO DAILY 09/21/19 09/21/19 History amLODIPine BESYLATE 5 mg PO DAILY 09/21/19 09/21/19 History glipiZIDE [Glucotrol] 5 mg PO BID 09/21/19 09/21/19 History Allergies Allergy/AdvReac Type Severity Reaction Status Date / Time No Known Allergies Allergy Verified 09/21/19 17:47 Physical Exam Vitals: Vital Signs Temp Pulse Pulse Resp BP BP Pulse Ox 09/22/19 07:00 98.9 F 84 20 157/79 92 L 09/22/19 04:46 16 09/22/19 03:13 98.6 F 77 18 162/79 92 L 09/22/19 00:32 18 09/21/19 21:36 98.2 F 71 18 158/74 93 L 09/21/19 19:15 16 09/21/19 17:36 98 F 09/21/19 17:20 68 16 141/75 99 09/21/19 16:16 75 18 135/68 100 09/21/19 15:07 67 16 149/75 99 09/21/19 13:53 97.8 F 67 18 139/79 95 Intake and Output 09/21/19 09/22/19 09/22/19 22:59 06:59 14:59 Output Total 275 325 Balance -275 -325 Output: Urine 275 325 Other: Voiding Method Urinal Urinal # Voids 1 1 Weight 84 kg Results - Lab Results Most recent lab results Calcium 7.7 mg/dL (8.4-10.2) L 09/22/19 07:45 09/22/19 07:45 09/22/19 07:45 Assessment and Plan Plan: Assessment: 1. Acute kidney injury versus progression of underlying chronic kidney disease stage 3. Renal function stable this admission. Creatinine 2.92 today. He's had persistent proteinuria.Etiology is most likely diabetic kidney disease. Rule out urinary retention. 2. Hypoglycemia. Improved. 3. Insulin-dependent diabetes mellitus. 4. Hypertension with chronic kidney disease. Stable. 5. Anemia of chronic kidney disease. Rule out iron deficiency. 6. Left second toe gangrene status post amputation with nonhealing wound. Vascular surgery following. Plan: Decreased rate of normal saline to 50 mL an hour. His oral intake is good. Check bladder scan to rule out urinary retention. Check renal ultrasound. Check urinalysis. Quantify proteinuria and check serologies. Check iron studies. Continue to monitor renal function and urine output. Thank you for the consultation. I will continue to follow the patient due to his hospital stay.
[2019-09-22 11:31] LABS: Glucose,Whole Blood 197 mg/dL (75-99)
[2019-09-22] MEDS ORDERED: SODIUM CHLORIDE 0.9% 1,000 ML IV SCH (11:45)
--- NOTE | 2019-09-22 12:18 | CDI ---
Documentation Clarification Form Date: 09/22/2019 11:59:46 AM From: Fern Arauz RN CCDS Admit Date: 09/21/2019 04:22:00 PM Patient Name: Gilberto Balderas Visit Number: [id number] Discharge Date: ATTENTION: The Clinical Documentation Specialists (CDI) and [facility] Coding Staff appreciate your assistance in clarifying documentation. Please respond to the clarification below the line at the bottom and electronically sign. The CDI & [facility] Coding staff will review the response and follow-up if needed. Please note: Queries are made part of the Legal Health Record. If you have any questions, please contact the author of this message via ITS. Dr. Kip Foster Chronic CHF ejection fraction unknown is documented in the H&P 09/20 History/Risk Factors: 79-year-old male presents to the ED after being found unresponsive with a blood sugar of 40. Medical history DM 2, PVD with history of right BKA, HTN and chronic CHF Clinical Indicators: VS/Pulse OX 09/20: 139/79, 67, 97.8F, 18, 95% ra Echocardiogram Results 05/26/18: The left ventricular size is normal. There is moderate concentric left ventricular hypertrophy. Overall left ventricular systolic function is normal with, an EF 55-60%. The right ventricle is mild to moderately enlarged. LA is mildly dilated. Treatment: 09/21 Norvasc 5mg po daily In your professional opinion, can you please clarify the acuity and type of CHF if known? Chronic Diastolic Heart Failure Chronic Diastolic & Systolic Heart Failure Heart Failure Ruled Out Unable to Determine Other, please specify Documented in the Internal Medicine Progress Note 09/21 Chronic diastolic congestive heart failure. (Last Revision: August 2017) Chronic Diastolic Heart Failure MTDD
--- NOTE | 2019-09-22 12:52 | US ---
EXAMINATION TYPE: US kidneys/renal and bladder DATE OF EXAM: 09/22/2019 COMPARISON: CT October 02, 2016 CLINICAL HISTORY: keisha. Abnormal BUN/creatinine EXAM MEASUREMENTS: Right Kidney: 10.1 x 5.2 x 4.9 cm Left Kidney: 10.5 x 5.4 x 5.2 cm Right Kidney: No hydronephrosis. Cystic area visualized measuring 0.8 cm Left Kidney: No hydronephrosis. Nodular contour Bladder: wnl as visualized Bilateral Jets seen: Yes There is no evidence for hydronephrosis at this point in time. No nephrolithiasis is seen. The urin farhat bladder is anechoic. Bilateral ureteral jets are seen. When scanning the right kidney adjacent l iver is heterogeneously hyperechoic consistent with diffuse fatty infiltration. IMPRESSION: No hydronephrosis is evident bilaterally.
--- NOTE | 2019-09-22 13:37 | P.PN ---
Subjective Progress Note Date: 09/22/19 Principal diagnosis: Patient is a 79-year-old male with a known history of hypertension, diabetes type 2 insulin-dependent, dementia, vascular disease status post right BKA and history of recent left second toe amputation and other multiple medical problems including pacemaker placement was brought to the ER after he was found unresponsive at home. Patient is currently awake alert and oriented now. States that he did not eat his breakfast and took his insulin and also he takes glipizide. Patient was found by his daughter who lives next door. Patient states that he did not fall suddenly and sat down without suffering any trauma. Denied any head injury. Patient does have some left hip soreness otherwise able to bear weight. Patient was found to have blood sugar 40 by EMS. He was given D50 and patient is doing improved clinically and improved mental status as well. Otherwise patient denied any complaints of chest pain or shortness of breath. Denied any recent illnesses. No fever no chills. Patient denied any taking excess insulin. No complaints of chest pain or shortness of breath. No dysuria or hematuria. Patient also noticed to have some serous discharge from the ambulation site of the left second toe and some swelling of the foot last couple of days. Denied any purulent discharge. X-ray of the foot showed interval amputation of the second digit EKG showed atrial sensing ventricular paced rhythm Laboratory data showed WBC 15.2, hemoglobin 9.2, lymphocytes 0.4 Sodium 134, potassium 3.5, BUN 32 and creatinine 2.93 Calcium 7.9 Albumin 2.9 and blood sugar is 49 now 09/22/2019 Patient was seen and evaluated in follow-up sleeping but easily arousable, alert and oriented 2-3. Patient continues to have blood sugar fluctuations and have been on the lower side. Nephrology consulted as creatinine is 2.9 to today. Patient's white blood count is 12.2 and trending down. Patient continues on Unasyn and will continue at this time. Awaiting wound culture results. Infectious disease consulted and pending at this time. Currently patient denies any chest pain, shortness of breath, or palpitations. Patient is afebrile. No reports of nausea or vomiting and patient is tolerating diet. Per nursing staff patient's oxygen saturations dropped down to 88-90% while on room air. Will initiate some oxygen 2 L via nasal cannula. Will order a chest x-ray. Will adjust insulin accordingly and await chest x-ray report. Objective - Vital Signs Vital signs: Vital Signs Temp 98.9 F 09/22/19 07:00 Pulse 84 09/22/19 07:00 Resp 20 09/22/19 07:00 BP 157/79 09/22/19 07:00 Pulse Ox 92 L 09/22/19 07:00 Intake & Output 09/21/19 09/22/19 09/22/19 18:59 06:59 18:59 Output Total 600 Balance -600 Weight 84 kg Output: Urine 600 Other: Voiding Method Urinal Urinal # Voids 1 - Exam Patient is lying in the bed comfortably, no acute distress, awake alert and oriented.. HEENT: Normocephalic. Neck is supple. Pupils reactive. Nostrils clear. Oral cavity is moist. Ears reveal no drainage. Neck reveals no JVD, carotid bruits, or thyromegaly. CHEST EXAMINATION: Trachea is central. Symmetrical expansion. Lung conklin clear to auscultation and percussion. CARDIAC: Normal S1, S2 with no gallops. No murmurs ABDOMEN: Soft. Bowel sounds normal. No organomegaly. No abdominal bruits. Extremities: reveal no edema. LUE swelling. RT BKA, No clubbing or cyanosis Left second toe amputation site intact. Redness and serous discharge noted around the amputation site. Minimal tenderness and warmth. Dressing changed and dry and intact noted. Neurologically awake, alert, oriented x3 with well-coordinated movements. No focal deficits noted Skin: No rash or skin lesions. Psychiatric: Cooperative. Non-suicidal Musculoskeletal: No joint swelling or deformity. Normal range of motion. - Labs CBC & Chem 7: 09/22/19 07:45 09/22/19 07:45 Labs: Abnormal Lab Results - Last 24 Hours (Table) 09/21/19 09/21/19 09/21/19 Range/Units 13:59 14:48 14:48 WBC 15.2 H (3.8-10.6) k/uL RBC 3.24 L (4.30-5.90) m/uL Hgb 9.2 L (13.0-17.5) gm/dL Hct 28.8 L (39.0-53.0) % Neutrophils # 13.9 H (1.3-7.7) k/uL Lymphocytes # 0.4 L (1.0-4.8) k/uL APTT 33.5 H (22.0-30.0) sec Sodium (137-145) mmol/L BUN (9-20) mg/dL Creatinine (0.66-1.25) mg/dL POC Glucose (mg/dL) 103 H (75-99) mg/dL Calcium (8.4-10.2) mg/dL Total Protein (6.3-8.2) g/dL Albumin (3.5-5.0) g/dL 09/21/19 09/21/19 09/21/19 Range/Units 14:48 20:21 20:37 WBC (3.8-10.6) k/uL RBC (4.30-5.90) m/uL Hgb (13.0-17.5) gm/dL Hct (39.0-53.0) % Neutrophils # (1.3-7.7) k/uL Lymphocytes # (1.0-4.8) k/uL APTT (22.0-30.0) sec Sodium 134 L (137-145) mmol/L BUN 32 H (9-20) mg/dL Creatinine 2.93 H (0.66-1.25) mg/dL POC Glucose (mg/dL) 49 L 47 L (75-99) mg/dL Calcium 7.9 L (8.4-10.2) mg/dL Total Protein 6.0 L (6.3-8.2) g/dL Albumin 2.9 L (3.5-5.0) g/dL 09/22/19 09/22/19 09/22/19 Range/Units 06:54 07:45 07:45 WBC 12.2 H (3.8-10.6) k/uL RBC 3.19 L (4.30-5.90) m/uL Hgb 9.1 L (13.0-17.5) gm/dL Hct 28.2 L (39.0-53.0) % Neutrophils # 10.1 H (1.3-7.7) k/uL Lymphocytes # (1.0-4.8) k/uL APTT (22.0-30.0) sec Sodium (137-145) mmol/L BUN 33 H (9-20) mg/dL Creatinine 2.92 H (0.66-1.25) mg/dL POC Glucose (mg/dL) 102 H (75-99) mg/dL Calcium 7.7 L (8.4-10.2) mg/dL Total Protein (6.3-8.2) g/dL Albumin (3.5-5.0) g/dL 09/22/19 Range/Units 11:30 WBC (3.8-10.6) k/uL RBC (4.30-5.90) m/uL Hgb (13.0-17.5) gm/dL Hct (39.0-53.0) % Neutrophils # (1.3-7.7) k/uL Lymphocytes # (1.0-4.8) k/uL APTT (22.0-30.0) sec Sodium (137-145) mmol/L BUN (9-20) mg/dL Creatinine (0.66-1.25) mg/dL POC Glucose (mg/dL) 197 H (75-99) mg/dL Calcium (8.4-10.2) mg/dL Total Protein (6.3-8.2) g/dL Albumin (3.5-5.0) g/dL Microbiology - Last 24 Hours (Table) 09/21/19 17:20 Gram Stain - Preliminary Foot - Left Wound Culture - Preliminary Assessment and Plan Assessment: Unresponsiveness due to hypoglycemia. Not encephalopathic. Hypoglycemia due to insulin and leukocyte. Acute kidney injury most likely due to diabetic kidney disease. Nephrology consulted and following. Left direct second toe serous discharge with surrounding redness. Possible infection at the amputation site. Peripheral vascular disease with history of right BKA and left second toe amputation Diabetes type 2 insulin-dependent Hypertension Dementia Chronic diastolic congestive heart failure, most recent ejection fraction ejection from 05/26/2018 shows moderate concentric left ventricular hypertrophy with overall left ventricular systolic function is normal with an EF of 55-60% the right ventricle being moderately enlarged Previous history of syncopal episode prior to receiving pacemaker History of carotid stenosis Daily alcohol abuse DVT prophylaxis patient is already on Eliquis at home. Plan: Patient blood sugars continue to be uncontrolled and on the lower side. Patient normally uses 22 units of Lantus at night along with 4 units with meals. Will change long acting to 15 units at bed and continue sliding scale at this time. Patient is eating and drinking more today. Will continue to monitor blood sugars before meals and at bedtime and treat accordingly. Infectious disease was consulted. wound cultures preliminary are showing gram-negative bacilli along with gram-positive cocci and gram-positive bacilli and patient will continue on IV antibiotics in the form of Unasyn. Vascular surgery evaluated the patient recommending no surgical intervention at this time and to continue with local wound care along with IV antibiotics. Wound consult placed as well. Wound cultures will be sent. Monitor WBC count. White blood cell count today slowly trending down at 12.2. Continue the home medications and follow-up closely. Pain management. Further recommendations based on the clinical course. Social work also consulted as family would like him to go to rehab for potential long-term placement in the future.
--- NOTE | 2019-09-22 14:08 | XR ---
EXAMINATION TYPE: XR chest 1V portable DATE OF EXAM: 09/22/2019 CLINICAL HISTORY: Difficulty breathing . TECHNIQUE: Single AP portable upright view of the chest is obtained. COMPARISON: Chest x-ray from May 25, 2018 and older studies. FINDINGS: Persistent cardiomegaly with dual lead pacemaker. New mild to moderate central vascular co ngestion and mild alveolar and interstitial edema. Osseous structures are intact. Probable new small to tiny bilateral pleural effusions. No pneumothorax. IMPRESSION: Suspect CHF exacerbation or fluid overload status as there is cardiomegaly with new fairl y moderate central vascular congestion and mild to moderate alveolar and interstitial edema felt pres ent bilaterally.
[2019-09-22] MEDS ORDERED: FUROSEMIDE 10 MG/ML 2 ML VIAL IV STA (14:37)
[2019-09-22 15:25] LABS: Protein, Total 5.1 g/dL (6.2-8.2)
[2019-09-22 15:29] LABS: Ferritin 116.3 ng/mL (22.0-322.0)
[2019-09-22 15:39] LABS: % Iron Saturation 5.98 (15.00-50.00)
[2019-09-22 16:28] LABS: Glucose,Whole Blood 333 mg/dL (75-99)
[2019-09-22] MEDS: INSULIN ASPART (NovoLOG) 100 UNIT/ML VIAL SQ SCH ×2 (16:54→21:13)
[2019-09-22 17:13] LABS: Amorphous Sediment,Urine Rare /hpf; Appearance,Urine Clear (Clear); Bacteria,Urine Rare /hpf; Bilirubin,Urine Negative (Negative); Blood,Urine Small (Negative); Color,Urine Light Yellow; Glucose,Urine (UA) 3+ (Negative); Ketones,Urine Negative (Negative); Leukocyte Esterase,Urine Negative (Negative); Nitrite,Urine Negative (Negative); Protein,Urine 3+ (Negative); RBC,Urine 2 /hpf (0-5); Specific Gravity,Urine 1.014 (1.001-1.035); Squamous Epithelial Cell,Urine <1 /hpf (0-4); Urobilinogen,Urine <2.0 mg/dL (<2.0); WBC,Urine 4 /hpf (0-5)
[2019-09-22 20:18] LABS: Glucose,Whole Blood 247 mg/dL (75-99)
[2019-09-22] MEDS: ASPIRIN 81 MG PO SCH (21:13)
[2019-09-22] MEDS: ATORVASTATIN 80 MG TAB PO SCH (21:13)
[2019-09-22] MEDS: INSULIN DETEMIR (LEVEMIR) 100 UNIT/ML SYR SQ SCH (22:24)
[2019-09-23] MEDS: AMPICILLIN-SULBACTAM 3 GM in SODIUM CHLORIDE 0.9% 100 ML IVPB SCH ×3 (00:27→22:54)
--- NOTE | 2019-09-23 00:28 | P.CONS ---
History of Present Illness - Reason for Consult Consult date: 09/22/19 left foot infection Requesting physician: Kip Foster - Chief Complaint unresponsive and low blood sugar x 1 day - History of Present Illness Patient is a 79-year-old male who was recently admitted at this facility with right second toe diabetic foot infection with right second toe gangrene patient status post amputation of his right second toe and primary closure of his wound patient has not been brought to the hospital after the patient found to be unresponsive apparently the patient did not eat his breakfast but did give himself insulin he was noticed to be hypoglycemic with a blood sugar of 42 he received a D50 and subsequently has been brought to the [facility] ER patient right second toe incision seem to have dehisced with resulting wound it is not clear who has been taking care of this wound since he left the hospital current local wound care seem to be a wet-to-dry dressing patient did have x-rays of the right foot done which did not show any suspicious cortical erosion patient has been afebrile white count was elevated 15.2 repeat is 12.2 UA has been negative local wound culture blood has been obtained patient has been started on Unasyn family was consulted for further recommendations on antibiotic therapy Review of Systems Positive point has been mentioned in HPI rest of the systems are negative Past Medical History Past Medical History: Heart Failure, Dementia, Diabetes Mellitus, Hypertension, Syncope, Vascular Disorder Additional Past Medical History / Comment(s): IDDM type II, recent R 3rd toe amputation/wound, SEVERAL SYNCOPAL EPISODES PRIOR TO RECEIVING HIS PACEMAKER, PVD, carotid stenosis History of Any Multi-Drug Resistant Organisms: None Reported Past Surgical History: Appendectomy, Pacemaker, Tonsillectomy Additional Past Surgical History / Comment(s): LEFT GREAT TOE HALF REMOVED, R 3RD TOE AMP, PICC LINE IN UPPER R ARM, COLONOSCOPY. Past Anesthesia/Blood Transfusion Reactions: Previous Problems w/ Anesthesia Additional Past Anesthesia/Blood Transfusion Reaction / Comm: HARD TIME WAKING UP FROM ANESETHIA Type of Cardiac Device: Permanent Pacemaker Device Placement Date:: 03/02/2017 Past Psychological History: No Psychological Hx Reported Smoking Status: Never smoker Past Alcohol Use History: Abuse, Daily Past Drug Use History: None Reported - Past Family History Father Family Medical History: Cancer Additional Family Medical History / Comment(s): PT STATES HIS FATHER NEVER WENT TO THE DOCTORS. HE HAD A BAD COUGH AND AT THE AGE OF 78YRS. Mother History Unknown: Yes Additional Family Medical History / Comment(s): MOTHER LEFT FAMILY WHEN PT WAS 12 YRS OLD. PT STATES SHE WAS A HEAVY SMOKER. Medications and Allergies Home Medications Medication Instructions Recorded Confirmed Type Donepezil [Aricept] 10 mg PO DAILY 10/01/16 09/21/19 History Atorvastatin [Lipitor] 80 mg PO HS 08/07/19 09/21/19 History Cholecalciferol [Vitamin D3 (25 1,000 unit PO DAILY 08/07/19 09/21/19 History Mcg = 1000 Iu)] DULoxetine HCL [Cymbalta] 30 mg PO DAILY 08/07/19 09/21/19 History Apixaban [Eliquis] 2.5 mg PO BID #0 08/09/19 09/21/19 Rx Aspirin 81 mg PO HS chew 08/09/19 09/21/19 Rx INSULIN ASPART (NovoLOG) [NovoLOG 4 unit SQ AC-TID 09/21/19 09/21/19 History (formulary)] Insulin Glargine,Hum.rec.anlog 22 unit SQ HS 09/21/19 09/21/19 History [Lantus Solostar] Midodrine [ProAmatine] 2.5 mg PO Q8H 09/21/19 09/21/19 History Omeprazole 20 mg PO DAILY 09/21/19 09/21/19 History amLODIPine BESYLATE 5 mg PO DAILY 09/21/19 09/21/19 History glipiZIDE [Glucotrol] 5 mg PO BID 09/21/19 09/21/19 History Allergies Allergy/AdvReac Type Severity Reaction Status Date / Time No Known Allergies Allergy Verified 09/21/19 17:47 Physical Exam Vitals: Vital Signs Temp Pulse Pulse Resp BP BP Pulse Ox 09/22/19 15:00 98.7 F 73 24 162/71 92 L 09/22/19 12:51 90 L 09/22/19 07:00 98.9 F 84 20 157/79 92 L 09/22/19 04:46 16 09/22/19 03:13 98.6 F 77 18 162/79 92 L 09/22/19 00:32 18 09/21/19 21:36 98.2 F 71 18 158/74 93 L 09/21/19 19:15 16 09/21/19 17:36 98 F 09/21/19 17:20 68 16 141/75 99 Intake and Output 09/22/19 09/22/19 09/22/19 06:59 14:59 22:59 Output Total 325 Balance -325 Output: Urine 325 Other: Voiding Method Urinal Urinal # Voids 1 GENERAL DESCRIPTION: Elderly male lying in bed, no distress. No tachypnea or accessory muscle of respiration use. HEENT: Shows Pallor , no scleral icterus. Oral mucous membrane is dry. NECK: Trachea central, no thyromegaly. LUNGS: Unlabored breathing. Clear to auscultation anteriorly. No wheeze or crackle. HEART: S1, S2, regular rate and rhythm. ABDOMEN: Soft, no tenderness , guarding or rigidity EXTREMITIES: Right second toe amputated site wound seems to be deep wound base with minimal slough tissue some surrounding swelling but no significant redness or any foul-smelling drainage sKIN: No rash, no masses palpable. NEUROLOGICAL: The patient is awake, alert, oriented x3, mood and affect normal. Results CBC & Chem 7: 09/22/19 07:45 09/22/19 07:45 Labs: Abnormal Lab Results - Last 24 Hours (Table) 09/21/19 09/21/19 09/22/19 Range/Units 20:21 20:37 06:54 WBC (3.8-10.6) k/uL RBC (4.30-5.90) m/uL Hgb (13.0-17.5) gm/dL Hct (39.0-53.0) % Neutrophils # (1.3-7.7) k/uL BUN (9-20) mg/dL Creatinine (0.66-1.25) mg/dL POC Glucose (mg/dL) 49 L 47 L 102 H (75-99) mg/dL Calcium (8.4-10.2) mg/dL Iron (65-175) ug/dL % Saturation (15.00-50.00) Total Protein (PEP) (6.2-8.2) g/dL 09/22/19 09/22/19 09/22/19 Range/Units 07:45 07:45 10:32 WBC 12.2 H (3.8-10.6) k/uL RBC 3.19 L (4.30-5.90) m/uL Hgb 9.1 L (13.0-17.5) gm/dL Hct 28.2 L (39.0-53.0) % Neutrophils # 10.1 H (1.3-7.7) k/uL BUN 33 H (9-20) mg/dL Creatinine 2.92 H (0.66-1.25) mg/dL POC Glucose (mg/dL) (75-99) mg/dL Calcium 7.7 L (8.4-10.2) mg/dL Iron 14 L (65-175) ug/dL % Saturation 5.98 L (15.00-50.00) Total Protein (PEP) (6.2-8.2) g/dL 09/22/19 09/22/19 09/22/19 Range/Units 10:32 11:30 16:26 WBC (3.8-10.6) k/uL RBC (4.30-5.90) m/uL Hgb (13.0-17.5) gm/dL Hct (39.0-53.0) % Neutrophils # (1.3-7.7) k/uL BUN (9-20) mg/dL Creatinine (0.66-1.25) mg/dL POC Glucose (mg/dL) 197 H 333 H (75-99) mg/dL Calcium (8.4-10.2) mg/dL Iron (65-175) ug/dL % Saturation (15.00-50.00) Total Protein (PEP) 5.1 L (6.2-8.2) g/dL Microbiology - Last 24 Hours (Table) 09/21/19 17:20 Gram Stain - Preliminary Foot - Left Wound Culture - Preliminary Assessment and Plan Assessment: patient with right foot nonhealing wound in this patient who is status post right second toe amputation because of the wet gangrene previous culture positive for MSSA and Streptococcus agalactiae, x-ray this admission did not show any cortical erosion however the patient did have elevated white count underlying bone infection not well excluded (1) Wound of left foot Current Visit: Yes Status: Acute Code(s): S91.302A - UNSPECIFIED OPEN WOUND, LEFT FOOT, INITIAL ENCOUNTER SNOMED Code(s): 253337884 (2) Cellulitis of left foot Current Visit: Yes Status: Acute Code(s): L03.116 - CELLULITIS OF LEFT LOWER LIMB SNOMED Code(s): 802854998 Plan: 1-we will obtain a CRP and a sed rate 2-Unasyn 3 g every 12 for dose adjusted the kidney function 3-local wound care per vascular surgery We will follow on clinical condition and cultures to further adjust medication if needed Thank you for this consultation we will follow the patient along with you Time with Patient: Greater than 30
[2019-09-23 07:23] LABS: Glucose,Whole Blood 99 mg/dL (75-99)
[2019-09-23] MEDS: INSULIN ASPART (NovoLOG) 100 UNIT/ML VIAL SQ SCH ×4 (07:44→20:22)
[2019-09-23] MEDS: MIDODRINE 5 MG TAB PO SCH ×4 (07:54→16:14)
[2019-09-23] MEDS: amLODIPine 5 MG TAB PO SCH (07:55)
[2019-09-23] MEDS: APIXABAN 2.5 MG TABLET PO SCH ×2 (07:55→20:22)
[2019-09-23] MEDS: DONEPEZIL 10 MG TAB PO SCH (07:55)
[2019-09-23] MEDS: DULoxetine HCL 30 MG CAPSULE.DR PO SCH (07:55)
[2019-09-23 08:23] LABS: Basophils % (A) 0 %; Eosinophils # (A) 0.5 k/uL (0-0.7); Eosinophils % (A) 4 %; HCT 26.6 % (39.0-53.0); HGB 8.7 gm/dL (13.0-17.5); Hypochromasia Slight; Lymphocytes # (A) 0.9 k/uL (1.0-4.8); Lymphocytes % (A) 7 %; MCH 28.7 pg (25.0-35.0); MCHC 32.7 g/dL (31.0-37.0); MCV 87.7 fL (80.0-100.0); Mean Platelet Volume 7.8; Monocytes # (A) 0.7 k/uL (0-1.0); Monocytes % (A) 5 %; Neutrophils # (A) 9.9 k/uL (1.3-7.7); Neutrophils % (A) 81 %; Platelet Count 289 k/uL (150-450); RBC 3.03 m/uL (4.30-5.90); RDW 13.3 % (11.5-15.5); WBC 12.3 k/uL (3.8-10.6)
[2019-09-23 08:40] LABS: Calcium 7.7 mg/dL (8.4-10.2); Magnesium 1.9 mg/dL (1.6-2.3); Potassium 3.8 mmol/L (3.5-5.1)
[2019-09-23 09:21] LABS: C Reactive Protein 141.2 mg/L (<10.0)
[2019-09-23 10:12] LABS: Erythrocyte Sedimentation Rate 119 mm/hr (0-15)
--- NOTE | 2019-09-23 10:18 | P.PN ---
Subjective Progress Note Date: 09/23/19 Principal diagnosis: Patient is a 79-year-old male with a known history of hypertension, diabetes type 2 insulin-dependent, dementia, vascular disease status post right BKA and history of recent left second toe amputation and other multiple medical problems including pacemaker placement was brought to the ER after he was found unresponsive at home. Patient is currently awake alert and oriented now. States that he did not eat his breakfast and took his insulin and also he takes glipizide. Patient was found by his daughter who lives next door. Patient states that he did not fall suddenly and sat down without suffering any trauma. Denied any head injury. Patient does have some left hip soreness otherwise able to bear weight. Patient was found to have blood sugar 40 by EMS. He was given D50 and patient is doing improved clinically and improved mental status as well. Otherwise patient denied any complaints of chest pain or shortness of breath. Denied any recent illnesses. No fever no chills. Patient denied any taking excess insulin. No complaints of chest pain or shortness of breath. No dysuria or hematuria. Patient also noticed to have some serous discharge from the ambulation site of the left second toe and some swelling of the foot last couple of days. Denied any purulent discharge. X-ray of the foot showed interval amputation of the second digit EKG showed atrial sensing ventricular paced rhythm Laboratory data showed WBC 15.2, hemoglobin 9.2, lymphocytes 0.4 Sodium 134, potassium 3.5, BUN 32 and creatinine 2.93 Calcium 7.9 Albumin 2.9 and blood sugar is 49 now 09/22/2019 Patient was seen and evaluated in follow-up sleeping but easily arousable, alert and oriented 2-3. Patient continues to have blood sugar fluctuations and have been on the lower side. Nephrology consulted as creatinine is 2.9 to today. Patient's white blood count is 12.2 and trending down. Patient continues on Unasyn and will continue at this time. Awaiting wound culture results. Infectious disease consulted and pending at this time. Currently patient denies any chest pain, shortness of breath, or palpitations. Patient is afebrile. No reports of nausea or vomiting and patient is tolerating diet. Per nursing staff patient's oxygen saturations dropped down to 88-90% while on room air. Will initiate some oxygen 2 L via nasal cannula. Will order a chest x-ray. Will adjust insulin accordingly and await chest x-ray report. 09/23/2019 Patient was seen and evaluated in follow-up today continues to be lethargic although wakes easily and responds to questions and commands appropriately. Patient to continue sliding scale along with 15 units of long-acting. Currently off of IV fluids as chest x-ray yesterday shows suspect CHF exacerbation or fluid overload with cardiomegaly and fairly new moderate central vascular congestion with mild to moderate alveolar and interstitial edema bilaterally. Patient was given a one-time dose of 20 mg of Lasix IV push. Patient is on oxygen at 2 L via nasal cannula although continues to take it off and is currently saturating 91-94% on room air. Patient has not been up and out of the bed and continues to sleep most of the day. Recent creatinine did not improve and is currently still 2.92 today. Nephrology following. Current patiently denies any chest pain or palpitations. Patient states he has some mild shortness of breath with exertion. Patient is afebrile. No reports of nausea or vomiting and patient is tolerating diet. Patient continues to need encouragement with eating meals and assistance. Case management and social work to continue following for possible rehab once stabilized and discharged. Objective - Vital Signs Vital signs: Vital Signs Temp 97.7 F 09/23/19 07:01 Pulse 69 09/23/19 07:59 Resp 18 09/23/19 07:59 BP 145/84 09/23/19 07:01 Pulse Ox 91 L 09/23/19 07:01 Intake & Output 09/22/19 09/23/19 09/23/19 18:59 06:59 18:59 Output Total 650 Balance -650 Weight 84.2 kg Output: Urine 650 Other: Voiding Method Urinal Urinal Urinal # Voids 1 - Exam Patient is lying in the bed comfortably, no acute distress, awake alert and oriented.. HEENT: Normocephalic. Neck is supple. Pupils reactive. Nostrils clear. Oral cavity is moist. Ears reveal no drainage. Neck reveals no JVD, carotid bruits, or thyromegaly. CHEST EXAMINATION: Trachea is central. Symmetrical expansion. Lung conklin clear to auscultation and percussion. CARDIAC: Normal S1, S2 with no gallops. No murmurs ABDOMEN: Soft. Bowel sounds normal. No organomegaly. No abdominal bruits. Extremities: reveal no edema. LUE swelling. RT BKA, No clubbing or cyanosis Left second toe amputation site intact. Redness and serous discharge noted around the amputation site. Minimal tenderness and warmth. Dressing changed and dry and intact noted. Neurologically awake, alert, oriented x3 with well-coordinated movements. No focal deficits noted Skin: No rash or skin lesions. Psychiatric: Cooperative. Non-suicidal Musculoskeletal: No joint swelling or deformity. Normal range of motion. - Labs CBC & Chem 7: 09/23/19 07:39 09/23/19 07:39 Labs: Abnormal Lab Results - Last 24 Hours (Table) 09/22/19 09/22/19 09/22/19 Range/Units 10:32 10:32 10:32 WBC (3.8-10.6) k/uL RBC (4.30-5.90) m/uL Hgb (13.0-17.5) gm/dL Hct (39.0-53.0) % Neutrophils # (1.3-7.7) k/uL Lymphocytes # (1.0-4.8) k/uL Chloride (98-107) mmol/L BUN (9-20) mg/dL Creatinine (0.66-1.25) mg/dL POC Glucose (mg/dL) (75-99) mg/dL Calcium (8.4-10.2) mg/dL Iron 14 L (65-175) ug/dL % Saturation 5.98 L (15.00-50.00) C-Reactive Protein (<10.0) mg/L Total Protein (PEP) 5.1 L (6.2-8.2) g/dL Urine Protein (Negative) Urine Glucose (UA) (Negative) Urine Blood (Negative) Amorphous Sediment (None) /hpf Urine Bacteria (None) /hpf Tot Complement (CH50) <14 L (42 - 95) U/mL 09/22/19 09/22/19 09/22/19 Range/Units 11:30 16:26 17:00 WBC (3.8-10.6) k/uL RBC (4.30-5.90) m/uL Hgb (13.0-17.5) gm/dL Hct (39.0-53.0) % Neutrophils # (1.3-7.7) k/uL Lymphocytes # (1.0-4.8) k/uL Chloride (98-107) mmol/L BUN (9-20) mg/dL Creatinine (0.66-1.25) mg/dL POC Glucose (mg/dL) 197 H 333 H (75-99) mg/dL Calcium (8.4-10.2) mg/dL Iron (65-175) ug/dL % Saturation (15.00-50.00) C-Reactive Protein (<10.0) mg/L Total Protein (PEP) (6.2-8.2) g/dL Urine Protein 3+ H (Negative) Urine Glucose (UA) 3+ H (Negative) Urine Blood Small H (Negative) Amorphous Sediment Rare H (None) /hpf Urine Bacteria Rare H (None) /hpf Tot Complement (CH50) (42 - 95) U/mL 09/22/19 09/23/19 09/23/19 Range/Units 20:17 07:39 07:39 WBC 12.3 H (3.8-10.6) k/uL RBC 3.03 L (4.30-5.90) m/uL Hgb 8.7 L (13.0-17.5) gm/dL Hct 26.6 L (39.0-53.0) % Neutrophils # 9.9 H (1.3-7.7) k/uL Lymphocytes # 0.9 L (1.0-4.8) k/uL Chloride 109 H (98-107) mmol/L BUN 36 H (9-20) mg/dL Creatinine 2.92 H (0.66-1.25) mg/dL POC Glucose (mg/dL) 247 H (75-99) mg/dL Calcium 7.7 L (8.4-10.2) mg/dL Iron (65-175) ug/dL % Saturation (15.00-50.00) C-Reactive Protein 141.2 H (<10.0) mg/L Total Protein (PEP) (6.2-8.2) g/dL Urine Protein (Negative) Urine Glucose (UA) (Negative) Urine Blood (Negative) Amorphous Sediment (None) /hpf Urine Bacteria (None) /hpf Tot Complement (CH50) (42 - 95) U/mL Microbiology - Last 24 Hours (Table) 09/21/19 16:34 Blood Culture - Preliminary Blood No Growth after 24 hours 09/21/19 17:20 Gram Stain - Preliminary Foot - Left Wound Culture - Preliminary Assessment and Plan Assessment: Unresponsiveness due to hypoglycemia. Not encephalopathic. Hypoglycemia due to insulin and leukocyte. Acute kidney injury most likely due to diabetic kidney disease. Nephrology following. Current creatinine is 2.92 Left direct second toe serous discharge with surrounding redness. Possible inf ection at the amputation site. Peripheral vascular disease with history of right BKA and left second toe amputation Diabetes type 2 insulin-dependent Hypertension Dementia Chronic diastolic congestive heart failure, most recent ejection fraction ejection from 05/26/2018 shows moderate concentric left ventricular hypertrophy with overall left ventricular systolic function is normal with an EF of 55-60% the right ventricle being moderately enlarged Previous history of syncopal episode prior to receiving pacemaker History of carotid stenosis Daily alcohol abuse DVT prophylaxis patient is already on Eliquis at home. Plan: Continue current medications, management, and symptomatic treatment. Need to monitor blood sugars and treat accordingly with sliding scale along with 15 units of long-acting at night. Continue to encourage meals and assistance with eating as patient has been eating very poorly. Infectious disease following. wound cultures preliminary are showing gram-negative bacilli along with gram- positive cocci and gram-positive bacilli and patient will continue on IV antibiotics in the form of Unasyn. Await finalization of cultures. Wound consult placed as well. White blood cell count today continues to be at 12.2. Continue the home medications and follow-up closely. Pain management. Further recommendations based on the clinical course. Social work also consulted as family would like him to go to rehab for potential long-term placement in the future.
--- NOTE | 2019-09-23 11:06 | P.PN ---
Subjective Patient is seen in follow for acute kidney injury on chronic kidney disease. Renal function is stable. Blood glucose 80 this morning. No vomiting or diarrhea. Denies chest pain or shortness of breath. Vital signs are stable. General: The patient appeared well nourished and normally developed. HEENT: Head exam is unremarkable. Neck is without jugular venous distension. LUNGS: Lungs are clear to auscultation and percussion. Breath sounds decreased. HEART: Rate and Rhythm are regular. ABDOMEN: Abdominal exam reveals normal bowel sounds. Non-tender and non- distended. EXTREMITITES: 1+ edema. BKA noted. Objective - Vital Signs Vital signs: Vital Signs Temp 97.7 F 09/23/19 07:01 Pulse 69 09/23/19 07:59 Resp 18 09/23/19 07:59 BP 145/84 09/23/19 07:01 Pulse Ox 91 L 09/23/19 07:01 Intake & Output 09/22/19 09/23/19 09/23/19 18:59 06:59 18:59 Output Total 650 Balance -650 Weight 84.2 kg Output: Urine 650 Other: Voiding Method Urinal Urinal Urinal # Voids 1 - Labs CBC & Chem 7: 09/23/19 07:39 09/23/19 07:39 Labs: Abnormal Lab Results - Last 24 Hours (Table) 09/22/19 09/22/19 09/22/19 Range/Units 10:32 10:32 10:32 WBC (3.8-10.6) k/uL RBC (4.30-5.90) m/uL Hgb (13.0-17.5) gm/dL Hct (39.0-53.0) % Neutrophils # (1.3-7.7) k/uL Lymphocytes # (1.0-4.8) k/uL ESR (0-15) mm/hr Chloride (98-107) mmol/L BUN (9-20) mg/dL Creatinine (0.66-1.25) mg/dL POC Glucose (mg/dL) (75-99) mg/dL Calcium (8.4-10.2) mg/dL Iron 14 L (65-175) ug/dL % Saturation 5.98 L (15.00-50.00) C-Reactive Protein (<10.0) mg/L Total Protein (PEP) 5.1 L (6.2-8.2) g/dL Urine Protein (Negative) Urine Glucose (UA) (Negative) Urine Blood (Negative) Amorphous Sediment (None) /hpf Urine Bacteria (None) /hpf Tot Complement (CH50) <14 L (42 - 95) U/mL 09/22/19 09/22/19 09/22/19 Range/Units 11:30 16:26 17:00 WBC (3.8-10.6) k/uL RBC (4.30-5.90) m/uL Hgb (13.0-17.5) gm/dL Hct (39.0-53.0) % Neutrophils # (1.3-7.7) k/uL Lymphocytes # (1.0-4.8) k/uL ESR (0-15) mm/hr Chloride (98-107) mmol/L BUN (9-20) mg/dL Creatinine (0.66-1.25) mg/dL POC Glucose (mg/dL) 197 H 333 H (75-99) mg/dL Calcium (8.4-10.2) mg/dL Iron (65-175) ug/dL % Saturation (15.00-50.00) C-Reactive Protein (<10.0) mg/L Total Protein (PEP) (6.2-8.2) g/dL Urine Protein 3+ H (Negative) Urine Glucose (UA) 3+ H (Negative) Urine Blood Small H (Negative) Amorphous Sediment Rare H (None) /hpf Urine Bacteria Rare H (None) /hpf Tot Complement (CH50) (42 - 95) U/mL 09/22/19 09/23/19 09/23/19 Range/Units 20:17 07:39 07:39 WBC 12.3 H (3.8-10.6) k/uL RBC 3.03 L (4.30-5.90) m/uL Hgb 8.7 L (13.0-17.5) gm/dL Hct 26.6 L (39.0-53.0) % Neutrophils # 9.9 H (1.3-7.7) k/uL Lymphocytes # 0.9 L (1.0-4.8) k/uL ESR 119 H (0-15) mm/hr Chloride 109 H (98-107) mmol/L BUN 36 H (9-20) mg/dL Creatinine 2.92 H (0.66-1.25) mg/dL POC Glucose (mg/dL) 247 H (75-99) mg/dL Calcium 7.7 L (8.4-10.2) mg/dL Iron (65-175) ug/dL % Saturation (15.00-50.00) C-Reactive Protein 141.2 H (<10.0) mg/L Total Protein (PEP) (6.2-8.2) g/dL Urine Protein (Negative) Urine Glucose (UA) (Negative) Urine Blood (Negative) Amorphous Sediment (None) /hpf Urine Bacteria (None) /hpf Tot Complement (CH50) (42 - 95) U/mL Microbiology - Last 24 Hours (Table) 09/21/19 16:34 Blood Culture - Preliminary Blood No Growth after 24 hours 09/21/19 17:20 Gram Stain - Preliminary Foot - Left Wound Culture - Preliminary Assessment and Plan Plan: Assessment: 1. Acute kidney injury versus progression of underlying chronic kidney disease stage 3. Renal function stable this admission. Creatinine 2.92 today. He's had persistent proteinuria. Etiology is most likely diabetic kidney disease. No hydronephrosis noted on kidney ultrasound. 2. Hypoglycemia. Improved. 3. Insulin-dependent diabetes mellitus. 4. Hypertension with chronic kidney disease. Stable. 5. Anemia of chronic kidney disease. Iron deficiency noted. 6. Left second toe gangrene status post amputation with nonhealing wound. Vascular surgery following. 7. Volume overload. Plan: Start Lasix 40 mg IV once daily. Follow-up serologies. Total complements noted to be low. Will consider kidney biopsy once more medically stable. IV iron 3 doses. First dose today. Continue to monitor renal function and urine output
[2019-09-23] MEDS: FUROSEMIDE 10 MG/ML 4 ML VIAL IV SCH (11:45)
[2019-09-23 12:05] LABS: Glucose,Whole Blood 186 mg/dL (75-99)
[2019-09-23] MEDS: SODIUM FERRIC GLUCONAT-SUCROSE 125 MG in SODIUM CHLORIDE 0.9% 100 ML IVPB SCH (13:16)
[2019-09-23 14:47] LABS: C-ANCA <1:20 Titer (<1:20)
[2019-09-23 14:55] LABS: Albumin 2.18 g/dL (3.80-4.90); Gamma Globulin 0.72 g/dL (0.70-1.50)
[2019-09-23 16:45] LABS: Glucose,Whole Blood 192 mg/dL (75-99)
[2019-09-23 20:19] LABS: Glucose,Whole Blood 250 mg/dL (75-99)
[2019-09-23] MEDS: ATORVASTATIN 80 MG TAB PO SCH (20:22)
[2019-09-23] MEDS: INSULIN DETEMIR (LEVEMIR) 100 UNIT/ML SYR SQ SCH (20:22)
[2019-09-23] MEDS: ASPIRIN 81 MG PO SCH (20:22)
--- NOTE | 2019-09-23 22:42 | PN ---
PROGRESS NOTE DATE OF SERVICE: 09/23/2019 REASON FOR FOLLOWUP: Right diabetic foot wound and cellulitis. INTERVAL HISTORY: The patient is currently afebrile. The patient has been breathing comfortably. The patient denies having any chest pain or shortness of breath or cough. No nausea, vomiting or abdominal pain. Pain to the right foot area. PHYSICAL EXAMINATION: Blood pressure is 124/59 with a pulse of 76, temperature 97.5. He is 99% on room air. General description is an elderly male lying in bed in no distress. RESPIRATORY SYSTEM: Unlabored breathing. Clear to auscultation anteriorly. HEART: S1, S2. Regular rate and rhythm. ABDOMEN: Soft. No tenderness. Right foot did have some swelling. No significant redness or drainage. LABS: Hemoglobin 8.7, white count 12.3, BUN of 36, creatinine 2.92. Wound culture with Staph aureus. DIAGNOSTIC IMPRESSION AND PLAN: Patient with a right diabetic foot wound in this patient who is status post amputation of the right second toe with dehiscence of his wound. Culture now showing Staph aureus, sensitivities pending. Will keep the patient on Unasyn. Local care with dry Aquacel Silver dressing. Continue supportive care. MMODL / IJN: [id number] /
[2019-09-24 06:37] LABS: Basophils % (A) 0 %; Eosinophils # (A) 0.7 k/uL (0-0.7); Eosinophils % (A) 6 %; HGB 8.6 gm/dL (13.0-17.5); Hypochromasia Moderate; Lymphocytes # (A) 0.9 k/uL (1.0-4.8); Lymphocytes % (A) 8 %; MCH 27.8 pg (25.0-35.0); MCHC 30.7 g/dL (31.0-37.0); MCV 90.7 fL (80.0-100.0); Mean Platelet Volume 7.5; Monocytes # (A) 0.7 k/uL (0-1.0); Monocytes % (A) 6 %; Neutrophils # (A) 8.8 k/uL (1.3-7.7); Neutrophils % (A) 77 %; Platelet Count 269 k/uL (150-450); RBC 3.09 m/uL (4.30-5.90); RDW 13.7 % (11.5-15.5); WBC 11.4 k/uL (3.8-10.6)
[2019-09-24 06:46] LABS: Calcium 7.6 mg/dL (8.4-10.2); Magnesium 1.9 mg/dL (1.6-2.3); Potassium 3.8 mmol/L (3.5-5.1)
[2019-09-24 07:51] LABS: Glucose,Whole Blood 58 mg/dL (75-99)
[2019-09-24] MEDS: INSULIN ASPART (NovoLOG) 100 UNIT/ML VIAL SQ SCH ×4 (07:51→20:56)
[2019-09-24 07:54] LABS: Glucose,Whole Blood 66 mg/dL (75-99)
[2019-09-24 08:15] LABS: Glucose,Whole Blood 103 mg/dL (75-99)
[2019-09-24] MEDS: amLODIPine 5 MG TAB PO SCH (09:06)
[2019-09-24] MEDS: DONEPEZIL 10 MG TAB PO SCH (09:06)
[2019-09-24] MEDS: APIXABAN 2.5 MG TABLET PO SCH ×2 (09:06→20:56)
[2019-09-24] MEDS: DULoxetine HCL 30 MG CAPSULE.DR PO SCH (09:07)
[2019-09-24] MEDS: FUROSEMIDE 10 MG/ML 4 ML VIAL IV SCH (09:07)
[2019-09-24] MEDS: MIDODRINE 5 MG TAB PO SCH ×3 (09:13→16:10)
[2019-09-24] MEDS: SODIUM FERRIC GLUCONAT-SUCROSE 125 MG in SODIUM CHLORIDE 0.9% 100 ML IVPB SCH (09:59)
--- NOTE | 2019-09-24 10:03 | P.PN ---
Subjective Progress Note Date: 09/24/19 Patient seen and examined. No complaints. Still with fluctuant blood sugars. Objective - Vital Signs Vital signs: Vital Signs Temp 98.2 F 09/24/19 07:00 Pulse 69 09/24/19 07:00 Resp 18 09/24/19 07:00 BP 164/74 09/24/19 07:00 Pulse Ox 97 09/24/19 07:00 Intake & Output 09/23/19 09/24/19 09/24/19 18:59 06:59 18:59 Intake Total 740 Output Total 400 200 Balance 340 -200 Weight 89 kg Intake: Intake, IV Titration 200 Amount Ampicillin-Sulbactam 3 gm 100 In Sodium Chloride 0.9% 100 ml @ 200 mls/hr IVPB Q12H [facility] Rx#:[id number] Sodium Ferric Gluconat- 100 Sucrose 125 mg In Sodium Chloride 0.9% 100 ml @ 100 mls/hr IVPB DAILY [facility]EENA Rx#:[id number] Oral 540 Output: Urine 400 200 Other: Voiding Method Urinal Urinal # Voids 4 2 # Bowel Movements 1 - Exam Gen. is a pleasant cooperative male in no acute distress. HEENT is normocephalic and heart is regular at this time. Lungs are clear bilaterally. Abdomen is soft. There is still extremity swelling and left upper extremity. There is minimal swelling left lower extremity. Wound still clean, and dry. There is some erythema to the posterior left thigh - Labs CBC & Chem 7: 09/24/19 06:06 09/24/19 06:06 Labs: Abnormal Lab Results - Last 24 Hours (Table) 09/22/19 09/23/19 09/23/19 Range/Units 10:32 07:39 12:00 WBC (3.8-10.6) k/uL RBC (4.30-5.90) m/uL Hgb (13.0-17.5) gm/dL Hct (39.0-53.0) % MCHC (31.0-37.0) g/dL Neutrophils # (1.3-7.7) k/uL Lymphocytes # (1.0-4.8) k/uL ESR 119 H (0-15) mm/hr Chloride (98-107) mmol/L BUN (9-20) mg/dL Creatinine (0.66-1.25) mg/dL Glucose (74-99) mg/dL POC Glucose (mg/dL) 186 H (75-99) mg/dL Calcium (8.4-10.2) mg/dL Albumin (PEP) 2.18 L (3.80-4.90) g/dL 09/23/19 09/23/19 09/24/19 Range/Units 16:41 20:18 06:06 WBC 11.4 H (3.8-10.6) k/uL RBC 3.09 L (4.30-5.90) m/uL Hgb 8.6 L (13.0-17.5) gm/dL Hct 28.0 L (39.0-53.0) % MCHC 30.7 L (31.0-37.0) g/dL Neutrophils # 8.8 H (1.3-7.7) k/uL Lymphocytes # 0.9 L (1.0-4.8) k/uL ESR (0-15) mm/hr Chloride (98-107) mmol/L BUN (9-20) mg/dL Creatinine (0.66-1.25) mg/dL Glucose (74-99) mg/dL POC Glucose (mg/dL) 192 H 250 H (75-99) mg/dL Calcium (8.4-10.2) mg/dL Albumin (PEP) (3.80-4.90) g/dL 09/24/19 09/24/19 09/24/19 Range/Units 06:06 07:35 07:52 WBC (3.8-10.6) k/uL RBC (4.30-5.90) m/uL Hgb (13.0-17.5) gm/dL Hct (39.0-53.0) % MCHC (31.0-37.0) g/dL Neutrophils # (1.3-7.7) k/uL Lymphocytes # (1.0-4.8) k/uL ESR (0-15) mm/hr Chloride 109 H (98-107) mmol/L BUN 34 H (9-20) mg/dL Creatinine 2.71 H (0.66-1.25) mg/dL Glucose 68 L (74-99) mg/dL POC Glucose (mg/dL) 58 L 66 L (75-99) mg/dL Calcium 7.6 L (8.4-10.2) mg/dL Albumin (PEP) (3.80-4.90) g/dL 09/24/19 Range/Units 08:11 WBC (3.8-10.6) k/uL RBC (4.30-5.90) m/uL Hgb (13.0-17.5) gm/dL Hct (39.0-53.0) % MCHC (31.0-37.0) g/dL Neutrophils # (1.3-7.7) k/uL Lymphocytes # (1.0-4.8) k/uL ESR (0-15) mm/hr Chloride (98-107) mmol/L BUN (9-20) mg/dL Creatinine (0.66-1.25) mg/dL Glucose (74-99) mg/dL POC Glucose (mg/dL) 103 H (75-99) mg/dL Calcium (8.4-10.2) mg/dL Albumin (PEP) (3.80-4.90) g/dL Microbiology - Last 24 Hours (Table) 09/21/19 16:34 Blood Culture - Preliminary Blood No Growth after 48 hours 09/21/19 17:20 Gram Stain - Preliminary Foot - Left Wound Culture - Preliminary Presumptive Staph aureus Assessment and Plan Assessment: #1 left second toe gangrene status post amputation, nonhealing wound #2 anasarca #3 diabetes #4 hypertension Plan: Continue local wound care of the left lower extremity toe. Aquacell rope in place. Still no evidence of purulent drainage or discharge. Continue local wound care. Again I doubt this wound site is causing systemic issues. This is discussed with ID
[2019-09-24 11:48] LABS: Glucose,Whole Blood 170 mg/dL (75-99)
[2019-09-24] MEDS: AMPICILLIN-SULBACTAM 3 GM in SODIUM CHLORIDE 0.9% 100 ML IVPB SCH ×2 (12:09→23:10)
--- NOTE | 2019-09-24 16:33 | PN ---
PROGRESS NOTE DATE OF SERVICE: 09/24/2019 REASON FOR FOLLOWUP: Leukocytosis and right foot wound. INTERVAL HISTORY: The patient is currently afebrile. The patient is breathing comfortably. The patient denies having any chest pain. No shortness of breath or cough. No nausea, vomiting. No abdominal pain or diarrhea. No pain to the right foot area. PHYSICAL EXAMINATION: Blood pressure 164/74 with pulse of 69, temperature 98.2. He is 97% on 2 L nasal cannula. General description is an elderly male lying in bed in no distress. Respiratory system: Unlabored breathing, clear to auscultation anteriorly. Heart S1, S2. Regular rate and rhythm. Abdomen soft, no tenderness. Right foot is dressed, no drainage on the dressing. LABS: Creatinine is 2.71. CRP is 141.2. Sedimentation rate of 119. Wound culture presumptive Staph aureus. Blood culture has been negative. DIAGNOSTIC IMPRESSION AND PLAN: Patient admitted to hospital with weakness, unresponsive in this patient who did have low blood sugar. Also, with a wound to the right 2nd toe amputation site. Cultures from that site are showing Staph aureus, not sure we can ignore that in view of his significant inflammatory markers and did not have any other obvious focus for these markers. Will keep the patient on Unasyn. Local care per Surgery and continue supportive care. MMODL / IJN: [id number] /
[2019-09-24 16:47] LABS: Glucose,Whole Blood 198 mg/dL (75-99)
--- NOTE | 2019-09-24 17:22 | PN ---
PROGRESS NOTE Patient is seen for followup for acute kidney injury. His renal function is slightly improved with creatinine down from 2.9 to 2.71 today. The patient denies any significant complaints. He is maintained on IV Lasix currently. EXAMINATION: Today blood pressure was 164/74, heart rate 69 per minute, patient is afebrile. Examination of the heart S1, S2. Examination of the lungs, decreased breath sounds at bases. Abdomen is soft, nontender, obese. Examination lower extremities shows edema 1+ bilaterally. SPIRITUAL ADVISOR exam shows patient moving all 4 extremities. LABS: Show sodium 139, potassium 3.8, chloride 109, BUN 34, creatinine 2.7 today. ASSESSMENT: 1. Acute kidney injury, improved today. Continue with the current dose of Lasix. No nephrotoxic agents on board. 2. Volume overload, being diuresed, somewhat improved than on admission. 3. Hypertension with chronic kidney disease, stage 3, stable. 4. Left second toe gangrene status post amputation with nonhealing wound, being followed by vascular surgery. 5. Iron deficiency, maintained on IV iron. PLAN: Continue with IV iron. Repeat labs in a.m. Continue with current dose of IV Lasix. MMODL / IJN: [id number] /
--- NOTE | 2019-09-24 18:17 | P.PN ---
Subjective Progress Note Date: 09/24/19 79-year-old male with a known history of hypertension, diabetes type 2 insulin- dependent, dementia, vascular disease status post right BKA and history of recent left second toe amputation and other multiple medical problems including pacemaker placement was brought to the ER after he was found unresponsive at home. Patient is currently awake alert and oriented now. States that he did not eat his breakfast and took his insulin and also he takes glipizide. Patient was found by his daughter who lives next door. Patient states that he did not fall suddenly and sat down without suffering any trauma. Denied any head injury. Patient does have some left hip soreness otherwise able to bear weight. Patient was found to have blood sugar 40 by EMS. He was given D50 and patient is doing improved clinically and improved mental status as well. Otherwise patient denied any complaints of chest pain or shortness of breath. Denied any recent illnesses. No fever no chills. 09/24/2019 Patient is seen and evaluated at bedside for acute renal injury and fluid overload; nephrology is following and patient has been started on Lasix 40 mg IV daily; nephro is recommending to follow renal function closely with possible renal biopsy if renal function remains unchanged; patient had been lethargic due to hypoglycemia; plan is to possibly discharge patient to skilled rehab once s table; continue treatment for left second toe gangrene with amputation with nonhealing wound; wound care recommendations are noted and appreciated Objective - Vital Signs Vital signs: Vital Signs Temp 98.2 F 09/24/19 07:00 Pulse 69 09/24/19 07:00 Resp 18 09/24/19 07:00 BP 164/74 09/24/19 07:00 Pulse Ox 97 09/24/19 07:00 Intake & Output 09/23/19 09/24/19 09/24/19 18:59 06:59 18:59 Intake Total 740 540 Output Total 400 200 580 Balance 340 -200 -40 Weight 89 kg Intake: Intake, IV Titration 200 Amount Ampicillin-Sulbactam 3 gm 100 In Sodium Chloride 0.9% 100 ml @ 200 mls/hr IVPB Q12H VEENA Rx#:[id number] Sodium Ferric Gluconat- 100 Sucrose 125 mg In Sodium Chloride 0.9% 100 ml @ 100 mls/hr IVPB DAILY VEENA Rx#:[id number] Oral 540 540 Output: Urine 400 200 580 Other: Voiding Method Urinal Urinal # Voids 4 2 # Bowel Movements 1 1 - Exam Patient is lying in the bed comfortably, no acute distress, awake alert and oriented.. HEENT: Normocephalic. Neck is supple. Pupils reactive. Nostrils clear. Oral cavity is moist. Ears reveal no drainage. Neck reveals no JVD, carotid bruits, or thyromegaly. CHEST EXAMINATION: Trachea is central. Symmetrical expansion. Lung conklin clear to auscultation and percussion. CARDIAC: Normal S1, S2 with no gallops. No murmurs ABDOMEN: Soft. Bowel sounds normal. No organomegaly. No abdominal bruits. Extremities: reveal no edema. LUE swelling. RT BKA, No clubbing or cyanosis Left second toe amputation site intact. Redness and serous discharge noted around the amputation site. Minimal tenderness and warmth. Dressing changed and dry and intact noted. Neurologically awake, alert, oriented x3 with well-coordinated movements. No focal deficits noted Skin: No rash or skin lesions. Psychiatric: Cooperative. Non-suicidal Musculoskeletal: No joint swelling or deformity. Normal range of motion. - Labs CBC & Chem 7: 09/24/19 06:06 09/24/19 06:06 Labs: Abnormal Lab Results - Last 24 Hours (Table) 09/23/19 09/23/19 09/24/19 Range/Units 16:41 20:18 06:06 WBC 11.4 H (3.8-10.6) k/uL RBC 3.09 L (4.30-5.90) m/uL Hgb 8.6 L (13.0-17.5) gm/dL Hct 28.0 L (39.0-53.0) % MCHC 30.7 L (31.0-37.0) g/dL Neutrophils # 8.8 H (1.3-7.7) k/uL Lymphocytes # 0.9 L (1.0-4.8) k/uL Chloride (98-107) mmol/L BUN (9-20) mg/dL Creatinine (0.66-1.25) mg/dL Glucose (74-99) mg/dL POC Glucose (mg/dL) 192 H 250 H (75-99) mg/dL Calcium (8.4-10.2) mg/dL 09/24/19 09/24/19 09/24/19 Range/Units 06:06 07:35 07:52 WBC (3.8-10.6) k/uL RBC (4.30-5.90) m/uL Hgb (13.0-17.5) gm/dL Hct (39.0-53.0) % MCHC (31.0-37.0) g/dL Neutrophils # (1.3-7.7) k/uL Lymphocytes # (1.0-4.8) k/uL Chloride 109 H (98-107) mmol/L BUN 34 H (9-20) mg/dL Creatinine 2.71 H (0.66-1.25) mg/dL Glucose 68 L (74-99) mg/dL POC Glucose (mg/dL) 58 L 66 L (75-99) mg/dL Calcium 7.6 L (8.4-10.2) mg/dL 09/24/19 09/24/19 Range/Units 08:11 11:36 WBC (3.8-10.6) k/uL RBC (4.30-5.90) m/uL Hgb (13.0-17.5) gm/dL Hct (39.0-53.0) % MCHC (31.0-37.0) g/dL Neutrophils # (1.3-7.7) k/uL Lymphocytes # (1.0-4.8) k/uL Chloride (98-107) mmol/L BUN (9-20) mg/dL Creatinine (0.66-1.25) mg/dL Glucose (74-99) mg/dL POC Glucose (mg/dL) 103 H 170 H (75-99) mg/dL Calcium (8.4-10.2) mg/dL Microbiology - Last 24 Hours (Table) 09/21/19 16:34 Blood Culture - Preliminary Blood No Growth after 48 hours 09/21/19 17:20 Gram Stain - Preliminary Foot - Left Wound Culture - Preliminary Presumptive Staph aureus Assessment and Plan Assessment: Unresponsiveness due to hypoglycemia. Not encephalopathic. Hypoglycemia due to insulin and leukocyte. Acute kidney injury most likely due to diabetic kidney disease. Nephrology following. Current creatinine is 2.92 Left direct second toe serous discharge with surrounding redness. Possible infection at the amputation site. Peripheral vascular disease with history of right BKA and left second toe amputation Diabetes type 2 insulin-dependent Hypertension Dementia Chronic diastolic congestive heart failure, most recent ejection fraction ejection from 05/26/2018 shows moderate concentric left ventricular hypertrophy with overall left ventricular systolic function is normal with an EF of 55-60% the right ventricle being moderately enlarged Previous history of syncopal episode prior to receiving pacemaker History of carotid stenosis Daily alcohol abuse DVT prophylaxis patient is already on Eliquis at home. Plan: Continue current medications, management, and symptomatic treatment. Need to monitor blood sugars and treat accordingly with sliding scale along with 15 units of long-acting at night. Continue to encourage meals and assistance with eating as patient has been eating very poorly. Infectious disease following. wound cultures preliminary are showing gram-negative bacilli along with gram- positive cocci and gram-positive bacilli and patient will continue on IV antibiotics in the form of Unasyn. Await finalization of cultures. Wound consult placed as well. White blood cell count today continues to be at 12.2. Continue the home medications and follow-up closely. Pain management. Further recommendations based on the clinical course. Social work also consulted as family would like him to go to rehab for potential long-term placement in the future.
[2019-09-24 20:28] LABS: Glucose,Whole Blood 239 mg/dL (75-99)
[2019-09-24] MEDS: ATORVASTATIN 80 MG TAB PO SCH (20:56)
[2019-09-24] MEDS: ASPIRIN 81 MG PO SCH (20:56)
[2019-09-24] MEDS: INSULIN DETEMIR (LEVEMIR) 100 UNIT/ML SYR SQ SCH (20:57)
[2019-09-25 07:08] LABS: Glucose,Whole Blood 111 mg/dL (75-99)
[2019-09-25] MEDS: INSULIN ASPART (NovoLOG) 100 UNIT/ML VIAL SQ SCH ×4 (07:28→21:06)
[2019-09-25] MEDS: MIDODRINE 5 MG TAB PO SCH ×3 (07:45→15:38)
[2019-09-25] MEDS: DONEPEZIL 10 MG TAB PO SCH (07:45)
[2019-09-25] MEDS: APIXABAN 2.5 MG TABLET PO SCH ×2 (07:45→21:06)
[2019-09-25] MEDS: FUROSEMIDE 10 MG/ML 4 ML VIAL IV SCH (07:45)
[2019-09-25] MEDS: DULoxetine HCL 30 MG CAPSULE.DR PO SCH (07:45)
[2019-09-25] MEDS: amLODIPine 5 MG TAB PO SCH ×2 (07:45→21:06)
[2019-09-25 08:23] LABS: Calcium 8.1 mg/dL (8.4-10.2); Potassium 4.1 mmol/L (3.5-5.1)
[2019-09-25 08:57] LABS: Basophils % (A) 0 %; Eosinophils # (A) 0.7 k/uL (0-0.7); Eosinophils % (A) 6 %; HCT 28.7 % (39.0-53.0); Hypochromasia Moderate; Lymphocytes # (A) 1.1 k/uL (1.0-4.8); Lymphocytes % (A) 9 %; MCH 28.1 pg (25.0-35.0); MCHC 31.4 g/dL (31.0-37.0); MCV 89.4 fL (80.0-100.0); Mean Platelet Volume 8.3; Monocytes # (A) 0.7 k/uL (0-1.0); Monocytes % (A) 6 %; Neutrophils # (A) 9.1 k/uL (1.3-7.7); Neutrophils % (A) 78 %; Platelet Count 300 k/uL (150-450); RBC 3.21 m/uL (4.30-5.90); RDW 13.3 % (11.5-15.5); WBC 11.7 k/uL (3.8-10.6)
[2019-09-25] MEDS: SODIUM FERRIC GLUCONAT-SUCROSE 125 MG in SODIUM CHLORIDE 0.9% 100 ML IVPB SCH (09:09)
[2019-09-25] MEDS: AMPICILLIN-SULBACTAM 3 GM in SODIUM CHLORIDE 0.9% 100 ML IVPB SCH ×2 (11:06→22:56)
[2019-09-25 11:14] LABS: Glucose,Whole Blood 201 mg/dL (75-99)
--- NOTE | 2019-09-25 16:01 | PN ---
PROGRESS NOTE Patient is seen for followup for acute kidney injury. Renal function stable with creatinine staying at 2.7 down from 2.9. The patient is maintained on IV Lasix. He denies any significant complaints. EXAMINATION: Blood pressure was 173/80 this morning, heart rate 76 per minute, he is afebrile. Examination shows decreased breath sounds at the bases. Abdomen is soft, nontender. Examination lower extremities shows left foot currently wrapped. EXECUTIVE ADMINISTRATIVE ASSISTANT exam grossly intact. LABS: Show sodium 140, potassium 4.1, chloride 105, BUN 34, creatinine 2.76 hemoglobin 9.0. ASSESSMENT: 1. Acute kidney injury, improved from initial admission with creatinine staying about the same at 2.7 mg/dL. No nephrotoxic agents on board. No obstruction noted. 2. Volume overload, maintained on once a day dosing of Lasix, which I will continue. 3. Hypertension with chronic kidney disease, stage 3. Blood pressure is uncontrolled. I do not see any antihypertensive medications except for Norvasc. We can increase the Norvasc to 10 mg daily. 4. Severe iron deficiency, maintained on IV iron. 5. Left toe gangrene with amputation, being followed by vascular surgery, maintained on antibiotics. PLAN: Continue current dose of IV Lasix. Repeat labs in a.m. Increase Norvasc to 10 mg daily. MMODL / IJN: [id number] /
[2019-09-25 16:35] LABS: Glucose,Whole Blood 182 mg/dL (75-99)
--- NOTE | 2019-09-25 18:30 | P.PN ---
Subjective Progress Note Date: 09/25/19 79-year-old male with a known history of hypertension, diabetes type 2 insulin- dependent, dementia, vascular disease status post right BKA and history of recent left second toe amputation and other multiple medical problems including pacemaker placement was brought to the ER after he was found unresponsive at home. Patient is currently awake alert and oriented now. States that he did not eat his breakfast and took his insulin and also he takes glipizide. Patient was found by his daughter who lives next door. Patient states that he did not fall suddenly and sat down without suffering any trauma. Denied any head injury. Patient does have some left hip soreness otherwise able to bear weight. Patient was found to have blood sugar 40 by EMS. He was given D50 and patient is doing improved clinically and improved mental status as well. Otherwise patient denied any complaints of chest pain or shortness of breath. Denied any recent illnesses. No fever no chills. 09/24/2019 Patient is seen and evaluated at bedside for acute renal injury and fluid overload; nephrology is following and patient has been started on Lasix 40 mg IV daily; nephro is recommending to follow renal function closely with possible renal biopsy if renal function remains unchanged; patient had been lethargic due to hypoglycemia; plan is to possibly discharge patient to skilled rehab once s table; continue treatment for left second toe gangrene with amputation with nonhealing wound; wound care recommendations are noted and appreciated 09/25/2019 Patient is seen for follow-up on acute renal injury; creatinine has improved since admission but plateaued around 2.7; patient remains volume overloaded and continues to stay on current dose of IV Lasix; nephrology on board and recommending to continue Lasix for another 24 hours at which time they will reevaluate; blood pressure remains uncontrolled; Norvasc is increased to 10 mg daily; we will continue to monitor blood pressure closely and make further adjustments as needed; lab review shows severe depletion of iron stores; patient has been started on IV iron supplementation Vascular surgery is following for left toe gangrene with amputation; continue with current antibiotics until final recommendations by ID Objective - Vital Signs Vital signs: Vital Signs Temp 97.4 F L 09/25/19 09:13 Pulse 76 09/25/19 12:46 Resp 16 09/25/19 09:13 BP 164/67 09/25/19 12:46 Pulse Ox 93 L 09/25/19 09:13 Intake & Output 09/24/19 09/25/19 09/25/19 18:59 06:59 18:59 Intake Total 1080 Output Total 780 1275 260 Balance 300 -1275 -260 Weight 86.5 kg Intake: Oral 1080 Output: Urine 780 1275 260 Other: Voiding Method Urinal Urinal # Voids 2 2 # Bowel Movements 1 1 - Exam Patient is lying in the bed comfortably, no acute distress, awake alert and oriented.. HEENT: Normocephalic. Neck is supple. Pupils reactive. Nostrils clear. Oral cavity is moist. Ears reveal no drainage. Neck reveals no JVD, carotid bruits, or thyromegaly. CHEST EXAMINATION: Trachea is central. Symmetrical expansion. Lung conklin clear to auscultation and percussion. CARDIAC: Normal S1, S2 with no gallops. No murmurs ABDOMEN: Soft. Bowel sounds normal. No organomegaly. No abdominal bruits. Extremities: reveal no edema. LUE swelling. RT BKA, No clubbing or cyanosis Left second toe amputation site intact. Redness and serous discharge noted around the amputation site. Minimal tenderness and warmth. Dressing changed and dry and intact noted. Neurologically awake, alert, oriented x3 with well-coordinated movements. No focal deficits noted Skin: No rash or skin lesions. Psychiatric: Cooperative. Non-suicidal Musculoskeletal: No joint swelling or deformity. Normal range of motion. - Labs CBC & Chem 7: 09/25/19 07:12 09/25/19 07:12 Labs: Abnormal Lab Results - Last 24 Hours (Table) 09/24/19 09/24/19 09/25/19 Range/Units 16:36 20:27 07:06 WBC (3.8-10.6) k/uL RBC (4.30-5.90) m/uL Hgb (13.0-17.5) gm/dL Hct (39.0-53.0) % Neutrophils # (1.3-7.7) k/uL BUN (9-20) mg/dL Creatinine (0.66-1.25) mg/dL Glucose (74-99) mg/dL POC Glucose (mg/dL) 198 H 239 H 111 H (75-99) mg/dL Calcium (8.4-10.2) mg/dL 09/25/19 09/25/19 09/25/19 Range/Units 07:12 07:12 11:12 WBC 11.7 H (3.8-10.6) k/uL RBC 3.21 L (4.30-5.90) m/uL Hgb 9.0 L (13.0-17.5) gm/dL Hct 28.7 L (39.0-53.0) % Neutrophils # 9.1 H (1.3-7.7) k/uL BUN 34 H (9-20) mg/dL Creatinine 2.76 H (0.66-1.25) mg/dL Glucose 109 H (74-99) mg/dL POC Glucose (mg/dL) 201 H (75-99) mg/dL Calcium 8.1 L (8.4-10.2) mg/dL Microbiology - Last 24 Hours (Table) 09/21/19 17:20 Gram Stain - Final Foot - Left Wound Culture - Final Staphylococcus aureus 09/21/19 16:34 Blood Culture - Preliminary Blood No Growth after 72 hours Assessment and Plan Assessment: Unresponsiveness due to hypoglycemia. Not encephalopathic. Hypoglycemia due to insulin and leukocyte. Acute kidney injury most likely due to diabetic kidney disease. Nephrology following. Current creatinine is 2.92 Left direct second toe serous discharge with surrounding redness. Possible infection at the amputation site. Peripheral vascular disease with history of right BKA and left second toe amputation Diabetes type 2 insulin-dependent Hypertension Dementia Chronic diastolic congestive heart failure, most recent ejection fraction ejection from 05/26/2018 shows moderate concentric left ventricular hypertrophy with overall left ventricular systolic function is normal with an EF of 55-60% the right ventricle being moderately enlarged Previous history of syncopal episode prior to receiving pacemaker History of carotid stenosis Daily alcohol abuse DVT prophylaxis patient is already on Eliquis at home. Plan: Continue current medications, management, and symptomatic treatment. Need to monitor blood sugars and treat accordingly with sliding scale along with 15 units of long-acting at night. Continue to encourage meals and assistance with eating as patient has been eating very poorly. Infectious disease following. wound cultures preliminary are showing gram-negative bacilli along with gram- positive cocci and gram-positive bacilli and patient will continue on IV antibiotics in the form of Unasyn. Await finalization of cultures. Wound consult placed as well. White blood cell count today continues to be at 12.2. Continue the home medications and follow-up closely. Pain management. Further recommendations based on the clinical course. Social work also consulted as family would like him to go to rehab for potential long-term placement in the future. Time with Patient: Greater than 30
[2019-09-25 20:58] LABS: Glucose,Whole Blood 213 mg/dL (75-99)
[2019-09-25] MEDS: ATORVASTATIN 80 MG TAB PO SCH (21:05)
[2019-09-25] MEDS: INSULIN DETEMIR (LEVEMIR) 100 UNIT/ML SYR SQ SCH (21:06)
[2019-09-25] MEDS: ASPIRIN 81 MG PO SCH (21:06)
--- NOTE | 2019-09-26 00:27 | PN ---
PROGRESS NOTE DATE OF SERVICE: 09/25/2019 REASON FOR FOLLOWUP: Leukocytosis, left diabetic foot wound, groin cutaneous candidiasis, cellulitis. INTERVAL HISTORY: The patient is currently afebrile. The patient denies having any chest pain or shortness of breath or cough. No nausea, no vomiting. No abdominal pain. No pain to the left foot area. PHYSICAL EXAMINATION: Blood pressure 177/74 with a pulse of 73, temperature 97.5. He is 90% on room air. General description is an elderly male lying in bed in no distress. RESPIRATORY SYSTEM: Unlabored breathing, clear to auscultation anteriorly. HEART: S1, S2. Regular rate and rhythm. ABDOMEN: Soft, no tenderness. The patient did have evidence of left medial thigh cellulitis with evidence of extensive groin area cutaneous candidiasis. LABS: White count is 11.7, hemoglobin 9. Left foot wound culture with MSSA. DIAGNOSTIC IMPRESSION AND PLAN: Patient with leukocytosis in the setting of the hospital with hypoglycemia source possibly left thigh cellulitis in this patient who did have evidence of bilateral groin area cutaneous candidiasis. Patient covered with antibiotic will be switched over to cefazolin 2 grams q.12 along with Diflucan and nystatin powder to the groin and continue with supportive care. MMODL / IJN: [id number] /
[2019-09-26 06:49] LABS: Glucose,Whole Blood 102 mg/dL (75-99)
[2019-09-26] MEDS: INSULIN ASPART (NovoLOG) 100 UNIT/ML VIAL SQ SCH ×4 (07:10→20:18)
[2019-09-26] MEDS: APIXABAN 2.5 MG TABLET PO SCH ×2 (07:16→20:18)
[2019-09-26] MEDS: FUROSEMIDE 10 MG/ML 4 ML VIAL IV SCH (07:16)
[2019-09-26] MEDS: DONEPEZIL 10 MG TAB PO SCH (07:16)
[2019-09-26] MEDS: amLODIPine 5 MG TAB PO SCH ×2 (07:17→20:18)
[2019-09-26] MEDS: DULoxetine HCL 30 MG CAPSULE.DR PO SCH (07:17)
[2019-09-26] MEDS: MIDODRINE 5 MG TAB PO SCH ×3 (07:21→17:05)
[2019-09-26] MEDS: SODIUM FERRIC GLUCONAT-SUCROSE 125 MG in SODIUM CHLORIDE 0.9% 100 ML IVPB SCH ×2 (08:37→13:29)
[2019-09-26 08:45] LABS: Basophils % (A) 0 %; Eosinophils # (A) 0.4 k/uL (0-0.7); Eosinophils % (A) 4 %; HCT 26.6 % (39.0-53.0); HGB 8.5 gm/dL (13.0-17.5); Hypochromasia Slight; Lymphocytes % (A) 10 %; MCH 28.4 pg (25.0-35.0); MCHC 31.8 g/dL (31.0-37.0); MCV 89.4 fL (80.0-100.0); Mean Platelet Volume 7.7; Monocytes # (A) 0.6 k/uL (0-1.0); Monocytes % (A) 6 %; Neutrophils # (A) 7.7 k/uL (1.3-7.7); Neutrophils % (A) 77 %; Platelet Count 288 k/uL (150-450); RBC 2.98 m/uL (4.30-5.90); RDW 13.7 % (11.5-15.5)
[2019-09-26 09:07] LABS: Calcium 8.2 mg/dL (8.4-10.2); Potassium 4.1 mmol/L (3.5-5.1)
[2019-09-26 12:06] LABS: Glucose,Whole Blood 197 mg/dL (75-99)
[2019-09-26] MEDS: AMPICILLIN-SULBACTAM 3 GM in SODIUM CHLORIDE 0.9% 100 ML IVPB SCH ×2 (13:30→15:01)
[2019-09-26] MEDS ORDERED: FUROSEMIDE 10 MG/ML 2 ML VIAL IV ONE (14:23)
[2019-09-26 16:55] LABS: Glucose,Whole Blood 138 mg/dL (75-99)
--- NOTE | 2019-09-26 18:54 | PN ---
PROGRESS NOTE DATE OF SERVICE: 09/26/2019 REASON FOR FOLLOWUP: Left groin cellulitis and bilateral groin cutaneous candidiasis. INTERVAL HISTORY: The patient is currently afebrile. The patient is breathing comfortably. Denies having any chest pain or shortness of breath or cough or discomfort to the groin area. PHYSICAL EXAMINATION: Blood pressure 164/84 with a pulse of 78. Temperature is 97.8. He is 93% on room air. General description is an elderly male lying in bed in no distress. RESPIRATORY SYSTEM: Unlabored breathing. Clear to auscultation anteriorly. HEART: S1, S2. Regular rate and rhythm. ABDOMEN: Soft. No tenderness. LABS: Hemoglobin 8.5, white count 10.0, BUN of 35, creatinine is 2.90. DIAGNOSTIC IMPRESSION AND PLAN: Patient with bilateral groin area cutaneous candidiasis and left thigh cellulitis. Antibiotic is in the form of cefazolin 2 grams q.12 hours along with nystatin powder. Monitor his clinical course closely. Continue with supportive care. MMODL / IJN: [id number] /
[2019-09-26 20:12] LABS: Glucose,Whole Blood 233 mg/dL (75-99)
[2019-09-26] MEDS: ASPIRIN 81 MG PO SCH (20:18)
[2019-09-26] MEDS: ATORVASTATIN 80 MG TAB PO SCH (20:18)
[2019-09-26] MEDS: INSULIN DETEMIR (LEVEMIR) 100 UNIT/ML SYR SQ SCH (20:54)
--- NOTE | 2019-09-26 21:02 | PN ---
PROGRESS NOTE Patient is seen for followup for acute kidney injury. Serum creatinine is at 2.9, which is slightly higher than the 2.7 for the last couple of days. Patient is maintained on IV Lasix. He complains of shortness of breath on exertion. No other major complaints. On examination today, blood pressure was 156/65, heart rate 66 per minute. He is afebrile. EXAMINATION OF THE HEART: S1 and S2. EXAMINATION OF LUNGS: Decreased breath sounds at bases. ABDOMEN: Soft, non-tender. Examination of lower extremities shows left foot currently wrapped, and patient has right BKA. GEOLOGIST PETROLEUM exam is grossly intact. Labs show sodium 140, potassium 4.1, chloride 107, BUN 35, creatinine 2.9. ASSESSMENT: 1. Acute kidney injury, acute tubular necrosis, currently nonoliguric. Serum creatinine slightly higher than yesterday. Patient is maintained on Lasix, which I will continue, as he does have element of volume overload. No nephrotoxic agents on board. Check post-void residual. Rule out urine retention. 2. Hypertension with chronic kidney disease, stage III. Norvasc was increased yesterday. Blood pressure is somewhat improved. 3. Left toe gangrene with amputation, being followed by Vascular Surgery, maintained on antibiotics. 4. Severe iron deficiency, maintained on IV iron. PLAN: Check post-void residual. Rule out urine retention. Continue with current dose of IV Lasix. Check chest x-ray in a.m. MMODL / IJN: [id number] /
--- NOTE | 2019-09-26 23:29 | P.PN ---
Subjective Progress Note Date: 09/26/19 Principal diagnosis: Left leg cellulitis Patient is a 79-year-old male with a known history of hypertension, diabetes type 2 insulin-dependent, dementia, vascular disease status post right BKA and history of recent left second toe amputation and other multiple medical problems including pacemaker placement was brought to the ER after he was found unresponsive at home. Patient is currently awake alert and oriented now. States that he did not eat his breakfast and took his insulin and also he takes glipizide. Patient was found by his daughter who lives next door. Patient states that he did not fall suddenly and sat down without suffering any trauma. Denied any head injury. Patient does have some left hip soreness otherwise able to bear weight. Patient was found to have blood sugar 40 by EMS. He was given D50 and patient is doing improved clinically and improved mental status as well. Otherwise patient denied any complaints of chest pain or shortness of breath. Denied any recent illnesses. No fever no chills. Patient denied any taking excess insulin. No complaints of chest pain or shortness of breath. No dysuria or hematuria. Patient also noticed to have some serous discharge from the ambulation site of the left second toe and some swelling of the foot last couple of days. Denied any purulent discharge. X-ray of the foot showed interval amputation of the second digit EKG showed atrial sensing ventricular paced rhythm Laboratory data showed WBC 15.2, hemoglobin 9.2, lymphocytes 0.4 Sodium 134, potassium 3.5, BUN 32 and creatinine 2.93 Calcium 7.9 Albumin 2.9 and blood sugar is 49 now 09/24/2019 Patient is seen and evaluated at bedside for acute renal injury and fluid overload; nephrology is following and patient has been started on Lasix 40 mg IV daily; nephro is recommending to follow renal function closely with possible renal biopsy if renal function remains unchanged; patient had been lethargic due to hypoglycemia; plan is to possibly discharge patient to skilled rehab once stable; continue treatment for left second toe gangrene with amputation with nonhealing wound; wound care recommendations are noted and appreciated 09/25/2019 Patient is seen for follow-up on acute renal injury; creatinine has improved since admission but plateaued around 2.7; patient remains volume overloaded and continues to stay on current dose of IV Lasix; nephrology on board and recomm ending to continue Lasix for another 24 hours at which time they will reevaluate; blood pressure remains uncontrolled; Norvasc is increased to 10 mg daily; we will continue to monitor blood pressure closely and make further adjustments as needed; lab review shows severe depletion of iron stores; patient has been started on IV iron supplementation Vascular surgery is following for left toe gangrene with amputation; continue with current antibiotics until final recommendations by ID 09/26/2019 Patient is currently lying in the bed but lethargic and drowsy. Patient seems volume overloaded and was given a dose of IV Lasix. Nephrology is following. Renal function is still about the same. Patient is also given IV iron. Patient is being continued on cefazolin as per ID recommendations for left lower extremity/foot cellulitis Laboratory data showed BUN 35 and creatinine 2.9 Hemoglobin 8.5 Active Medications Amlodipine Besylate (Norvasc) 5 mg PO BID ON LICENSE OF [facility] Last Admin: 09/26/19 20:18 Dose: 5 mg Documented by: Apixaban (Eliquis) 2.5 mg PO BID ON LICENSE OF [facility] Last Admin: 09/26/19 20:18 Dose: 2.5 mg Documented by: Aspirin (Aspirin) 81 mg PO [facility] Last Admin: 09/26/19 20:18 Dose: 81 mg Documented by: Atorvastatin Calcium (Lipitor) 80 mg PO [facility] Last Admin: 09/26/19 20:18 Dose: 80 mg Documented by: Donepezil HCl (Aricept) 10 mg PO DAILY ON LICENSE OF [facility] Last Admin: 09/26/19 07:16 Dose: 10 mg Documented by: Duloxetine HCl (Cymbalta) 30 mg PO DAILY ON LICENSE OF [facility] Last Admin: 09/26/19 07:17 Dose: 30 mg Documented by: Furosemide (Lasix) 40 mg IV DAILY ON LICENSE OF [facility] Last Admin: 09/26/19 07:16 Dose: 40 mg Documented by: Cefazolin Sodium 2 gm/ Sodium (Chloride) 50 mls @ 100 mls/hr IVPB Q12HR ON LICENSE OF [facility] Last Admin: 09/26/19 20:53 Dose: 100 mls/hr Documented by: Insulin Aspart (Novolog) 0 unit SQ [facility]; Protocol Last Admin: 09/26/19 20:18 Dose: 3 unit Documented by: Insulin Detemir (Levemir) 5 unit SQ [facility] Last Admin: 09/26/19 20:54 Dose: 5 unit Documented by: Midodrine (Proamatine) 2.5 mg PO TID@0900,1300,1700 ON LICENSE OF [facility] Last Admin: 09/26/19 17:05 Dose: Not Given Documented by: Naloxone HCl (Narcan) 0.2 mg IV Q2M PRN PRN Reason: Opioid Reversal Objective - Vital Signs Vital signs: Vital Signs Temp 97.6 F 09/26/19 19:21 Pulse 62 09/26/19 19:21 Resp 16 09/26/19 19:21 BP 101/62 09/26/19 19:21 Pulse Ox 93 L 09/26/19 19:21 Intake & Output 09/26/19 09/26/19 09/27/19 06:59 18:59 06:59 Intake Total 100 50 Output Total 300 450 Balance -200 -400 Intake: Intake, IV Titration 50 Amount Sodium Ferric Gluconat- 50 Sucrose 125 mg In Sodium Chloride 0.9% 100 ml @ 100 mls/hr IVPB DAILY ON LICENSE OF [facility] Rx#:[id number] Oral 100 Output: Urine 300 450 Other: Voiding Method Urinal Urinal # Bowel Movements 1 - Exam Patient is lying in the bed comfortably, no acute distress, awake alert and oriented.. HEENT: Normocephalic. Neck is supple. Pupils reactive. Nostrils clear. Oral cavity is moist. Ears reveal no drainage. Neck reveals no JVD, carotid bruits, or thyromegaly. CHEST EXAMINATION: Trachea is central. Symmetrical expansion. Lung conklin clear to auscultation and percussion. CARDIAC: Normal S1, S2 with no gallops. No murmurs ABDOMEN: Soft. Bowel sounds normal. No organomegaly. No abdominal bruits. Extremities: reveal no edema. LUE swelling. RT BKA, No clubbing or cyanosis Left second toe amputation site intact. Redness and serous discharge noted around the amputation site. Minimal tenderness and warmth. Dressing changed and dry and intact noted. Neurologically awake, alert, oriented x3 with well-coordinated movements. No focal deficits noted Skin: No rash or skin lesions. Psychiatric: Cooperative. Non-suicidal Musculoskeletal: No joint swelling or deformity. Normal range of motion. - Labs CBC & Chem 7: 09/26/19 07:34 09/26/19 07:34 Labs: Abnormal Lab Results - Last 24 Hours (Table) 05/17/20 05/18/20 05/18/20 Range/Units 20:56 06:46 07:34 RBC 2.98 L (4.30-5.90) m/uL Hgb 8.5 L (13.0-17.5) gm/dL Hct 26.6 L (39.0-53.0) % BUN (9-20) mg/dL Creatinine (0.66-1.25) mg/dL Glucose (74-99) mg/dL POC Glucose (mg/dL) 213 H 102 H (75-99) mg/dL Calcium (8.4-10.2) mg/dL 09/26/19 09/26/19 09/26/19 Range/Units 07:34 12:04 16:54 RBC (4.30-5.90) m/uL Hgb (13.0-17.5) gm/dL Hct (39.0-53.0) % BUN 35 H (9-20) mg/dL Creatinine 2.90 H (0.66-1.25) mg/dL Glucose 103 H (74-99) mg/dL POC Glucose (mg/dL) 197 H 138 H (75-99) mg/dL Calcium 8.2 L (8.4-10.2) mg/dL Microbiology - Last 24 Hours (Table) 09/21/19 16:34 Blood Culture - Preliminary Blood No Growth after 120 hours Assessment and Plan Assessment: Unresponsiveness due to hypoglycemia. Not encephalopathic. Hypoglycemia due to insulin and glipizide. Left second toe serous discharge with surrounding redness. Possible infection at the amputation site. Peripheral vascular disease with history of right BKA and left second toe amputation Diabetes type 2 insulin-dependent Hypertension Dementia Chronic CHF ejection fraction unknown Previous history of syncopal episode prior to receiving pacemaker History of carotid stenosis Daily alcohol abuse DVT prophylaxis patient is already on Eliquis at home. Plan: Patient was given D50 and blood sugar is improving now. Did hold Lantus initially and started back at lower dose.. Glipizide will be held. Patient was given a dose of ceftezole in the ER. Wound culture showed staph aureus. Continued on cefazolin. . Monitor WBC count. Continue with antibiotics and vascular surgery as well as ID is following.. Continue the home medications and follow-up closely. Pain management. Further recommendations based on the clinical course. Time with Patient: Greater than 30
[2019-09-27 06:53] LABS: Glucose,Whole Blood 128 mg/dL (75-99)
[2019-09-27] MEDS: INSULIN ASPART (NovoLOG) 100 UNIT/ML VIAL SQ SCH ×4 (07:00→20:54)
[2019-09-27] MEDS: FUROSEMIDE 10 MG/ML 4 ML VIAL IV SCH ×3 (07:50→23:16)
[2019-09-27] MEDS: MIDODRINE 5 MG TAB PO SCH ×3 (07:51→17:13)
[2019-09-27] MEDS: DULoxetine HCL 30 MG CAPSULE.DR PO SCH (07:51)
[2019-09-27] MEDS: amLODIPine 5 MG TAB PO SCH ×2 (07:51→20:54)
[2019-09-27] MEDS: DONEPEZIL 10 MG TAB PO SCH (07:51)
[2019-09-27] MEDS: APIXABAN 2.5 MG TABLET PO SCH ×2 (07:51→20:54)
--- NOTE | 2019-09-27 08:19 | XR ---
EXAMINATION TYPE: XR chest 1V DATE OF EXAM: 09/27/2019 COMPARISON: 09/22/2019 INDICATION: CHF TECHNIQUE: Single frontal view of the chest is obtained. FINDINGS: The heart size is upper limits of normal. The pulmonary vasculature is prominent. Diffuse increased lung markings are present. This may be more focal in the right lower lobe. Findings are worsening over the interval. Pacemaker overlies left chest IMPRESSION: 1. Findings which can be compatible with pulmonary edema and congestive heart failure in the proper c linical setting. Findings are worsening from comparison.
[2019-09-27 11:58] LABS: Glucose,Whole Blood 183 mg/dL (75-99)
[2019-09-27] MEDS ORDERED: FUROSEMIDE 10 MG/ML 4 ML VIAL IV STA (12:08)
--- NOTE | 2019-09-27 15:43 | PN ---
PROGRESS NOTE Patient is seen for followup for acute kidney injury. He is currently sitting on a bedside chair. He is complaining of shortness of breath which seems to be slightly worse than yesterday. Patient has been voiding fairly well. On examination today, blood pressure this morning was 182/60, heart rate 69 per minute. He is afebrile. EXAMINATION OF THE HEART: S1 and S2. EXAMINATION OF LUNGS: Decreased breath sounds at bases with basal crackles heard. ABDOMEN: Soft, non-tender. Examination of lower extremities shows edema 2+ bilaterally. [employer] exam is grossly intact. Labs show sodium of 140, potassium 4.1, chloride 107, BUN 35, creatinine 2.9 from yesterday. Hemoglobin 8.5 g/dL. ASSESSMENT: 1. Acute kidney injury, acute tubular necrosis, nonoliguric, with some worsening of creatinine from yesterday. Post-void residual will be done this morning. Patient is volume-overloaded. I will give him an extra dose of Lasix today. He is not on any nephrotoxic medications and blood pressure is not low; actually it is on the higher side. 2. Hypertension with chronic kidney disease, maintained on Norvasc, which was increased. 3. Left toe gangrene with amputation, being followed by Vascular Surgery, maintained on antibiotics. 4. Severe iron deficiency, status post IV iron. 5. Volume overload. To get an extra dose of Lasix today. Ejection fraction 55% to 60% in May of 2019. 6. Elevated right heart pressures noted on echocardiogram in May of 2019. PLAN: Check chest x-ray. Repeat another dose of Lasix. Patient will need regular dose of IV Lasix started. MMODL / IJN: [id number] /
[2019-09-27 17:07] LABS: Glucose,Whole Blood 241 mg/dL (75-99)
[2019-09-27 20:33] LABS: Glucose,Whole Blood 252 mg/dL (75-99)
[2019-09-27] MEDS: ASPIRIN 81 MG PO SCH (20:54)
[2019-09-27] MEDS: INSULIN DETEMIR (LEVEMIR) 100 UNIT/ML SYR SQ SCH (20:54)
[2019-09-27] MEDS: ATORVASTATIN 80 MG TAB PO SCH (20:54)
--- NOTE | 2019-09-27 22:36 | PN ---
PROGRESS NOTE DATE OF SERVICE: 09/27/2019 REASON FOR FOLLOWUP: Bilateral groin area cutaneous candidiasis and left grain cellulitis. INTERVAL HISTORY: The patient is currently afebrile, has been complaining of not feeling that good. No chest pain or shortness of breath or cough. No abdominal pain or pain to the bilateral groin areas. PHYSICAL EXAMINATION: Blood pressure 187/67 with a pulse of 67, temperature 98.4. He is 90% on room air. General description is an elderly male up in the chair in no distress. RESPIRATORY SYSTEM: Unlabored breathing with decreased breath sounds at the base. No wheeze. HEART: S1, S2. Regular rate and rhythm. ABDOMEN: Soft. Bilateral groins still has cutaneous candidiasis but the redness has decreased. No drainage. LABS: White count normal as of yesterday. DIAGNOSTIC IMPRESSION AND PLAN: 1. Patient with bilateral groin area cutaneous candidiasis. Source is cellulitis of the left thigh. Patient is to continue with nystatin powder along with cefazolin and finish therapy with oral antibiotic once stable for discharge. 2. Left second toe amputation wound. Local care to continue with dry Aquacel Silver dressing. MMODL / IJN: [id number] /
[2019-09-27] MEDS ORDERED: MELATONIN 3 MG TABLET PO PRN (23:10)
[2019-09-28 06:47] LABS: Glucose,Whole Blood 86 mg/dL (75-99)
[2019-09-28 06:58] LABS: Basophils # (A) 0.1 k/uL (0-0.2); Basophils % (A) 1 %; Eosinophils # (A) 0.5 k/uL (0-0.7); Eosinophils % (A) 5 %; HCT 26.3 % (39.0-53.0); HGB 8.5 gm/dL (13.0-17.5); Hypochromasia Slight; Lymphocytes # (A) 1.5 k/uL (1.0-4.8); Lymphocytes % (A) 14 %; MCH 28.6 pg (25.0-35.0); MCHC 32.2 g/dL (31.0-37.0); MCV 88.8 fL (80.0-100.0); Mean Platelet Volume 7.6; Monocytes # (A) 0.6 k/uL (0-1.0); Monocytes % (A) 6 %; Neutrophils # (A) 8.1 k/uL (1.3-7.7); Neutrophils % (A) 73 %; Platelet Count 261 k/uL (150-450); RBC 2.97 m/uL (4.30-5.90); RDW 14.1 % (11.5-15.5); WBC 11.1 k/uL (3.8-10.6)
[2019-09-28 07:14] LABS: Potassium 4.1 mmol/L (3.5-5.1)
[2019-09-28] MEDS: INSULIN ASPART (NovoLOG) 100 UNIT/ML VIAL SQ SCH ×4 (07:21→21:18)
[2019-09-28] MEDS: amLODIPine 5 MG TAB PO SCH ×2 (07:44→21:16)
[2019-09-28] MEDS: APIXABAN 2.5 MG TABLET PO SCH ×2 (07:44→21:16)
[2019-09-28] MEDS: FUROSEMIDE 10 MG/ML 4 ML VIAL IV SCH ×3 (07:44→23:44)
[2019-09-28] MEDS: DONEPEZIL 10 MG TAB PO SCH (07:45)
[2019-09-28] MEDS: DULoxetine HCL 30 MG CAPSULE.DR PO SCH (07:45)
[2019-09-28 11:26] VITALS: BMI 27.3
[2019-09-28 11:41] LABS: Glucose,Whole Blood 180 mg/dL (75-99)
--- NOTE | 2019-09-28 16:28 | PN ---
PROGRESS NOTE Patient is seen for followup for acute kidney injury, nonoliguric. Patient was quite volume overloaded yesterday. He received 2 doses of IV Lasix. He is much better today. Denies any significant shortness of breath. No chest pains. PHYSICAL EXAMINATION: Blood pressure was 162/65, heart rate of 68 per minute, he is afebrile. Examination of the heart S1, S2. Examination of the lungs, decreased breath sounds at bases. Abdomen is soft, nontender. Examination of the lower extremities shows edema 2+. Left foot is currently wrapped. [employer] exam grossly intact. LABS: Show sodium 139, potassium 4.1, chloride 106, CO2 is 25, BUN 45, creatinine 3.12. ASSESSMENT: 1. Acute kidney injury, mostly cardiorenal currently. IV Lasix was increased yesterday. Patient feels better today. I will continue for one more day at q.8 hours. We will repeat labs in a.m. and decrease his Lasix tomorrow. 2. Volume overload, improved today. 3. Left toe gangrene with amputation, being followed by Vascular Surgery, maintained on antibiotics. 4. Severe iron deficiency, status post IV iron. 5. Chronic kidney disease stage III with previous creatinine at 1.5 in July of 2018, secondary to diabetic nephropathy. PLAN: Continue current dose of IV Lasix. Repeat labs in a.m. MMODL / IJN: [id number] /
[2019-09-28 16:34] LABS: Glucose,Whole Blood 205 mg/dL (75-99)
--- NOTE | 2019-09-28 17:31 | PN ---
PROGRESS NOTE DATE OF SERVICE: 09/28/2019. REASON FOR FOLLOWUP: 1. Bilateral acquired cutaneous candidiasis groin. 2. Left thigh cellulitis. 3. Left second toe amputation site wound. INTERVAL HISTORY: The patient is currently afebrile. The patient is feeling much better, breathing comfortably. No chest pain, shortness of breath or cough. No abdominal pain or diarrhea. PHYSICAL EXAMINATION: Blood pressure is 152/65 with a pulse of 68, temperature is 97.8, she is 95% on 3 L nasal cannula. General description is an elderly male, lying in bed in no distress. RESPIRATORY SYSTEM: Unlabored breathing, clear to auscultation anteriorly. HEART: S1, S2. Regular rate and rhythm. ABDOMEN: Soft. Left groin, bilateral groin area swelling and redness improved, left thigh redness resolved, . LABS: Hemoglobin 8.4, white count 11.1, BUN of 45, creatinine 3.12. DIAGNOSTIC IMPRESSION AND PLAN: 1. Patient with bilateral acquired cutaneous groin candidiasis with left thigh cellulitis. Continue with nystatin powder and Cefazolin. 2. Left second toe amputation site wound. Local care with dry Aquacel Silver packing. MMODL / IJN: [id number] /
[2019-09-28] MEDS: CARVEDILOL 3.125 MG TAB PO SCH (18:21)
[2019-09-28 21:11] LABS: Glucose,Whole Blood 335 mg/dL (75-99)
[2019-09-28] MEDS: ASPIRIN 81 MG PO SCH (21:16)
[2019-09-28] MEDS: ATORVASTATIN 80 MG TAB PO SCH (21:16)
[2019-09-28] MEDS: NYSTATIN 100,000 UNIT/GM POWD 15 GM TOPICAL SCH (21:17)
[2019-09-28] MEDS: INSULIN DETEMIR (LEVEMIR) 100 UNIT/ML SYR SQ SCH (21:18)
--- NOTE | 2019-09-29 00:31 | P.PN ---
Subjective Progress Note Date: 09/27/19 Principal diagnosis: Left leg cellulitis Patient is a 79-year-old male with a known history of hypertension, diabetes type 2 insulin-dependent, dementia, vascular disease status post right BKA and history of recent left second toe amputation and other multiple medical problems including pacemaker placement was brought to the ER after he was found unresponsive at home. Patient is currently awake alert and oriented now. States that he did not eat his breakfast and took his insulin and also he takes glipizide. Patient was found by his daughter who lives next door. Patient states that he did not fall suddenly and sat down without suffering any trauma. Denied any head injury. Patient does have some left hip soreness otherwise able to bear weight. Patient was found to have blood sugar 40 by EMS. He was given D50 and patient is doing improved clinically and improved mental status as well. Otherwise patient denied any complaints of chest pain or shortness of breath. Denied any recent illnesses. No fever no chills. Patient denied any taking excess insulin. No complaints of chest pain or shortness of breath. No dysuria or hematuria. Patient also noticed to have some serous discharge from the ambulation site of the left second toe and some swelling of the foot last couple of days. Denied any purulent discharge. X-ray of the foot showed interval amputation of the second digit EKG showed atrial sensing ventricular paced rhythm Laboratory data showed WBC 15.2, hemoglobin 9.2, lymphocytes 0.4 Sodium 134, potassium 3.5, BUN 32 and creatinine 2.93 Calcium 7.9 Albumin 2.9 and blood sugar is 49 now 09/24/2019 Patient is seen and evaluated at bedside for acute renal injury and fluid overload; nephrology is following and patient has been started on Lasix 40 mg IV daily; nephro is recommending to follow renal function closely with possible renal biopsy if renal function remains unchanged; patient had been lethargic due to hypoglycemia; plan is to possibly discharge patient to skilled rehab once stable; continue treatment for left second toe gangrene with amputation with nonhealing wound; wound care recommendations are noted and appreciated 09/25/2019 Patient is seen for follow-up on acute renal injury; creatinine has improved since admission but plateaued around 2.7; patient remains volume overloaded and continues to stay on current dose of IV Lasix; nephrology on board and recomm ending to continue Lasix for another 24 hours at which time they will reevaluate; blood pressure remains uncontrolled; Norvasc is increased to 10 mg daily; we will continue to monitor blood pressure closely and make further adjustments as needed; lab review shows severe depletion of iron stores; patient has been started on IV iron supplementation Vascular surgery is following for left toe gangrene with amputation; continue with current antibiotics until final recommendations by ID 09/26/2019 Patient is currently lying in the bed but lethargic and drowsy. Patient seems volume overloaded and was given a dose of IV Lasix. Nephrology is following. Renal function is still about the same. Patient is also given IV iron. Patient is being continued on cefazolin as per ID recommendations for left lower extremity/foot cellulitis Laboratory data showed BUN 35 and creatinine 2.9 Hemoglobin 8.5 09/27/2019 Patient is currently sitting in the chair. Shortness of breath at rest and congested cough. Chest x-ray showed findings compatible with pulmonary edema and congestive heart failure in the proper clinical setting. Findings are worsening from comparison. Patient was started on IV Lasix 40 mg every 8 hourly. Follow-up renal function. BUN 35 and creatinine 2.9 and hemoglobin 8.5. Nephrology and ID is following. Active Medications Amlodipine Besylate (Norvasc) 5 mg PO BID [facility]END[facility] TO [facility] Last Admin: 09/26/19 20:18 Dose: 5 mg Documented by: Apixaban (Eliquis) 2.5 mg PO BID [facility]END[facility] S[facility] TO [facility] Last Admin: 09/26/19 20:18 Dose: 2.5 mg Documented by: Aspirin (Aspirin) 81 mg PO [facility] Last Admin: 09/26/19 20:18 Dose: 81 mg Documented by: Atorvastatin Calcium (Lipitor) 80 mg PO [facility] Last Admin: 09/26/19 20:18 Dose: 80 mg Documented by: Donepezil HCl (Aricept) 10 mg PO DAILY [facility] TO [facility] Last Admin: 09/26/19 07:16 Dose: 10 mg Documented by: Duloxetine HCl (Cymbalta) 30 mg PO DAILY [facility] Last Admin: 09/26/19 07:17 Dose: 30 mg Documented by: Furosemide (Lasix) 40 mg IV DAILY [facility] Last Admin: 09/26/19 07:16 Dose: 40 mg Documented by: Cefazolin Sodium 2 gm/ Sodium (Chloride) 50 mls @ 100 mls/hr IVPB Q12HR PEND[facility] SALE TO [facility] Last Admin: 09/26/19 20:53 Dose: 100 mls/hr Documented by: Insulin Aspart (Novolog) 0 unit SQ [facility] PENDING S[facility] TO [facility]; Protocol Last Admin: 09/26/19 20:18 Dose: 3 unit Documented by: Insulin Detemir (Levemir) 5 unit SQ [facility] Last Admin: 09/26/19 20:54 Dose: 5 unit Documented by: Midodrine (Proamatine) 2.5 mg PO TID@0900,1300,1700 PEND[facility] S[facility] TO [facility] Last Admin: 09/26/19 17:05 Dose: Not Given Documented by: Naloxone HCl (Narcan) 0.2 mg IV Q2M PRN PRN Reason: Opioid Reversal Objective - Vital Signs Vital signs: Vital Signs Temp 98.4 F 09/27/19 19:17 Pulse 67 09/27/19 19:17 Resp 18 09/27/19 19:17 BP 187/67 09/27/19 19:17 Pulse Ox 90 L 09/27/19 19:17 Intake & Output 09/27/19 09/27/19 09/28/19 06:59 18:59 06:59 Intake Total 50 Output Total 500 400 Balance -450 -400 Intake: Intake, IV Titration 50 Amount ceFAZolin 2 gm In Sodium 50 Chloride 0.9% 50 ml @ 100 mls/hr IVPB Q12HR PENDING SALE TO [facility] Rx #:[id number] Output: Urine 500 400 Other: Voiding Method Urinal # Voids 2 1 # Bowel Movements 1 - Exam Patient is lying in the bed comfortably, no acute distress, awake alert and oriented.. HEENT: Normocephalic. Neck is supple. Pupils reactive. Nostrils clear. Oral cavity is moist. Ears reveal no drainage. Neck reveals no JVD, carotid bruits, or thyromegaly. CHEST EXAMINATION: Trachea is central. Symmetrical expansion.Bilateral diffuse rhonchi and crackles. Lung conklin clear to auscultation and percussion. CARDIAC: Normal S1, S2 with no gallops. No murmurs ABDOMEN: Soft. Bowel sounds normal. No organomegaly. No abdominal bruits. Extremities: reveal no edema. LUE swelling. RT BKA, No clubbing or cyanosis. Left thigh redness improving. Left second toe amputation site intact. No discharge noted.. Minimal tenderness and warmth. Dressing changed and dry and intact noted. Neurologically awake, alert, oriented x3 with well-coordinated movements. No focal deficits noted Skin: No rash or skin lesions. Psychiatric: Cooperative. Non-suicidal Musculoskeletal: No joint swelling or deformity. Normal range of motion. - Labs CBC & Chem 7: 09/28/19 06:22 09/28/19 06:22 Labs: Abnormal Lab Results - Last 24 Hours (Table) 09/27/19 09/27/19 09/27/19 Range/Units 06:51 11:56 17:05 POC Glucose (mg/dL) 128 H 183 H 241 H (75-99) mg/dL 09/27/19 Range/Units 20:33 POC Glucose (mg/dL) 252 H (75-99) mg/dL Microbiology - Last 24 Hours (Table) 09/21/19 16:34 Blood Culture - Final Blood No Growth after 144 hours Assessment and Plan Assessment: Unresponsiveness due to hypoglycemia. Not encephalopathic. Hypoglycemia due to insulin and glipizide.improved now. Acute on chronic CHF with diastolic dysfunction. Acute kidney injury due to ATN' Left thigh cellulitis. Left second toe serous discharge with surrounding redness. Possible infection at the amputation site. Peripheral vascular disease with history of right BKA and left second toe amputation Severe Iron Deff s/p IV iron Diabetes type 2 insulin-dependent Hypertension Dementia Previous history of syncopal episode prior to receiving pacemaker History of carotid stenosis Daily alcohol abuse DVT prophylaxis patient is already on Eliquis at home. Plan: Patient was given D50 and blood sugar is improving now. Did hold Lantus initially and started back at lower dose.. Glipizide will be held. Patient was given a dose of ceftezole in the ER. Wound culture showed staph aureus. Continued on cefazolin. . Monitor WBC count. Continue with antibiotics and vascular surgery as well as ID is following.. Patient was started IV Lasix 40 mg every 8 hourly. Monitor renal function. Continue the home medications and follow-up closely. Pain management. Further recommendations based on the clinical course. Time with Patient: Greater than 30
--- NOTE | 2019-09-29 00:34 | P.PN ---
Subjective Progress Note Date: 09/28/19 Principal diagnosis: Left leg cellulitis Patient is a 79-year-old male with a known history of hypertension, diabetes type 2 insulin-dependent, dementia, vascular disease status post right BKA and history of recent left second toe amputation and other multiple medical problems including pacemaker placement was brought to the ER after he was found unresponsive at home. Patient is currently awake alert and oriented now. States that he did not eat his breakfast and took his insulin and also he takes glipizide. Patient was found by his daughter who lives next door. Patient states that he did not fall suddenly and sat down without suffering any trauma. Denied any head injury. Patient does have some left hip soreness otherwise able to bear weight. Patient was found to have blood sugar 40 by EMS. He was given D50 and patient is doing improved clinically and improved mental status as well. Otherwise patient denied any complaints of chest pain or shortness of breath. Denied any recent illnesses. No fever no chills. Patient denied any taking excess insulin. No complaints of chest pain or shortness of breath. No dysuria or hematuria. Patient also noticed to have some serous discharge from the ambulation site of the left second toe and some swelling of the foot last couple of days. Denied any purulent discharge. X-ray of the foot showed interval amputation of the second digit EKG showed atrial sensing ventricular paced rhythm Laboratory data showed WBC 15.2, hemoglobin 9.2, lymphocytes 0.4 Sodium 134, potassium 3.5, BUN 32 and creatinine 2.93 Calcium 7.9 Albumin 2.9 and blood sugar is 49 now 09/24/2019 Patient is seen and evaluated at bedside for acute renal injury and fluid overload; nephrology is following and patient has been started on Lasix 40 mg IV daily; nephro is recommending to follow renal function closely with possible renal biopsy if renal function remains unchanged; patient had been lethargic due to hypoglycemia; plan is to possibly discharge patient to skilled rehab once stable; continue treatment for left second toe gangrene with amputation with nonhealing wound; wound care recommendations are noted and appreciated 09/25/2019 Patient is seen for follow-up on acute renal injury; creatinine has improved since admission but plateaued around 2.7; patient remains volume overloaded and continues to stay on current dose of IV Lasix; nephrology on board and recomm ending to continue Lasix for another 24 hours at which time they will reevaluate; blood pressure remains uncontrolled; Norvasc is increased to 10 mg daily; we will continue to monitor blood pressure closely and make further adjustments as needed; lab review shows severe depletion of iron stores; patient has been started on IV iron supplementation Vascular surgery is following for left toe gangrene with amputation; continue with current antibiotics until final recommendations by ID 09/26/2019 Patient is currently lying in the bed but lethargic and drowsy. Patient seems volume overloaded and was given a dose of IV Lasix. Nephrology is following. Renal function is still about the same. Patient is also given IV iron. Patient is being continued on cefazolin as per ID recommendations for left lower extremity/foot cellulitis Laboratory data showed BUN 35 and creatinine 2.9 Hemoglobin 8.5 09/27/2019 Patient is currently sitting in the chair. Shortness of breath at rest and congested cough. Chest x-ray showed findings compatible with pulmonary edema and congestive heart failure in the proper clinical setting. Findings are worsening from comparison. Patient was started on IV Lasix 40 mg every 8 hourly. Follow-up renal function. BUN 35 and creatinine 2.9 and hemoglobin 8.5. Nephrology and ID is following. 09/28/2019 Patient is more awake and oriented. Her breathing status is much improved. Patient is getting IV Lasix. Denies any complaints of chest pain or worsening shortness of breath. Leg swelling and redness is also improving. Patient is currently on antibiotics in the form of cefazolin. Otherwise renal function is slightly worsened to creatinine level 3.12. BUN 45. Nephrology and ID is on board. Patient will be continued on PT OT. Active Medications Amlodipine Besylate (Norvasc) 5 mg PO BID [facility] Last Admin: 09/28/19 21:16 Dose: 5 mg Documented by: Apixaban (Eliquis) 2.5 mg PO BID [facility] Last Admin: 09/28/19 21:16 Dose: 2.5 mg Documented by: Aspirin (Aspirin) 81 mg PO [facility] Last Admin: 09/28/19 21:16 Dose: 81 mg Documented by: Atorvastatin Calcium (Lipitor) 80 mg PO [facility] Last Admin: 09/28/19 21:16 Dose: 80 mg Documented by: Carvedilol (Coreg) 3.125 mg PO BID-W/MEALS [facility] Last Admin: 09/28/19 18:21 Dose: 3.125 mg Documented by: Donepezil HCl (Aricept) 10 mg PO DAILY [facility] Last Admin: 09/28/19 07:45 Dose: 10 mg Documented by: Duloxetine HCl (Cymbalta) 30 mg PO DAILY [facility] Last Admin: 09/28/19 07:45 Dose: 30 mg Documented by: Furosemide (Lasix) 40 mg IV Q8HR [facility] Last Admin: 09/28/19 23:44 Dose: 40 mg Documented by: Cefazolin Sodium 1,000 mg/ (Sodium Chloride) 50 mls @ 100 mls/hr IVPB Q12HR [facility] Last Admin: 09/28/19 21:33 Dose: 100 mls/hr Documented by: Insulin Aspart (Novolog) 0 unit SQ ACHS [facility]; Protocol Last Admin: 09/28/19 21:18 Dose: 6 unit Documented by: Insulin Detemir (Levemir) 5 unit SQ HS [facility] Last Admin: 09/28/19 21:18 Dose: 5 unit Documented by: Melatonin (Melatonin) 3 mg PO HS PRN PRN Reason: Insomnia Last Admin: 09/27/19 23:16 Dose: 3 mg Documented by: Naloxone HCl (Narcan) 0.2 mg IV Q2M PRN PRN Reason: Opioid Reversal Nystatin (Mycostatin Powder) 1 applic TOPICAL BID [facility] Last Admin: 09/28/19 21:17 Dose: 1 applic Documented by: Objective - Vital Signs Vital signs: Vital Signs Temp 97.6 F 09/28/19 19:30 Pulse 71 09/28/19 19:30 Resp 20 09/28/19 19:30 BP 179/66 09/28/19 19:30 Pulse Ox 98 09/28/19 19:30 Intake & Output 09/28/19 09/28/19 09/29/19 06:59 18:59 06:59 Output Total 1000 600 Balance -1000 -600 Weight 86.5 kg 86.5 kg Output: Urine 1000 600 Other: Voiding Method Urinal Urinal - Exam Patient is lying in the bed comfortably, no acute distress, awake alert and oriented.. HEENT: Normocephalic. Neck is supple. Pupils reactive. Nostrils clear. Oral cavity is moist. Ears reveal no drainage. Neck reveals no JVD, carotid bruits, or thyromegaly. CHEST EXAMINATION: Trachea is central. Symmetrical expansion.Bilateral diffuse rhonchi and crackles. Lung conklin clear to auscultation and percussion. CARDIAC: Normal S1, S2 with no gallops. No murmurs ABDOMEN: Soft. Bowel sounds normal. No organomegaly. No abdominal bruits. Extremities: reveal 2+ edema. LUE swelling. RT BKA, No clubbing or cyanosis. Left thigh redness improving. Left second toe amputation site intact. No discharge noted.. Minimal tenderness and warmth. Dressing changed and dry and intact noted. Neurologically awake, alert, oriented x3 with well-coordinated movements. No focal deficits noted Skin: No rash or skin lesions. Psychiatric: Cooperative. Non-suicidal Musculoskeletal: No joint swelling or deformity. Normal range of motion. - Labs CBC & Chem 7: 09/28/19 06:22 09/28/19 06:22 Labs: Abnormal Lab Results - Last 24 Hours (Table) 09/28/19 09/28/19 09/28/19 Range/Units 06:22 06:22 11:40 WBC 11.1 H (3.8-10.6) k/uL RBC 2.97 L (4.30-5.90) m/uL Hgb 8.5 L (13.0-17.5) gm/dL Hct 26.3 L (39.0-53.0) % Neutrophils # 8.1 H (1.3-7.7) k/uL BUN 45 H (9-20) mg/dL Creatinine 3.12 H (0.66-1.25) mg/dL POC Glucose (mg/dL) 180 H (75-99) mg/dL Calcium 8.0 L (8.4-10.2) mg/dL 09/28/19 09/28/19 Range/Units 16:33 21:08 WBC (3.8-10.6) k/uL RBC (4.30-5.90) m/uL Hgb (13.0-17.5) gm/dL Hct (39.0-53.0) % Neutrophils # (1.3-7.7) k/uL BUN (9-20) mg/dL Creatinine (0.66-1.25) mg/dL POC Glucose (mg/dL) 205 H 335 H (75-99) mg/dL Calcium (8.4-10.2) mg/dL Microbiology - Last 24 Hours (Table) 09/21/19 16:34 Blood Culture - Final Blood No Growth after 144 hours Assessment and Plan Assessment: Unresponsiveness due to hypoglycemia. Not encephalopathic. Hypoglycemia due to insulin and glipizide.improved now. Acute on chronic CHF with diastolic dysfunction. Acute kidney injury due to ATN' Left thigh cellulitis. Left second toe serous discharge with surrounding redness. Possible infection at the amputation site. Peripheral vascular disease with history of right BKA and left second toe amputation Severe Iron Deff s/p IV iron Diabetes type 2 insulin-dependent Hypertension Dementia Previous history of syncopal episode prior to receiving pacemaker History of carotid stenosis Daily alcohol abuse DVT prophylaxis patient is already on Eliquis at home. Plan: Patient was given D50 and blood sugar is improving now. Did hold Lantus initially and started back at lower dose.. Glipizide will be held. Patient was given a dose of ceftezole in the ER. Wound culture showed staph aureus. Continued on cefazolin. . Monitor WBC count. Continue with antibiotics and vascular surgery as well as ID is following.. Patient was started IV Lasix 40 mg every 8 hourly. Monitor renal function. Continue the home medications and follow-up closely. Pain management. Further recommendations based on the clinical course. Time with Patient: Greater than 30
[2019-09-29 06:55] LABS: Glucose,Whole Blood 94 mg/dL (75-99)
[2019-09-29] MEDS: INSULIN ASPART (NovoLOG) 100 UNIT/ML VIAL SQ SCH ×4 (06:55→21:20)
[2019-09-29] MEDS: DULoxetine HCL 30 MG CAPSULE.DR PO SCH (07:08)
[2019-09-29] MEDS: DONEPEZIL 10 MG TAB PO SCH (07:08)
[2019-09-29] MEDS: FUROSEMIDE 10 MG/ML 4 ML VIAL IV SCH ×3 (07:08→23:07)
[2019-09-29] MEDS: CARVEDILOL 3.125 MG TAB PO SCH ×2 (07:08→16:55)
[2019-09-29] MEDS: amLODIPine 5 MG TAB PO SCH ×2 (07:08→21:20)
[2019-09-29] MEDS: APIXABAN 2.5 MG TABLET PO SCH ×2 (07:08→21:20)
[2019-09-29] MEDS: NYSTATIN 100,000 UNIT/GM POWD 15 GM TOPICAL SCH ×2 (07:09→21:20)
[2019-09-29 07:26] LABS: Basophils # (A) 0.1 k/uL (0-0.2); Basophils % (A) 0 %; Eosinophils # (A) 0.5 k/uL (0-0.7); Eosinophils % (A) 5 %; HCT 25.5 % (39.0-53.0); HGB 7.8 gm/dL (13.0-17.5); Hypochromasia Slight; Lymphocytes # (A) 1.5 k/uL (1.0-4.8); Lymphocytes % (A) 14 %; MCH 27.2 pg (25.0-35.0); MCHC 30.8 g/dL (31.0-37.0); MCV 88.3 fL (80.0-100.0); Mean Platelet Volume 7.8; Monocytes # (A) 0.6 k/uL (0-1.0); Monocytes % (A) 5 %; Neutrophils % (A) 73 %; Platelet Count 239 k/uL (150-450); RBC 2.88 m/uL (4.30-5.90); RDW 14.4 % (11.5-15.5); WBC 10.9 k/uL (3.8-10.6)
[2019-09-29 07:41] LABS: Potassium 4.1 mmol/L (3.5-5.1)
[2019-09-29 11:28] LABS: Glucose,Whole Blood 167 mg/dL (75-99)
[2019-09-29] MEDS ORDERED: DARBEPOETIN ALFA 60 MCG/0.3 ML SYRINGE SQ SCH (12:00)
[2019-09-29 14:19] LABS: Hemoglobin A1C 7.5 % (4.0-6.0)
--- NOTE | 2019-09-29 15:38 | PN ---
PROGRESS NOTE Patient is seen for follow up for acute kidney injury mainly cardiorenal and volume overload. The patient's Lasix was increased 2 days ago. His respiratory status has improved. However, he is complaining of weakness today. PHYSICAL EXAMINATION: Blood pressure was 167/64, heart rate 68 per minute, he is afebrile. Examination of the heart S1, S2. Examination of lungs, decreased breath sounds at bases. Abdomen is soft, nontender, obese. Examination of the lower extremities shows edema 2+ with BKA on the right side. Left foot is currently wrapped. [employer] exam grossly intact. LABS: Show sodium 138, potassium 4.1, chloride 104, BUN 43, creatinine 3.08. ASSESSMENT: 1. Acute kidney injury cardiorenal, currently stable, maintained on IV Lasix. Renal function is stable. Therefore, I will continue with the current dose of Lasix. Definitely the acute kidney injuries worsen by ongoing anemia. No active bleeding is noted. 2. Anemia. Add Aranesp for an element of anemia of chronic disease. Iron saturation was 5.9%. Patient did receive IV iron. 3. Left toe amputation and gangrene, maintained on antibiotics for nonhealing wound being followed by Vascular Surgery. 4. Volume overload, improved. Continue with IV Lasix. 5. Cardiomyopathy, ejection fraction was 55%-60% in May of 2019 with elevated right atrial pressure and dilated left atrium. PLAN: Continue current dose of IV Lasix. Add Aranesp. Repeat labs in a.m. MMODL / IJN: [id number] /
[2019-09-29 16:42] LABS: Glucose,Whole Blood 234 mg/dL (75-99)
--- NOTE | 2019-09-29 20:07 | PN ---
PROGRESS NOTE DATE OF SERVICE: 09/29/2019 REASON FOR FOLLOWUP: 1. Bilateral groin cutaneous candidiasis, left thigh cellulitis. 2. Left foot wound. INTERVAL HISTORY: The patient is currently afebrile. Patient is feeling better. Breathing comfortably. Denies having any chest pain or shortness of breath or cough. No abdominal pain or pain to the groin area. PHYSICAL EXAMINATION: Blood pressure 169/72 with a pulse of 76, temperature 98, he is 93% on room air. General description: The patient is an elderly male up in the chair in no distress. Respiratory system: Unlabored breathing. Clear to auscultation. HEART: S1, S2. Regular rate and rhythm. Abdomen soft. No tenderness. Left foot wound currently dressed up. No obvious drainage on the dressing. LABS: Hemoglobin 7.8, white count 10.9. Creatinine is 3.08. DIAGNOSTIC IMPRESSION/PLAN: 1. Patient with bilateral groin area cutaneous candidiasis. Continue with nystatin powder. 2. Left thigh wound, currently covered with cefazolin, transition to oral antibiotic on discharge. 3. Left foot second toe amputation wound. Local care to continue with Aquacel Silver dressing. MMODL / IJN: [id number] /
[2019-09-29 20:49] LABS: Glucose,Whole Blood 281 mg/dL (75-99)
[2019-09-29] MEDS: ATORVASTATIN 80 MG TAB PO SCH (21:20)
[2019-09-29] MEDS: INSULIN DETEMIR (LEVEMIR) 100 UNIT/ML SYR SQ SCH (21:20)
[2019-09-29] MEDS: ASPIRIN 81 MG PO SCH (21:20)
--- NOTE | 2019-09-30 00:50 | P.PN ---
Subjective Progress Note Date: 09/29/19 Principal diagnosis: Left leg cellulitis Patient is a 79-year-old male with a known history of hypertension, diabetes type 2 insulin-dependent, dementia, vascular disease status post right BKA and history of recent left second toe amputation and other multiple medical problems including pacemaker placement was brought to the ER after he was found unresponsive at home. Patient is currently awake alert and oriented now. States that he did not eat his breakfast and took his insulin and also he takes glipizide. Patient was found by his daughter who lives next door. Patient states that he did not fall suddenly and sat down without suffering any trauma. Denied any head injury. Patient does have some left hip soreness otherwise able to bear weight. Patient was found to have blood sugar 40 by EMS. He was given D50 and patient is doing improved clinically and improved mental status as well. Otherwise patient denied any complaints of chest pain or shortness of breath. Denied any recent illnesses. No fever no chills. Patient denied any taking excess insulin. No complaints of chest pain or shortness of breath. No dysuria or hematuria. Patient also noticed to have some serous discharge from the ambulation site of the left second toe and some swelling of the foot last couple of days. Denied any purulent discharge. X-ray of the foot showed interval amputation of the second digit EKG showed atrial sensing ventricular paced rhythm Laboratory data showed WBC 15.2, hemoglobin 9.2, lymphocytes 0.4 Sodium 134, potassium 3.5, BUN 32 and creatinine 2.93 Calcium 7.9 Albumin 2.9 and blood sugar is 49 now 09/24/2019 Patient is seen and evaluated at bedside for acute renal injury and fluid overload; nephrology is following and patient has been started on Lasix 40 mg IV daily; nephro is recommending to follow renal function closely with possible renal biopsy if renal function remains unchanged; patient had been lethargic due to hypoglycemia; plan is to possibly discharge patient to skilled rehab once stable; continue treatment for left second toe gangrene with amputation with nonhealing wound; wound care recommendations are noted and appreciated 09/25/2019 Patient is seen for follow-up on acute renal injury; creatinine has improved since admission but plateaued around 2.7; patient remains volume overloaded and continues to stay on current dose of IV Lasix; nephrology on board and recomm ending to continue Lasix for another 24 hours at which time they will reevaluate; blood pressure remains uncontrolled; Norvasc is increased to 10 mg daily; we will continue to monitor blood pressure closely and make further adjustments as needed; lab review shows severe depletion of iron stores; patient has been started on IV iron supplementation Vascular surgery is following for left toe gangrene with amputation; continue with current antibiotics until final recommendations by ID 09/26/2019 Patient is currently lying in the bed but lethargic and drowsy. Patient seems volume overloaded and was given a dose of IV Lasix. Nephrology is following. Renal function is still about the same. Patient is also given IV iron. Patient is being continued on cefazolin as per ID recommendations for left lower extremity/foot cellulitis Laboratory data showed BUN 35 and creatinine 2.9 Hemoglobin 8.5 09/27/2019 Patient is currently sitting in the chair. Shortness of breath at rest and congested cough. Chest x-ray showed findings compatible with pulmonary edema and congestive heart failure in the proper clinical setting. Findings are worsening from comparison. Patient was started on IV Lasix 40 mg every 8 hourly. Follow-up renal function. BUN 35 and creatinine 2.9 and hemoglobin 8.5. Nephrology and ID is following. 09/28/2019 Patient is more awake and oriented. Her breathing status is much improved. Patient is getting IV Lasix. Denies any complaints of chest pain or worsening shortness of breath. Leg swelling and redness is also improving. Patient is currently on antibiotics in the form of cefazolin. Otherwise renal function is slightly worsened to creatinine level 3.12. BUN 45. Nephrology and ID is on board. Patient will be continued on PT OT. 09/29/2019 Patient is more awake and oriented today. Able to sit in the bed. Tolerating oral diet. Currently patient is being continued on IV Lasix 40 mg every 8 hourly. Blood pressure is still elevated but better controlled. Currently saturating at 93% on room air. WBC 10.9, hemoglobin 7.8 and platelets 239 BUN 43 creatinine 3.08 Nephrology is following. A1c 7.5 Active Medications Amlodipine Besylate (Norvasc) 5 mg PO BID [facility] Last Admin: 09/28/19 21:16 Dose: 5 mg Documented by: Apixaban (Eliquis) 2.5 mg PO BID [facility] Last Admin: 09/28/19 21:16 Dose: 2.5 mg Documented by: Aspirin (Aspirin) 81 mg PO HS [facility] Last Admin: 09/28/19 21:16 Dose: 81 mg Documented by: Atorvastatin Calcium (Lipitor) 80 mg PO [facility] Last Admin: 09/28/19 21:16 Dose: 80 mg Documented by: Carvedilol (Coreg) 3.125 mg PO BID-W/MEALS [facility] Last Admin: 09/28/19 18:21 Dose: 3.125 mg Documented by: Donepezil HCl (Aricept) 10 mg PO DAILY [facility] Last Admin: 09/28/19 07:45 Dose: 10 mg Documented by: Duloxetine HCl (Cymbalta) 30 mg PO DAILY [facility] Last Admin: 09/28/19 07:45 Dose: 30 mg Documented by: Furosemide (Lasix) 40 mg IV Q8HR [facility] Last Admin: 09/28/19 23:44 Dose: 40 mg Documented by: Cefazolin Sodium 1,000 mg/ (Sodium Chloride) 50 mls @ 100 mls/hr IVPB Q12HR [facility] Last Admin: 09/28/19 21:33 Dose: 100 mls/hr Documented by: Insulin Aspart (Novolog) 0 unit SQ [facility]; Protocol Last Admin: 09/28/19 21:18 Dose: 6 unit Documented by: Insulin Detemir (Levemir) 5 unit SQ [facility] Last Admin: 09/28/19 21:18 Dose: 5 unit Documented by: Melatonin (Melatonin) 3 mg PO HS PRN PRN Reason: Insomnia Last Admin: 09/27/19 23:16 Dose: 3 mg Documented by: Naloxone HCl (Narcan) 0.2 mg IV Q2M PRN PRN Reason: Opioid Reversal Nystatin (Mycostatin Powder) 1 applic TOPICAL BID [facility] Last Admin: 09/28/19 21:17 Dose: 1 applic Documented by: Objective - Vital Signs Vital signs: Vital Signs Temp 98.0 F 09/29/19 15:00 Pulse 68 09/29/19 19:10 Resp 17 09/29/19 15:00 BP 169/62 09/29/19 15:00 Pulse Ox 93 L 09/29/19 15:00 Intake & Output 09/29/19 09/29/19 09/30/19 06:59 18:59 06:59 Intake Total 150 500 Output Total 500 675 Balance -350 -175 Weight 85 kg Intake: Intake, IV Titration 50 Amount ceFAZolin 1,000 mg In 50 Sodium Chloride 0.9% 50 ml @ 100 mls/hr IVPB Q12HR [facility] Rx#:[id number] Oral 100 500 Output: Urine 500 675 Other: Voiding Method Urinal Urinal Urinal # Voids 4 - Exam Patient is lying in the bed comfortably, no acute distress, awake alert and oriented.. HEENT: Normocephalic. Neck is supple. Pupils reactive. Nostrils clear. Oral cavity is moist. Ears reveal no drainage. Neck reveals no JVD, carotid bruits, or thyromegaly. CHEST EXAMINATION: Trachea is central. Symmetrical expansion.Bilateral diffuse rhonchi and crackles. Lung conklin clear to auscultation and percussion. CARDIAC: Normal S1, S2 with no gallops. No murmurs ABDOMEN: Soft. Bowel sounds normal. No organomegaly. No abdominal bruits. Extremities: reveal 2+ edema. LUE swelling. RT BKA, No clubbing or cyanosis. Left thigh redness improving. Left second toe amputation site intact. No discharge noted.. Minimal tenderness and warmth. Dressing changed and dry and intact noted. Neurologically awake, alert, oriented x3 with well-coordinated movements. No focal deficits noted Skin: No rash or skin lesions. Psychiatric: Cooperative. Non-suicidal Musculoskeletal: No joint swelling or deformity. Normal range of motion. - Labs CBC & Chem 7: 09/29/19 06:36 09/29/19 06:36 Labs: Abnormal Lab Results - Last 24 Hours (Table) 09/29/19 09/29/19 09/29/19 Range/Units 06:36 06:36 06:36 WBC 10.9 H (3.8-10.6) k/uL RBC 2.88 L (4.30-5.90) m/uL Hgb 7.8 L (13.0-17.5) gm/dL Hct 25.5 L (39.0-53.0) % MCHC 30.8 L (31.0-37.0) g/dL Neutrophils # 8.0 H (1.3-7.7) k/uL BUN 43 H (9-20) mg/dL Creatinine 3.08 H (0.66-1.25) mg/dL POC Glucose (mg/dL) (75-99) mg/dL Hemoglobin A1c 7.5 H (4.0-6.0) % Calcium 8.0 L (8.4-10.2) mg/dL 09/29/19 09/29/19 09/29/19 Range/Units 11:26 16:40 20:46 WBC (3.8-10.6) k/uL RBC (4.30-5.90) m/uL Hgb (13.0-17.5) gm/dL Hct (39.0-53.0) % MCHC (31.0-37.0) g/dL Neutrophils # (1.3-7.7) k/uL BUN (9-20) mg/dL Creatinine (0.66-1.25) mg/dL POC Glucose (mg/dL) 167 H 234 H 281 H (75-99) mg/dL Hemoglobin A1c (4.0-6.0) % Calcium (8.4-10.2) mg/dL Assessment and Plan Assessment: Unresponsiveness due to hypoglycemia. Not encephalopathic. Hypoglycemia due to insulin and glipizide.improved now. Acute on chronic CHF with diastolic dysfunction. Acute kidney injury due to ATN' Left thigh cellulitis. Left second toe serous discharge with surrounding redness. Possible infection at the amputation site. Peripheral vascular disease with history of right BKA and left second toe am putation Severe Iron Deff s/p IV iron Diabetes type 2 insulin-dependent Hypertension Dementia Previous history of syncopal episode prior to receiving pacemaker History of carotid stenosis Daily alcohol abuse DVT prophylaxis patient is already on Eliquis at home. Plan: Patient was given D50 and blood sugar is improving now. Did hold Lantus initially and started back at lower dose.. Glipizide will be held. Patient was given a dose of ceftezole in the ER. Wound culture showed staph aureus. Con tinued on cefazolin. . Monitor WBC count. Continue with antibiotics and vascular surgery as well as ID is following.. Patient was started IV Lasix 40 mg every 8 hourly. Monitor renal function. Continue the home medications and follow-up closely. Pain management. Further recommendations based on the clinical course. Time with Patient: Greater than 30
[2019-09-30 07:20] LABS: Glucose,Whole Blood 150 mg/dL (75-99)
[2019-09-30] MEDS: FUROSEMIDE 10 MG/ML 4 ML VIAL IV SCH ×2 (08:08→16:15)
[2019-09-30] MEDS: DULoxetine HCL 30 MG CAPSULE.DR PO SCH (08:13)
[2019-09-30] MEDS: APIXABAN 2.5 MG TABLET PO SCH (08:13)
[2019-09-30] MEDS: amLODIPine 5 MG TAB PO SCH (08:13)
[2019-09-30] MEDS: INSULIN ASPART (NovoLOG) 100 UNIT/ML VIAL SQ SCH ×2 (08:13→12:31)
[2019-09-30] MEDS: DONEPEZIL 10 MG TAB PO SCH (08:13)
[2019-09-30] MEDS: CARVEDILOL 3.125 MG TAB PO SCH (08:13)
[2019-09-30] MEDS: NYSTATIN 100,000 UNIT/GM POWD 15 GM TOPICAL SCH (08:14)
[2019-09-30 08:29] VITALS: BP 175/72; PULSE 65; RESP 18; TEMP 97.5
[2019-09-30 10:01] LABS: Calcium 7.7 mg/dL (8.4-10.2); Potassium 4.1 mmol/L (3.5-5.1)
[2019-09-30 10:10] LABS: Basophils # (A) 0.1 k/uL (0-0.2); Basophils % (A) 1 %; Eosinophils # (A) 0.5 k/uL (0-0.7); Eosinophils % (A) 5 %; HCT 26.9 % (39.0-53.0); Hypochromasia Slight; Lymphocytes # (A) 1.8 k/uL (1.0-4.8); Lymphocytes % (A) 19 %; MCH 26.5 pg (25.0-35.0); MCHC 29.8 g/dL (31.0-37.0); MCV 88.7 fL (80.0-100.0); Mean Platelet Volume 8.3; Monocytes # (A) 0.5 k/uL (0-1.0); Monocytes % (A) 5 %; Neutrophils # (A) 6.2 k/uL (1.3-7.7); Neutrophils % (A) 67 %; Platelet Count 275 k/uL (150-450); RBC 3.04 m/uL (4.30-5.90); RDW 14.7 % (11.5-15.5); WBC 9.2 k/uL (3.8-10.6)
[2019-09-30 11:22] LABS: Glucose,Whole Blood 218 mg/dL (75-99)
--- NOTE | 2019-09-30 12:41 | PN ---
PROGRESS NOTE Patient is seen for followup for acute kidney injury, mainly cardiorenal. He is maintained on Lasix 40 mg IV q.8 hours. Serum creatinine staying stable at about 3 mg/dL. Volume status seems to have improved. This morning, patient is sleeping, he is arousable. He is not in any acute distress. Blood pressure remains elevated 175/72 today, heart rate 65 per minute, he is afebrile. Examination of the heart S1, S2. Examination of the lungs, decreased breath sounds at bases. Minimal basal crackles are heard. Abdomen is soft, nontender. Examination of the lower extremities shows edema 2+ left lower extremity. Patient has right BKA. [employer] exam grossly intact. LABS: Show sodium 136, potassium 4.0, chloride 98, BUN 47, creatinine 3.15, calcium 7.7, hemoglobin 8.0 g/dL. ASSESSMENT: 1. Acute kidney injury cardiorenal, renal function fairly stable, continue with current dose of Lasix. 2. Anemia of chronic disease, status post IV iron. Currently maintained on Aranesp. 3. Left toe amputation for gangrene, maintained on antibiotics for nonhealing wound. 4. Volume overload, currently improving. 5. Cardiomyopathy, mainly diastolic dysfunction with elevated right heart pressures and dilated left atrium. PLAN: Continue with Aranesp. Continue current dose of IV Lasix. Repeat labs in a.m. MMODL / IJN: [id number] /
--- NOTE | 2019-09-30 15:21 | P.DS ---
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 Not encephalopathic.Currently patient is alert and oriented x3. Hypoglycemia due to insulin and glipizide.improved now. Acute on chronic CHF with diastolic dysfunction. Acute kidney injury due to Cardiorenal, CKD 3 Left thigh cellulitis. improved. Left second toe serous discharge with surrounding redness on admission. no discharge now.. 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 Hospital course Patient is a 79-year-old male with a known history of hypertension, diabetes type 2 insulin-dependent, dementia, vascular disease status post right BKA and history of recent left second toe amputation and other multiple medical problems including pacemaker placement was brought to the ER after he was found unresponsive at home. Patient is currently awake alert and oriented now. States that he did not eat his breakfast and took his insulin and also he takes glipizide. Patient was found by his daughter who lives next door. Patient states that he did not fall suddenly and sat down without suffering any trauma. Denied any head injury. Patient does have some left hip soreness otherwise able to bear weight. Patient was found to have blood sugar 40 by EMS. He was given D50 and patient is doing improved clinically and improved mental status as well. Otherwise patient denied any complaints of chest pain or shortness of breath. Denied any recent illnesses. No fever no chills. Patient denied any taking excess insulin. No complaints of chest pain or shortness of breath. No dysuria or hematuria. Patient also noticed to have some serous discharge from the ambulation site of the left second toe and some swelling of the foot last couple of days. Denied any purulent discharge. X-ray of the foot showed interval amputation of the second digit EKG showed atrial sensing ventricular paced rhythm Laboratory data showed WBC 15.2, hemoglobin 9.2, lymphocytes 0.4 Sodium 134, potassium 3.5, BUN 32 and creatinine 2.93 Calcium 7.9 Albumin 2.9 and blood sugar is 49 now 09/24/2019 Patient is seen and evaluated at bedside for acute renal injury and fluid overload; nephrology is following and patient has been started on Lasix 40 mg IV daily; nephro is recommending to follow renal function closely with possible renal biopsy if renal function remains unchanged; patient had been lethargic due to hypoglycemia; plan is to possibly discharge patient to skilled rehab once stable; continue treatment for left second toe gangrene with amputation with nonhealing wound; wound care recommendations are noted and appreciated 09/25/2019 Patient is seen for follow-up on acute renal injury; creatinine has improved sin ce admission but plateaued around 2.7; patient remains volume overloaded and continues to stay on current dose of IV Lasix; nephrology on board and recommending to continue Lasix for another 24 hours at which time they will reevaluate; blood pressure remains uncontrolled; Norvasc is increased to 10 mg daily; we will continue to monitor blood pressure closely and make further adjustments as needed; lab review shows severe depletion of iron stores; patient has been started on IV iron supplementation Vascular surgery is following for left toe gangrene with amputation; continue with current antibiotics until final recommendations by ID 09/26/2019 Patient is currently lying in the bed but lethargic and drowsy. Patient seems volume overloaded and was given a dose of IV Lasix. Nephrology is following. Renal function is still about the same. Patient is also given IV iron. Patient is being continued on cefazolin as per ID recommendations for left lower extremity/foot cellulitis Laboratory data showed BUN 35 and creatinine 2.9 Hemoglobin 8.5 09/27/2019 Patient is currently sitting in the chair. Shortness of breath at rest and congested cough. Chest x-ray showed findings compatible with pulmonary edema and congestive heart failure in the proper clinical setting. Findings are worsening from comparison. Patient was started on IV Lasix 40 mg every 8 hourly. Follow-up renal function. BUN 35 and creatinine 2.9 and hemoglobin 8.5. Nephrology and ID is following. 09/28/2019 Patient is more awake and oriented. Her breathing status is much improved. Patient is getting IV Lasix. Denies any complaints of chest pain or worsening shortness of breath. Leg swelling and redness is also improving. Patient is currently on antibiotics in the form of cefazolin. Otherwise renal function is slightly worsened to creatinine level 3.12. BUN 45. Nephrology and ID is on board. Patient will be continued on PT OT. 09/29/2019 Patient is more awake and oriented today. Able to sit in the bed. Tolerating oral diet. Currently patient is being continued on IV Lasix 40 mg every 8 hourly. Blood pressure is still elevated but better controlled. Currently saturating at 93% on room air. WBC 10.9, hemoglobin 7.8 and platelets 239 BUN 43 creatinine 3.08 Nephrology is following. A1c 7.5 09/30/2019 Patient is awake alert and oriented x3. Leg swelling and shortness of breath is much improved. Lasix was changed to 40 mg twice daily by mouth. Blood pressure is controlled. Coreg was added. Currently patient is saturating well on room air. Renal function is fairly stable with creatinine level 3.1 Blood sugar is better controlled as well. Currently in around 200s. Patient was cleared by ID and nephrology. Outpatient follow-up was recommended. Continue with antibiotic course with Keflex for 7 days. Patient is being discharged to rehab today. Physical examination Patient is lying in the bed comfortably, no acute distress, awake alert and oriented.. HEENT: Normocephalic. Neck is supple. Pupils reactive. Nostrils clear. Oral cavity is moist. Ears reveal no drainage. Neck reveals no JVD, carotid bruits, or thyromegaly. CHEST EXAMINATION: Trachea is central. Symmetrical expansion. minimal basilar crackles. Lung conklin clear to auscultation and percussion. CARDIAC: Normal S1, S2 with no gallops. No murmurs ABDOMEN: Soft. Bowel sounds normal. No organomegaly. No abdominal bruits. Extremities: reveal 1+ edema LLE. LUE swelling improved. RT BKA, No clubbing or cyanosis. Left thigh redness improved. Left second toe amputation site intact. No discharge noted.. Minimal tenderness and no warmth. Dressing changed and dry and intact noted. Neurologically awake, alert, oriented x3 with well-coordinated movements. No focal deficits noted Skin: No rash or skin lesions. Psychiatric: Cooperative. Non-suicidal Musculoskeletal: No joint swelling or deformity. Normal range of motion. Vital Signs - 24 hr 09/29/19 09/29/19 09/30/19 19:10 20:15 01:30 Temperature 97.8 F 98.4 F Pulse Rate [ 68 Left Supine Pulse Oximetery ] Pulse Rate [ 95 69 Pulse Oximetery ] Respiratory 20 20 Rate Blood Pressure 111/65 171/64 [Right Arm] O2 Sat by Pulse 95 90 L Oximetry 09/30/19 07:00 Temperature 97.5 F L Pulse Rate [ Left Supine Pulse Oximetery ] Pulse Rate [ 65 Pulse Oximetery ] Respiratory 18 Rate Blood Pressure 175/72 [Right Arm] O2 Sat by Pulse 90 L Oximetry Patient Condition at Discharge: Stable Plan - Discharge Summary Discharge Rx Participant: No New Discharge Prescriptions: New Darbepoetin Enmanuel [Aranesp] 60 mcg SQ Q7D #4 syringe Cephalexin [Keflex] 500 mg PO Q12HR 7 Days #14 cap Nystatin 100,000 Unit/gm Powd [Mycostatin Powder] 1 applic TOPICAL BID #1 applic Carvedilol [Coreg] 3.125 mg PO BID-W/MEALS #60 tab Furosemide [Lasix] 40 mg PO BID #60 tablet Insulin Detemir (Levemir) [Levemir] 10 unit SQ HS #1 syr INSULIN ASPART (NovoLOG) [NovoLOG (formulary)] 0 unit SQ ACHS vial Continue Donepezil [Aricept] 10 mg PO DAILY Atorvastatin [Lipitor] 80 mg PO HS Cholecalciferol [Vitamin D3 (25 Mcg = 1000 Iu)] 1,000 unit PO DAILY DULoxetine HCL [Cymbalta] 30 mg PO DAILY Aspirin 81 mg PO HS chew Apixaban [Eliquis] 2.5 mg PO BID #0 amLODIPine BESYLATE 5 mg PO DAILY Omeprazole 20 mg PO DAILY Discontinued glipiZIDE [Glucotrol] 5 mg PO BID INSULIN ASPART (NovoLOG) [NovoLOG (formulary)] 4 unit SQ AC-TID Insulin Glargine,Hum.rec.anlog [Lantus Solostar] 22 unit SQ HS Midodrine [ProAmatine] 2.5 mg PO Q8H Discharge Medication List Donepezil [Aricept] 10 mg PO DAILY 10/01/16 [History] Atorvastatin [Lipitor] 80 mg PO HS 08/07/19 [History] Cholecalciferol [Vitamin D3 (25 Mcg = 1000 Iu)] 1,000 unit PO DAILY 08/07/19 [History] DULoxetine HCL [Cymbalta] 30 mg PO DAILY 08/07/19 [History] Apixaban [Eliquis] 2.5 mg PO BID #0 08/09/19 [Rx] Aspirin 81 mg PO HS chew 08/09/19 [Rx] Omeprazole 20 mg PO DAILY 09/21/19 [History] amLODIPine BESYLATE 5 mg PO DAILY 09/21/19 [History] Carvedilol [Coreg] 3.125 mg PO BID-W/MEALS #60 tab 09/30/19 [Rx] Cephalexin [Keflex] 500 mg PO Q12HR 7 Days #14 cap 09/30/19 [Rx] Darbepoetin Enmanuel [Aranesp] 60 mcg SQ Q7D #4 syringe 09/30/19 [Rx] Furosemide [Lasix] 40 mg PO BID #60 tablet 09/30/19 [Rx] INSULIN ASPART (NovoLOG) [NovoLOG (formulary)] 0 unit SQ ACHS vial 09/30/19 [Rx] Insulin Detemir (Levemir) [Levemir] 10 unit SQ HS #1 syr 09/30/19 [Rx] Nystatin 100,000 Unit/gm Powd [Mycostatin Powder] 1 applic TOPICAL BID #1 applic 09/30/19 [Rx] Follow up Appointment(s)/Referral(s): [facility],Clinic [Primary Care Provider] - 1-2 days Activity/Diet/Wound Care/Special Instructions: Wound Care: Left foot- 2nd toe amputation, place Opticell fiber and wrap with gauze daily. Left Thigh-gauze dressing. Bilateral Groin- apply Nystatin powder. Patient has habit of picking at his skin generalized. Keep clean with soap and water. Discharge Disposition: TRANSFER TO SNF/ECF
--- NOTE | 2019-09-30 16:01 | PN ---
PROGRESS NOTE DATE OF SERVICE: 09/30/2019 REASON FOR FOLLOW UP: 1. Bilateral groin cutaneous candidiasis and left leg cellulitis. 2. Left second toe amputation and wound. INTERIM HISTORY: The patient is currently afebrile. The patient is breathing comfortably. Denies having any chest pain or shortness of breath or cough. No abdominal pain or diarrhea. Overall feeling better. PHYSICAL EXAMINATION: Blood pressure 125/72 with a pulse of 65, temperature 97.5. He is 98% on room air. General description is an elderly male up in the chair, in no distress. RESPIRATORY SYSTEM: Unlabored breathing, clear to auscultation anteriorly. HEART: S1, S2. Regular rate and rhythm. ABDOMEN: Soft, no tenderness. LABS: Hemoglobin 8, white count 9.2, creatinine 3.5. DIAGNOSTIC IMPRESSION AND PLAN: Patient with bilateral groin area cutaneous candidiasis with secondary cellulitis of the left thigh that has shown clinical improvement. He will finish therapy with oral Keflex, [QAMARKER twice a day for about a week. Continue supportive care. MMODL / ANTONIAN: [id number] /
== END 2019-09-30 17:06 | DRG 637 ==
LOC: EC 13:47 → 4SSUR 16:22
PROVIDERS: ADMIT Internal Medicine; ATTEND Internal Medicine
PROC: 05HD33Z Insertion of Infusion Device into Right Cephalic Vein, Percutaneous Approach (ICD-10-PCS; principal; 2019-09-26 12:10)
DX: E11.649 Type 2 diabetes mellitus with hypoglycemia without coma (principal); I50.33 Acute on chronic diastolic (congestive) heart failure; L03.116 Cellulitis of left lower limb; I13.0 Hypertensive heart and chronic kidney disease with heart failure and stage 1 through stage 4 chronic kidney disease, or unspecified chronic kidney disease; I42.9 Cardiomyopathy, unspecified; T87.44 Infection of amputation stump, left lower extremity; L03.314 Cellulitis of groin; N17.0 Acute kidney failure with tubular necrosis; D63.1 Anemia in chronic kidney disease; E11.51 Type 2 diabetes mellitus with diabetic peripheral angiopathy without gangrene; Z11.59 Encounter for screening for other viral diseases; N18.3 Chronic kidney disease, stage 3 (moderate); E11.22 Type 2 diabetes mellitus with diabetic chronic kidney disease; F01.50 Vascular dementia, unspecified severity, without behavioral disturbance, psychotic disturbance, mood disturbance, and anxiety; Z79.4 Long term (current) use of insulin; Z89.511 Acquired absence of right leg below knee; Z89.422 Acquired absence of other left toe(s); B37.2 Candidiasis of skin and nail; I65.29 Occlusion and stenosis of unspecified carotid artery; E61.1 Iron deficiency; F10.10 Alcohol abuse, uncomplicated; T38.3X5A Adverse effect of insulin and oral hypoglycemic [antidiabetic] drugs, initial encounter; G47.00 Insomnia, unspecified; E66.9 Obesity, unspecified; Z68.26 Body mass index [BMI] 26.0-26.9, adult; Z79.01 Long term (current) use of anticoagulants; Z79.82 Long term (current) use of aspirin; Z79.899 Other long term (current) drug therapy; Z98.890 Other specified postprocedural states; Z71.3 Dietary counseling and surveillance; Z95.0 Presence of cardiac pacemaker; Z90.49 Acquired absence of other specified parts of digestive tract; Z81.2 Family history of tobacco abuse and dependence
CPT/HCPCS: 36410; 36415; 71045; 76770; 76937; 80048; 80053; 81001; 82570; 82607; 82728; 83036; 83540; 83550; 83605; 83735; 84156; 84165; 85025; 85610; 85652; 85730; 86038; 86140; 86160; 86162; 86255; 86334; 86335; 87040; 87070; 87077; 87186; 87205; 87635; 93005; 96365; 99285

== ENCOUNTER 2019-10-05 10:12 | Inpatient (IN) | payer OTHER, MEDICARE ==
--- NOTE | 2019-10-05 10:54 | ED ---
General Adult HPI - General Chief complaint: Chest Pain Stated complaint: Chest pain/johana Time Seen by Provider: 10/05/19 10:18 Source: patient, EMS, RN notes reviewed, old records reviewed Mode of arrival: EMS Limitations: no limitations - History of Present Illness Initial comments: 79-year-old male history of dementia, CAD, right BKA presenting for a period chest pain. Patient had told staff at the residential that he had chest pain, was given nitroglycerin which according to staff did relieve his symptoms. Patient denying any chest pain at the time my evaluation. History is limited secondary to patient's baseline dementia. He has no specific complaints the time my evaluation. - Related Data Home Medications Medication Instructions Recorded Confirmed Donepezil [Aricept] 10 mg PO DAILY 10/01/16 09/21/19 Atorvastatin [Lipitor] 80 mg PO HS 08/07/19 09/21/19 Cholecalciferol [Vitamin D3 (25 1,000 unit PO DAILY 08/07/19 09/21/19 Mcg = 1000 Iu)] DULoxetine HCL [Cymbalta] 30 mg PO DAILY 08/07/19 09/21/19 Omeprazole 20 mg PO DAILY 09/21/19 09/21/19 amLODIPine BESYLATE 5 mg PO DAILY 09/21/19 09/21/19 Previous Rx's Medication Instructions Recorded Apixaban [Eliquis] 2.5 mg PO BID #0 08/09/19 Aspirin 81 mg PO HS chew 08/09/19 Carvedilol [Coreg] 3.125 mg PO BID-W/MEALS #60 tab 09/30/19 Cephalexin [Keflex] 500 mg PO Q12HR 7 Days #14 cap 09/30/19 Darbepoetin Enmanuel [Aranesp] 60 mcg SQ Q7D #4 syringe 09/30/19 Furosemide [Lasix] 40 mg PO BID #60 tablet 09/30/19 INSULIN ASPART (NovoLOG) [NovoLOG 0 unit SQ ACHS vial 09/30/19 (formulary)] Insulin Detemir (Levemir) [Levemir] 10 unit SQ HS #1 syr 09/30/19 Nystatin 100,000 Unit/gm Powd 1 applic TOPICAL BID #1 applic 09/30/19 [Mycostatin Powder] Allergies Allergy/AdvReac Type Severity Reaction Status Date / Time No Known Allergies Allergy Verified 09/21/19 17:47 Review of Systems ROS Statement: Those systems with pertinent positive or pertinent negative responses have been documented in the HPI. ROS Other: All systems not noted in ROS Statement are negative. Past Medical History Past Medical History: Heart Failure, Dementia, Diabetes Mellitus, Hypertension, Syncope, Vascular Disorder Additional Past Medical History / Comment(s): IDDM type II, recent R 3rd toe amputation/wound, SEVERAL SYNCOPAL EPISODES PRIOR TO RECEIVING HIS PACEMAKER, PVD, carotid stenosis History of Any Multi-Drug Resistant Organisms: None Reported Past Surgical History: Appendectomy, Pacemaker, Tonsillectomy Additional Past Surgical History / Comment(s): LEFT GREAT TOE HALF REMOVED, R 3RD TOE AMP, PICC LINE IN UPPER R ARM, COLONOSCOPY. Past Anesthesia/Blood Transfusion Reactions: Previous Problems w/ Anesthesia Additional Past Anesthesia/Blood Transfusion Reaction / Comment(s): HARD TIME WAKING UP FROM ANESETHIA Type of Cardiac Device: Permanent Pacemaker Device Placement Date:: 03/02/2017 Past Psychological History: No Psychological Hx Reported Smoking Status: Never smoker Past Alcohol Use History: Abuse, Daily Past Drug Use History: None Reported - Past Family History Father Family Medical History: Cancer Additional Family Medical History / Comment(s): PT STATES HIS FATHER NEVER WENT TO THE [place]CT[place]. HE HAD A BAD COUGH AND AT THE AGE OF 78YRS. Mother History Unknown: Yes Additional Family Medical History / Comment(s): MOTHER LEFT FAMILY WHEN PT WAS 12 YRS OLD. PT STATES SHE WAS A HEAVY SMOKER. General Exam Limitations: no limitations General appearance: alert, in no apparent distress Head exam: Present: atraumatic, normocephalic Eye exam: Present: normal appearance, PERRL ENT exam: Present: normal exam Neck exam: Present: normal inspection. Absent: tenderness, meningismus Respiratory exam: Present: normal lung sounds bilaterally. Absent: respiratory distress, wheezes Cardiovascular Exam: Present: regular rate, normal rhythm GI/Abdominal exam: Present: soft. Absent: distended, tenderness, guarding Extremities exam: Present: other (Right BKA). Absent: pedal edema Neurological exam: Present: alert. Absent: motor sensory deficit Psychiatric exam: Present: normal affect, normal mood Skin exam: Present: warm, dry, intact. Absent: cyanosis, diaphoretic Course Vital Signs 10/05/19 10/05/19 10/05/19 10:24 10:30 12:03 Temperature 98.7 F Pulse Rate 57 L 54 L 57 L Respiratory 18 18 18 Rate Blood Pressure 139/66 142/67 150/84 O2 Sat by Pulse 94 L 95 100 Oximetry EKG Findings - EKG Comments: EKG Findings:: EKG: Paced rhythm, rate of 55, QRS duration 112, QTC 434, Medical Decision Making - Medical Decision Making 79-year-old male with severe debility, dementia, CHF presenting with an episode of chest pain. Patient denying chest pain at the time my evaluation. Workup reveals a chest x-ray concerning for CHF, and elevated BNP, mildly elevated troponin at 0.038. Patient is anticoagulated at baseline. He has a creatinine of 2.76 which is baseline for this patient. Hemoglobin 8.5 which is improved from 8.0 on recent laboratory testing. He is given aspirin as well as Lasix in the emergency department. He will be admitted for CHF, as well as this episode of chest pain. Cardiology is placed on consult. Serial cardiac enzymes will be obtained. - Lab Data Result diagrams: 10/05/19 10:32 10/05/19 10:32 Lab Results 10/05/19 10/05/19 10/05/19 Range/Units 10:32 10:32 10:32 WBC 14.8 H (3.8-10.6) k/uL RBC 2.91 L (4.30-5.90) m/uL Hgb 8.5 L (13.0-17.5) gm/dL Hct 26.2 L (39.0-53.0) % MCV 89.9 (80.0-100.0) fL MCH 29.3 (25.0-35.0) pg MCHC 32.6 (31.0-37.0) g/dL RDW 15.6 H (11.5-15.5) % Plt Count 222 (150-450) k/uL Neutrophils % 82 % Lymphocytes % 8 % Monocytes % 6 % Eosinophils % 3 % Basophils % 0 % Neutrophils # 12.2 H (1.3-7.7) k/uL Lymphocytes # 1.1 (1.0-4.8) k/uL Monocytes # 0.9 (0-1.0) k/uL Eosinophils # 0.4 (0-0.7) k/uL Basophils # 0.0 (0-0.2) k/uL Hypochromasia Slight PT 10.6 (9.0-12.0) sec INR 1.0 (<1.2) APTT 38.7 H (22.0-30.0) sec Sodium 136 L (137-145) mmol/L Potassium 4.0 (3.5-5.1) mmol/L Chloride 100 (98-107) mmol/L Carbon Dioxide 30 (22-30) mmol/L Anion Gap 6 mmol/L BUN 36 H (9-20) mg/dL Creatinine 2.76 H (0.66-1.25) mg/dL Est GFR (CKD-EPI)AfAm 24 (>60 ml/min/1.73 sqM) Est GFR (CKD-EPI)NonAf 21 (>60 ml/min/1.73 sqM) Glucose 94 (74-99) mg/dL Calcium 7.9 L (8.4-10.2) mg/dL Magnesium 1.8 (1.6-2.3) mg/dL Total Bilirubin 0.4 (0.2-1.3) mg/dL AST 31 (17-59) U/L ALT 13 (4-49) U/L Alkaline Phosphatase 99 (38-126) U/L Troponin I (0.000-0.034) ng/mL NT-Pro-B Natriuret Pep pg/mL Total Protein 5.7 L (6.3-8.2) g/dL Albumin 2.6 L (3.5-5.0) g/dL 10/05/19 10/05/19 Range/Units 10:32 10:32 WBC (3.8-10.6) k/uL RBC (4.30-5.90) m/uL Hgb (13.0-17.5) gm/dL Hct (39.0-53.0) % MCV (80.0-100.0) fL MCH (25.0-35.0) pg MCHC (31.0-37.0) g/dL RDW (11.5-15.5) % Plt Count (150-450) k/uL Neutrophils % % Lymphocytes % % Monocytes % % Eosinophils % % Basophils % % Neutrophils # (1.3-7.7) k/uL Lymphocytes # (1.0-4.8) k/uL Monocytes # (0-1.0) k/uL Eosinophils # (0-0.7) k/uL Basophils # (0-0.2) k/uL Hypochromasia PT (9.0-12.0) sec INR (<1.2) APTT (22.0-30.0) sec Sodium (137-145) mmol/L Potassium (3.5-5.1) mmol/L Chloride (98-107) mmol/L Carbon Dioxide (22-30) mmol/L Anion Gap mmol/L BUN (9-20) mg/dL Creatinine (0.66-1.25) mg/dL Est GFR (CKD-EPI)AfAm (>60 ml/min/1.73 sqM) Est GFR (CKD-EPI)NonAf (>60 ml/min/1.73 sqM) Glucose (74-99) mg/dL Calcium (8.4-10.2) mg/dL Magnesium (1.6-2.3) mg/dL Total Bilirubin (0.2-1.3) mg/dL AST (17-59) U/L ALT (4-49) U/L Alkaline Phosphatase (38-126) U/L Troponin I 0.038 H* (0.000-0.034) ng/mL NT-Pro-B Natriuret Pep 1980 pg/mL Total Protein (6.3-8.2) g/dL Albumin (3.5-5.0) g/dL Disposition Clinical Impression: Elevated troponin, CHF (congestive heart failure) Disposition: ADMITTED IP TO THIS [facility] Condition: Stable Is patient prescribed a controlled substance at d/c from ED?: No Referrals: [facility],Clinic [Primary Care Provider] - 1-2 days Decision to Admit Reason: Admit from EC Decision Date: 10/05/19 Decision Time: 12:27
[2019-10-05 11:01] LABS: Basophils % (A) 0 %; Eosinophils # (A) 0.4 k/uL (0-0.7); Eosinophils % (A) 3 %; HCT 26.2 % (39.0-53.0); HGB 8.5 gm/dL (13.0-17.5); Hypochromasia Slight; Lymphocytes # (A) 1.1 k/uL (1.0-4.8); Lymphocytes % (A) 8 %; MCH 29.3 pg (25.0-35.0); MCHC 32.6 g/dL (31.0-37.0); MCV 89.9 fL (80.0-100.0); Mean Platelet Volume 8.6; Monocytes # (A) 0.9 k/uL (0-1.0); Monocytes % (A) 6 %; Neutrophils # (A) 12.2 k/uL (1.3-7.7); Neutrophils % (A) 82 %; Platelet Count 222 k/uL (150-450); RBC 2.91 m/uL (4.30-5.90); RDW 15.6 % (11.5-15.5); WBC 14.8 k/uL (3.8-10.6)
--- NOTE | 2019-10-05 11:04 | XR ---
EXAMINATION TYPE: XR chest 2V DATE OF EXAM: 10/05/2019 COMPARISON: Chest x-ray [address] October 02, 2016. HISTORY: Chest pain and difficulty in breathing. TECHNIQUE: Frontal and lateral views of the chest are obtained. FINDINGS: Fairly advanced degenerative change bilateral shoulders redemonstrated. Persistent cardiom egaly with dual lead pacemaker and atherosclerotic aorta. Persistent low lung volumes with central va scular congestion and small bilateral pleural effusions with associated bibasilar acute atelectasis a nd/or infiltrate. IMPRESSION: Correlate for persistent CHF exacerbation as there is cardiomegaly with central vascular congestion and small bilateral pleural effusions are redemonstrated. No significant change from most recent x-ray.
[2019-10-05 11:17] LABS: Albumin 2.6 g/dL (3.5-5.0); Calcium 7.9 mg/dL (8.4-10.2); Magnesium 1.8 mg/dL (1.6-2.3); Partial Thromboplastin Time 38.7 sec (22.0-30.0); Prothrombin Time 10.6 sec (9.0-12.0); Total Bilirubin 0.4 mg/dL (0.2-1.3); Total Protein 5.7 g/dL (6.3-8.2)
[2019-10-05] MEDS ORDERED: ASPIRIN 325 MG TAB PO STA (12:24)
[2019-10-05] MEDS ORDERED: ACETAMINOPHEN TAB 325 MG TAB PO PRN (12:24)
[2019-10-05] MEDS ORDERED: NALOXONE 0.4 MG/ML 1 ML VIAL IV PRN (12:24)
[2019-10-05] MEDS ORDERED: FUROSEMIDE 10 MG/ML 4 ML VIAL IV STA (12:24)
--- NOTE | 2019-10-05 13:39 | P.CRDCN ---
History of Present Illness Consult date: 10/05/19 Chief complaint: Chest pain History of present illness: This is a 79-year-old gentleman who was somewhat poor historian with a past medical history significant for coronary artery disease, peripheral arterial disease, status post right below the knee amputation, diabetes, hypertension, dyslipidemia, and permanent pacemaker implantation. The patient somewhat is a poor historian. He was brought to the hospital by his son who lives with him. Apparently the patient was experiencing chest discomfort. He described the discomfort as sharp/dull, on the left side of the chest, without any radiation to the arms or neck or shoulders, and without any associated symptoms of sweating, shortness of breath, dizziness, heart racing, or syncope. Currently the patient is chest pain-free. He stated that he underwent coronary stenting in the past but no documentation in the electronic medical records. The EKG showed sinus rhythm with PVCs. The first set of troponin came in to be slightly abnormal but his creatinine is significantly elevated and is above 2. His baseline creatinine back in September 2019 was within normal limits. The chest x-ray showed findings consistent with CHF was clinically the patient does not look in any congestive heart failure at this point. I would consider a conservative medical approach for this gentleman regarding the mildly abnormal troponin in the absence of any chest pain and chest discomfort and the absence of any ischemic ST or T-wave abnormalities concerning for severe underlying coronary artery disease. We'll also obtain an echocardiogram was Doppler. We'll continue following up with him. Also we'll continue monitor the kidney function and electrolytes. He is on aspirin we'll continue that. Restart him back on beta laila as well as a statin. Past Medical History Past Medical History: Heart Failure, Dementia, Diabetes Mellitus, Hypertension, Syncope, Vascular Disorder Additional Past Medical History / Comment(s): IDDM type II, recent R 3rd toe amputation/wound, SEVERAL SYNCOPAL EPISODES PRIOR TO RECEIVING HIS PACEMAKER, PVD, carotid stenosis History of Any Multi-Drug Resistant Organisms: None Reported Past Surgical History: Appendectomy, Pacemaker, Tonsillectomy Additional Past Surgical History / Comment(s): LEFT GREAT TOE HALF REMOVED, R 3 RD TOE AMP, PICC LINE IN UPPER R ARM, COLONOSCOPY. Past Anesthesia/Blood Transfusion Reactions: Previous Problems w/ Anesthesia Additional Past Anesthesia/Blood Transfusion Reaction / Comment(s): HARD TIME WAKING UP FROM ANESETHIA Type of Cardiac Device: Permanent Pacemaker Device Placement Date:: 03/02/2017 Past Psychological History: No Psychological Hx Reported Smoking Status: Never smoker Past Alcohol Use History: Abuse, Daily Past Drug Use History: None Reported - Past Family History Father Family Medical History: Cancer Additional Family Medical History / Comment(s): PT STATES HIS FATHER NEVER WENT TO THE DOCTORS. HE HAD A BAD COUGH AND AT THE AGE OF 78YRS. Mother History Unknown: Yes Additional Family Medical History / Comment(s): MOTHER LEFT FAMILY WHEN PT WAS 12 YRS OLD. PT STATES SHE WAS A HEAVY SMOKER. Medications and Allergies Home Medications Medication Instructions Recorded Confirmed Type Donepezil [Aricept] 10 mg PO DAILY 10/01/16 09/21/19 History Atorvastatin [Lipitor] 80 mg PO HS 08/07/19 09/21/19 History Cholecalciferol [Vitamin D3 (25 1,000 unit PO DAILY 08/07/19 09/21/19 History Mcg = 1000 Iu)] DULoxetine HCL [Cymbalta] 30 mg PO DAILY 08/07/19 09/21/19 History Apixaban [Eliquis] 2.5 mg PO BID #0 08/09/19 09/21/19 Rx Aspirin 81 mg PO HS chew 08/09/19 09/21/19 Rx Omeprazole 20 mg PO DAILY 09/21/19 09/21/19 History amLODIPine BESYLATE 5 mg PO DAILY 09/21/19 09/21/19 History Carvedilol [Coreg] 3.125 mg PO BID-W/MEALS #60 tab 09/30/19 Rx Cephalexin [Keflex] 500 mg PO Q12HR 7 Days #14 cap 09/30/19 Rx Darbepoetin Enmanuel [Aranesp] 60 mcg SQ Q7D #4 syringe 09/30/19 Rx Furosemide [Lasix] 40 mg PO BID #60 tablet 09/30/19 Rx INSULIN ASPART (NovoLOG) [NovoLOG 0 unit SQ ACHS vial 09/30/19 Rx (formulary)] Insulin Detemir (Levemir) [Levemir] 10 unit SQ HS #1 syr 09/30/19 Rx Nystatin 100,000 Unit/gm Powd 1 applic TOPICAL BID #1 applic 09/30/19 Rx [Mycostatin Powder] Allergies Allergy/AdvReac Type Severity Reaction Status Date / Time No Known Allergies Allergy Verified 09/21/19 17:47 Physical Exam Vitals: Vital Signs Temp Pulse Resp BP Pulse Ox 10/05/19 13:07 61 18 162/72 99 10/05/19 12:03 57 L 18 150/84 100 10/05/19 10:30 54 L 18 142/67 95 10/05/19 10:24 98.7 F 57 L 18 139/66 94 L Intake and Output 10/04/19 10/05/19 10/05/19 22:59 06:59 14:59 Other: Weight 87.09 kg - Constitutional General appearance: no acute distress - Respiratory Respiratory: bilateral: CTA - Cardiovascular Rhythm: regular Heart sounds: normal: S1, S2 Abnormal Heart Sounds: systolic murmur Results 10/05/19 10:32 10/05/19 10:32 Cardiac Enzymes 10/05/19 10/05/19 Range/Units 10:32 10:32 AST 31 (17-59) U/L Troponin I 0.038 H* (0.000-0.034) ng/mL Coagulation 10/05/19 Range/Units 10:32 PT 10.6 (9.0-12.0) sec APTT 38.7 H (22.0-30.0) sec CBC 10/05/19 Range/Units 10:32 WBC 14.8 H (3.8-10.6) k/uL RBC 2.91 L (4.30-5.90) m/uL Hgb 8.5 L (13.0-17.5) gm/dL Hct 26.2 L (39.0-53.0) % Plt Count 222 (150-450) k/uL Comprehensive Metabolic Panel 10/05/19 Range/Units 10:32 Sodium 136 L (137-145) mmol/L Potassium 4.0 (3.5-5.1) mmol/L Chloride 100 (98-107) mmol/L Carbon Dioxide 30 (22-30) mmol/L BUN 36 H (9-20) mg/dL Creatinine 2.76 H (0.66-1.25) mg/dL Glucose 94 (74-99) mg/dL Calcium 7.9 L (8.4-10.2) mg/dL AST 31 (17-59) U/L ALT 13 (4-49) U/L Alkaline Phosphatase 99 (38-126) U/L Total Protein 5.7 L (6.3-8.2) g/dL Albumin 2.6 L (3.5-5.0) g/dL Current Medications Generic Name Dose Route Start Last Admin Trade Name Freq PRN Reason Stop Dose Admin Acetaminophen 650 mg 10/05/19 12:24 Tylenol Tab PO Q6HR PRN Mild Pain or Fever > 100.5 Naloxone HCl 0.2 mg 10/05/19 12:24 Narcan IV Q2M PRN Opioid Reversal Intake and Output 10/04/19 10/05/19 10/05/19 22:59 06:59 14:59 Other: Weight 87.09 kg Patient Weight 10/06/19 06:59 Weight 87.09 kg 10/05/19 10:32 10/05/19 10:32 Assessment and Plan Assessment: Assessment Atypical chest discomfort which has resolved Abnormal cardiac enzymes Acute on chronic renal failure Status post permanent pacemaker Diabetes Hypertension Dyslipidemia Plan Continue the current medical regimen DC the Lasix Serial cardiac enzymes Limited echocardiogram Restart the beta laila as well as statin Follow-up with the patient
--- NOTE | 2019-10-05 14:00 | P.HPIM ---
History of Present Illness Patient is a 79-year-old male with known history of coronary artery disease and stent LAD came in with the complaints of chest pain patient is a poor historian although able to provide me fairly good his history chest pain is midsternal sharp and dull in nature and nonradiating nonexertional and not associated with food denied any diaphoresis or shortness of breath dizziness or palpitations or syncope. Patient just pain is significantly better now. Patient does have history of chronic diastolic dysfunction. Patient appears to have chronic kidney disease stage III patient baseline creatinine july was around 1.5 now at around 2.7 patient's creatinine has been elevated since july around this level. Chest x-ray showing pulmonary edema with bilateral pleural effusions although clinically patient doesn't have any JVD no pedal no significant pedal edema patient has a right below-knee amputation BNP is only 1980, patient's troponin is 0.038 EKG did not show any significant acute ST-T wave changes. Review of Systems REVIEW OF SYSTEMS: CONSTITUTIONAL: No fever, no malaise, no fatigue. HEENT: No recent visual problems or hearing problems. Denied any sore throat. Anticoagulation in HPI PULMONARY: No shortness of breath, no cough, no hemoptysis. GASTROINTESTINAL: No diarrhea, no nausea, no vomiting, no abdominal pain. NEUROLOGICAL: No headaches, no weakness, no numbness. HEMATOLOGICAL: Denies any bleeding or petechiae. GENITOURINARY: Denies any burning micturition, frequency, or urgency. MUSCULOSKELETAL/RHEUMATOLOGICAL: Denies any joint pain, swelling, or any muscle pain. ENDOCRINE: Denies any polyuria or polydipsia. The rest of the 14-point review of systems is negative. Past Medical History Past Medical History: Heart Failure, Dementia, Diabetes Mellitus, Hypertension, Syncope, Vascular Disorder Additional Past Medical History / Comment(s): IDDM type II, recent R 3rd toe amputation/wound, SEVERAL SYNCOPAL EPISODES PRIOR TO RECEIVING HIS PACEMAKER, PVD, carotid stenosis History of Any Multi-Drug Resistant Organisms: None Reported Past Surgical History: Appendectomy, Pacemaker, Tonsillectomy Additional Past Surgical History / Comment(s): LEFT GREAT TOE HALF REMOVED, R 3RD TOE AMP, PICC LINE IN UPPER R ARM, COLONOSCOPY. Past Anesthesia/Blood Transfusion Reactions: Previous Problems w/ Anesthesia Additional Past Anesthesia/Blood Transfusion Reaction / Comment(s): HARD TIME WAKING UP FROM ANESETHIA Type of Cardiac Device: Permanent Pacemaker Device Placement Date:: 03/02/2017 Past Psychological History: No Psychological Hx Reported Smoking Status: Never smoker Past Alcohol Use History: Abuse, Daily Past Drug Use History: None Reported - Past Family History Father Family Medical History: Cancer Additional Family Medical History / Comment(s): PT STATES HIS FATHER NEVER WENT TO THE DOCTORS. HE HAD A BAD COUGH AND AT THE AGE OF 78YRS. Mother History Unknown: Yes Additional Family Medical History / Comment(s): MOTHER LEFT FAMILY WHEN PT WAS 12 YRS OLD. PT STATES SHE WAS A HEAVY SMOKER. Medications and Allergies Home Medications Medication Instructions Recorded Confirmed Type Donepezil [Aricept] 10 mg PO DAILY 10/01/16 09/21/19 History Atorvastatin [Lipitor] 80 mg PO HS 08/07/19 09/21/19 History Cholecalciferol [Vitamin D3 (25 1,000 unit PO DAILY 08/07/19 09/21/19 History Mcg = 1000 Iu)] DULoxetine HCL [Cymbalta] 30 mg PO DAILY 08/07/19 09/21/19 History Apixaban [Eliquis] 2.5 mg PO BID #0 08/09/19 09/21/19 Rx Aspirin 81 mg PO HS chew 08/09/19 09/21/19 Rx Omeprazole 20 mg PO DAILY 09/21/19 09/21/19 History amLODIPine BESYLATE 5 mg PO DAILY 09/21/19 09/21/19 History Carvedilol [Coreg] 3.125 mg PO BID-W/MEALS #60 tab 09/30/19 Rx Cephalexin [Keflex] 500 mg PO Q12HR 7 Days #14 cap 09/30/19 Rx Darbepoetin Enmanuel [Aranesp] 60 mcg SQ Q7D #4 syringe 09/30/19 Rx Furosemide [Lasix] 40 mg PO BID #60 tablet 09/30/19 Rx INSULIN ASPART (NovoLOG) [NovoLOG 0 unit SQ ACHS vial 09/30/19 Rx (formulary)] Insulin Detemir (Levemir) [Levemir] 10 unit SQ HS #1 syr 09/30/19 Rx Nystatin 100,000 Unit/gm Powd 1 applic TOPICAL BID #1 applic 09/30/19 Rx [Mycostatin Powder] Allergies Allergy/AdvReac Type Severity Reaction Status Date / Time No Known Allergies Allergy Verified 09/21/19 17:47 Physical Exam Vitals: Vital Signs Temp Pulse Resp BP Pulse Ox 10/05/19 13:07 61 18 162/72 99 10/05/19 12:03 57 L 18 150/84 100 10/05/19 10:30 54 L 18 142/67 95 10/05/19 10:24 98.7 F 57 L 18 139/66 94 L Intake and Output 10/04/19 10/05/19 10/05/19 22:59 06:59 14:59 Other: Weight 87.09 kg PHYSICAL EXAMINATION: GENERAL: The patient is alert and oriented x3, not in any acute distress. Well developed, well nourished. HEENT: Pupils are round and equally reacting to light. EOMI. No scleral icterus. No conjunctival pallor. Normocephalic, atraumatic. No pharyngeal erythema. No thyromegaly. CARDIOVASCULAR: S1 and S2 present. No murmurs, rubs, or gallops. PULMONARY: Chest is clear to auscultation, no wheezing or crackles. ABDOMEN: Soft, nontender, nondistended, normoactive bowel sounds. No palpable organomegaly. MUSCULOSKELETAL: No joint swelling or deformity. EXTREMITIES: No cyanosis, clubbing, or pedal edema. Right below-knee amputation NEUROLOGICAL: Gross neurological examination did not reveal any focal deficits. SKIN: No rashes. Results CBC & Chem 7: 10/05/19 10:32 10/05/19 10:32 Labs: Abnormal Lab Results - Last 24 Hours (Table) 10/05/19 10/05/19 10/05/19 Range/Units 10:32 10:32 10:32 WBC 14.8 H (3.8-10.6) k/uL RBC 2.91 L (4.30-5.90) m/uL Hgb 8.5 L (13.0-17.5) gm/dL Hct 26.2 L (39.0-53.0) % RDW 15.6 H (11.5-15.5) % Neutrophils # 12.2 H (1.3-7.7) k/uL APTT 38.7 H (22.0-30.0) sec Sodium 136 L (137-145) mmol/L BUN 36 H (9-20) mg/dL Creatinine 2.76 H (0.66-1.25) mg/dL Calcium 7.9 L (8.4-10.2) mg/dL Troponin I (0.000-0.034) ng/mL Total Protein 5.7 L (6.3-8.2) g/dL Albumin 2.6 L (3.5-5.0) g/dL 10/05/19 Range/Units 10:32 WBC (3.8-10.6) k/uL RBC (4.30-5.90) m/uL Hgb (13.0-17.5) gm/dL Hct (39.0-53.0) % RDW (11.5-15.5) % Neutrophils # (1.3-7.7) k/uL APTT (22.0-30.0) sec Sodium (137-145) mmol/L BUN (9-20) mg/dL Creatinine (0.66-1.25) mg/dL Calcium (8.4-10.2) mg/dL Troponin I 0.038 H* (0.000-0.034) ng/mL Total Protein (6.3-8.2) g/dL Albumin (3.5-5.0) g/dL Assessment and Plan Plan: -Chest pain: Atypical resolved, patient will undergo echocardiogram doesn't show any wall motion abnormalities patient probably will be discharged, patient will be evaluated by cardiology patient has a pacemaker -Mildly elevated troponin: Secondary to chronic kidney disease. 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 Patient probably has acute renal failure as well secondary to excessive diuresis diuretics will be held. 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
[2019-10-05] MEDS: INSULIN ASPART (NovoLOG) 100 UNIT/ML VIAL SQ SCH ×2 (18:50→21:43)
[2019-10-05] MEDS: CARVEDILOL 3.125 MG TAB PO SCH (19:01)
[2019-10-05] MEDS: NYSTATIN 100,000 UNIT/GM POWD 15 GM TOPICAL SCH (21:43)
[2019-10-05 21:47] LABS: Glucose,Whole Blood 197 mg/dL (75-99)
[2019-10-05] MEDS: ASPIRIN 81 MG PO SCH (21:55)
[2019-10-05] MEDS: ATORVASTATIN 80 MG TAB PO SCH (21:55)
[2019-10-05] MEDS: APIXABAN 2.5 MG TABLET PO SCH (21:55)
[2019-10-05] MEDS: INSULIN DETEMIR (LEVEMIR) 100 UNIT/ML SYR SQ SCH (22:31)
[2019-10-06] MEDS: INSULIN ASPART (NovoLOG) 100 UNIT/ML VIAL SQ SCH ×4 (06:23→21:48)
[2019-10-06 06:25] LABS: Glucose,Whole Blood 158 mg/dL (75-99)
[2019-10-06] MEDS: CARVEDILOL 3.125 MG TAB PO SCH ×2 (06:25→18:25)
[2019-10-06] MEDS: PANTOPRAZOLE 40 MG TABLET PO SCH (06:25)
[2019-10-06 08:10] LABS: Calcium 7.9 mg/dL (8.4-10.2); Potassium 4.5 mmol/L (3.5-5.1)
[2019-10-06] MEDS: DONEPEZIL 10 MG TAB PO SCH (09:40)
[2019-10-06] MEDS: APIXABAN 2.5 MG TABLET PO SCH ×2 (09:40→19:43)
[2019-10-06] MEDS: DULoxetine HCL 30 MG CAPSULE.DR PO SCH (09:40)
[2019-10-06] MEDS: amLODIPine 5 MG TAB PO SCH (09:40)
[2019-10-06] MEDS: NYSTATIN 100,000 UNIT/GM POWD 15 GM TOPICAL SCH ×2 (10:17→19:36)
[2019-10-06 11:35] LABS: Glucose,Whole Blood 127 mg/dL (75-99)
--- NOTE | 2019-10-06 14:59 | P.PN ---
Subjective 79-year-old male with known history of coronary artery disease and stent LAD came in with the complaints of chest pain patient is a poor historian although able to provide me fairly good his history chest pain is midsternal sharp and dull in nature and nonradiating nonexertional and not associated with food denied any diaphoresis or shortness of breath dizziness or palpitations or syncope. Patient just pain is significantly better now. Patient does have history of chronic diastolic dysfunction. Patient appears to have chronic kidney disease stage III patient baseline creatinine july was around 1.5 now at around 2.7 patient's creatinine has been elevated since july around this level. Chest x-ray showing pulmonary edema with bilateral pleural effusions although clinically patient doesn't have any JVD no pedal no significant pedal edema patient has a right below-knee amputation BNP is only 1979, patient's troponin is 0.038 EKG did not show any significant acute ST-T wave changes. 10/06/2019 No overnight events patient is clinically doing well respiratory status as well but patient may need physical therapy patient the echocardiogram repeat one is still pending. Constitutional: Denied any fatigue denied any fever. Cardio vascular: denied any chest pain, palpitations Gastrointestinal denied any nausea vomiting Pulmonary: Denied any shortness of breath cough Neurologic denied any new focal deficits All inpatient medications were reviewed and appropriate changes in these medications as dictated in the interval history and assessment and plan. Objective - Vital Signs Vital signs: Vital Signs Temp 98.3 F 10/06/19 04:00 Pulse 68 10/06/19 04:00 Resp 17 10/06/19 04:00 BP 126/63 10/06/19 04:00 Pulse Ox 97 10/06/19 04:00 Intake & Output 10/05/19 10/06/19 10/06/19 18:59 06:59 18:59 Output Total 325 Balance -325 Weight 87.09 kg 85.5 kg 85.5 kg Output: Urine 325 Other: Voiding Method Urinal - Exam PHYSICAL EXAMINATION: GENERAL: The patient is alert and oriented x3, not in any acute distress. Well developed, well nourished. HEENT: Pupils are round and equally reacting to light. EOMI. No scleral icterus. No conjunctival pallor. Normocephalic, atraumatic. No pharyngeal erythema. No thyromegaly. CARDIOVASCULAR: S1 and S2 present. No murmurs, rubs, or gallops. PULMONARY: Chest is clear to auscultation, no wheezing or crackles. ABDOMEN: Soft, nontender, nondistended, normoactive bowel sounds. No palpable organomegaly. MUSCULOSKELETAL: No joint swelling or deformity. EXTREMITIES: No cyanosis, clubbing, or pedal edema. Right below-knee amputation NEUROLOGICAL: Gross neurological examination did not reveal any focal deficits. SKIN: No rashes. - Labs CBC & Chem 7: 10/05/19 10:32 10/06/19 07:08 Labs: Abnormal Lab Results - Last 24 Hours (Table) 10/05/19 10/06/19 10/06/19 Range/Units 21:38 06:22 07:08 Sodium 135 L (137-145) mmol/L Carbon Dioxide 31 H (22-30) mmol/L BUN 39 H (9-20) mg/dL Creatinine 2.98 H (0.66-1.25) mg/dL Glucose 129 H (74-99) mg/dL POC Glucose (mg/dL) 197 H 158 H (75-99) mg/dL Calcium 7.9 L (8.4-10.2) mg/dL 10/06/19 Range/Units 11:32 Sodium (137-145) mmol/L Carbon Dioxide (22-30) mmol/L BUN (9-20) mg/dL Creatinine (0.66-1.25) mg/dL Glucose (74-99) mg/dL POC Glucose (mg/dL) 127 H (75-99) mg/dL Calcium (8.4-10.2) mg/dL Assessment and Plan Plan: -Chest pain: Atypical resolved, patient will undergo echocardiogram, patient was evaluated by cardiology and echocardiogram is still pending patient has a pacemaker. Patient the may need placement to subacute rehabilitation PT and OT consultation will be obtained -Mildly elevated troponin: Secondary to chronic kidney disease. 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 Patient probably has acute renal failure as well secondary to excessive diuresis diuretics will be held. 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
--- NOTE | 2019-10-06 15:23 | P.PN ---
Subjective Progress Note Date: 10/06/19 This is a 79-year-old gentleman with past medical history significant for coronary artery disease, peripheral arterial disease, status post right below the knee amputation, diabetes, hypertension, hyperlipidemia, prior pacemaker implantation, somewhat a poor historian, brought to the hospital because of ch est discomfort. Seen in consultation yesterday by Dr. Horn, who felt that the chest discomfort was very atypical in nature. He does have history of prior coronary artery stent placement. He underwent an echocardiogram with Doppler study, results are pending. Blood pressure 126/62 with a heart rate in the 60s, 97% on 2 L of oxygen. Sodium 135, potassium 4.5, BUN 39, creatinine 2.9. Objective - Vital Signs Vital signs: Vital Signs Temp 98.3 F 10/06/19 04:00 Pulse 68 10/06/19 04:00 Resp 17 10/06/19 04:00 BP 126/63 10/06/19 04:00 Pulse Ox 97 10/06/19 04:00 Intake & Output 10/05/19 10/06/19 10/06/19 18:59 06:59 18:59 Intake Total 240 Output Total 325 350 Balance -325 -110 Weight 87.09 kg 85.5 kg 85.5 kg Intake: Oral 240 Output: Urine 325 350 Other: Voiding Method Urinal - Exam GENERAL: The patient is alert and oriented x3, not in any acute distress. Well developed, well nourished. HEENT: Pupils are round and equally reacting to light. EOMI. No scleral icterus. No conjunctival pallor. Normocephalic, atraumatic. No pharyngeal erythema. No thyromegaly. CARDIOVASCULAR: S1 and S2 present. No murmurs, rubs, or gallops. PULMONARY: Chest is clear to auscultation, no wheezing or crackles. ABDOMEN: Soft, nontender, nondistended, normoactive bowel sounds. No palpable organomegaly. MUSCULOSKELETAL: No joint swelling or deformity. EXTREMITIES: No cyanosis, clubbing, or pedal edema. Right below-knee amputation NEUROLOGICAL: Gross neurological examination did not reveal any focal deficits. SKIN: No rashe - Labs CBC & Chem 7: 10/05/19 10:32 10/06/19 07:08 Labs: Abnormal Lab Results - Last 24 Hours (Table) 10/05/19 10/06/1910/05/20 Range/Units 21:38 06:22 07:08 Sodium 135 L (137-145) mmol/L Carbon Dioxide 31 H (22-30) mmol/L BUN 39 H (9-20) mg/dL Creatinine 2.98 H (0.66-1.25) mg/dL Glucose 129 H (74-99) mg/dL POC Glucose (mg/dL) 197 H 158 H (75-99) mg/dL Calcium 7.9 L (8.4-10.2) mg/dL 10/06/19 Range/Units 11:32 Sodium (137-145) mmol/L Carbon Dioxide (22-30) mmol/L BUN (9-20) mg/dL Creatinine (0.66-1.25) mg/dL Glucose (74-99) mg/dL POC Glucose (mg/dL) 127 H (75-99) mg/dL Calcium (8.4-10.2) mg/dL Assessment and Plan Plan: Assessment and Plan: #1Chest pain: Atypical #2Mildly elevated troponin: Secondary to chronic kidney disease. 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 #7Cerebrovascular disease #8 Dyslipidemia Plan We will review the limited echo that was performed today. From our perspective, patient should be able to be discharged home today. Or back to [facility]. DNP note has been reviewed, I agree with a documented findings and plan of care. Patient was seen and examined.
[2019-10-06 16:58] LABS: Glucose,Whole Blood 284 mg/dL (75-99)
[2019-10-06] MEDS: ATORVASTATIN 80 MG TAB PO SCH (19:43)
[2019-10-06] MEDS: ASPIRIN 81 MG PO SCH (19:43)
[2019-10-06 20:52] LABS: Glucose,Whole Blood 305 mg/dL (75-99)
[2019-10-06] MEDS: INSULIN DETEMIR (LEVEMIR) 100 UNIT/ML SYR SQ SCH (21:47)
[2019-10-07] MEDS: INSULIN ASPART (NovoLOG) 100 UNIT/ML VIAL SQ SCH ×4 (06:20→21:36)
[2019-10-07 06:21] LABS: Glucose,Whole Blood 153 mg/dL (75-99)
[2019-10-07] MEDS: CARVEDILOL 3.125 MG TAB PO SCH ×2 (06:21→17:48)
[2019-10-07] MEDS: PANTOPRAZOLE 40 MG TABLET PO SCH (06:21)
[2019-10-07 08:28] LABS: Calcium 7.8 mg/dL (8.4-10.2); Potassium 4.2 mmol/L (3.5-5.1)
[2019-10-07] MEDS: NYSTATIN 100,000 UNIT/GM POWD 15 GM TOPICAL SCH ×2 (10:40→21:41)
[2019-10-07] MEDS: DULoxetine HCL 30 MG CAPSULE.DR PO SCH (10:40)
[2019-10-07] MEDS: DONEPEZIL 10 MG TAB PO SCH (10:40)
[2019-10-07] MEDS: amLODIPine 5 MG TAB PO SCH (10:40)
[2019-10-07] MEDS: APIXABAN 2.5 MG TABLET PO SCH ×2 (10:40→21:36)
[2019-10-07 11:23] LABS: Glucose,Whole Blood 245 mg/dL (75-99)
--- NOTE | 2019-10-07 13:40 | P.PN ---
Subjective 79-year-old male with known history of coronary artery disease and stent LAD came in with the complaints of chest pain patient is a poor historian although able to provide me fairly good his history chest pain is midsternal sharp and dull in nature and nonradiating nonexertional and not associated with food denied any diaphoresis or shortness of breath dizziness or palpitations or syncope. Patient just pain is significantly better now. Patient does have history of chronic diastolic dysfunction. Patient appears to have chronic kidney disease stage III patient baseline creatinine july was around 1.5 now at around 2.7 patient's creatinine has been elevated since july around this level. Chest x-ray showing pulmonary edema with bilateral pleural effusions although clinically patient doesn't have any JVD no pedal no significant pedal edema patient has a right below-knee amputation BNP is only 1979, patient's troponin is 0.038 EKG did not show any significant acute ST-T wave changes. 10/06/2019 No overnight events patient is clinically doing well respiratory status as well but patient may need physical therapy patient the echocardiogram repeat one is still pending. 10/07/2019 Patient looks much better clinically doesn't appear to be in heart failure does not appear edema JVD but creatinine did get worse and patient the is bit hyponatremic baseline creatinine appears to be 2.7 now around 2.7 nephrology was consulted. We'll obtain a chest x-ray Constitutional: Denied any fatigue denied any fever. Cardio vascular: denied any chest pain, palpitations Gastrointestinal denied any nausea vomiting Pulmonary: Denied any shortness of breath cough Neurologic denied any new focal deficits All inpatient medications were reviewed and appropriate changes in these medications as dictated in the interval history and assessment and plan. Objective - Vital Signs Vital signs: Vital Signs Temp 98.2 F 10/07/19 03:59 Pulse 61 10/07/19 03:59 Resp 17 10/07/19 03:59 BP 115/55 10/07/19 03:59 Pulse Ox 96 10/07/19 03:59 Intake & Output 10/06/19 10/07/19 10/07/19 18:59 06:59 18:59 Intake Total 780 Output Total 350 325 50 Balance 430 -325 -50 Weight 85.5 kg 80.5 kg Intake: Oral 780 Output: Urine 350 325 50 Other: Voiding Method Urinal Urinal - Exam PHYSICAL EXAMINATION: GENERAL: The patient is alert and oriented x3, not in any acute distress. Well developed, well nourished. HEENT: Pupils are round and equally reacting to light. EOMI. No scleral icterus. No conjunctival pallor. Normocephalic, atraumatic. No pharyngeal erythema. No th yromegaly. CARDIOVASCULAR: S1 and S2 present. No murmurs, rubs, or gallops. PULMONARY: Chest is clear to auscultation, no wheezing or crackles. ABDOMEN: Soft, nontender, nondistended, normoactive bowel sounds. No palpable organomegaly. MUSCULOSKELETAL: No joint swelling or deformity. EXTREMITIES: No cyanosis, clubbing, or pedal edema. Right below-knee amputation NEUROLOGICAL: Gross neurological examination did not reveal any focal deficits. SKIN: No rashes. - Labs CBC & Chem 7: 10/05/19 10:32 10/07/19 07:07 Labs: Abnormal Lab Results - Last 24 Hours (Table) 10/06/19 10/06/19 10/07/19 Range/Units 16:57 20:50 06:19 Sodium (137-145) mmol/L Chloride (98-107) mmol/L Carbon Dioxide (22-30) mmol/L BUN (9-20) mg/dL Creatinine (0.66-1.25) mg/dL Glucose (74-99) mg/dL POC Glucose (mg/dL) 284 H 305 H 153 H (75-99) mg/dL Calcium (8.4-10.2) mg/dL 10/07/19 10/07/19 Range/Units 07:07 11:21 Sodium 134 L (137-145) mmol/L Chloride 96 L (98-107) mmol/L Carbon Dioxide 31 H (22-30) mmol/L BUN 52 H (9-20) mg/dL Creatinine 3.58 H (0.66-1.25) mg/dL Glucose 130 H (74-99) mg/dL POC Glucose (mg/dL) 245 H (75-99) mg/dL Calcium 7.8 L (8.4-10.2) mg/dL Assessment and Plan Plan: -Chest pain: Atypical resolved, patient will undergo echocardiogram, patient was evaluated by cardiology and echocardiogram is still pending patient has a pacemaker. Patient the may need placement to subacute rehabilitation PT and OT consultation will be obtained -Mildly elevated troponin: Secondary to chronic kidney disease. 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 Patient probably has acute renal failure as well secondary to excessive diuresis diuretics will be held. 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
--- NOTE | 2019-10-07 13:51 | P.NPCON ---
History of Present Illness - Reason for Consult acute renal failure, chronic renal failure - History of Present Illness Reason for consultation: Acute kidney injury on chronic kidney disease History of present illness: Patient is a 79-year-old male seen in initial consultation for acute kidney injury on chronic kidney disease. Patient's creatinine in early 2019 was in the range of 1.2-1.5. However this year it has mostly been in the range of 2.2-3. Today it is up to 3.58. patient was admitted to the hospital earlier this month with unresponsiveness and hypoglycemia. Ultrasound of the kidneys from earlier this month revealed normal-sized kidneys without any evidence of hydronephrosis. patient presented to the hospital this admission with chest pain. He was given nitroglycerin which did improve his symptoms area he has been evaluated by cardiology and there are no plans for any intervention at this time. Patient also has history of right BKA due to infection.he denies regular use of nonsteroidals. Echocardiogram from 2019 revealed preserved ejection fraction. Repeat echocardiogram is pending. He denies any edema at this time. Admits to good urine output. Oral intake is good. No vomiting or diarrhea. Blood pressure stable. He did receive diuretics on admission but are now discontinued. Vital signs are stable. General: The patient appeared well nourished and normally developed. HEENT: Head exam is unremarkable. Neck is without jugular venous distension. LUNGS: Lungs are clear to auscultation and percussion. Breath sounds decreased. HEART: Rate and Rhythm are regular. First and second heart sounds normal. No murmurs, rubs or gallops. ABDOMEN: Abdominal exam reveals normal bowel sounds. Non-tender and non- distended. EXTREMITITES: No clubbing, cyanosis, or edema. Right BKA. Past Medical History Past Medical History: Heart Failure, Dementia, Diabetes Mellitus, Hypertension, Syncope, Vascular Disorder Additional Past Medical History / Comment(s): IDDM type II, recent R 3rd toe amputation/wound, SEVERAL SYNCOPAL EPISODES PRIOR TO RECEIVING HIS PACEMAKER, PVD, carotid stenosis History of Any Multi-Drug Resistant Organisms: None Reported Past Surgical History: Appendectomy, Pacemaker, Tonsillectomy Additional Past Surgical History / Comment(s): LEFT GREAT TOE HALF REMOVED, R 3RD TOE AMP, PICC LINE IN UPPER R ARM, COLONOSCOPY. Past Anesthesia/Blood Transfusion Reactions: Previous Problems w/ Anesthesia Additional Past Anesthesia/Blood Transfusion Reaction / Comment(s): HARD TIME WAKING UP FROM ANESETHIA Type of Cardiac Device: Permanent Pacemaker Device Placement Date:: 03/02/2017 Past Psychological History: No Psychological Hx Reported Additional Psychological History / Comment(s): PT CURRENTLY AT [facility]. NORMALLY LIVES ALONE. PT IS GETTING UP WITH WALKER. HE NORMALLY IS INDEPENDENT. Smoking Status: Never smoker Past Alcohol Use History: Abuse, Daily Additional Past Alcohol Use History / Comment(s): PT. REPORTS DRINKING 2-3 BEERS A DAY BUT NONE SINCE GOING TO [facility], PER PAST MEDICAL RECORD, PTS. DAUGHTER HAS STATED IT IS MORE THAN THAT AND ALSO INCLUDES SCOTCH Past Drug Use History: None Reported - Past Family History Father Family Medical History: Cancer Additional Family Medical History / Comment(s): PT STATES HIS FATHER NEVER WENT TO THE [place]. HE HAD A BAD COUGH AND AT THE AGE OF 78YRS. Mother History Unknown: Yes Additional Family Medical History / Comment(s): MOTHER LEFT FAMILY WHEN PT WAS 12 YRS OLD. PT STATES SHE WAS A HEAVY SMOKER. Medications and Allergies Home Medications Medication Instructions Recorded Confirmed Type Donepezil [Aricept] 10 mg PO DAILY 10/01/16 10/05/19 History Atorvastatin [Lipitor] 80 mg PO HS 08/07/19 10/05/19 History Cholecalciferol [Vitamin D3 (25 1,000 unit PO DAILY 08/07/19 10/05/19 History Mcg = 1000 Iu)] DULoxetine HCL [Cymbalta] 30 mg PO DAILY 08/07/19 10/05/19 History Apixaban [Eliquis] 2.5 mg PO BID #0 08/09/19 10/05/19 Rx Aspirin 81 mg PO HS chew 08/09/19 10/05/19 Rx Omeprazole 20 mg PO DAILY 09/21/19 10/05/19 History amLODIPine BESYLATE 5 mg PO DAILY 09/21/19 10/05/19 History Carvedilol [Coreg] 3.125 mg PO BID-W/MEALS #60 tab 09/30/19 10/05/19 Rx Cephalexin [Keflex] 500 mg PO Q12HR 7 Days #14 cap 09/30/19 10/05/19 Rx Darbepoetin Enmanuel [Aranesp] 60 mcg SQ Q7D #4 syringe 09/30/19 10/05/19 Rx Furosemide [Lasix] 40 mg PO BID #60 tablet 09/30/19 10/05/19 Rx INSULIN ASPART (NovoLOG) [NovoLOG 0 unit SQ ACHS vial 09/30/19 Rx (formulary)] Insulin Detemir (Levemir) [Levemir] 10 unit SQ HS #1 syr 09/30/19 Rx Nystatin 100,000 Unit/gm Powd 1 applic TOPICAL BID #1 applic 09/30/19 10/05/19 Rx [Mycostatin Powder] Allergies Allergy/AdvReac Type Severity Reaction Status Date / Time No Known Allergies Allergy Verified 10/05/19 17:02 Physical Exam Vitals: Vital Signs Temp Pulse Resp BP Pulse Ox 10/07/19 03:59 98.2 F 61 17 115/55 96 10/07/19 00:00 98.6 F 62 16 145/66 96 10/06/19 19:52 98.6 F 64 16 155/69 94 L 10/06/19 15:50 64 16 125/58 93 L Intake and Output 10/06/19 10/07/19 10/07/19 22:59 06:59 14:59 Intake Total 540 Output Total 100 225 50 Balance 440 -225 -50 Intake: Oral 540 Output: Urine 100 225 50 Other: Voiding Method Urinal Urinal Weight 80.5 kg Results - Lab Results Most recent lab results Calcium 7.8 mg/dL (8.4-10.2) L 10/07/19 07:07 Magnesium 1.8 mg/dL (1.6-2.3) 10/05/19 10:32 10/05/19 10:32 10/07/19 07:07 Assessment and Plan Plan: assessment: 1. Acute kidney injury secondary to ATN secondary to diuresis. Creatinine 3.5 today. Rule out urinary retention. 2. Chronic kidney disease stage III. Recent baseline in the range of 2.2-2.7. Etiology is most likely diabetic kidney disease. 3. Chronic diastolic CHF. 4. Status post right below the knee amputation. 5. Hypertension with chronic kidney disease. Controlled. 6. Insulin-dependent diabetes mellitus. Plan: Continue to hold diuretics. Check chest x-ray. Follow-up echocardiogram. Check bladder scan to rule out urinary retention. Serologic workup from earlier this admission was negative except for total low complements. Check hepatitis panel. I will also repeat total complements. Continue to monitor renal function and urine output. Depending on his overall health, will consider kidney biopsy in the near future. Thank you for the consult dictation. I will continue to follow the patient with you during his hospital stay.
--- NOTE | 2019-10-07 14:32 | XR ---
EXAMINATION TYPE: XR chest 1V DATE OF EXAM: 10/07/2019 COMPARISON: Prior chest x-ray 10/05/2019 HISTORY: Congestive heart failure TECHNIQUE: Single frontal view of the chest is obtained. FINDINGS: Perihilar vascular indistinctness is present, this prominence and central vascularity. Pat ient is rotated. Pacemaker stable. There is no evident pneumothorax. There is blunting of the left co stophrenic angle, increased retrocardiac density. Heart is enlarged. IMPRESSION: Findings compatible with congestive heart failure. There may be pleural effusions. Follo w-up recommended.
--- NOTE | 2019-10-07 15:44 | P.PN ---
Subjective Progress Note Date: 10/07/19 This is a 79-year-old gentleman with past medical history significant for coronary artery disease, peripheral arterial disease, status post right below the knee amputation, diabetes, hypertension, hyperlipidemia, prior pacemaker implantation, somewhat a poor historian, brought to the hospital because of ch est discomfort. Seen in consultation yesterday by Dr. Horn, who felt that the chest discomfort was very atypical in nature. He does have history of prior coronary artery stent placement. He underwent an echocardiogram with Doppler study, results are pending. Blood pressure 126/62 with a heart rate in the 60s, 97% on 2 L of oxygen. Sodium 135, potassium 4.5, BUN 39, creatinine 2.9. 10/07/2019 Patient was seen and examined today, overall looking significantly better. Creatinine today is worsened, 2.7, nephrology consultation is requested. Chest x-ray did show impression of congestive cardiac failure. Hemodynamically stable, blood pressure 118/56, heart rate in the 60s, 94% on room air. Objective - Vital Signs Vital signs: Vital Signs Temp 97.9 F 10/07/19 11:05 Pulse 66 10/07/19 11:05 Resp 16 10/07/19 11:05 BP 118/58 10/07/19 11:05 Pulse Ox 94 L 10/07/19 11:05 Intake & Output 10/06/19 10/07/19 10/07/19 18:59 06:59 18:59 Intake Total 780 Output Total 350 325 150 Balance 430 -325 -150 Weight 85.5 kg 80.5 kg Intake: Oral 780 Output: Urine 350 325 150 Other: Voiding Method Urinal Urinal Urinal - Exam GENERAL: The patient is alert and oriented x3, not in any acute distress. Well developed, well nourished. HEENT: Pupils are round and equally reacting to light. EOMI. No scleral icterus. No conjunctival pallor. Normocephalic, atraumatic. No pharyngeal erythema. No thyromegaly. CARDIOVASCULAR: S1 and S2 present. No murmurs, rubs, or gallops. PULMONARY: Chest is clear to auscultation, no wheezing or crackles. ABDOMEN: Soft, nontender, nondistended, normoactive bowel sounds. No palpable organomegaly. MUSCULOSKELETAL: No joint swelling or deformity. EXTREMITIES: No cyanosis, clubbing, or pedal edema. Right below-knee amputation NEUROLOGICAL: Gross neurological examination did not reveal any focal deficits. SKIN: No rashe - Labs CBC & Chem 7: 10/05/19 10:32 10/07/19 07:07 Labs: Abnormal Lab Results - Last 24 Hours (Table) 10/06/19 10/06/19 10/07/19 Range/Units 16:57 20:50 06:19 Sodium (137-145) mmol/L Chloride (98-107) mmol/L Carbon Dioxide (22-30) mmol/L BUN (9-20) mg/dL Creatinine (0.66-1.25) mg/dL Glucose (74-99) mg/dL POC Glucose (mg/dL) 284 H 305 H 153 H (75-99) mg/dL Calcium (8.4-10.2) mg/dL 10/07/19 10/07/19 Range/Units 07:07 11:21 Sodium 134 L (137-145) mmol/L Chloride 96 L (98-107) mmol/L Carbon Dioxide 31 H (22-30) mmol/L BUN 52 H (9-20) mg/dL Creatinine 3.58 H (0.66-1.25) mg/dL Glucose 130 H (74-99) mg/dL POC Glucose (mg/dL) 245 H (75-99) mg/dL Calcium 7.8 L (8.4-10.2) mg/dL Assessment and Plan Plan: Assessment and Plan: #1Chest pain: Atypical #2Mildly elevated troponin: Secondary to chronic kidney disease. 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 #7Cerebrovascular disease #8 Dyslipidemia Plan We will review the limited echo that was performed today. Nephrology consult ation because of worsening renal function. We'll continue to follow DNP note has been reviewed, I agree with a documented findings and plan of care. Patient was seen and examined.
[2019-10-07 16:47] LABS: Glucose,Whole Blood 228 mg/dL (75-99)
--- NOTE | 2019-10-07 17:07 | ECHOF ---
Referral Reason: MEASUREMENTS -------- HEIGHT: 182.9 cm WEIGHT: 87.1 kg BP: IVSd: 1.4 cm (0.6 - 1.1) LVIDd: 3.4 cm (3.9 - 5.3) LVPWd: 1.8 cm (0.6 - 1.1) IVSs: 1.6 cm LVIDs: 2.0 cm LVPWs: 1.8 cm Ao Diam: 3.7 cm (2.0 - 3.7) LA Diam: 3.1 cm (2.7 - 3.8) AV Cusp: 2.3 cm (1.5 - 2.6) EPSS: 0.3 cm MV E Chepe: 0.88 m/s MV DecT: 223 ms MV A Chepe: 0.77 m/s MV E/A Ratio: 1.15 RAP: 5.00 mmHg RVSP: 23.20 mmHg MV EF SLOPE: 52.66 mm/s (70 - 150) MV EXCURSION: 18.74 mm (> 18.000) FINDINGS -------- Pacerwire seen in RV and RA. This was a technically difficult study with suboptimal views. The left ventricular size is normal. There is moderate concentric left ventricular hypertrophy. O verall left ventricular systolic function is normal with, an EF between 55 - 60 %. Left ventricular fillimg pressure cannot be estimated due to paced rhythm. The right ventricle is normal in size. The left atrial size is normal. The right atrial size is normal. xx ml of Lumason was utilized for enhancement of images. Unable to visualize atrial septum. The aortic valve is trileaflet and appears structurally normal. The mitral valve is normal. There is trace mitral regurgitation. The tricuspid valve appears structurally normal. Trace tricuspid regurgitation present. Right bill tricular systolic pressure is normal at < 35 mmHg. There is no pulmonic regurgitation present. The aortic root size is normal. IVC Not well visulized. There is no pericardial effusion. CONCLUSIONS -------- 1. Pacerwire seen in RV and RA. 2. This was a technically difficult study with suboptimal views. 3. The left ventricular size is normal. 4. There is moderate concentric left ventricular hypertrophy. 5. Overall left ventricular systolic function is normal with, an EF between 55 - 60 %. 6. Left ventricular fillimg pressure cannot be estimated due to paced rhythm. 7. The right ventricle is normal in size. 8. The left atrial size is normal. 9. The right atrial size is normal. 10. xx ml of Lumason was utilized for enhancement of images. 11. Unable to visualize atrial septum. 12. The aortic valve is trileaflet and appears structurally normal. 13. The mitral valve is normal. 14. There is trace mitral regurgitation. 15. The tricuspid valve appears structurally normal. 16. Trace tricuspid regurgitation present. 17. Right ventricular systolic pressure is normal at < 35 mmHg. 18. There is no pulmonic regurgitation present. 19. The aortic root size is normal. 20. IVC Not well visulized. 21. There is no pericardial effusion. REJECT OPENER AND FILLER: Daphne Almodovar RDCS
[2019-10-07 20:18] LABS: Glucose,Whole Blood 368 mg/dL (75-99)
[2019-10-07] MEDS: ATORVASTATIN 80 MG TAB PO SCH (21:36)
[2019-10-07] MEDS: ASPIRIN 81 MG PO SCH (21:36)
[2019-10-07] MEDS: INSULIN DETEMIR (LEVEMIR) 100 UNIT/ML SYR SQ SCH (21:36)
[2019-10-08 06:36] LABS: Glucose,Whole Blood 155 mg/dL (75-99)
[2019-10-08] MEDS: PANTOPRAZOLE 40 MG TABLET PO SCH (06:45)
[2019-10-08] MEDS: CARVEDILOL 3.125 MG TAB PO SCH ×2 (06:45→17:38)
[2019-10-08] MEDS: INSULIN ASPART (NovoLOG) 100 UNIT/ML VIAL SQ SCH ×4 (06:45→22:15)
[2019-10-08 08:04] LABS: Albumin 2.6 g/dL (3.5-5.0); Calcium 8.1 mg/dL (8.4-10.2); Magnesium 2.2 mg/dL (1.6-2.3); Potassium 4.4 mmol/L (3.5-5.1); Total Bilirubin 0.3 mg/dL (0.2-1.3); Total Protein 5.9 g/dL (6.3-8.2)
[2019-10-08] MEDS: DULoxetine HCL 30 MG CAPSULE.DR PO SCH (09:19)
[2019-10-08] MEDS: amLODIPine 5 MG TAB PO SCH (09:19)
[2019-10-08] MEDS: APIXABAN 2.5 MG TABLET PO SCH ×2 (09:19→22:15)
[2019-10-08] MEDS: DONEPEZIL 10 MG TAB PO SCH (09:19)
[2019-10-08] MEDS: NYSTATIN 100,000 UNIT/GM POWD 15 GM TOPICAL SCH ×2 (09:20→22:16)
[2019-10-08 11:41] LABS: Glucose,Whole Blood 148 mg/dL (75-99)
--- NOTE | 2019-10-08 13:03 | P.PN ---
Subjective 79-year-old male with known history of coronary artery disease and stent LAD came in with the complaints of chest pain patient is a poor historian although able to provide me fairly good his history chest pain is midsternal sharp and dull in nature and nonradiating nonexertional and not associated with food denied any diaphoresis or shortness of breath dizziness or palpitations or syncope. Patient just pain is significantly better now. Patient does have history of chronic diastolic dysfunction. Patient appears to have chronic kidney disease stage III patient baseline creatinine july was around 1.5 now at around 2.7 patient's creatinine has been elevated since july around this level. Chest x-ray showing pulmonary edema with bilateral pleural effusions although clinically patient doesn't have any JVD no pedal no significant pedal edema patient has a right below-knee amputation BNP is only 1978, patient's troponin is 0.038 EKG did not show any significant acute ST-T wave changes. 10/06/2019 No overnight events patient is clinically doing well respiratory status as well but patient may need physical therapy patient the echocardiogram repeat one is still pending. 10/07/2019 Patient looks much better clinically doesn't appear to be in heart failure does not appear edema JVD but creatinine did get worse and patient the is bit hyponatremic baseline creatinine appears to be 2.7 now around 2.7 nephrology was consulted. We'll obtain a chest x-ray 10/08/2019 Patient creatinine is still bit worse compared to yesterday fairly stable nephrology valid the patient patient has not been eating or drinking very well may be contributing to his renal dysfunction Require IV fluids but I'll leave that dictation to nephrology Constitutional: Significantly fatigued and sleepy drowsy Cardio vascular: denied any chest pain, palpitations Gastrointestinal denied any nausea vomiting Pulmonary: Denied any shortness of breath cough Neurologic denied any new focal deficits All inpatient medications were reviewed and appropriate changes in these medications as dictated in the interval history and assessment and plan. Objective - Vital Signs Vital signs: Vital Signs Temp 97.9 F 10/08/19 11:50 Pulse 59 L 10/08/19 11:50 Resp 18 10/08/19 11:50 BP 138/66 10/08/19 11:50 Pulse Ox 98 10/08/19 11:50 Intake & Output 10/07/19 10/08/19 10/08/19 18:59 06:59 18:59 Intake Total 240 Output Total 250 100 Balance -250 140 Weight 77.5 kg Intake: Oral 240 Output: Urine 250 100 Other: Voiding Method Urinal Urinal # Voids 1 1 - Exam PHYSICAL EXAMINATION: GENERAL: The patient is drowsy and oriented x3, not in any acute distress. Well developed, well nourished. he is tired HEENT: Pupils are round and equally reacting to light. EOMI. No scleral icterus. No conjunctival pallor. Normocephalic, atraumatic. No pharyngeal erythema. No thyromegaly. CARDIOVASCULAR: S1 and S2 present. No murmurs, rubs, or gallops. PULMONARY: Chest is clear to auscultation, no wheezing or crackles. ABDOMEN: Soft, nontender, nondistended, normoactive bowel sounds. No palpable organomegaly. MUSCULOSKELETAL: No joint swelling or deformity. EXTREMITIES: No cyanosis, clubbing, or pedal edema. Right below-knee amputation NEUROLOGICAL: Gross neurological examination did not reveal any focal deficits. SKIN: No rashes. - Labs CBC & Chem 7: 10/05/19 10:32 10/08/19 06:54 Labs: Abnormal Lab Results - Last 24 Hours (Table) 10/07/19 10/07/19 10/08/19 Range/Units 16:45 20:17 06:32 Sodium (137-145) mmol/L Chloride (98-107) mmol/L Carbon Dioxide (22-30) mmol/L BUN (9-20) mg/dL Creatinine (0.66-1.25) mg/dL Glucose (74-99) mg/dL POC Glucose (mg/dL) 228 H 368 H 155 H (75-99) mg/dL Calcium (8.4-10.2) mg/dL Total Protein (6.3-8.2) g/dL Albumin (3.5-5.0) g/dL 10/08/19 10/08/19 Range/Units 06:54 11:34 Sodium 136 L (137-145) mmol/L Chloride 97 L (98-107) mmol/L Carbon Dioxide 31 H (22-30) mmol/L BUN 63 H (9-20) mg/dL Creatinine 3.77 H (0.66-1.25) mg/dL Glucose 126 H (74-99) mg/dL POC Glucose (mg/dL) 148 H (75-99) mg/dL Calcium 8.1 L (8.4-10.2) mg/dL Total Protein 5.9 L (6.3-8.2) g/dL Albumin 2.6 L (3.5-5.0) g/dL Assessment and Plan Plan: -Chest pain: Atypical resolved, patient will undergo echocardiogram, patient was evaluated by cardiology and echocardiogram is still pending patient has a p acemaker. Patient the may need placement to subacute rehabilitation PT and OT consultation will be obtained -Mildly elevated troponin: Secondary to chronic kidney disease. 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 Patient probably has acute renal failure as well secondary to excessive diuresis diuretics will be held. 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
--- NOTE | 2019-10-08 13:13 | PN ---
PROGRESS NOTE Patient is seen for followup for acute kidney injury. He is currently lying in bed. Patient is comfortable. He is not in any acute distress. He has not been eating much. He has had good urine output. His diuretics are currently on hold. Patient is not on any IV fluids. PHYSICAL EXAMINATION: On examination today, patient is lying in bed, comfortable, not in any acute distress. He is communicating, alert and oriented x2. Blood pressure is 132/66, heart rate 60 per minute, he is afebrile. Examination of the heart S1, S2. Examination of the lungs, decreased breath sounds at bases. Abdomen is soft, nontender. Examination of lower extremities shows wrinkling of the skin. No edema noted. 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 Patient is moving all 4 extremities. LABS: Show sodium 136, potassium 4.4, BUN 63, creatinine 3.7. ASSESSMENT: 1. Acute kidney injury, prerenal. Currently creatinine is slightly worse from yesterday. Since patient is not eating much I will likely need to start IV fluids, although cautiously given his history of congestive heart failure. He will be encouraged to eat and if he does not eat much I will start IV fluids later this evening. 2. Congestive heart failure, diastolic dysfunction on last admission, currently not in congestive heart failure. 3. History of right below the knee amputation. 4. Chronic kidney disease, stage 3. 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 PLAN: Encourage increased oral intake. If the patient is not eating much I will add gentle IV hydration. Repeat labs in a.m. Avoid nephrotoxic agents. Avoid hypotension. MMODL / IJN: [id number] /
--- NOTE | 2019-10-08 13:35 | P.PN ---
Subjective Progress Note Date: 10/08/19 This is a 79-year-old gentleman with past medical history significant for coronary artery disease, peripheral arterial disease, status post right below the knee amputation, diabetes, hypertension, hyperlipidemia, prior pacemaker implantation, somewhat a poor historian, brought to the hospital because of ch est discomfort. Seen in consultation yesterday by Dr. Horn, who felt that the chest discomfort was very atypical in nature. He does have history of prior coronary artery stent placement. He underwent an echocardiogram with Doppler study, results are pending. Blood pressure 126/62 with a heart rate in the 60s, 97% on 2 L of oxygen. Sodium 135, potassium 4.5, BUN 39, creatinine 2.9. 10/07/2019 Patient was seen and examined today, overall looking significantly better. Creatinine today is worsened, 2.7, nephrology consultation is requested. Chest x-ray did show impression of congestive cardiac failure. Hemodynamically stable, blood pressure 118/56, heart rate in the 60s, 94% on room air. 10/08/2019 Patient seen and examined this morning, blood pressure significantly improved overall. Objective - Vital Signs Vital signs: Vital Signs Temp 97.9 F 10/08/19 11:50 Pulse 59 L 10/08/19 11:50 Resp 18 10/08/19 11:50 BP 138/66 10/08/19 11:50 Pulse Ox 98 10/08/19 11:50 Intake & Output 10/07/19 10/08/19 10/08/19 18:59 06:59 18:59 Intake Total 240 Output Total 250 100 Balance -250 140 Weight 77.5 kg Intake: Oral 240 Output: Urine 250 100 Other: Voiding Method Urinal Urinal # Voids 1 1 - Exam GENERAL: The patient is alert and oriented x3, not in any acute distress. Well developed, well nourished. HEENT: Pupils are round and equally reacting to light. EOMI. No scleral icterus. No conjunctival pallor. Normocephalic, atraumatic. No pharyngeal erythema. No thyromegaly. CARDIOVASCULAR: S1 and S2 present. No murmurs, rubs, or gallops. PULMONARY: Chest is clear to auscultation, no wheezing or crackles. ABDOMEN: Soft, nontender, nondistended, normoactive bowel sounds. No palpable organomegaly. MUSCULOSKELETAL: No joint swelling or deformity. EXTREMITIES: No cyanosis, clubbing, or pedal edema. Right below-knee amputation NEUROLOGICAL: Gross neurological examination did not reveal any focal deficits. SKIN: No rashe - Labs CBC & Chem 7: 10/05/19 10:32 10/08/19 06:54 Labs: Abnormal Lab Results - Last 24 Hours (Table) 10/07/19 10/07/19 10/08/19 Range/Units 16:45 20:17 06:32 Sodium (137-145) mmol/L Chloride (98-107) mmol/L Carbon Dioxide (22-30) mmol/L BUN (9-20) mg/dL Creatinine (0.66-1.25) mg/dL Glucose (74-99) mg/dL POC Glucose (mg/dL) 228 H 368 H 155 H (75-99) mg/dL Calcium (8.4-10.2) mg/dL Total Protein (6.3-8.2) g/dL Albumin (3.5-5.0) g/dL 10/08/19 10/08/19 Range/Units 06:54 11:34 Sodium 136 L (137-145) mmol/L Chloride 97 L (98-107) mmol/L Carbon Dioxide 31 H (22-30) mmol/L BUN 63 H (9-20) mg/dL Creatinine 3.77 H (0.66-1.25) mg/dL Glucose 126 H (74-99) mg/dL POC Glucose (mg/dL) 148 H (75-99) mg/dL Calcium 8.1 L (8.4-10.2) mg/dL Total Protein 5.9 L (6.3-8.2) g/dL Albumin 2.6 L (3.5-5.0) g/dL Assessment and Plan Plan: Assessment and Plan: #1Chest pain: Atypical #2Mildly elevated troponin: Secondary to chronic kidney disease. 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 #7Cerebrovascular disease #8 Dyslipidemia Plan From cardiology's perspective, we'll follow this patient along with you now on an as-needed basis only, please don't hesitate to call with any questions. DNP note has been reviewed, I agree with a documented findings and plan of care. Patient was seen and examined.
[2019-10-08 16:26] LABS: Glucose,Whole Blood 276 mg/dL (75-99)
[2019-10-08 20:49] LABS: Glucose,Whole Blood 206 mg/dL (75-99)
[2019-10-08] MEDS: ASPIRIN 81 MG PO SCH (22:15)
[2019-10-08] MEDS: ATORVASTATIN 80 MG TAB PO SCH (22:15)
[2019-10-08] MEDS: INSULIN DETEMIR (LEVEMIR) 100 UNIT/ML SYR SQ SCH (22:16)
[2019-10-09 06:24] LABS: Glucose,Whole Blood 257 mg/dL (75-99)
[2019-10-09] MEDS: CARVEDILOL 3.125 MG TAB PO SCH ×2 (06:35→17:11)
[2019-10-09] MEDS: INSULIN ASPART (NovoLOG) 100 UNIT/ML VIAL SQ SCH ×4 (06:35→20:58)
[2019-10-09] MEDS: PANTOPRAZOLE 40 MG TABLET PO SCH (06:35)
[2019-10-09 06:52] LABS: Calcium 7.9 mg/dL (8.4-10.2); Potassium 4.9 mmol/L (3.5-5.1)
[2019-10-09] MEDS: DULoxetine HCL 30 MG CAPSULE.DR PO SCH (08:56)
[2019-10-09] MEDS: APIXABAN 2.5 MG TABLET PO SCH ×2 (08:56→20:57)
[2019-10-09] MEDS: amLODIPine 5 MG TAB PO SCH (08:56)
[2019-10-09] MEDS: NYSTATIN 100,000 UNIT/GM POWD 15 GM TOPICAL SCH ×2 (08:57→20:57)
[2019-10-09] MEDS: DONEPEZIL 10 MG TAB PO SCH (08:57)
[2019-10-09 11:51] LABS: Glucose,Whole Blood 257 mg/dL (75-99)
--- NOTE | 2019-10-09 11:57 | XR ---
EXAMINATION TYPE: XR chest 1V portable DATE OF EXAM: 10/09/2019 COMPARISON: 10/07/2019 HISTORY: Congestive heart failure and shortness of breath TECHNIQUE: Single frontal view of the chest is obtained. FINDINGS: Cardia mediastinal silhouette is enlarged with dual lead left-sided cardiac device. Increa sing retrocardiac opacity and obscuration of the left costophrenic angle. Trace right pleural effusio n and small amount of fluid in the right minor fissure. Mild central pulmonary vascular congestion. IMPRESSION: Worsening left pleural effusion left basilar airspace disease with similar trace right p leural effusion.
[2019-10-09] MEDS ORDERED: FUROSEMIDE 10 MG/ML 4 ML VIAL IV STA (12:23)
--- NOTE | 2019-10-09 12:25 | P.PN ---
Subjective 79-year-old male with known history of coronary artery disease and stent LAD came in with the complaints of chest pain patient is a poor historian although able to provide me fairly good his history chest pain is midsternal sharp and dull in nature and nonradiating nonexertional and not associated with food denied any diaphoresis or shortness of breath dizziness or palpitations or syncope. Patient just pain is significantly better now. Patient does have history of chronic diastolic dysfunction. Patient appears to have chronic kidney disease stage III patient baseline creatinine july was around 1.5 now at around 2.7 patient's creatinine has been elevated since july around this level. Chest x-ray showing pulmonary edema with bilateral pleural effusions although clinically patient doesn't have any JVD no pedal no significant pedal edema patient has a right below-knee amputation BNP is only 1979, patient's troponin is 0.038 EKG did not show any significant acute ST-T wave changes. 10/06/2019 No overnight events patient is clinically doing well respiratory status as well but patient may need physical therapy patient the echocardiogram repeat one is still pending. 10/07/2019 Patient looks much better clinically doesn't appear to be in heart failure does not appear edema JVD but creatinine did get worse and patient the is bit hyponatremic baseline creatinine appears to be 2.7 now around 2.7 nephrology was consulted. We'll obtain a chest x-ray 10/08/2019 Patient creatinine is still bit worse compared to yesterday fairly stable nephrology valid the patient patient has not been eating or drinking very well may be contributing to his renal dysfunction Require IV fluids but I'll leave that dictation to nephrology 10/09/2019 His creatinine is fairly stable although patient is bit short of breath and st ill feels tired a lot to Nexium make sure patient not having pulmonary edema although clinically doesn't look like he has pulmonary edema Constitutional: Significantly fatigued and sleepy drowsy Cardio vascular: denied any chest pain, palpitations Gastrointestinal denied any nausea vomiting Pulmonary: Denied any shortness of breath cough Neurologic denied any new focal deficits All inpatient medications were reviewed and appropriate changes in these medications as dictated in the interval history and assessment and plan. Objective - Vital Signs Vital signs: Vital Signs Temp 97.5 F L 10/09/19 08:40 Pulse 60 10/09/19 08:40 Resp 18 10/09/19 08:40 BP 132/64 10/09/19 08:40 Pulse Ox 96 10/09/19 08:40 Intake & Output 10/08/19 10/09/19 10/09/19 18:59 06:59 18:59 Intake Total 480 Output Total 301 Balance 480 -301 Weight 77.5 kg Intake: Oral 480 Output: Urine 301 Other: Voiding Method Urinal # Voids 5 100 - Exam PHYSICAL EXAMINATION: GENERAL: The patient is drowsy and oriented x3, not in any acute distress. Well developed, well nourished. he is tired HEENT: Pupils are round and equally reacting to light. EOMI. No scleral icterus. No conjunctival pallor. Normocephalic, atraumatic. No pharyngeal erythema. No thyromegaly. CARDIOVASCULAR: S1 and S2 present. No murmurs, rubs, or gallops. PULMONARY: Chest is clear to auscultation, no wheezing or crackles. ABDOMEN: Soft, nontender, nondistended, normoactive bowel sounds. No palpable organomegaly. MUSCULOSKELETAL: No joint swelling or deformity. EXTREMITIES: No cyanosis, clubbing, or pedal edema. Right below-knee amputation NEUROLOGICAL: Gross neurological examination did not reveal any focal deficits. SKIN: No rashes. - Labs CBC & Chem 7: 10/05/19 10:32 10/09/19 05:31 Labs: Abnormal Lab Results - Last 24 Hours (Table) 10/08/19 10/08/19 10/09/19 Range/Units 16:25 20:48 05:31 Sodium 133 L (137-145) mmol/L Chloride 97 L (98-107) mmol/L BUN 66 H (9-20) mg/dL Creatinine 3.71 H (0.66-1.25) mg/dL Glucose 222 H (74-99) mg/dL POC Glucose (mg/dL) 276 H 206 H (75-99) mg/dL Calcium 7.9 L (8.4-10.2) mg/dL 10/09/19 10/09/19 Range/Units 06:23 11:43 Sodium (137-145) mmol/L Chloride (98-107) mmol/L BUN (9-20) mg/dL Creatinine (0.66-1.25) mg/dL Glucose (74-99) mg/dL POC Glucose (mg/dL) 257 H 257 H (75-99) mg/dL Calcium (8.4-10.2) mg/dL Assessment and Plan Plan: -Chest pain: Atypical resolved, patient will undergo echocardiogram, patient was evaluated by cardiology and echocardiogram is still pending patient has a pac emaker. Patient the may need placement to subacute rehabilitation PT and OT consultation will be obtained -acute hypoxic respiratory failure I ordered a chest x-ray as his REQUIREMENTS WENT UP AND PATIENT IS MORE TIRED AND WEAK. SHOWING PULMONARY EDEMA PATIENT WILL BE GIVEN 1 DOSE OF LASIX DISCUSSED WITH THE NEPHROLOGY. IF PATIENT CREATININE CONTINUED TO WORSEN WITH LASIX PATIENT MAY END UP REQUIRING DIALYSIS UNFORTUNATELY -Mildly elevated troponin: Secondary to chronic kidney disease. Congestive heart failure chronic diastolic dysfunction since Lasix was on hold now patient appeared to be in heart failure exacerbation patient will be given a dose of Lasix. 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 Patient probably has acute renal failure as well secondary to excessive diuresis diuretics will be held. We'll repeat basic metabolic profile as mentioned above, patient's kidney function worsened will obtain a chest x-ray patient clinically is not in heart failure -Cerebrovascular disease with the right below-knee amputation patient is on Eliquis which will be continued hypertension -Dyslipidemia -Patient has an arterial ulcer which appears to be healed at this time -Hypertension -Generalized deconditioning for which patient will need the placement to subacute rehabilitation
--- NOTE | 2019-10-09 12:35 | PN ---
PROGRESS NOTE Patient is seen for followup for acute kidney injury which is mainly prerenal. Serum creatinine had increased yesterday to 3.7. The patient the patient's diuretics are on hold. I was going to add IV fluids if he was not eating. However, he states that he has been eating fairly okay and did increase his fluid intake as well. His creatinine is the same as yesterday and it has not worsened. The patient has been voiding in a urinal. EXAMINATION: Blood pressure 132/64, heart rate 60 per minute, he is afebrile. Examination of the heart S1, S2. Examination of the lungs, decreased breath sounds at bases. Abdomen is soft, nontender. Examination of the lower extremities shows chronic skin changes, recent decrease in edema with wrinkling of the skin noted. [employer]PER[employer] exam grossly intact. LABS: Show sodium 133, potassium 4.9, chloride 97, BUN 66, creatinine 3.7. ASSESSMENT: 1. Acute kidney injury, prerenal, currently nonoliguric and stable. Continue off IV fluids. Continue to encourage increased oral intake. Continue to hold off on diuretics for now. 2. Congestive heart failure, diastolic dysfunction on admission, currently not in congestive heart failure. 3. History of right below the knee amputation. 4. Chronic kidney disease stage 3. Baseline creatinine 2.2-2.7, mostly from diabetic kidney disease. PLAN: Continue to encourage increased oral intake. Continue off IV fluids and off diuretics for now. Repeat labs in a.m. MMODL / IJN: [id number] /
[2019-10-09 16:43] LABS: Glucose,Whole Blood 210 mg/dL (75-99)
[2019-10-09 20:50] LABS: Glucose,Whole Blood 182 mg/dL (75-99)
[2019-10-09 20:57] LABS: Glucose,Whole Blood 199 mg/dL (75-99)
[2019-10-09] MEDS: ASPIRIN 81 MG PO SCH (20:57)
[2019-10-09] MEDS: INSULIN DETEMIR (LEVEMIR) 100 UNIT/ML SYR SQ SCH (20:57)
[2019-10-09] MEDS: ATORVASTATIN 80 MG TAB PO SCH (20:57)
[2019-10-10 02:53] LABS: Glucose,Whole Blood 109 mg/dL (75-99)
[2019-10-10 06:51] LABS: Glucose,Whole Blood 88 mg/dL (75-99)
[2019-10-10] MEDS: DONEPEZIL 10 MG TAB PO SCH (07:51)
[2019-10-10] MEDS: amLODIPine 5 MG TAB PO SCH (07:51)
[2019-10-10] MEDS: CARVEDILOL 3.125 MG TAB PO SCH ×2 (07:51→17:17)
[2019-10-10] MEDS: PANTOPRAZOLE 40 MG TABLET PO SCH (07:51)
[2019-10-10] MEDS: APIXABAN 2.5 MG TABLET PO SCH ×2 (07:51→20:50)
[2019-10-10 08:59] LABS: Calcium 8.2 mg/dL (8.4-10.2); Potassium 4.6 mmol/L (3.5-5.1)
[2019-10-10] MEDS: INSULIN ASPART (NovoLOG) 100 UNIT/ML VIAL SQ SCH ×4 (09:15→20:50)
[2019-10-10] MEDS: DULoxetine HCL 30 MG CAPSULE.DR PO SCH (09:28)
[2019-10-10] MEDS: NYSTATIN 100,000 UNIT/GM POWD 15 GM TOPICAL SCH ×2 (09:29→20:50)
--- NOTE | 2019-10-10 12:12 | P.PN ---
Subjective 79-year-old male with known history of coronary artery disease and stent LAD came in with the complaints of chest pain patient is a poor historian although able to provide me fairly good his history chest pain is midsternal sharp and dull in nature and nonradiating nonexertional and not associated with food denied any diaphoresis or shortness of breath dizziness or palpitations or syncope. Patient just pain is significantly better now. Patient does have history of chronic diastolic dysfunction. Patient appears to have chronic kidney disease stage III patient baseline creatinine july was around 1.5 now at around 2.7 patient's creatinine has been elevated since july around this level. Chest x-ray showing pulmonary edema with bilateral pleural effusions although clinically patient doesn't have any JVD no pedal no significant pedal edema patient has a right below-knee amputation BNP is only 1979, patient's troponin is 0.038 EKG did not show any significant acute ST-T wave changes. 10/06/2019 No overnight events patient is clinically doing well respiratory status as well but patient may need physical therapy patient the echocardiogram repeat one is still pending. 10/07/2019 Patient looks much better clinically doesn't appear to be in heart failure does not appear edema JVD but creatinine did get worse and patient the is bit hyponatremic baseline creatinine appears to be 2.7 now around 2.7 nephrology was consulted. We'll obtain a chest x-ray 10/08/2019 Patient creatinine is still bit worse compared to yesterday fairly stable nephrology valid the patient patient has not been eating or drinking very well may be contributing to his renal dysfunction Require IV fluids but I'll leave that dictation to nephrology 10/09/2019 His creatinine is fairly stable although patient is bit short of breath and st ill feels tired a lot to Nexium make sure patient not having pulmonary edema although clinically doesn't look like he has pulmonary edema 10/10/2019 Patient did receive Lasix at his creatinine go up patient may end up needing dialysis nephrology will evaluate the patient patient is on Eliquis which need to be held if he needs dialysis catheter will discuss with nephrology patient although feels well no shortness of breath Constitutional: Significantly fatigued and sleepy drowsy Cardio vascular: denied any chest pain, palpitations Gastrointestinal denied any nausea vomiting Pulmonary: Denied any shortness of breath cough Neurologic denied any new focal deficits All inpatient medications were reviewed and appropriate changes in these medications as dictated in the interval history and assessment and plan. Objective - Vital Signs Vital signs: Vital Signs Temp 97.7 F 10/10/19 07:00 Pulse 62 10/10/19 07:51 Resp 18 10/10/19 07:51 BP 154/70 10/10/19 07:00 Pulse Ox 93 L 10/10/19 07:00 Intake & Output 10/09/19 10/10/19 10/10/19 18:59 06:59 18:59 Intake Total 750 200 Output Total 1 Balance 749 200 Weight 78.5 kg Intake: Oral 750 200 Output: Urine 1 Other: Voiding Method Urinal Urinal # Voids 2 - Exam PHYSICAL EXAMINATION: GENERAL: The patient is drowsy and oriented x3, not in any acute distress. Well developed, well nourished. he is tired HEENT: Pupils are round and equally reacting to light. EOMI. No scleral icterus. No conjunctival pallor. Normocephalic, atraumatic. No pharyngeal erythema. No thyromegaly. CARDIOVASCULAR: S1 and S2 present. No murmurs, rubs, or gallops. PULMONARY: Chest is clear to auscultation, no wheezing or crackles. ABDOMEN: Soft, nontender, nondistended, normoactive bowel sounds. No palpable organomegaly. MUSCULOSKELETAL: No joint swelling or deformity. EXTREMITIES: No cyanosis, clubbing, or pedal edema. Right below-knee amputation NEUROLOGICAL: Gross neurological examination did not reveal any focal deficits. SKIN: No rashes. - Labs CBC & Chem 7: 10/05/19 10:32 10/10/19 07:03 Labs: Abnormal Lab Results - Last 24 Hours (Table) 10/09/19 10/09/19 10/09/19 Range/Units 16:41 20:14 20:50 BUN (9-20) mg/dL Creatinine (0.66-1.25) mg/dL Glucose (74-99) mg/dL POC Glucose (mg/dL) 210 H 182 H 199 H (75-99) mg/dL Calcium (8.4-10.2) mg/dL 10/10/19 10/10/19 Range/Units 02:50 07:03 BUN 68 H (9-20) mg/dL Creatinine 4.11 H (0.66-1.25) mg/dL Glucose 72 L (74-99) mg/dL POC Glucose (mg/dL) 109 H (75-99) mg/dL Calcium 8.2 L (8.4-10.2) mg/dL Assessment and Plan Plan: F in acute renal failure on chronic kidney disease acute renal failure secondary to possible cardiorenal syndrome patient's creatinine continued to go up and patient creatinine is above for today management up needing dialysis patient required Lasix yesterday because of pulmonary edema -Chest pain: Atypical resolved, patient will undergo echocardiogram, patient was evaluated by cardiology and echocardiogram is still pending patient has a pacemaker. Patient the may need placement to subacute rehabilitation PT and OT consultation will be obtained -acute hypoxic respiratory failure resolved. Patient has chronic diastolic dysfunction presently not in acute exacerbation. -Mildly elevated troponin: Secondary to chronic kidney disease. 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 Patient probably has acute renal failure as well secondary to excessive diuresis diuretics will be held. Although this probably of cardiorenal syndrome contributing to her a acute renal failure. -Cerebrovascular disease with the right below-knee amputation patient is on Eliquis which will be continued hypertension -Dyslipidemia -Patient has an arterial ulcer which appears to be healed at this time -Hypertension -Generalized deconditioning for which patient will need the placement to subacut e rehabilitation
[2019-10-10 12:37] LABS: Glucose,Whole Blood 262 mg/dL (75-99)
[2019-10-10] MEDS: FUROSEMIDE 10 MG/ML 4 ML VIAL IV SCH (14:28)
[2019-10-10 14:36] LABS: Hepatitis A Antibody IgM Non-Reactive (Non-Reactive); Hepatitis B Core IgM Non-Reactive (Non-Reactive); Hepatitis B Surface Antigen Non-Reactive (Non-Reactive); Hepatitis C IgG Antibody Non-Reactive (Non-Reactive)
--- NOTE | 2019-10-10 16:01 | PN ---
PROGRESS NOTE Patient is seen for followup for acute kidney injury on top of chronic kidney disease. The patient's renal function continues to worsen. He did get a dose of IV Lasix yesterday for worsening shortness of breath and volume overload. Serum creatinine is up to 4.1 today. Patient is complaining of weakness. He has not been eating much, although he states that he is breathing slightly better than yesterday. Chest x-ray from yesterday showed worsening pleural effusion, and airspace disease. I have discussed with the patient regarding need for starting renal replacement therapy as his renal function continues to worsen. This may help his to improve his appetite as well and maintain volume control. He states that if his renal function continues to worsen, he is agreeable to starting dialysis. On examination today, blood pressure was 154/70, heart rate 66 per minute, he is afebrile. Examination of the heart S1, S2. Examination of the lungs, decreased breath sounds at bases. Abdomen is soft, nontender. Examination of the lower extremities shows chronic skin changes. Trace edema is noted. There is wrinkling of the skin noted. LABS: Show sodium 137, potassium 4.6, chloride 99, CO2 is 30, BUN 68, creatinine 4.1. ASSESSMENT: 1. Acute kidney injury, mostly cardiorenal. Initially there was an element of prerenal acute renal failure and diuretics are on hold. However, patient is hypervolemic again. He received a dose of Lasix yesterday. His creatinine is up to 4.1. I have advised the patient that he will likely need to start renal replacement therapy this admission. This will also help for volume control along with improvement in appetite and overall general condition. We will check a postvoid residual to rule out underlying urine retention. 2. Chronic kidney disease with the previous creatinine 2.2 to 2.7, mostly from diabetic kidney disease, NKF stage III. 3. History of right BKA. 4. Congestive heart failure, diastolic dysfunction with the patient back in congestive heart failure, now status post IV Lasix yesterday. PLAN: Maintain patient on IV Lasix daily for now. Repeat labs in a.m. Start dialysis if renal function continues to worsen and also check for a postvoid residual to rule out underlying urine retention. MMODL / IJN: [id number] /
[2019-10-10 17:04] LABS: Glucose,Whole Blood 337 mg/dL (75-99)
[2019-10-10 20:38] LABS: Glucose,Whole Blood 297 mg/dL (75-99)
[2019-10-10] MEDS: ASPIRIN 81 MG PO SCH (20:50)
[2019-10-10] MEDS: ATORVASTATIN 80 MG TAB PO SCH (20:50)
[2019-10-10] MEDS: INSULIN DETEMIR (LEVEMIR) 100 UNIT/ML SYR SQ SCH (20:50)
[2019-10-11 06:47] LABS: Glucose,Whole Blood 133 mg/dL (75-99)
[2019-10-11 07:27] LABS: Potassium 4.4 mmol/L (3.5-5.1)
[2019-10-11] MEDS: PANTOPRAZOLE 40 MG TABLET PO SCH (07:27)
[2019-10-11] MEDS: DONEPEZIL 10 MG TAB PO SCH (07:27)
[2019-10-11] MEDS: INSULIN ASPART (NovoLOG) 100 UNIT/ML VIAL SQ SCH ×4 (07:27→21:25)
[2019-10-11] MEDS: CARVEDILOL 3.125 MG TAB PO SCH ×2 (07:27→17:25)
[2019-10-11] MEDS: amLODIPine 5 MG TAB PO SCH (07:27)
[2019-10-11] MEDS: DULoxetine HCL 30 MG CAPSULE.DR PO SCH (07:27)
[2019-10-11] MEDS: APIXABAN 2.5 MG TABLET PO SCH ×2 (07:28→10:26)
[2019-10-11] MEDS: FUROSEMIDE 10 MG/ML 4 ML VIAL IV SCH (07:28)
[2019-10-11] MEDS: ASPIRIN 81 MG PO SCH ×2 (10:26→21:25)
--- NOTE | 2019-10-11 11:40 | P.GSCN ---
History of Present Illness History of present illness: 79-year-old white male, patient was seen for dialysis catheter placement. Patient has been taking L a quest which he took us this morning. Patient has history of 4 congestive heart failure coronary disease post CABG discussed with the patient for placement for dialysis catheter. Neck examination neck is supple no bruit appreciated Chest patient has a crackles in both lung bases first and second sound hasn't Abdomen abdomen is soft nontender vascular U Vascular examination brachial radial and femoral pulses are present patient has a right below-knee amputation in the past at [facility] Impression is acute chronic failure coronary artery disease Plan is placement of the dialysis catheter patient had a L a quest taken today we will wait for 48 hours and then we we will arrange for dialysis catheter risk and complete dictation discussed thank you very much Past Medical History Past Medical History: Heart Failure, Dementia, Diabetes Mellitus, Hypertension, Syncope, Vascular Disorder Additional Past Medical History / Comment(s): IDDM type II, recent R 3rd toe amputation/wound, SEVERAL SYNCOPAL EPISODES PRIOR TO RECEIVING HIS PACEMAKER, PVD, carotid stenosis History of Any Multi-Drug Resistant Organisms: None Reported Past Surgical History: Appendectomy, Pacemaker, Tonsillectomy Additional Past Surgical History / Comment(s): LEFT GREAT TOE HALF REMOVED, R 3RD TOE AMP, PICC LINE IN UPPER R ARM, COLONOSCOPY. Past Anesthesia/Blood Transfusion Reactions: Previous Problems w/ Anesthesia Additional Past Anesthesia/Blood Transfusion Reaction / Comm: HARD TIME WAKING UP FROM ANESETHIA Type of Cardiac Device: Permanent Pacemaker Device Placement Date:: 03/02/2017 Past Psychological History: No Psychological Hx Reported Additional Psychological History / Comment(s): PT CURRENTLY AT [facility]. NORMALLY LIVES ALONE. PT IS GETTING UP WITH WALKER. HE ZOILA LLY IS INDEPENDENT. Smoking Status: Never smoker Past Alcohol Use History: Abuse, Daily Additional Past Alcohol Use History / Comment(s): PT. REPORTS DRINKING 2-3 BEERS A DAY BUT NONE SINCE GOING TO [facility], PER PAST MEDICAL RECORD, PTS. DAUGHTER HAS STATED IT IS MORE THAN THAT AND ALSO INCLUDES SCOTCH Past Drug Use History: None Reported - Past Family History Father Family Medical History: Cancer Additional Family Medical History / Comment(s): PT STATES HIS FATHER NEVER WENT TO THE [facility]. HE HAD A BAD COUGH AND AT THE AGE OF 78YRS. Mother History Unknown: Yes Additional Family Medical History / Comment(s): MOTHER LEFT FAMILY WHEN PT WAS 12 YRS OLD. PT STATES SHE WAS A HEAVY SMOKER. Medications and Allergies Home Medications Medication Instructions Recorded Confirmed Type Donepezil [Aricept] 10 mg PO DAILY 10/01/16 10/05/19 History Atorvastatin [Lipitor] 80 mg PO HS 08/07/19 10/05/19 History Cholecalciferol [Vitamin D3 (25 1,000 unit PO DAILY 08/07/19 10/05/19 History Mcg = 1000 Iu)] DULoxetine HCL [Cymbalta] 30 mg PO DAILY 08/07/19 10/05/19 History Apixaban [Eliquis] 2.5 mg PO BID #0 08/09/19 10/05/19 Rx Aspirin 81 mg PO HS chew 08/09/19 10/05/19 Rx Omeprazole 20 mg PO DAILY 09/21/19 10/05/19 History amLODIPine BESYLATE 5 mg PO DAILY 09/21/19 10/05/19 History Carvedilol [Coreg] 3.125 mg PO BID-W/MEALS #60 tab 09/30/19 10/05/19 Rx Cephalexin [Keflex] 500 mg PO Q12HR 7 Days #14 cap 09/30/19 10/05/19 Rx Darbepoetin Enmanuel [Aranesp] 60 mcg SQ Q7D #4 syringe 09/30/19 10/05/19 Rx Furosemide [Lasix] 40 mg PO BID #60 tablet 09/30/19 10/05/19 Rx INSULIN ASPART (NovoLOG) [NovoLOG 0 unit SQ ACHS vial 09/30/19 Rx (formulary)] Insulin Detemir (Levemir) [Levemir] 10 unit SQ HS #1 syr 09/30/19 Rx Nystatin 100,000 Unit/gm Powd 1 applic TOPICAL BID #1 applic 09/30/19 10/05/19 Rx [Mycostatin Powder] Allergies Allergy/AdvReac Type Severity Reaction Status Date / Time No Known Allergies Allergy Verified 10/05/19 17:02 Surgical - Exam Vital Signs Temp Pulse Resp BP Pulse Ox 98.7 F 57 L 18 139/66 94 L 10/05/19 10:24 10/05/19 10:24 10/05/19 10:10/05/19 10:10/05/19 10:24 Results - Labs 10/05/19 10:32 10/11/19 06:45 Abnormal Lab Results - Last 24 Hours (Table) 10/10/19 10/10/19 10/10/19 Range/Units 11:38 17:03 20:37 Sodium (137-145) mmol/L BUN (9-20) mg/dL Creatinine (0.66-1.25) mg/dL Glucose (74-99) mg/dL POC Glucose (mg/dL) 262 H 337 H 297 H (75-99) mg/dL Calcium (8.4-10.2) mg/dL 10/11/19 10/11/19 Range/Units 06:44 06:45 Sodium 135 L (137-145) mmol/L BUN 74 H (9-20) mg/dL Creatinine 4.16 H (0.66-1.25) mg/dL Glucose 115 H (74-99) mg/dL POC Glucose (mg/dL) 133 H (75-99) mg/dL Calcium 8.0 L (8.4-10.2) mg/dL Diabetes panel 10/11/19 Range/Units 06:45 Sodium 135 L (137-145) mmol/L Potassium 4.4 (3.5-5.1) mmol/L Chloride 98 (98-107) mmol/L Carbon Dioxide 29 (22-30) mmol/L BUN 74 H (9-20) mg/dL Creatinine 4.16 H (0.66-1.25) mg/dL Glucose 115 H (74-99) mg/dL Calcium 8.0 L (8.4-10.2) mg/dL Calcium panel 10/11/19 Range/Units 06:45 Calcium 8.0 L (8.4-10.2) mg/dL Pituitary panel 10/11/19 Range/Units 06:45 Sodium 135 L (137-145) mmol/L Potassium 4.4 (3.5-5.1) mmol/L Chloride 98 (98-107) mmol/L Carbon Dioxide 29 (22-30) mmol/L BUN 74 H (9-20) mg/dL Creatinine 4.16 H (0.66-1.25) mg/dL Glucose 115 H (74-99) mg/dL Calcium 8.0 L (8.4-10.2) mg/dL Adrenal panel 10/11/19 Range/Units 06:45 Sodium 135 L (137-145) mmol/L Potassium 4.4 (3.5-5.1) mmol/L Chloride 98 (98-107) mmol/L Carbon Dioxide 29 (22-30) mmol/L BUN 74 H (9-20) mg/dL Creatinine 4.16 H (0.66-1.25) mg/dL Glucose 115 H (74-99) mg/dL Calcium 8.0 L (8.4-10.2) mg/dL
[2019-10-11 11:44] LABS: Glucose,Whole Blood 155 mg/dL (75-99)
[2019-10-11] MEDS: NYSTATIN 100,000 UNIT/GM POWD 15 GM TOPICAL SCH ×2 (12:03→21:26)
--- NOTE | 2019-10-11 14:02 | PN ---
PROGRESS NOTE Patient is seen for followup for acute kidney injury on top of chronic kidney disease. Patient is lying in bed. He is comfortable, denies any significant. PHYSICAL EXAMINATION: Blood pressure is 145/62, heart rate 66 per minute, he is afebrile. Examination of the heart S1, S2. Examination of the lungs, decreased breath sounds at bases. Minimal basal crackles are heard. Abdomen is soft, nontender. Examination of the lower extremities shows chronic skin changes. Trace edema noted. HOUSESMITH exam grossly intact. LABS: Show sodium 135, potassium 4.4, BUN 74, creatinine 4.16. ASSESSMENT: 1. Acute kidney injury, ATN currently worse over the last few days, associated with volume overload. I have discussed with the patient regarding renal replacement therapy given his persistent volume overload and progressive renal failure. He is agreeable at this time. We will proceed with Vascular Surgery consult and plan for dialysis as inpatient. 2. CHF volume overload. Restarted Lasix acute on top of chronic diastolic. 3. Generalized debility. 4. Chronic kidney disease stage III. Baseline creatinine 2.2-2.7 secondary to diabetic kidney disease. 5. Right BKA. PLAN: Proceed with Vascular Surgery consult and will plan for dialysis once the catheter is placed. The patient has been on Eliquis. Therefore, we will hold the Eliquis and plan for the catheter in 1-2 days time. In the meantime, continue to diurese patient. MMODL / IJN: [id number] /
--- NOTE | 2019-10-11 16:28 | P.PN ---
Subjective 79-year-old male with known history of coronary artery disease and stent LAD came in with the complaints of chest pain patient is a poor historian although able to provide me fairly good his history chest pain is midsternal sharp and dull in nature and nonradiating nonexertional and not associated with food denied any diaphoresis or shortness of breath dizziness or palpitations or syncope. Patient just pain is significantly better now. Patient does have history of chronic diastolic dysfunction. Patient appears to have chronic kidney disease stage III patient baseline creatinine july was around 1.5 now at around 2.7 patient's creatinine has been elevated since july around this level. Chest x-ray showing pulmonary edema with bilateral pleural effusions although clinically patient doesn't have any JVD no pedal no significant pedal edema patient has a right below-knee amputation BNP is only 1979, patient's troponin is 0.038 EKG did not show any significant acute ST-T wave changes. 10/06/2019 No overnight events patient is clinically doing well respiratory status as well but patient may need physical therapy patient the echocardiogram repeat one is still pending. 10/07/2019 Patient looks much better clinically doesn't appear to be in heart failure does not appear edema JVD but creatinine did get worse and patient the is bit hyponatremic baseline creatinine appears to be 2.7 now around 2.7 nephrology was consulted. We'll obtain a chest x-ray 10/08/2019 Patient creatinine is still bit worse compared to yesterday fairly stable nephrology valid the patient patient has not been eating or drinking very well may be contributing to his renal dysfunction Require IV fluids but I'll leave that dictation to nephrology 10/09/2019 His creatinine is fairly stable although patient is bit short of breath and st ill feels tired a lot to Nexium make sure patient not having pulmonary edema although clinically doesn't look like he has pulmonary edema 10/10/2019 Patient did receive Lasix at his creatinine go up patient may end up needing dialysis nephrology will evaluate the patient patient is on Eliquis which need to be held if he needs dialysis catheter will discuss with nephrology patient although feels well no shortness of breath 10/11/2019 Patient's serum creatinine appears to be fairly stable today compared to yesterday patient's Eliquis is being held for dialysis catheter placement patient is presently in status of oxygen patient was started on scheduled Lasix 40 mg daily patient still appears to have some pulmonary edema today Constitutional: Significantly fatigued and sleepy drowsy Cardio vascular: denied any chest pain, palpitations Gastrointestinal denied any nausea vomiting Pulmonary: Denied any shortness of breath cough Neurologic denied any new focal deficits All inpatient medications were reviewed and appropriate changes in these medications as dictated in the interval history and assessment and plan. Objective - Vital Signs Vital signs: Vital Signs Temp 98.1 F 10/11/19 14:58 Pulse 60 10/11/19 14:58 Resp 16 10/11/19 14:58 BP 143/70 10/11/19 14:58 Pulse Ox 95 10/11/19 14:58 Intake & Output 10/10/19 10/11/19 10/11/19 18:59 06:59 18:59 Output Total 100 300 Balance -100 -300 Output: Urine 100 300 Other: Voiding Method Urinal Urinal # Voids 2 1 - Exam PHYSICAL EXAMINATION: GENERAL: The patient is drowsy and oriented x3, not in any acute distress. Well developed, well nourished. he is tired HEENT: Pupils are round and equally reacting to light. EOMI. No scleral icterus. No conjunctival pallor. Normocephalic, atraumatic. No pharyngeal erythema. No thyromegaly. CARDIOVASCULAR: S1 and S2 present. No murmurs, rubs, or gallops. PULMONARY: Chest is clear to auscultation, no wheezing or crackles. ABDOMEN: Soft, nontender, nondistended, normoactive bowel sounds. No palpable organomegaly. MUSCULOSKELETAL: No joint swelling or deformity. EXTREMITIES: No cyanosis, clubbing, or pedal edema. Right below-knee amputation NEUROLOGICAL: Gross neurological examination did not reveal any focal deficits. SKIN: No rashes. - Labs CBC & Chem 7: 10/05/19 10:32 10/11/19 06:45 Labs: Abnormal Lab Results - Last 24 Hours (Table) 10/10/19 10/10/19 10/11/19 Range/Units 17:03 20:37 06:44 Sodium (137-145) mmol/L BUN (9-20) mg/dL Creatinine (0.66-1.25) mg/dL Glucose (74-99) mg/dL POC Glucose (mg/dL) 337 H 297 H 133 H (75-99) mg/dL Calcium (8.4-10.2) mg/dL 10/11/19 10/11/19 Range/Units 06:45 11:42 Sodium 135 L (137-145) mmol/L BUN 74 H (9-20) mg/dL Creatinine 4.16 H (0.66-1.25) mg/dL Glucose 115 H (74-99) mg/dL POC Glucose (mg/dL) 155 H (75-99) mg/dL Calcium 8.0 L (8.4-10.2) mg/dL Assessment and Plan Plan: F in acute renal failure on chronic kidney disease acute renal failure secondary to possible cardiorenal syndrome patient's creatinine much worse compared to admission. Patient will require hemodialysis. Eliquis is on hold for hemodialysis catheter placement -Chest pain: Atypical resolved, patient will undergo echocardiogram, patient was evaluated by cardiology and echocardiogram is still pending patient has a pacemaker. Patient the may need placement to subacute rehabilitation PT and OT consultation will be obtained -acute hypoxic respiratory failure resolved. Patient has chronic diastolic dysfunction presently not in acute exacerbation. -Mildly elevated troponin: Secondary to chronic kidney disease. 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 Patient probably has acute renal failure as well secondary to excessive diuresis diuretics will be held. Although this probably of cardiorenal syndrome contributing to her a acute renal failure. -Cerebrovascular disease with the right below-knee amputation patient is on Eliquis which will be continued hypertension -Dyslipidemia -Patient has an arterial ulcer which appears to be healed at this time -Hypertension -Generalized deconditioning for which patient will need the placement to subacute rehabilitation
[2019-10-11 17:04] LABS: Glucose,Whole Blood 253 mg/dL (75-99)
[2019-10-11 20:48] LABS: Glucose,Whole Blood 147 mg/dL (75-99)
[2019-10-11] MEDS: INSULIN DETEMIR (LEVEMIR) 100 UNIT/ML SYR SQ SCH (21:25)
[2019-10-11] MEDS: ATORVASTATIN 80 MG TAB PO SCH (21:25)
[2019-10-12 01:26] LABS: Glucose,Whole Blood 138 mg/dL (75-99)
[2019-10-12 06:59] LABS: Glucose,Whole Blood 125 mg/dL (75-99)
[2019-10-12] MEDS: INSULIN ASPART (NovoLOG) 100 UNIT/ML VIAL SQ SCH ×4 (07:23→20:59)
[2019-10-12] MEDS: CARVEDILOL 3.125 MG TAB PO SCH ×2 (07:25→15:07)
[2019-10-12] MEDS: FUROSEMIDE 10 MG/ML 4 ML VIAL IV SCH (07:25)
[2019-10-12] MEDS: amLODIPine 5 MG TAB PO SCH (07:25)
[2019-10-12] MEDS: DONEPEZIL 10 MG TAB PO SCH (07:25)
[2019-10-12] MEDS: PANTOPRAZOLE 40 MG TABLET PO SCH (07:25)
[2019-10-12] MEDS: DULoxetine HCL 30 MG CAPSULE.DR PO SCH (07:25)
[2019-10-12] MEDS: NYSTATIN 100,000 UNIT/GM POWD 15 GM TOPICAL SCH ×2 (07:26→21:00)
[2019-10-12 07:53] LABS: Calcium 8.3 mg/dL (8.4-10.2); Potassium 4.7 mmol/L (3.5-5.1)
[2019-10-12 11:46] LABS: Glucose,Whole Blood 172 mg/dL (75-99)
--- NOTE | 2019-10-12 12:56 | P.PN ---
Subjective Progress Note Date: 10/12/19 Principal diagnosis: 79-year-old male with known history of coronary artery disease and stent LAD came in with the complaints of chest pain patient is a poor historian although able to provide me fairly good his history chest pain is midsternal sharp and dull in nature and nonradiating nonexertional and not associated with food denied any diaphoresis or shortness of breath dizziness or palpitations or syncope. Patient just pain is significantly better now. Patient does have history of chronic diastolic dysfunction. Patient appears to have chronic kidney disease stage III patient baseline creatinine july was around 1.5 now at around 2.7 patient's creatinine has been elevated since july around this level. Chest x-ray showing pulmonary edema with bilateral pleural effusions although clinically patient doesn't have any JVD no pedal no significant pedal edema patient has a right below-knee amputation BNP is only 1980, patient's troponin is 0.038 EKG did not show any significant acute ST-T wave changes. 10/06/2019 No overnight events patient is clinically doing well respiratory status as well but patient may need physical therapy patient the echocardiogram repeat one is still pending. 10/07/2019 Patient looks much better clinically doesn't appear to be in heart failure does not appear edema JVD but creatinine did get worse and patient the is bit hyponatremic baseline creatinine appears to be 2.7 now around 2.7 nephrology was consulted. We'll obtain a chest x-ray 10/08/2019 Patient creatinine is still bit worse compared to yesterday fairly stable nephrology valid the patient patient has not been eating or drinking very well may be contributing to his renal dysfunction Require IV fluids but I'll leave that dictation to nephrology 10/09/2019 His creatinine is fairly stable although patient is bit short of breath and still feels tired a lot to Nexium make sure patient not having pulmonary edema although clinically doesn't look like he has pulmonary edema 10/10/2019 Patient did receive Lasix at his creatinine go up patient may end up needing dialysis nephrology will evaluate the patient patient is on Eliquis which need to be held if he needs dialysis catheter will discuss with nephrology patient although feels well no shortness of breath 10/11/2019 Patient's serum creatinine appears to be fairly stable today compared to yesterday patient's Eliquis is being held for dialysis catheter placement patient is presently in status of oxygen patient was started on scheduled Lasix 40 mg daily patient still appears to have some pulmonary edema today Constitutional: Significantly fatigued and sleepy drowsy Cardio vascular: denied any chest pain, palpitations Gastrointestinal denied any nausea vomiting Pulmonary: Denied any shortness of breath cough Neurologic denied any new focal deficits All inpatient medications were reviewed and appropriate changes in these medications as dictated in the interval history and assessment and plan. 10/12/2019 Patient seen and evaluated in follow-up with no acute overnight issues. Anticoagulation being held and plan is for dialysis catheter placement on morning with Dr. Espinoza. Patient continues to be quite lethargic and fatigues easily but is arousable. Patient denying any chest pain, shortness of breath, or palpitations. Patient is afebrile. No reports of nausea or vomiting and patient is tolerating diet. Case management and social work following for ECF placement once stabilized and discharged. Objective - Vital Signs Vital signs: Vital Signs Temp 97.5 F L 10/12/19 07:00 Pulse 60 10/12/19 07:00 Resp 18 10/12/19 07:00 BP 157/79 10/12/19 07:00 Pulse Ox 97 10/12/19 07:00 Intake & Output 10/11/19 10/12/19 10/12/19 18:59 06:59 18:59 Intake Total 118 Balance 118 Intake: Oral 118 Other: Voiding Method Urinal Urinal Urinal Diaper Diaper # Voids 1 3 # Bowel Movements 0 - Exam GENERAL: The patient is drowsy and oriented x3, not in any acute distress. Well developed, well nourished. he fatigues easily HEENT: Pupils are round and equally reacting to light. EOMI. No scleral icterus. No conjunctival pallor. Normocephalic, atraumatic. No pharyngeal erythema. No thyromegaly. CARDIOVASCULAR: S1 and S2 present. No murmurs, rubs, or gallops. PULMONARY: Chest is clear to auscultation, no wheezing or crackles. ABDOMEN: Soft, nontender, nondistended, normoactive bowel sounds. No palpable organomegaly. MUSCULOSKELETAL: No joint swelling or deformity. EXTREMITIES: No cyanosis, clubbing, or pedal edema. Right below-knee amputation NEUROLOGICAL: Gross neurological examination did not reveal any focal deficits. SKIN: No rashes. - Labs CBC & Chem 7: 10/05/19 10:32 10/12/19 07:13 Labs: Abnormal Lab Results - Last 24 Hours (Table) 10/11/19 10/11/19 10/12/19 Range/Units 17:01 20:47 01:25 Sodium (137-145) mmol/L Chloride (98-107) mmol/L BUN (9-20) mg/dL Creatinine (0.66-1.25) mg/dL Glucose (74-99) mg/dL POC Glucose (mg/dL) 253 H 147 H 138 H (75-99) mg/dL Calcium (8.4-10.2) mg/dL 10/12/19 10/12/19 10/12/19 Range/Units 06:56 07:13 11:43 Sodium 135 L (137-145) mmol/L Chloride 97 L (98-107) mmol/L BUN 77 H (9-20) mg/dL Creatinine 4.36 H (0.66-1.25) mg/dL Glucose 115 H (74-99) mg/dL POC Glucose (mg/dL) 125 H 172 H (75-99) mg/dL Calcium 8.3 L (8.4-10.2) mg/dL Assessment and Plan Assessment: -acute renal failure on chronic kidney disease acute renal failure secondary to possible cardiorenal syndrome patient's creatinine much worse compared to admission. Patient will require hemodialysis. Eliquis is on hold for hemodialysis catheter placement -Chest pain: Atypical resolved, most recent echo on 10/05/2019 shows overall left ventricular systolic function is normal with an EF between 55 and 60% -acute hypoxic respiratory failure resolved. Patient has chronic diastolic dysfunction presently not in acute exacerbation. -Mildly elevated troponin: Secondary to chronic kidney disease. 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 Patient probably has acute renal failure as well secondary to excessive diuresis diuretics will be held. Although this probably of cardiorenal syndrome contributing to his acute renal failure. -Cerebrovascular disease with the right below-knee amputation patient is on Eliquis which will be continued, anticoagulation currently on hold for dialysis catheter placement in the morning -hypertension -Dyslipidemia -Patient has an arterial ulcer which appears to be healed at this time -Hypertension -Generalized deconditioning for which patient will need the placement to subacute rehabilitation Plan: Anticoagulation on hold and patient is planned to receive hemodialysis catheter tomorrow with Dr. Espinoza. Patient is maintained on 40 mg of IV Lasix daily and will continue at this time. Nephrology is following. Case management and social work following for possible placement in ECF once patient is stabilized and discharged. Further recommendations to follow.
--- NOTE | 2019-10-12 14:55 | PN ---
PROGRESS NOTE Patient is seen for followup for acute kidney injury on top of chronic kidney disease. He is currently lying in bed. Patient's serum creatinine has increased further to 4.36. He has had a fair amount of urine output, although he is incontinent. Patient has agreed for starting dialysis. However, he had just received Eliquis yesterday. Therefore, catheter will not be placed until tomorrow. No complaints of chest pains or shortness of breath. PHYSICAL EXAMINATION: Blood pressure today 157/79, heart rate 60 per minute, patient is afebrile. Examination of the heart S1, S2. Examination of the lungs, decreased breath sounds at bases. Abdomen is soft, nontender. Examination of the lower extremities shows no significant edema. 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 LABS: Show sodium of 135, potassium 4.7, chloride 97, BUN 77 serum creatinine 4.36. ASSESSMENT: 1. Acute kidney injury ATN as well as cardiorenal currently scheduled to start hemodialysis. Hopefully by tomorrow. Dialysis catheter was not placed as patient had received Eliquis yesterday. 2. Congestive heart failure, acute on top of chronic, diastolic. 3. CKD with previous creatinine 2.2-2.7 secondary to diabetic kidney disease, NKF stage 3B to 4. 4. Generalized debility. PLAN: Start dialysis tomorrow once catheter is placed. Continue to encourage increased oral intake. MMODL / IJN: [id number] /
[2019-10-12 16:56] LABS: Glucose,Whole Blood 251 mg/dL (75-99)
[2019-10-12 20:20] LABS: Glucose,Whole Blood 195 mg/dL (75-99)
[2019-10-12 20:36] LABS: Hepatitis B Surface AB- Quant 3.5 mIU/mL; Hepatitis B Surface Antibody Non-Reactive (Non-Reactive)
[2019-10-12] MEDS: ATORVASTATIN 80 MG TAB PO SCH (20:59)
[2019-10-12] MEDS: INSULIN DETEMIR (LEVEMIR) 100 UNIT/ML SYR SQ SCH (21:00)
[2019-10-13 02:03] LABS: Glucose,Whole Blood 160 mg/dL (75-99)
[2019-10-13 07:23] LABS: Glucose,Whole Blood 113 mg/dL (75-99)
[2019-10-13] MEDS: INSULIN ASPART (NovoLOG) 100 UNIT/ML VIAL SQ SCH ×4 (07:41→21:13)
[2019-10-13 08:57] LABS: Calcium 8.4 mg/dL (8.4-10.2); Potassium 4.8 mmol/L (3.5-5.1)
[2019-10-13] MEDS: PANTOPRAZOLE 40 MG TABLET PO SCH (09:32)
[2019-10-13] MEDS: FUROSEMIDE 10 MG/ML 4 ML VIAL IV SCH (09:35)
[2019-10-13] MEDS: NYSTATIN 100,000 UNIT/GM POWD 15 GM TOPICAL SCH ×2 (09:39→22:25)
[2019-10-13] MEDS: CARVEDILOL 3.125 MG TAB PO SCH ×2 (09:40→17:43)
[2019-10-13 11:00] VITALS: BMI 24.8
[2019-10-13 11:30] LABS: Glucose,Whole Blood 114 mg/dL (75-99)
--- NOTE | 2019-10-13 13:23 | P.PN ---
Subjective Progress Note Date: 10/13/19 Principal diagnosis: 79-year-old male with known history of coronary artery disease and stent LAD came in with the complaints of chest pain patient is a poor historian although able to provide me fairly good his history chest pain is midsternal sharp and dull in nature and nonradiating nonexertional and not associated with food denied any diaphoresis or shortness of breath dizziness or palpitations or syncope. Patient just pain is significantly better now. Patient does have history of chronic diastolic dysfunction. Patient appears to have chronic kidney disease stage III patient baseline creatinine july was around 1.5 now at around 2.7 patient's creatinine has been elevated since july around this level. Chest x-ray showing pulmonary edema with bilateral pleural effusions although clinically patient doesn't have any JVD no pedal no significant pedal edema patient has a right below-knee amputation BNP is only 1980, patient's troponin is 0.038 EKG did not show any significant acute ST-T wave changes. 10/06/2019 No overnight events patient is clinically doing well respiratory status as well but patient may need physical therapy patient the echocardiogram repeat one is still pending. 10/07/2019 Patient looks much better clinically doesn't appear to be in heart failure does not appear edema JVD but creatinine did get worse and patient the is bit hyponatremic baseline creatinine appears to be 2.7 now around 2.7 nephrology was consulted. We'll obtain a chest x-ray 10/08/2019 Patient creatinine is still bit worse compared to yesterday fairly stable nephrology valid the patient patient has not been eating or drinking very well may be contributing to his renal dysfunction Require IV fluids but I'll leave that dictation to nephrology 10/09/2019 His creatinine is fairly stable although patient is bit short of breath and still feels tired a lot to Nexium make sure patient not having pulmonary edema although clinically doesn't look like he has pulmonary edema 10/10/2019 Patient did receive Lasix at his creatinine go up patient may end up needing dialysis nephrology will evaluate the patient patient is on Eliquis which need to be held if he needs dialysis catheter will discuss with nephrology patient although feels well no shortness of breath 10/11/2019 Patient's serum creatinine appears to be fairly stable today compared to yesterday patient's Eliquis is being held for dialysis catheter placement patient is presently in status of oxygen patient was started on scheduled Lasix 40 mg daily patient still appears to have some pulmonary edema today Constitutional: Significantly fatigued and sleepy drowsy Cardio vascular: denied any chest pain, palpitations Gastrointestinal denied any nausea vomiting Pulmonary: Denied any shortness of breath cough Neurologic denied any new focal deficits All inpatient medications were reviewed and appropriate changes in these medications as dictated in the interval history and assessment and plan. 10/12/2019 Patient seen and evaluated in follow-up with no acute overnight issues. Anticoagulation being held and plan is for dialysis catheter placement on morning with Dr. Espinoza. Patient continues to be quite lethargic and fatigues easily but is arousable. Patient denying any chest pain, shortness of breath, or palpitations. Patient is afebrile. No reports of nausea or vomiting and patient is tolerating diet. Case management and social work following for ECF placement once stabilized and discharged. 10/13/2019 Patient is seen in follow-up awaiting to receive dialysis catheter today with Dr. Espinoza. No acute overnight issues. Patient is sitting up in the chair awake, alert and oriented 3. Patient is currently nothing by mouth for the procedure although requesting water. Daughter was at the bedside briefly and discussed the treatment plan and questions were answered. Case management and social work following for placement at [facility] once discharged. Nephrology following and planning on initiating hemodialysis in the morning. Will work on arranging outpatient dialysis. Creatinine is 4.56 today, sodium is 136. Patient denies any worsening shortness of breath and is currently on 2 L of oxygen at 95%. No reports of chest pain or palpitations. Patient is afebrile. No reports of nausea or vomiting and patient is currently nothing by mouth for dialysis catheter placement. Objective - Vital Signs Vital signs: Vital Signs Temp 97.6 F 10/13/19 00:25 Pulse 60 10/13/19 00:25 Resp 16 10/13/19 08:00 BP 124/67 10/13/19 00:25 Pulse Ox 95 10/13/19 00:25 Intake & Output 10/12/19 10/13/19 10/13/19 18:59 06:59 18:59 Intake Total 118 Output Total 200 400 Balance 118 -200 -400 Weight 78.5 kg Intake: Oral 118 Output: Urine 200 400 Other: Voiding Method Urinal Urinal Urinal Diaper Diaper Diaper # Voids 1 1 # Bowel Movements 1 - Exam GENERAL: The patient is awake, alert, and oriented x3, not in any acute distress. Well developed, well nourished. he fatigues easily HEENT: Pupils are round and equally reacting to light. EOMI. No scleral icterus. No conjunctival pallor. Normocephalic, atraumatic. No pharyngeal erythema. No thyromegaly. CARDIOVASCULAR: S1 and S2 present. No murmurs, rubs, or gallops. PULMONARY: Chest is clear to auscultation, no wheezing or crackles. ABDOMEN: Soft, nontender, nondistended, normoactive bowel sounds. No palpable organomegaly. MUSCULOSKELETAL: No joint swelling or deformity. EXTREMITIES: No cyanosis, clubbing, or pedal edema. Right below-knee amputation NEUROLOGICAL: Gross neurological examination did not reveal any focal deficits. SKIN: No rashes. - Labs CBC & Chem 7: 10/05/19 10:32 10/13/19 07:46 Labs: Abnormal Lab Results - Last 24 Hours (Table) 10/12/19 10/12/19 10/13/19 Range/Units 16:54 20:18 02:01 Sodium (137-145) mmol/L BUN (9-20) mg/dL Creatinine (0.66-1.25) mg/dL Glucose (74-99) mg/dL POC Glucose (mg/dL) 251 H 195 H 160 H (75-99) mg/dL 10/13/19 10/13/19 10/13/19 Range/Units 07:21 07:46 11:26 Sodium 136 L (137-145) mmol/L BUN 81 H (9-20) mg/dL Creatinine 4.56 H (0.66-1.25) mg/dL Glucose 106 H (74-99) mg/dL POC Glucose (mg/dL) 113 H 114 H (75-99) mg/dL Assessment and Plan Assessment: -acute renal failure on chronic kidney disease acute renal failure secondary to possible cardiorenal syndrome patient's creatinine much worse compared to admission. Patient will require hemodialysis. Dionicio is on hold for hemodialysis catheter placement today. -Chest pain: Atypical resolved, most recent echo on 10/05/2019 shows overall left ventricular systolic function is normal with an EF between 55 and 60% -acute hypoxic respiratory failure resolved. Patient has chronic diastolic dysfunction presently not in acute exacerbation. -Mildly elevated troponin: Secondary to chronic kidney disease. 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 Patient probably has acute renal failure as well secondary to excessive diuresis diuretics will be held. Although this probably of cardiorenal syndrome contributing to his acute renal failure. -Cerebrovascular disease with the right below-knee amputation patient is on Eliquis which will be continued, anticoagulation currently on hold for dialysis catheter placement today -hypertension -Dyslipidemia -Patient has an arterial ulcer which appears to be healed at this time -Hypertension -Generalized deconditioning for which patient will need the placement to subacute rehabilitation Plan: Anticoagulation on hold and patient is planned to receive hemodialysis catheter today with Dr. Espinoza. Patient is maintained on 40 mg of IV Lasix daily and will continue at this time. Nephrology is following. Case management and social work following for possible placement in ECF once patient is stabilized and discharged. Will likely start hemodialysis in the morning. Further recommendations to follow.
--- NOTE | 2019-10-13 14:43 | PN ---
PROGRESS NOTE Patient is seen for followup for acute kidney injury with progressive renal failure and CHF, patient is being started on dialysis. He has agreed and he will be having his dialysis catheter placed today. We will plan for first treatment either today or tomorrow, based on when the catheter is placed. PHYSICAL EXAMINATION: Today patient is comfortable. He denies any significant complaints. Blood pressure was 124/67, heart rate 60 per minute, he is afebrile. Examination of the heart S1, S2. Examination of the lungs, decreased breath sounds at bases. Abdomen is soft, nontender. Examination of lower extremities shows wrinkling of the skin with 1+ edema noted bilaterally. The patient has right BKA. 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 LABS: Show sodium of 136, potassium 4.8, chloride 98, BUN 81, creatinine 4.56. ASSESSMENT: 1. Acute kidney injury, mainly cardiorenal, progressive renal failure with ongoing hypervolemia and CHF. Patient will be started on dialysis. He will have his dialysis catheter placed today and we will plan for first treatment either today or tomorrow based on the timing of the catheter placement. We will also need to arrange for outpatient placement. 2. Congestive heart failure, acute on top of chronic, mainly diastolic, ejection fraction 55% to 60% on echocardiogram on October 05, 2019. PLAN: Proceed with dialysis and arrange for outpatient placement. MMODL / IJN: [id number] /
[2019-10-13] MEDS ORDERED: fentaNYL (PF) 50 MCG/ML 2 ML AMP IV ONE ×2 (15:22→15:25)
[2019-10-13] MEDS ORDERED: LIDOCAINE 1% INJ 10MG/ML (20 ML MDV) SQ ONE ×2 (15:24→15:43)
[2019-10-13] MEDS ORDERED: SODIUM CHLORIDE 0.9% 500 ML 500 ML IV ONE (15:25)
--- NOTE | 2019-10-13 15:59 | IR ---
EXAMINATION TYPE: IR cvc insert central tunneled DATE OF EXAM: 10/13/2019 COMPARISON: NONE HISTORY: Fluoroscopy time. Fluoroscopy was provided to the referring clinician.
[2019-10-13] MEDS: amLODIPine 5 MG TAB PO SCH (16:12)
[2019-10-13] MEDS: DULoxetine HCL 30 MG CAPSULE.DR PO SCH (16:12)
[2019-10-13] MEDS: DONEPEZIL 10 MG TAB PO SCH (16:12)
--- NOTE | 2019-10-13 16:19 | OP ---
OPERATIVE REPORT PREOPERATIVE DIAGNOSIS: Acute on chronic renal failure. PROCEDURE: Ultrasound-guided 23 cm dialysis catheter placement via right jugular approach. PROCEDURE DESCRIPTION: The patient was brought to the dental laboratory supervisor. Right neck and chest were prepped and draped in the usual sterile manner. Lidocaine 1% was infiltrated. Ultrasound-guided micropuncture was introduced into the right jugular vein. Then micropuncture guidewire was passed and dilator was advanced over the guidewire. After that we created a tunnel. Through the tunnel we brought a 23 cm dialysis catheter. After that we placed a regular guidewire which was parked in the inferior vena cava. Then the dilator was advanced on top of the guidewire. Then the sheath was advanced. Through the sheath we introduced the dialysis catheter. Tip of the catheter was in superior vena cava and atrial junction. Flushed with heparin and saline and Hep-locked and secured with Vicryl and nylon. The patient tolerated the procedure well. MMODL / IJN: [id number] /
[2019-10-13 16:33] LABS: Glucose,Whole Blood 146 mg/dL (75-99)
--- NOTE | 2019-10-13 16:44 | XR ---
EXAMINATION TYPE: XR chest 1V DATE OF EXAM: 10/13/2019 COMPARISON: 10/09/2019 INDICATION: Dialysis catheter placement TECHNIQUE: Single frontal view of the chest is obtained. FINDINGS: The heart size is enlarged. The pulmonary vasculature is normal. Small left and [id number] right pleural effusions are present. These appear to be increasing f rom comparison. Placement of a double-lumen catheter on the right with the tips in the distal superior vena cava prox imal right atrial regions. No pneumothorax is evident. Pacemaker overlies left chest. IMPRESSION: 1. Placement of a double-lumen catheter with the tips in the junction of the superior vena cava right atrial junction. 2. Increasing small to moderate bilateral pleural effusions.
[2019-10-13 20:49] LABS: Glucose,Whole Blood 236 mg/dL (75-99)
[2019-10-13] MEDS: INSULIN DETEMIR (LEVEMIR) 100 UNIT/ML SYR SQ SCH (21:13)
[2019-10-13] MEDS: ATORVASTATIN 80 MG TAB PO SCH (21:13)
[2019-10-13] MEDS: ASPIRIN 81 MG PO SCH (21:13)
[2019-10-14 02:34] LABS: Glucose,Whole Blood 180 mg/dL (75-99)
[2019-10-14 07:18] LABS: Glucose,Whole Blood 126 mg/dL (75-99)
[2019-10-14] MEDS: INSULIN ASPART (NovoLOG) 100 UNIT/ML VIAL SQ SCH ×4 (08:06→22:06)
[2019-10-14] MEDS: DONEPEZIL 10 MG TAB PO SCH (08:22)
[2019-10-14] MEDS: amLODIPine 5 MG TAB PO SCH (08:22)
[2019-10-14] MEDS: FUROSEMIDE 10 MG/ML 4 ML VIAL IV SCH (08:22)
[2019-10-14] MEDS: CARVEDILOL 3.125 MG TAB PO SCH ×2 (08:23→15:59)
[2019-10-14] MEDS: PANTOPRAZOLE 40 MG TABLET PO SCH (08:23)
[2019-10-14] MEDS: NYSTATIN 100,000 UNIT/GM POWD 15 GM TOPICAL SCH ×2 (08:23→22:08)
[2019-10-14] MEDS: DULoxetine HCL 30 MG CAPSULE.DR PO SCH (08:23)
[2019-10-14 09:17] LABS: Basophils % (A) 1 %; Eosinophils # (A) 0.1 k/uL (0-0.7); Eosinophils % (A) 2 %; HCT 29.6 % (39.0-53.0); HGB 8.8 gm/dL (13.0-17.5); Hypochromasia Moderate; Lymphocytes # (A) 0.7 k/uL (1.0-4.8); Lymphocytes % (A) 12 %; MCH 26.2 pg (25.0-35.0); MCHC 29.9 g/dL (31.0-37.0); MCV 87.7 fL (80.0-100.0); Mean Platelet Volume 7.7; Monocytes # (A) 0.4 k/uL (0-1.0); Monocytes % (A) 7 %; Neutrophils # (A) 4.4 k/uL (1.3-7.7); Neutrophils % (A) 76 %; Platelet Count 395 k/uL (150-450); RBC 3.37 m/uL (4.30-5.90); WBC 5.8 k/uL (3.8-10.6)
[2019-10-14 09:44] LABS: Calcium 8.4 mg/dL (8.4-10.2); Potassium 4.5 mmol/L (3.5-5.1)
[2019-10-14] MEDS ORDERED: SODIUM CHLORIDE 0.9% IVPB ONE (09:45)
[2019-10-14] MEDS ORDERED: DESMOPRESSIN ACETATE IVPB ONE (09:45)
[2019-10-14 12:08] LABS: Glucose,Whole Blood 237 mg/dL (75-99)
[2019-10-14] MEDS ORDERED: DARBEPOETIN ALFA 60 MCG/0.3 ML SYRINGE SQ SCH (16:00)
--- NOTE | 2019-10-14 16:09 | P.PN ---
Subjective Progress Note Date: 10/14/19 Principal diagnosis: 79-year-old male with known history of coronary artery disease and stent LAD came in with the complaints of chest pain patient is a poor historian although able to provide me fairly good his history chest pain is midsternal sharp and dull in nature and nonradiating nonexertional and not associated with food denied any diaphoresis or shortness of breath dizziness or palpitations or syncope. Patient just pain is significantly better now. Patient does have history of chronic diastolic dysfunction. Patient appears to have chronic kidney disease stage III patient baseline creatinine july was around 1.5 now at around 2.7 patient's creatinine has been elevated since july around this level. Chest x-ray showing pulmonary edema with bilateral pleural effusions although clinically patient doesn't have any JVD no pedal no significant pedal edema patient has a right below-knee amputation BNP is only 1980, patient's troponin is 0.038 EKG did not show any significant acute ST-T wave changes. 10/06/2019 No overnight events patient is clinically doing well respiratory status as well but patient may need physical therapy patient the echocardiogram repeat one is still pending. 10/07/2019 Patient looks much better clinically doesn't appear to be in heart failure does not appear edema JVD but creatinine did get worse and patient the is bit hyponatremic baseline creatinine appears to be 2.7 now around 2.7 nephrology was consulted. We'll obtain a chest x-ray 10/08/2019 Patient creatinine is still bit worse compared to yesterday fairly stable nephrology valid the patient patient has not been eating or drinking very well may be contributing to his renal dysfunction Require IV fluids but I'll leave that dictation to nephrology 10/09/2019 His creatinine is fairly stable although patient is bit short of breath and still feels tired a lot to Nexium make sure patient not having pulmonary edema although clinically doesn't look like he has pulmonary edema 10/10/2019 Patient did receive Lasix at his creatinine go up patient may end up needing dialysis nephrology will evaluate the patient patient is on Eliquis which need to be held if he needs dialysis catheter will discuss with nephrology patient although feels well no shortness of breath 10/11/2019 Patient's serum creatinine appears to be fairly stable today compared to yesterday patient's Eliquis is being held for dialysis catheter placement patient is presently in status of oxygen patient was started on scheduled Lasix 40 mg daily patient still appears to have some pulmonary edema today Constitutional: Significantly fatigued and sleepy drowsy Cardio vascular: denied any chest pain, palpitations Gastrointestinal denied any nausea vomiting Pulmonary: Denied any shortness of breath cough Neurologic denied any new focal deficits All inpatient medications were reviewed and appropriate changes in these medications as dictated in the interval history and assessment and plan. 10/12/2019 Patient seen and evaluated in follow-up with no acute overnight issues. Anticoagulation being held and plan is for dialysis catheter placement on morning with Dr. Espinoza. Patient continues to be quite lethargic and fatigues easily but is arousable. Patient denying any chest pain, shortness of breath, or palpitations. Patient is afebrile. No reports of nausea or vomiting and patient is tolerating diet. Case management and social work following for ECF placement once stabilized and discharged. 10/13/2019 Patient is seen in follow-up awaiting to receive dialysis catheter today with Dr. Espinoza. No acute overnight issues. Patient is sitting up in the chair awake, alert and oriented 3. Patient is currently nothing by mouth for the procedure although requesting water. Daughter was at the bedside briefly and discussed the treatment plan and questions were answered. Case management and social work following for placement at [facility] once discharged. Nephrology following and planning on initiating hemodialysis in the morning. Will work on arranging outpatient dialysis. Creatinine is 4.56 today, sodium is 136. Patient denies any worsening shortness of breath and is currently on 2 L of oxygen at 95%. No reports of chest pain or palpitations. Patient is afebrile. No reports of nausea or vomiting and patient is currently nothing by mouth for dialysis catheter placement. 10/14/2019 Patient is seen and evaluated in follow-up currently receiving dialysis after receiving dialysis catheter yesterday. Eliquis remains on hold as patient site had some bleeding noted. Nephrology following. Patient will be receiving a dose of DDAVP and will likely hold anticoagulants for a few days. Will repeat a.m. labs and monitor electrolytes closely. Patient will likely receive dialysis daily prior to discharge. Case management and social work following as patient will be going to ECF once discharged. Patient is required to receive 3 treatments of dialysis prior to admission of ECF. Currently no reports of chest pain, shortness of breath, or palpitations. Patient is afebrile. No reports of nausea or vomiting and patient is tolerating diet. Objective - Vital Signs Vital signs: Vital Signs Temp 97.4 F L 10/14/19 14:41 Pulse 57 L 10/14/19 14:41 Resp 16 10/14/19 14:41 BP 144/63 10/14/19 14:41 Pulse Ox 98 10/14/19 14:41 Intake & Output 10/13/19 10/14/19 10/14/19 18:59 06:59 18:59 Intake Total 200 50 Output Total 400 Balance -200 50 Weight 78.5 kg Intake: IV 100 Intake, IV Titration 50 Amount Desmopressin Acetate 23. 50 55 mcg In Sodium Chloride 0.9% 50 ml @ 200 mls/hr IVPB ONCE ONE Rx#: [id number] Oral 100 Output: Urine 400 Other: Voiding Method Urinal Urinal Diaper Diaper # Voids 3 - Exam GENERAL: The patient is awake, alert, and oriented x3, not in any acute di stress. Well developed, well nourished. Continues to fatigue easily HEENT: Pupils are round and equally reacting to light. EOMI. No scleral icterus. No conjunctival pallor. Normocephalic, atraumatic. No pharyngeal erythema. No thyromegaly. CARDIOVASCULAR: S1 and S2 present. No murmurs, rubs, or gallops. PULMONARY: Diminished breath sounds at the bases otherwise Chest is clear to auscultation, no wheezing or crackles. ABDOMEN: Soft, nontender, nondistended, normoactive bowel sounds. No palpable organomegaly. MUSCULOSKELETAL: No joint swelling or deformity. EXTREMITIES: No cyanosis, clubbing, or pedal edema. Right below-knee amputation NEUROLOGICAL: Gross neurological examination did not reveal any focal deficits. Diffusely weak SKIN: No rashes. - Labs CBC & Chem 7: 10/14/19 08:52 10/14/19 08:52 Labs: Abnormal Lab Results - Last 24 Hours (Table) 10/13/19 10/13/19 10/14/19 Range/Units 16:30 20:48 02:32 RBC (4.30-5.90) m/uL Hgb (13.0-17.5) gm/dL Hct (39.0-53.0) % MCHC (31.0-37.0) g/dL Lymphocytes # (1.0-4.8) k/uL Sodium (137-145) mmol/L BUN (9-20) mg/dL Creatinine (0.66-1.25) mg/dL Glucose (74-99) mg/dL POC Glucose (mg/dL) 146 H 236 H 180 H (75-99) mg/dL 10/14/19 10/14/19 10/14/19 Range/Units 06:57 08:52 08:52 RBC 3.37 L (4.30-5.90) m/uL Hgb 8.8 L (13.0-17.5) gm/dL Hct 29.6 L (39.0-53.0) % MCHC 29.9 L (31.0-37.0) g/dL Lymphocytes # 0.7 L (1.0-4.8) k/uL Sodium 135 L (137-145) mmol/L BUN 84 H (9-20) mg/dL Creatinine 4.53 H (0.66-1.25) mg/dL Glucose 133 H (74-99) mg/dL POC Glucose (mg/dL) 126 H (75-99) mg/dL 10/14/19 Range/Units 11:48 RBC (4.30-5.90) m/uL Hgb (13.0-17.5) gm/dL Hct (39.0-53.0) % MCHC (31.0-37.0) g/dL Lymphocytes # (1.0-4.8) k/uL Sodium (137-145) mmol/L BUN (9-20) mg/dL Creatinine (0.66-1.25) mg/dL Glucose (74-99) mg/dL POC Glucose (mg/dL) 237 H (75-99) mg/dL Assessment and Plan Assessment: -acute renal failure on chronic kidney disease acute renal failure secondary to possible cardiorenal syndrome patient's creatinine much worse compared to admission. Patient is now receiving hemodialysis. Eliquis remains on hold as permacat site has some bleeding noted. Patient will receive a dose of DDAVP and continue to hold anticoagulants -Chest pain: Atypical resolved, most recent echo on 10/05/2019 shows overall left ventricular systolic function is normal with an EF between 55 and 60% -acute hypoxic respiratory failure resolved. Patient has chronic diastolic dysfunction presently not in acute exacerbation. -Mildly elevated troponin: Secondary to chronic kidney disease. 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 Patient probably has acute renal failure as well secondary to excessive diuresis -Cerebrovascular disease with the right below-knee amputation -hypertension -Dyslipidemia -Patient has an arterial ulcer which appears to be healed at this time -Hypertension -Generalized deconditioning for which patient will need the placement to subacute rehabilitation Plan: Anticoagulation remains on hold on hold as patient's permacath site had some blood noted. Nephrology following and recommending a dose of DDAVP today. P atient is maintained on 40 mg of IV Lasix daily and will continue at this time. Nephrology is following. Case management and social work following for possible placement in ECF once patient is stabilized and discharged, per social work patient is to receive 3 treatments of hemodialysis prior to discharge to an ECF. Further recommendations to follow.
--- NOTE | 2019-10-14 16:14 | PN ---
PROGRESS NOTE Patient is seen for followup for acute kidney injury with progressive renal failure and cardiorenal syndrome. Start on hemodialysis. Patient has had his hemodialysis catheter placed and is scheduled for his first treatment of hemodialysis today. There is bleeding noted from the catheter site. The patient had been on Eliquis which was held for 2 days prior to catheter placement. PHYSICAL EXAMINATION: On examination today, blood pressure was 144/63, heart rate 57 per minute, patient is afebrile. Examination of the heart S1, S2. Examination of the lungs, bilateral breath sounds are heard. Abdomen is soft, nontender. Examination of the lower extremities shows chronic skin changes. Trace edema noted. ENTERTAINMENT CENTRE MANAGER exam grossly intact. Pressure dressing noted on the right IJ PermCath. LABS: Show sodium 135, potassium 4.5, chloride 98, BUN 84, creatinine 4.53, hemoglobin of 8.8 g/dL. ASSESSMENT: 1. Acute kidney injury cardiorenal, with progressive renal failure, started on hemodialysis as patient remained volume overloaded with worsening renal function. The patient will be dialyzed today and then again in a.m. 2. Congestive heart failure, acute on top of chronic, mainly diastolic, currently improved. 3. Bleeding from dialysis catheter. I will give him a dose of DDAVP and we can repeat that tomorrow if there continues to be ongoing bleeding. 4. Chronic kidney disease secondary to diabetic kidney disease, NKF stage 3B to 4, baseline creatinine 2.2-2.7 mg/dL. 5. Anemia, no active bleeding noted except from the catheter site. Continue to monitor the hemoglobin. Add Aranesp. 6. Hypertension, controlled. PLAN: DDAVP IV piggyback x1. Monitor hemoglobin. Hemodialysis today and then again in a.m. Encourage increased oral intake. Arrange for outpatient placement for hemodialysis. Add Aranesp for anemia. MMODL / IJN: [id number] / ANN-MARIE
[2019-10-14 17:16] LABS: Glucose,Whole Blood 197 mg/dL (75-99)
[2019-10-14 21:05] LABS: Glucose,Whole Blood 288 mg/dL (75-99)
[2019-10-14] MEDS: ATORVASTATIN 80 MG TAB PO SCH (22:06)
[2019-10-14] MEDS: ASPIRIN 81 MG PO SCH (22:06)
[2019-10-14] MEDS: INSULIN DETEMIR (LEVEMIR) 100 UNIT/ML SYR SQ SCH (22:07)
[2019-10-15] MEDS: PANTOPRAZOLE 40 MG TABLET PO SCH (07:16)
[2019-10-15] MEDS: amLODIPine 5 MG TAB PO SCH (07:17)
[2019-10-15] MEDS: DONEPEZIL 10 MG TAB PO SCH (07:17)
[2019-10-15] MEDS: NYSTATIN 100,000 UNIT/GM POWD 15 GM TOPICAL SCH ×2 (07:17→20:38)
[2019-10-15] MEDS: FUROSEMIDE 10 MG/ML 4 ML VIAL IV SCH (07:17)
[2019-10-15] MEDS: DULoxetine HCL 30 MG CAPSULE.DR PO SCH (07:17)
[2019-10-15] MEDS: CARVEDILOL 3.125 MG TAB PO SCH ×2 (07:17→15:34)
[2019-10-15 07:24] LABS: Glucose,Whole Blood 88 mg/dL (75-99)
[2019-10-15] MEDS: INSULIN ASPART (NovoLOG) 100 UNIT/ML VIAL SQ SCH ×4 (07:28→20:37)
[2019-10-15 08:20] LABS: Calcium 8.2 mg/dL (8.4-10.2); Potassium 4.6 mmol/L (3.5-5.1)
--- NOTE | 2019-10-15 11:47 | P.PN ---
Subjective Progress Note Date: 10/15/19 Principal diagnosis: This is a 79-year-old male seen in consultation because of acute kidney injury from cardiorenal syndrome. He was started on dialysis yesterday at first dialys is. His permacath on the right side is bleeding and he is on DDAVP for this He feels much better more awake and alert and also less short of breath Urine output is not documented Yesterday ultrafiltration is about 1 L. Supposedly he tolerated the dialysis fairly well He denies any chest pain shortness of breath dizziness currently on room air appetite is fair. He is a bilateral amputee Objective - Vital Signs Vital signs: Vital Signs Temp 97.5 F L 10/15/19 07:00 Pulse 63 10/15/19 07:00 Resp 12 10/15/19 07:00 BP 149/66 10/15/19 07:00 Pulse Ox 97 10/15/19 07:00 Intake & Output 10/14/19 10/15/19 10/15/19 18:59 06:59 18:59 Intake Total 590 440 Output Total 1300 300 Balance -710 440 -300 Intake: Intake, IV Titration 50 Amount Desmopressin Acetate 23. 50 55 mcg In Sodium Chloride 0.9% 50 ml @ 200 mls/hr IVPB ONCE ONE Rx#: [id number] Oral 540 440 Output: Urine 300 Hemodialysis 1300 Other: Voiding Method Urinal Urinal Diaper Diaper # Voids 3 4 On examination is awake alert oriented comfortable on room air. HEENT exam no JVP neck is supple no facial asymmetry Lungs clear to auscultation with good air entry bilaterally Heart sounds unremarkable no murmur rub gallop Abdomen is soft nontender Extremity exam bilateral below-knee amputation chronic remote No edema noted Neurologically awake alert oriented - Labs CBC & Chem 7: 10/14/19 08:52 10/15/19 07:32 Labs: Abnormal Lab Results - Last 24 Hours (Table) 10/14/19 10/14/19 10/14/19 Range/Units 11:48 17:03 20:47 Carbon Dioxide (22-30) mmol/L BUN (9-20) mg/dL Creatinine (0.66-1.25) mg/dL Glucose (74-99) mg/dL POC Glucose (mg/dL) 237 H 197 H 288 H (75-99) mg/dL Calcium (8.4-10.2) mg/dL 10/15/19 Range/Units 07:32 Carbon Dioxide 31 H (22-30) mmol/L BUN 52 H (9-20) mg/dL Creatinine 3.41 H (0.66-1.25) mg/dL Glucose 71 L (74-99) mg/dL POC Glucose (mg/dL) (75-99) mg/dL Calcium 8.2 L (8.4-10.2) mg/dL Assessment and Plan Plan: Impression 1. Acute kidney injury cardiorenal syndrome started on dialysis 10/14/2019 yesterday with a permacath on the right chest 2. Diastolic heart failure 3. Oozing from the permacath exit site, status post DDAVP infusion 4. 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 5. Bilateral effusion small. 6. Anemia of chronic kidney disease hemoglobin is 8.8 Recommendation 1. Check iron saturation 2. Maintain darbepoetin 3. Dialysis today, ultrafiltration 1 L 4. Strict I's and O's
[2019-10-15 11:48] LABS: Glucose,Whole Blood 160 mg/dL (75-99)
--- NOTE | 2019-10-15 16:29 | P.PN ---
Subjective 79-year-old male with known history of coronary artery disease and stent LAD came in with the complaints of chest pain patient is a poor historian although able to provide me fairly good his history chest pain is midsternal sharp and dull in nature and nonradiating nonexertional and not associated with food denied any diaphoresis or shortness of breath dizziness or palpitations or syncope. Patient just pain is significantly better now. Patient does have history of chronic diastolic dysfunction. Patient appears to have chronic kidney disease stage III patient baseline creatinine july was around 1.5 now at around 2.7 patient's creatinine has been elevated since july around this level. Chest x-ray showing pulmonary edema with bilateral pleural effusions although clinically patient doesn't have any JVD no pedal no significant pedal edema patient has a right below-knee amputation BNP is only 1979, patient's troponin is 0.038 EKG did not show any significant acute ST-T wave changes. 10/06/2019 No overnight events patient is clinically doing well respiratory status as well but patient may need physical therapy patient the echocardiogram repeat one is still pending. 10/07/2019 Patient looks much better clinically doesn't appear to be in heart failure does not appear edema JVD but creatinine did get worse and patient the is bit hyponatremic baseline creatinine appears to be 2.7 now around 2.7 nephrology was consulted. We'll obtain a chest x-ray 10/08/2019 Patient creatinine is still bit worse compared to yesterday fairly stable nephrology valid the patient patient has not been eating or drinking very well may be contributing to his renal dysfunction Require IV fluids but I'll leave that dictation to nephrology 10/09/2019 His creatinine is fairly stable although patient is bit short of breath and st ill feels tired a lot to Nexium make sure patient not having pulmonary edema although clinically doesn't look like he has pulmonary edema 10/10/2019 Patient did receive Lasix at his creatinine go up patient may end up needing dialysis nephrology will evaluate the patient patient is on Eliquis which need to be held if he needs dialysis catheter will discuss with nephrology patient although feels well no shortness of breath 10/11/2019 Patient's serum creatinine appears to be fairly stable today compared to yesterday patient's Eliquis is being held for dialysis catheter placement patient is presently in status of oxygen patient was started on scheduled Lasix 40 mg daily patient still appears to have some pulmonary edema today 10/12/2019 Patient seen and evaluated in follow-up with no acute overnight issues. Anticoagulation being held and plan is for dialysis catheter placement on morning with Dr. Espinoza. Patient continues to be quite lethargic and fatigues easily but is arousable. Patient denying any chest pain, shortness of breath, or palpitations. Patient is afebrile. No reports of nausea or vomiting and patient is tolerating diet. Case management and social work following for ECF placement once stabilized and discharged. 10/13/2019 Patient is seen in follow-up awaiting to receive dialysis catheter today with Dr. Espinoza. No acute overnight issues. Patient is sitting up in the chair awake, alert and oriented 3. Patient is currently nothing by mouth for the procedure although requesting water. Daughter was at the bedside briefly and discussed the treatment plan and questions were answered. Case management and social work following for placement at [facility] once discharged. Nephrology following and planning on initiating hemodialysis in the morning. Will work on arranging outpatient dialysis. Creatinine is 4.56 today, sodium is 136. Patient denies any worsening shortness of breath and is currently on 2 L of oxygen at 95%. No reports of chest pain or palpitations. Patient is afebrile. No reports of nausea or vomiting and patient is currently nothing by mouth for dialysis catheter placement. 10/14/2019 Patient is seen and evaluated in follow-up currently receiving dialysis after receiving dialysis catheter yesterday. Eliquis remains on hold as patient site had some bleeding noted. Nephrology following. Patient will be receiving a dose of DDAVP and will likely hold anticoagulants for a few days. Will repeat a.m. labs and monitor electrolytes closely. Patient will likely receive dialysis daily prior to discharge. Case management and social work following as patient will be going to ECF once discharged. Patient is required to receive 3 treatments of dialysis prior to admission of ECF. Currently no reports of chest pain, shortness of breath, or palpitations. Patient is afebrile. No reports of nausea or vomiting and patient is tolerating diet. 10/15/2019 Patient is still having little bit of bleeding from dialysis catheter site for which we're holding pressure prior to hold on Eliquis. Constitutional: Significantly fatigued and sleepy drowsy Cardio vascular: denied any chest pain, palpitations Gastrointestinal denied any nausea vomiting Pulmonary: Denied any shortness of breath cough Neurologic denied any new focal deficits All inpatient medications were reviewed and appropriate changes in these medications as dictated in the interval history and assessment and plan. Objective - Vital Signs Vital signs: Vital Signs Temp 97.5 F L 10/15/19 15:53 Pulse 70 10/15/19 15:53 Resp 18 10/15/19 15:53 BP 144/67 10/15/19 15:53 Pulse Ox 91 L 10/15/19 15:00 Intake & Output 10/14/19 10/15/19 10/15/19 18:59 06:59 18:59 Intake Total 590 440 Output Total 1300 2300 Balance -710 440 -2300 Intake: Intake, IV Titration 50 Amount Desmopressin Acetate 23. 50 55 mcg In Sodium Chloride 0.9% 50 ml @ 200 mls/hr IVPB ONCE ONE Rx#: [id number] Oral 540 440 Output: Urine 300 Hemodialysis 1300 2000 Other: Voiding Method Urinal Urinal Diaper Diaper # Voids 3 4 - Exam PHYSICAL EXAMINATION: GENERAL: The patient is drowsy and oriented x3, not in any acute distress. Well developed, well nourished. HEENT: Pupils are round and equally reacting to light. EOMI. No scleral icterus. No conjunctival pallor. Normocephalic, atraumatic. No pharyngeal erythema. No thyromegaly. CARDIOVASCULAR: S1 and S2 present. No murmurs, rubs, or gallops. PULMONARY: Chest is clear to auscultation, no wheezing or crackles. ABDOMEN: Soft, nontender, nondistended, normoactive bowel sounds. No palpable organomegaly. MUSCULOSKELETAL: No joint swelling or deformity. EXTREMITIES: No cyanosis, clubbing, or pedal edema. Right below-knee amputation NEUROLOGICAL: Gross neurological examination did not reveal any focal deficits. SKIN: No rashes. - Labs CBC & Chem 7: 10/14/19 08:52 10/15/19 07:32 Labs: Abnormal Lab Results - Last 24 Hours (Table) 10/14/19 10/14/19 10/15/19 Range/Units 17:03 20:47 07:32 Carbon Dioxide 31 H (22-30) mmol/L BUN 52 H (9-20) mg/dL Creatinine 3.41 H (0.66-1.25) mg/dL Glucose 71 L (74-99) mg/dL POC Glucose (mg/dL) 197 H 288 H (75-99) mg/dL Calcium 8.2 L (8.4-10.2) mg/dL 10/15/19 Range/Units 11:46 Carbon Dioxide (22-30) mmol/L BUN (9-20) mg/dL Creatinine (0.66-1.25) mg/dL Glucose (74-99) mg/dL POC Glucose (mg/dL) 160 H (75-99) mg/dL Calcium (8.4-10.2) mg/dL Assessment and Plan Plan: -acute renal failure on chronic kidney disease acute renal failure secondary to possible cardiorenal syndrome patient's creatinine much worse compared to admission. Patient is now receiving hemodialysis. Eliquis remains on hold as permacath site has some bleeding noted due to have some bleeding today as well. Patient will receive a dose of DDAVP and continue to hold anticoagulants -Chest pain: Atypical resolved, most recent echo on 10/05/2019 shows overall left ventricular systolic function is normal with an EF between 55 and 60% -acute hypoxic respiratory failure resolved. Patient has chronic diastolic dysfunction presently not in acute exacerbation. -Mildly elevated troponin: Secondary to chronic kidney disease. 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 Patient probably has acute renal failure as well secondary to excessive diuresis -Cerebrovascular disease with the right below-knee amputation -hypertension -Dyslipidemia -Patient has an arterial ulcer which appears to be healed at this time -Hypertension -Generalized deconditioning for which patient will need the placement to subacute rehabilitation Plan: Anticoagulation remains on hold on hold as patient's permacath site had some blood noted. Nephrology following and recommending a dose of DDAVP today. Patient is maintained on 40 mg of IV Lasix daily and will continue at this time. Nephrology is following. Case management and social work following for possible placement in ECF once patient is stabilized and discharged, per social work patient is to receive 3 treatments of hemodialysis prior to discharge to an ECF. Further recommendations to follow.
[2019-10-15 17:17] LABS: Glucose,Whole Blood 280 mg/dL (75-99)
[2019-10-15 20:17] LABS: Glucose,Whole Blood 271 mg/dL (75-99)
[2019-10-15] MEDS: ATORVASTATIN 80 MG TAB PO SCH (20:37)
[2019-10-15] MEDS: ASPIRIN 81 MG PO SCH (20:37)
[2019-10-15] MEDS: INSULIN DETEMIR (LEVEMIR) 100 UNIT/ML SYR SQ SCH (20:38)
[2019-10-16 04:44] LABS: Glucose,Whole Blood 82 mg/dL (75-99)
[2019-10-16 06:52] LABS: Glucose,Whole Blood 111 mg/dL (75-99)
[2019-10-16] MEDS: INSULIN ASPART (NovoLOG) 100 UNIT/ML VIAL SQ SCH ×4 (07:05→20:53)
[2019-10-16] MEDS: DULoxetine HCL 30 MG CAPSULE.DR PO SCH (07:14)
[2019-10-16] MEDS: FUROSEMIDE 10 MG/ML 4 ML VIAL IV SCH (07:14)
[2019-10-16] MEDS: PANTOPRAZOLE 40 MG TABLET PO SCH (07:14)
[2019-10-16] MEDS: amLODIPine 5 MG TAB PO SCH (07:14)
[2019-10-16] MEDS: DONEPEZIL 10 MG TAB PO SCH (07:14)
[2019-10-16] MEDS: CARVEDILOL 3.125 MG TAB PO SCH ×2 (07:14→15:22)
[2019-10-16] MEDS: NYSTATIN 100,000 UNIT/GM POWD 15 GM TOPICAL SCH ×2 (07:16→20:54)
--- NOTE | 2019-10-16 10:42 | P.PN ---
Subjective Principal diagnosis: This is a 79-year-old male seen in consultation because of acute kidney injury from cardiorenal syndrome. He was started on dialysis day before yesterday at first dialysis, had the second dialysis yesterday. His permacath on the right side cont to bleed and he was given DDAVP for this He feels much better more awake and alert and also less short of breath. Urine output is oliguric. He denies any chest pain shortness of breath dizziness currently on room air appetite is fair. He has right below knee amputation remotely. He is somewhat confused at times and has not been sleeping very well for the last 2 days supposedly. Appetite is good no nausea vomiting. Objective - Vital Signs Vital signs: Vital Signs Temp 97.7 F 10/16/19 07:00 Pulse 64 10/16/19 07:00 Resp 16 10/16/19 07:00 BP 168/73 10/16/19 07:00 Pulse Ox 98 10/16/19 07:00 Intake & Output 10/15/19 10/16/19 10/16/19 18:59 06:59 18:59 Intake Total 240 Output Total 2300 100 Balance -2300 140 Intake: Oral 240 Output: Urine 300 100 Hemodialysis 2000 Other: Voiding Method Urinal Urinal Urinal Diaper Diaper Diaper # Voids 1 On examination is awake alert. Initially could not recognize where he was but he was able to answer rest of the questions regarding his orientation. HEENT exam no JVP neck is supple no facial asymmetry Lungs are clear to auscultation good air entry bilaterally Heart sounds are unremarkable for any murmur rub gallop. Abdomen soft nontender Neurologically awake alert at times disoriented. No asterixis Extremity exam was no edema right below-knee amputation - Labs CBC & Chem 7: 10/14/19 08:52 10/15/19 07:32 Labs: Abnormal Lab Results - Last 24 Hours (Table) 10/15/19 10/15/19 10/15/19 Range/Units 11:46 17:15 20:16 POC Glucose (mg/dL) 160 H 280 H 271 H (75-99) mg/dL 10/16/19 Range/Units 06:50 POC Glucose (mg/dL) 111 H (75-99) mg/dL Assessment and Plan Plan: Impression 1. Acute kidney injury cardiorenal syndrome started on dialysis 10/14/2019 day before yesterday with a permacath on the right chest, had his second dialysis yesterday. No evidence of recovery urine output is minimal in the oliguric range 400 mL so far. 2. Diastolic heart failure 3. Oozing from the permacath exit site, status post DDAVP infusion. 4. 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 5. Bilateral effusion small. 6. Anemia of chronic kidney disease hemoglobin is 8.8 Recommendation 1. Check iron saturation 2. Maintain darbepoetin 3. Dialysis tomorrow , ultrafiltration 1 L 4. Strict I's and O's
[2019-10-16 11:57] LABS: Glucose,Whole Blood 175 mg/dL (75-99)
--- NOTE | 2019-10-16 13:10 | P.PN ---
Subjective 79-year-old male with known history of coronary artery disease and stent LAD came in with the complaints of chest pain patient is a poor historian although able to provide me fairly good his history chest pain is midsternal sharp and dull in nature and nonradiating nonexertional and not associated with food denied any diaphoresis or shortness of breath dizziness or palpitations or syncope. Patient just pain is significantly better now. Patient does have history of chronic diastolic dysfunction. Patient appears to have chronic kidney disease stage III patient baseline creatinine july was around 1.5 now at around 2.7 patient's creatinine has been elevated since july around this level. Chest x-ray showing pulmonary edema with bilateral pleural effusions although clinically patient doesn't have any JVD no pedal no significant pedal edema patient has a right below-knee amputation BNP is only 1979, patient's troponin is 0.038 EKG did not show any significant acute ST-T wave changes. 10/06/2019 No overnight events patient is clinically doing well respiratory status as well but patient may need physical therapy patient the echocardiogram repeat one is still pending. 10/07/2019 Patient looks much better clinically doesn't appear to be in heart failure does not appear edema JVD but creatinine did get worse and patient the is bit hyponatremic baseline creatinine appears to be 2.7 now around 2.7 nephrology was consulted. We'll obtain a chest x-ray 10/08/2019 Patient creatinine is still bit worse compared to yesterday fairly stable nephrology valid the patient patient has not been eating or drinking very well may be contributing to his renal dysfunction Require IV fluids but I'll leave that dictation to nephrology 10/09/2019 His creatinine is fairly stable although patient is bit short of breath and st ill feels tired a lot to Nexium make sure patient not having pulmonary edema although clinically doesn't look like he has pulmonary edema 10/10/2019 Patient did receive Lasix at his creatinine go up patient may end up needing dialysis nephrology will evaluate the patient patient is on Eliquis which need to be held if he needs dialysis catheter will discuss with nephrology patient although feels well no shortness of breath 10/11/2019 Patient's serum creatinine appears to be fairly stable today compared to yesterday patient's Eliquis is being held for dialysis catheter placement patient is presently in status of oxygen patient was started on scheduled Lasix 40 mg daily patient still appears to have some pulmonary edema today 10/12/2019 Patient seen and evaluated in follow-up with no acute overnight issues. Anticoagulation being held and plan is for dialysis catheter placement on morning with Dr. Espinoza. Patient continues to be quite lethargic and fatigues easily but is arousable. Patient denying any chest pain, shortness of breath, or palpitations. Patient is afebrile. No reports of nausea or vomiting and patient is tolerating diet. Case management and social work following for ECF placement once stabilized and discharged. 10/13/2019 Patient is seen in follow-up awaiting to receive dialysis catheter today with Dr. Espinoza. No acute overnight issues. Patient is sitting up in the chair awake, alert and oriented 3. Patient is currently nothing by mouth for the procedure although requesting water. Daughter was at the bedside briefly and discussed the treatment plan and questions were answered. Case management and social work following for placement at [facility] once discharged. Nephrology following and planning on initiating hemodialysis in the morning. Will work on arranging outpatient dialysis. Creatinine is 4.56 today, sodium is 136. Patient denies any worsening shortness of breath and is currently on 2 L of oxygen at 95%. No reports of chest pain or palpitations. Patient is afebrile. No reports of nausea or vomiting and patient is currently nothing by mouth for dialysis catheter placement. 10/14/2019 Patient is seen and evaluated in follow-up currently receiving dialysis after receiving dialysis catheter yesterday. Eliquis remains on hold as patient site had some bleeding noted. Nephrology following. Patient will be receiving a dose of DDAVP and will likely hold anticoagulants for a few days. Will repeat a.m. labs and monitor electrolytes closely. Patient will likely receive dialysis daily prior to discharge. Case management and social work following as patient will be going to ECF once discharged. Patient is required to receive 3 treatments of dialysis prior to admission of ECF. Currently no reports of chest pain, shortness of breath, or palpitations. Patient is afebrile. No reports of nausea or vomiting and patient is tolerating diet. 10/15/2019 Patient is still having little bit of bleeding from dialysis catheter site for which we're holding pressure prior to hold on Eliquis. 10/16/2019 Patient will undergo another session of hemodialysis tomorrow after that patient probably will be discharged to subacute rehabilitation. Constitutional: Significantly fatigued and sleepy drowsy Cardio vascular: denied any chest pain, palpitations Gastrointestinal denied any nausea vomiting Pulmonary: Denied any shortness of breath cough Neurologic denied any new focal deficits All inpatient medications were reviewed and appropriate changes in these medications as dictated in the interval history and assessment and plan. Objective - Vital Signs Vital signs: Vital Signs Temp 97.7 F 10/16/19 07:00 Pulse 64 10/16/19 07:00 Resp 16 10/16/19 07:00 BP 168/73 10/16/19 07:00 Pulse Ox 98 10/16/19 07:00 Intake & Output 10/15/19 10/16/19 10/16/19 18:59 06:59 18:59 Intake Total 240 Output Total 2300 100 Balance -2300 140 Intake: Oral 240 Output: Urine 300 100 Hemodialysis 2000 Other: Voiding Method Urinal Urinal Urinal Diaper Diaper Diaper # Voids 1 - Exam PHYSICAL EXAMINATION: GENERAL: The patient is drowsy and oriented x3, not in any acute distress. Well developed, well nourished. HEENT: Pupils are round and equally reacting to light. EOMI. No scleral icterus. No conjunctival pallor. Normocephalic, atraumatic. No pharyngeal erythema. No thyromegaly. CARDIOVASCULAR: S1 and S2 present. No murmurs, rubs, or gallops. PULMONARY: Chest is clear to auscultation, no wheezing or crackles. ABDOMEN: Soft, nontender, nondistended, normoactive bowel sounds. No palpable organomegaly. MUSCULOSKELETAL: No joint swelling or deformity. EXTREMITIES: No cyanosis, clubbing, or pedal edema. Right below-knee amputation NEUROLOGICAL: Gross neurological examination did not reveal any focal deficits. SKIN: No rashes. - Labs CBC & Chem 7: 10/14/19 08:52 10/15/19 07:32 Labs: Abnormal Lab Results - Last 24 Hours (Table) 10/15/19 10/15/19 10/16/19 Range/Units 17:15 20:16 06:50 POC Glucose (mg/dL) 280 H 271 H 111 H (75-99) mg/dL 10/16/19 Range/Units 11:54 POC Glucose (mg/dL) 175 H (75-99) mg/dL Assessment and Plan Plan: -acute renal failure on chronic kidney disease acute renal failure secondary to possible cardiorenal syndrome patient's creatinine much worse compared to admission. Patient is now receiving hemodialysis. Eliquis remains on hold as p ermacath site has some bleeding noted due to have some bleeding today as well. Patient will receive a dose of DDAVP and continue to hold anticoagulants -Chest pain: Atypical resolved, most recent echo on 10/05/2019 shows overall left ventricular systolic function is normal with an EF between 55 and 60% -acute hypoxic respiratory failure resolved. Patient has chronic diastolic dysfunction presently not in acute exacerbation. -Mildly elevated troponin: Secondary to chronic kidney disease. 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 Patient probably has acute renal failure as well secondary to excessive diuresis -Cerebrovascular disease with the right below-knee amputation -hypertension -Dyslipidemia -Patient has an arterial ulcer which appears to be healed at this time -Hypertension -Generalized deconditioning for which patient will need the placement to subacute rehabilitation Plan: Anticoagulation remains on hold on hold as patient's permacath site had some blood noted. Nephrology following and recommending a dose of DDAVP today. Patient is maintained on 40 mg of IV Lasix daily and will continue at this time. Nephrology is following. Case management and social work following for possible placement in ECF once patient is stabilized and discharged, per social work patient is to receive 3 treatments of hemodialysis prior to discharge to an ECF. Further recommendations to follow.
[2019-10-16 17:02] LABS: Glucose,Whole Blood 181 mg/dL (75-99)
[2019-10-16 20:42] LABS: Glucose,Whole Blood 246 mg/dL (75-99)
[2019-10-16] MEDS: ATORVASTATIN 80 MG TAB PO SCH (20:53)
[2019-10-16] MEDS: INSULIN DETEMIR (LEVEMIR) 100 UNIT/ML SYR SQ SCH (20:53)
[2019-10-16] MEDS: APIXABAN 2.5 MG TABLET PO SCH (20:53)
[2019-10-16] MEDS: ASPIRIN 81 MG PO SCH (20:53)
[2019-10-17 06:55] LABS: Glucose,Whole Blood 77 mg/dL (75-99)
[2019-10-17] MEDS: INSULIN ASPART (NovoLOG) 100 UNIT/ML VIAL SQ SCH ×2 (07:29→11:41)
[2019-10-17] MEDS: CARVEDILOL 3.125 MG TAB PO SCH (07:34)
[2019-10-17] MEDS: PANTOPRAZOLE 40 MG TABLET PO SCH (07:34)
[2019-10-17] MEDS: amLODIPine 5 MG TAB PO SCH (07:34)
[2019-10-17] MEDS: NYSTATIN 100,000 UNIT/GM POWD 15 GM TOPICAL SCH (07:35)
[2019-10-17] MEDS: APIXABAN 2.5 MG TABLET PO SCH (07:35)
[2019-10-17] MEDS: FUROSEMIDE 10 MG/ML 4 ML VIAL IV SCH (07:35)
[2019-10-17] MEDS: DONEPEZIL 10 MG TAB PO SCH (07:35)
[2019-10-17] MEDS: DULoxetine HCL 30 MG CAPSULE.DR PO SCH (07:35)
[2019-10-17 10:00] LABS: Calcium 7.8 mg/dL (8.4-10.2)
--- NOTE | 2019-10-17 10:59 | P.PN ---
Subjective Patient is seen in follow-up for acute kidney injury. He was started on hemodialysis this admission. He has been tolerating dialysis well. Denies chest pain or shortness of breath at this time. No active complaints today. Vital signs are stable. General: The patient appeared well nourished and normally developed. HEENT: Head exam is unremarkable. Neck is without jugular venous distension. LUNGS: Lungs are clear to auscultation and percussion. Breath sounds decreased. HEART: Rate and Rhythm are regular. ABDOMEN: Soft, nontender. EXTREMITITES: Trace edema. Objective - Vital Signs Vital signs: Vital Signs Temp 97.4 F L 10/17/19 07:17 Pulse 61 10/17/19 07:17 Resp 16 10/17/19 08:10 BP 144/76 10/17/19 07:17 Pulse Ox 96 10/17/19 07:17 Intake & Output 10/16/19 10/17/19 10/17/19 18:59 06:59 18:59 Intake Total 120 Output Total 225 Balance -105 Weight 76 kg Intake: Oral 120 Output: Urine 225 Other: Voiding Method Urinal Urinal Urinal Diaper Diaper Diaper # Voids 1 - Labs CBC & Chem 7: 10/14/19 08:52 10/17/19 09:00 Labs: Abnormal Lab Results - Last 24 Hours (Table) 10/16/19 10/16/19 10/16/19 Range/Units 11:54 17:01 20:41 Sodium (137-145) mmol/L Carbon Dioxide (22-30) mmol/L BUN (9-20) mg/dL Creatinine (0.66-1.25) mg/dL POC Glucose (mg/dL) 175 H 181 H 246 H (75-99) mg/dL Calcium (8.4-10.2) mg/dL 10/17/19 Range/Units 09:00 Sodium 136 L (137-145) mmol/L Carbon Dioxide 31 H (22-30) mmol/L BUN 28 H (9-20) mg/dL Creatinine 2.23 H (0.66-1.25) mg/dL POC Glucose (mg/dL) (75-99) mg/dL Calcium 7.8 L (8.4-10.2) mg/dL Assessment and Plan Plan: assessment: 1. Acute kidney injury secondary to ATN secondary to cardiorenal syndrome. Creatinine peaked at 4.5 this admission and he was subsequently started on hemodialysis due to fluid overload and oliguria. 2. Chronic kidney disease stage III. Recent baseline in the range of 2.2-2.7. Etiology is most likely diabetic kidney disease. Serologies negative. 3. Acute on chronic diastolic CHF. 4. Status post right below the knee amputation. 5. Hypertension with chronic kidney disease. Controlled. 6. Insulin-dependent diabetes mellitus. Plan: Currently seen while undergoing hemodialysis. He will be maintained on Thursday schedule. Monitor for renal recovery outpatient. Potential discharge to ECF today.
[2019-10-17 11:37] LABS: Glucose,Whole Blood 92 mg/dL (75-99)
--- NOTE | 2019-10-17 12:24 | P.DS ---
Providers Date of admission: 10/08/19 09:15 Expected date of discharge: 10/17/19 Attending physician: Kamilla Ho Consults: 10/05/19 12:25 Consult Physician Routine Consulting Provider: Jeronimo Veliz Consult Reason/Comments: CP CHF Do you want consulting provider notified?: Yes 10/06/19 19:50 Consult Physician Routine Consulting Provider: Roberto Finley Consult Reason/Comments: CKD Do you want consulting provider notified?: Yes, Notify in am 10/11/19 10:22 Consult Physician Routine Consulting Provider: Giacomo Espinoza Consult Reason/Comments: permacath placement, in chest, for dialysis Do you want consulting provider notified?: Yes Primary care physician: [facility] Hospital Course: Final diagnosis -acute renal failure on chronic kidney disease secondary to possible cardiorenal syndrome -Chest pain: Atypical resolved, most recent echo on 10/05/2019 shows overall left ventricular systolic function is normal with an EF between 55 and 60% -acute hypoxic respiratory failure resolved. Patient has chronic diastolic dysfunction presently not in acute exacerbation. -Mildly elevated troponin: Secondary to chronic kidney disease. 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 Patient probably has acute renal failure as well secondary to excessive diuresis -Cerebrovascular disease with the right below-knee amputation -hypertension -Dyslipidemia -Patient has an arterial ulcer which appears to be healed at this time -Hypertension -Generalized deconditioning Discharge disposition Patient is being discharged in a stable condition with guarded prognosis to [facility] for continued PT/OT therapy. Patient will continue hemodialysis as instructed and arranged by nephrology. Total time taken is 35 minutes. History of present illness This is a 79-year-old male who was recently admitted with chest pain in the midsternal area that was sharp and dull and nonradiating nonexertional and was being closely monitored. Patient was also found to have shortness of breath. Patient does have a history of chronic diastolic dysfunction along with chronic kidney disease stage III and underwent permacath hemodialysis placement and has been initiated on hemodialysis. Patient will continue with dialysis the outpatient setting as scheduled for nephrology. Patient continues to be weak requiring assistance with the inability to care for himself and will be going to [facility] [place] for continued PT/OT therapy. Family and patient to discuss long-term treatment plan in the outpatient setting as daughter feels he is unable to care for himself in the home. Patient continues to have some mild oozing around the permacath site and was given 2 doses of DDAVP with no new active bleeding noted. Patient will continue to hold Eliquis 2.5 mg twice daily in the outpatient setting for an additional week until follow-up and reassessment from [facility] physician. Patient is currently on 2 L of oxygen and uses this in the outpatient setting. Patient is to continue monitoring blood sugars before meals at bedtime and treat accordingly with sliding scale. Currently no reports of nausea, vomiting, or diarrhea. Patient is tolerating diet. No repo rts of chest pain, shortness of breath, or palpitations. Patient is afebrile. Patient will be discharged to [facility] today. On exam vital signs are stable. Temp is 97.8F, pulse is 63, respirations are 16, blood pressure is 126/62, oxygen saturation is 96% on 2 L via nasal cannula. Cardio S1, S2 are present. Respiratory shows diminished breath sounds with no wheezing or rhonchi noted. Abdomen is soft and nontender. Nervous system shows diffuse weakness. Please refer to medication reconciliation sheet for a list of medications. Patient Condition at Discharge: Stable Plan - Discharge Summary Discharge Rx Participant: Yes New Discharge Prescriptions: New Pantoprazole [Protonix] 40 mg PO AC-BRKFST tablet. Acetaminophen Tab [Tylenol] 650 mg PO Q6HR PRN tab PRN Reason: Mild Pain Or Fever > 100.5 Continue Donepezil [Aricept] 10 mg PO DAILY Atorvastatin [Lipitor] 80 mg PO HS Cholecalciferol [Vitamin D3 (25 Mcg = 1000 Iu)] 1,000 unit PO DAILY DULoxetine HCL [Cymbalta] 30 mg PO DAILY Aspirin 81 mg PO HS chew amLODIPine BESYLATE 5 mg PO DAILY Darbepoetin Enmanuel [Aranesp] 60 mcg SQ Q7D #4 syringe Nystatin 100,000 Unit/gm Powd [Mycostatin Powder] 1 applic TOPICAL BID #1 applic Carvedilol [Coreg] 3.125 mg PO BID-W/MEALS #60 tab Insulin Detemir (Levemir) [Levemir] 10 unit SQ HS #1 syr INSULIN ASPART (NovoLOG) [NovoLOG (formulary)] 0 unit SQ ACHS vial Changed Furosemide [Lasix] 40 mg PO DAILY #60 tablet Discontinued Apixaban [Eliquis] 2.5 mg PO BID #0 Omeprazole 20 mg PO DAILY Cephalexin [Keflex] 500 mg PO Q12HR 7 Days #14 cap Discharge Medication List Donepezil [Aricept] 10 mg PO DAILY 10/01/16 [History] Atorvastatin [Lipitor] 80 mg PO HS 08/07/19 [History] Cholecalciferol [Vitamin D3 (25 Mcg = 1000 Iu)] 1,000 unit PO DAILY 08/07/19 [History] DULoxetine HCL [Cymbalta] 30 mg PO DAILY 08/07/19 [History] Aspirin 81 mg PO HS chew 08/09/19 [Rx] amLODIPine BESYLATE 5 mg PO DAILY 09/21/19 [History] Carvedilol [Coreg] 3.125 mg PO BID-W/MEALS #60 tab 09/30/19 [Rx] Darbepoetin Enmanuel [Aranesp] 60 mcg SQ Q7D #4 syringe 09/30/19 [Rx] INSULIN ASPART (NovoLOG) [NovoLOG (formulary)] 0 unit SQ ACHS vial 09/30/19 [Rx] Insulin Detemir (Levemir) [Levemir] 10 unit SQ HS #1 syr 09/30/19 [Rx] Nystatin 100,000 Unit/gm Powd [Mycostatin Powder] 1 applic TOPICAL BID #1 applic 09/30/19 [Rx] Acetaminophen Tab [Tylenol] 650 mg PO Q6HR PRN tab 10/17/19 [Rx] Furosemide [Lasix] 40 mg PO DAILY #60 tablet 10/17/19 [Rx] Pantoprazole [Protonix] 40 mg PO AC-BRKFST tablet. 10/17/19 [Rx] Follow up Appointment(s)/Referral(s): [facility] [Primary Care Provider] - 1-2 days Ambulatory/Diagnostic Orders: Basic Metabolic Panel [LAB.AMB] Time Frame: 2 Days, Location: None Selected Complete Blood Count w/diff [LAB.AMB] Time Frame: 2 Days, Location: None Selected Activity/Diet/Wound Care/Special Instructions: Patient is going to [facility] Activity as tolerated Continue holding Eliquis 2.5 mg twice a day for 1 week, and until further assessment of permacath site by ECF physician Continue with hemodialysis as scheduled by nephrology Continue monitoring blood sugars before meals at bedtime and treat accordingly with sliding scale Continue consistent carb diet Follow-up with nephrology in the outpatient setting Follow-up with primary care provider upon discharge Hemodialysis Mondays, Wednesdays, and Fridays at 2:00 p.m. daily, please be there at 1:30 p.m. on 10/19/2019 Discharge Disposition: TRANSFER TO SNF/ECF
[2019-10-17 14:25] VITALS: BP 153/70; PULSE 60; RESP 15; TEMP 97.7
[2019-10-17 16:55] LABS: Glucose,Whole Blood 248 mg/dL (75-99)
== END 2019-10-17 17:00 | DRG 291 ==
LOC: EC 10:12 → 2SICU 12:24 → 3SCARD 13:37 → OBSVTOIN 10-08 09:15 → 4SSUR 10-09 15:14
PROVIDERS: ADMIT Internal Medicine; ATTEND Internal Medicine
PROC: 0JH63XZ Insertion of Tunneled Vascular Access Device into Chest Subcutaneous Tissue and Fascia, Percutaneous Approach (ICD-10-PCS; principal; 2019-10-13 08:00)
PROC: 5A1D70Z Performance of Urinary Filtration, Intermittent, Less than 6 Hours Per Day (ICD-10-PCS; principal; 2019-10-13 08:00)
PROC: 02HV33Z Insertion of Infusion Device into Superior Vena Cava, Percutaneous Approach (ICD-10-PCS; principal; 2019-10-13 08:00)
DX: I13.0 Hypertensive heart and chronic kidney disease with heart failure and stage 1 through stage 4 chronic kidney disease, or unspecified chronic kidney disease (principal); N17.0 Acute kidney failure with tubular necrosis; I50.33 Acute on chronic diastolic (congestive) heart failure; J96.01 Acute respiratory failure with hypoxia; E87.1 Hypo-osmolality and hyponatremia; I97.618 Postprocedural hemorrhage of a circulatory system organ or structure following other circulatory system procedure; E78.5 Hyperlipidemia, unspecified; E11.51 Type 2 diabetes mellitus with diabetic peripheral angiopathy without gangrene; E11.22 Type 2 diabetes mellitus with diabetic chronic kidney disease; D63.1 Anemia in chronic kidney disease; F03.90 Unspecified dementia, unspecified severity, without behavioral disturbance, psychotic disturbance, mood disturbance, and anxiety; Z20.828 Contact with and (suspected) exposure to other viral communicable diseases; N18.3 Chronic kidney disease, stage 3 (moderate); I49.3 Ventricular premature depolarization; I67.9 Cerebrovascular disease, unspecified; T50.2X5A Adverse effect of carbonic-anhydrase inhibitors, benzothiadiazides and other diuretics, initial encounter; I25.10 Atherosclerotic heart disease of native coronary artery without angina pectoris; E11.649 Type 2 diabetes mellitus with hypoglycemia without coma; Z79.4 Long term (current) use of insulin; Z79.01 Long term (current) use of anticoagulants; Z79.899 Other long term (current) drug therapy; Z79.82 Long term (current) use of aspirin; Z89.511 Acquired absence of right leg below knee; Z90.49 Acquired absence of other specified parts of digestive tract; Z90.89 Acquired absence of other organs; Z98.890 Other specified postprocedural states; Z80.9 Family history of malignant neoplasm, unspecified; Z95.0 Presence of cardiac pacemaker; Z95.5 Presence of coronary angioplasty implant and graft
CPT/HCPCS: 36415; 36558; 71045; 71046; 76937; 77001; 80048; 80053; 80074; 83735; 83880; 84484; 85025; 85610; 85730; 86162; 86704; 86706; 90935; 93005; 93306; 96374; 99285

== ENCOUNTER 2019-10-26 21:29 | Inpatient (IN) | payer OTHER, MEDICARE ==
[2019-10-26 22:15] LABS: Anisocytosis Slight; Basophils % (A) 0 %; Eosinophils # (A) 0.2 k/uL (0-0.7); Eosinophils % (A) 3 %; HCT 26.2 % (39.0-53.0); Hypochromasia Marked; Lymphocytes # (A) 0.9 k/uL (1.0-4.8); Lymphocytes % (A) 12 %; MCHC 30.4 g/dL (31.0-37.0); MCV 88.6 fL (80.0-100.0); Monocytes # (A) 0.5 k/uL (0-1.0); Monocytes % (A) 6 %; Neutrophils # (A) 5.5 k/uL (1.3-7.7); Neutrophils % (A) 76 %; Platelet Count 180 k/uL (150-450); RBC 2.96 m/uL (4.30-5.90); RDW 16.2 % (11.5-15.5); WBC 7.3 k/uL (3.8-10.6)
[2019-10-26 22:25] LABS: Albumin 2.7 g/dL (3.5-5.0); Calcium 7.6 mg/dL (8.4-10.2); Magnesium 1.8 mg/dL (1.6-2.3); Potassium 3.9 mmol/L (3.5-5.1); Total Bilirubin 0.4 mg/dL (0.2-1.3); Total Protein 5.7 g/dL (6.3-8.2)
--- NOTE | 2019-10-26 22:34 | XR ---
EXAMINATION TYPE: XR chest 2V DATE OF EXAM: 10/26/2019 COMPARISON: 10/13/2019 HISTORY: Difficulty breathing TECHNIQUE: FINDINGS: There is blunting of the costophrenic angles. There is mild pulmonary congestion. There is right-sided central venous catheter with the tip in the superior vena cava. There is left axillary pa cemaker. There are chest leads. There is old healed fracture left clavicle. IMPRESSION: Bilateral pleural effusions and basilar pulmonary infiltrates and atelectasis. There is p robably congestive heart failure. No significant change compared to old exam.
[2019-10-26 22:40] LABS: Prothrombin Time 10.7 sec (9.0-12.0)
[2019-10-26] MEDS ORDERED: FUROSEMIDE 10 MG/ML 4 ML VIAL IV STA (23:03)
--- NOTE | 2019-10-26 23:09 | ED ---
Dizziness HPI - General Chief Complaint: Syncope Stated Complaint: SOB Time Seen by Provider: 10/26/19 21:31 Source: patient, EMS Mode of arrival: EMS Limitations: altered mental status - History of Present Illness Initial Comments: 71-year-old male who is AAOx3 on arrival with history of right BKA, DM, HTN, CHF, pacemaker presenting today for chief complaint of shortness of breath, syncopal episode. Patient has some difficulty recalling the events of the day but staff at the facility where he is staying states that he was passed out in his recliner and they noticed that he had no oxygen. Patient states he does not recall passing out. Patient denies any chest pain shortness of breath. Patient denies any abnormal symptoms at this time he states he didn't know previously that he was worried about the states it has improved. Patient denies noticing any leg swelling. Patient denies headache, nausea, vomiting, abdominal pain, rectal bleeding or additional complaints. Patient appears is no acute distress on arrival, not hypoxic. - Related Data Home Medications Medication Instructions Recorded Confirmed Donepezil [Aricept] 10 mg PO DAILY 10/01/16 10/26/19 Atorvastatin [Lipitor] 80 mg PO HS 08/07/19 10/26/19 Cholecalciferol [Vitamin D3 (25 1,000 unit PO DAILY 08/07/19 10/26/19 Mcg = 1000 Iu)] DULoxetine HCL [Cymbalta] 30 mg PO DAILY 08/07/19 10/26/19 amLODIPine BESYLATE 5 mg PO DAILY 09/21/19 10/26/19 Acetaminophen [Acetaminophen ER] 650 mg PO Q8H PRN 10/26/19 10/26/19 Aspirin 81 mg PO DAILY 10/26/19 10/26/19 INSULIN ASPART (NovoLOG) [NovoLOG See Protocol SQ ACHS 10/26/19 10/26/19 (formulary)] Insulin Detemir (Levemir) [Levemir] 10 unit SQ HS 10/26/19 10/26/19 LORazepam [Ativan] 0.5 mg PO Q12H 10/26/19 10/26/19 Pantoprazole [Protonix] 40 mg PO DAILY 10/26/19 10/26/19 Previous Rx's Medication Instructions Recorded Carvedilol [Coreg] 3.125 mg PO BID-W/MEALS #60 tab 05/22/20 Darbepoetin Enmanuel [Aranesp] 60 mcg SQ Q7D #4 syringe 09/30/19 Furosemide [Lasix] 40 mg PO DAILY #60 tablet 10/17/19 Allergies Allergy/AdvReac Type Severity Reaction Status Date / Time No Known Allergies Allergy Verified 10/26/19 22:42 Review of Systems ROS Statement: Those systems with pertinent positive or pertinent negative responses have been documented in the HPI. ROS Other: All systems not noted in ROS Statement are negative. Past Medical History Past Medical History: Heart Failure, Dementia, Diabetes Mellitus, Hypertension, Syncope, Vascular Disorder Additional Past Medical History / Comment(s): IDDM type II, recent R 3rd toe amputation/wound, SEVERAL SYNCOPAL EPISODES PRIOR TO RECEIVING HIS PACEMAKER, PVD, carotid stenosis History of Any Multi-Drug Resistant Organisms: None Reported Past Surgical History: Appendectomy, Pacemaker, Tonsillectomy Additional Past Surgical History / Comment(s): LEFT GREAT TOE HALF REMOVED, R 3RD TOE AMP, PICC LINE IN UPPER R ARM, COLONOSCOPY. R below the knee amputation Past Anesthesia/Blood Transfusion Reactions: Previous Problems w/ Anesthesia Additional Past Anesthesia/Blood Transfusion Reaction / Comment(s): HARD TIME WAKING UP FROM ANESETHIA Type of Cardiac Device: Permanent Pacemaker Device Placement Date:: 03/02/2017 Past Psychological History: No Psychological Hx Reported Smoking Status: Never smoker Past Alcohol Use History: Abuse, Daily Past Drug Use History: None Reported - Past Family History Father Family Medical History: Cancer Additional Family Medical History / Comment(s): PT STATES HIS FATHER NEVER WENT TO THE [place]. HE HAD A BAD COUGH AND AT THE AGE OF 78YRS. Mother History Unknown: Yes Additional Family Medical History / Comment(s): MOTHER LEFT FAMILY WHEN PT WAS 12 YRS OLD. PT STATES SHE WAS A HEAVY SMOKER. General Exam Limitations: altered mental status Course Vital Signs 10/26/19 10/26/19 21:39 23:53 Temperature 98.5 F Pulse Rate 60 71 Respiratory 18 16 Rate Blood Pressure 140/64 O2 Sat by Pulse 96 98 Oximetry Medical Decision Making - Medical Decision Making 79yo male presenting SOB. HX CHF, increased BNP from baseline. Patient denies SOB on arrival. Hx of syncope witnessed in chair by caretakers. Patient EKG not acute findings. Patient DImer elevated, the ventilation mismatch at lung bases consistent more so with CHF findings. Heparin was discontinued per attending. patient given IV lasix, insulin in ER. will be admitted for cardiology evaluation/echo, and iv lasix. Gita CHAUDHARY accepted case and is agreeable to care plan.Dr. Bonilla agreeable to admission and care plan. - Lab Data Result diagrams: 10/26/19 23:37 10/26/19 22:03 Lab Results 10/26/19 10/26/19 10/26/19 Range/Units 22:03 22:03 22:03 WBC 7.3 (3.8-10.6) k/uL RBC 2.96 L (4.30-5.90) m/uL Hgb 8.0 L (13.0-17.5) gm/dL Hct 26.2 L (39.0-53.0) % MCV 88.6 (80.0-100.0) fL MCH 27.0 (25.0-35.0) pg MCHC 30.4 L (31.0-37.0) g/dL RDW 16.2 H (11.5-15.5) % Plt Count 180 (150-450) k/uL Neutrophils % 76 % Lymphocytes % 12 % Monocytes % 6 % Eosinophils % 3 % Basophils % 0 % Neutrophils # 5.5 (1.3-7.7) k/uL Lymphocytes # 0.9 L (1.0-4.8) k/uL Monocytes # 0.5 (0-1.0) k/uL Eosinophils # 0.2 (0-0.7) k/uL Basophils # 0.0 (0-0.2) k/uL Hypochromasia Marked Anisocytosis Slight PT 10.7 (9.0-12.0) sec INR 1.0 (<1.2) APTT 28.0 (22.0-30.0) sec D-Dimer 12.93 H (<0.60) mg/L FEU Sodium 131 L (137-145) mmol/L Potassium 3.9 (3.5-5.1) mmol/L Chloride 94 L (98-107) mmol/L Carbon Dioxide 31 H (22-30) mmol/L Anion Gap 6 mmol/L BUN 15 (9-20) mg/dL Creatinine 1.96 H (0.66-1.25) mg/dL Est GFR (CKD-EPI)AfAm 37 (>60 ml/min/1.73 sqM) Est GFR (CKD-EPI)NonAf 32 (>60 ml/min/1.73 sqM) Glucose 435 H (74-99) mg/dL Lactic Ac Sepsis Rflx Plasma Lactic Acid Jerome (0.7-2.0) mmol/L Calcium 7.6 L (8.4-10.2) mg/dL Magnesium 1.8 (1.6-2.3) mg/dL Total Bilirubin 0.4 (0.2-1.3) mg/dL AST 23 (17-59) U/L ALT 13 (4-49) U/L Alkaline Phosphatase 113 (38-126) U/L Troponin I (0.000-0.034) ng/mL NT-Pro-B Natriuret Pep pg/mL Total Protein 5.7 L (6.3-8.2) g/dL Albumin 2.7 L (3.5-5.0) g/dL 10/26/19 10/26/19 10/26/19 Range/Units 22:03 22:03 22:03 WBC (3.8-10.6) k/uL RBC (4.30-5.90) m/uL Hgb (13.0-17.5) gm/dL Hct (39.0-53.0) % MCV (80.0-100.0) fL MCH (25.0-35.0) pg MCHC (31.0-37.0) g/dL RDW (11.5-15.5) % Plt Count (150-450) k/uL Neutrophils % % Lymphocytes % % Monocytes % % Eosinophils % % Basophils % % Neutrophils # (1.3-7.7) k/uL Lymphocytes # (1.0-4.8) k/uL Monocytes # (0-1.0) k/uL Eosinophils # (0-0.7) k/uL Basophils # (0-0.2) k/uL Hypochromasia Anisocytosis PT (9.0-12.0) sec INR (<1.2) APTT (22.0-30.0) sec D-Dimer (<0.60) mg/L FEU Sodium (137-145) mmol/L Potassium (3.5-5.1) mmol/L Chloride (98-107) mmol/L Carbon Dioxide (22-30) mmol/L Anion Gap mmol/L BUN (9-20) mg/dL Creatinine (0.66-1.25) mg/dL Est GFR (CKD-EPI)AfAm (>60 ml/min/1.73 sqM) Est GFR (CKD-EPI)NonAf (>60 ml/min/1.73 sqM) Glucose (74-99) mg/dL Lactic Ac Sepsis Rflx Plasma Lactic Acid Jerome 2.2 H* (0.7-2.0) mmol/L Calcium (8.4-10.2) mg/dL Magnesium (1.6-2.3) mg/dL Total Bilirubin (0.2-1.3) mg/dL AST (17-59) U/L ALT (4-49) U/L Alkaline Phosphatase (38-126) U/L Troponin I <0.012 (0.000-0.034) ng/mL NT-Pro-B Natriuret Pep 4100 pg/mL Total Protein (6.3-8.2) g/dL Albumin (3.5-5.0) g/dL 10/26/19 Range/Units 22:28 WBC (3.8-10.6) k/uL RBC (4.30-5.90) m/uL Hgb (13.0-17.5) gm/dL Hct (39.0-53.0) % MCV (80.0-100.0) fL MCH (25.0-35.0) pg MCHC (31.0-37.0) g/dL RDW (11.5-15.5) % Plt Count (150-450) k/uL Neutrophils % % Lymphocytes % % Monocytes % % Eosinophils % % Basophils % % Neutrophils # (1.3-7.7) k/uL Lymphocytes # (1.0-4.8) k/uL Monocytes # (0-1.0) k/uL Eosinophils # (0-0.7) k/uL Basophils # (0-0.2) k/uL Hypochromasia Anisocytosis PT (9.0-12.0) sec INR (<1.2) APTT (22.0-30.0) sec D-Dimer (<0.60) mg/L FEU Sodium (137-145) mmol/L Potassium (3.5-5.1) mmol/L Chloride (98-107) mmol/L Carbon Dioxide (22-30) mmol/L Anion Gap mmol/L BUN (9-20) mg/dL Creatinine (0.66-1.25) mg/dL Est GFR (CKD-EPI)AfAm (>60 ml/min/1.73 sqM) Est GFR (CKD-EPI)NonAf (>60 ml/min/1.73 sqM) Glucose (74-99) mg/dL Lactic Ac Sepsis Rflx Y Plasma Lactic Acid Jerome (0.7-2.0) mmol/L Calcium (8.4-10.2) mg/dL Magnesium (1.6-2.3) mg/dL Total Bilirubin (0.2-1.3) mg/dL AST (17-59) U/L ALT (4-49) U/L Alkaline Phosphatase (38-126) U/L Troponin I (0.000-0.034) ng/mL NT-Pro-B Natriuret Pep pg/mL Total Protein (6.3-8.2) g/dL Albumin (3.5-5.0) g/dL Disposition Clinical Impression: CHF exacerbation, Pleural effusion, SOB (shortness of breath), Syncope Disposition: ADMITTED IP TO THIS HOSP Condition: Stable Is patient prescribed a controlled substance at d/c from ED?: No Time of Disposition: 01:30
[2019-10-26 23:10] LABS: D-Dimer 12.93 mg/L FEU (<0.60)
[2019-10-26] MEDS ORDERED: HEPARIN SODIUM,PORCINE 5,000 UNIT/ML 1 ML VIAL IV PRN (23:20)
[2019-10-26] MEDS ORDERED: HEPARIN SODIUM,PORCINE 10,000 UNIT/ML 1 ML VIAL IV ONE (23:20)
[2019-10-26] MEDS ORDERED: NALOXONE 0.4 MG/ML 1 ML VIAL IV PRN (23:21)
[2019-10-26] MEDS ORDERED: HEPARIN SOD,PORK IN 0.45% NACL 25,000 UNIT in 0.45% NACL 1 250ML.BAG IV SCH (23:30)
[2019-10-26] MEDS ORDERED: SODIUM CHLORIDE 0.9% 1,000 ML IV SCH (23:30)
[2019-10-26] MEDS ORDERED: INSULIN REGULAR 100 UNIT/ML VIAL SQ ONE (23:43)
[2019-10-27 00:02] LABS: Anisocytosis Slight; Basophils % (A) 1 %; Eosinophils # (A) 0.2 k/uL (0-0.7); Eosinophils % (A) 3 %; HCT 26.6 % (39.0-53.0); HGB 8.1 gm/dL (13.0-17.5); Hypochromasia Marked; Lymphocytes # (A) 1.2 k/uL (1.0-4.8); Lymphocytes % (A) 16 %; MCH 27.3 pg (25.0-35.0); MCHC 30.3 g/dL (31.0-37.0); MCV 90.3 fL (80.0-100.0); Mean Platelet Volume 8.4; Monocytes # (A) 0.5 k/uL (0-1.0); Monocytes % (A) 6 %; Neutrophils # (A) 5.3 k/uL (1.3-7.7); Neutrophils % (A) 73 %; Platelet Count 191 k/uL (150-450); RBC 2.95 m/uL (4.30-5.90); RDW 16.2 % (11.5-15.5); WBC 7.3 k/uL (3.8-10.6)
[2019-10-27 00:14] LABS: Partial Thromboplastin Time 29.4 sec (22.0-30.0); Prothrombin Time 10.5 sec (9.0-12.0)
--- NOTE | 2019-10-27 01:24 | NM ---
EXAMINATION TYPE: NM pul vent and perfuse DATE OF EXAM: 10/27/2019 COMPARISON: NONE HISTORY: Short of breath TECHNIQUE: Utilizing inhalation of 38.8 mCi Tc 99m DTPA aerosol and intravenous injection of 4.4 mCi of Tc 99m MAA, ventilation and perfusion images are acquired post injection in multiple projections. FINDINGS: There is a large matched defect involving the basal segments of both lower lobes. The chest x-ray tod ay shows moderate bilateral pleural effusions. Ventilation abnormality appears worse than the perfusi on abnormalities. There is no ventilation/perfusion mismatch to suggest embolism. There is fairly nor mal ventilation and perfusion of the upper lobes. There are linear defects along the major fissures related to pleural effusion. IMPRESSION: Matching segmental sized multiple defects involving the basal aspect of both lower lobes related to p leural fluid. There is intermediate probability of pulmonary embolism.
[2019-10-27 01:33] LABS: Glucose,Whole Blood 454 mg/dL (75-99)
[2019-10-27 06:50] LABS: Glucose,Whole Blood 163 mg/dL (75-99)
[2019-10-27] MEDS ORDERED: HEPARIN SOD,PORK IN 0.45% NACL 25,000 UNIT in 0.45% NACL 1 250ML.BAG IV SCH (07:15)
[2019-10-27 11:56] LABS: Glucose,Whole Blood 218 mg/dL (75-99)
[2019-10-27] MEDS: ASPIRIN 81 MG PO SCH (12:00)
[2019-10-27] MEDS: FUROSEMIDE 10 MG/ML 4 ML VIAL IV SCH ×2 (12:00→20:42)
[2019-10-27] MEDS: CARVEDILOL 3.125 MG TAB PO SCH ×2 (12:01→17:55)
[2019-10-27] MEDS ORDERED: ACETAMINOPHEN TAB 325 MG TAB PO PRN (12:06)
--- NOTE | 2019-10-27 12:13 | P.CRDCN ---
History of Present Illness Consult date: 10/27/19 Consult reason: congestive heart failure Chief complaint: Syncope History of present illness: This is a 80-year-old gentleman most of the history was obtained from the medical record. He has a history of coronary artery disease, PAD with prior right BKA, diabetes, hypertension, hyperlipidemia, prior pacemaker, history of EtOH abuse, chronic kidney disease for which the patient has a dialysis port in place. Patient was brought to the hospital after being found at the extended care facility to be passed out in his recliner, he doesn't remember why he is here or what happened. His chest x-ray on presentation here showed bilateral pleural effusions and pulmonary infiltrates with mild congestive heart failure. EKG showed a ventricular paced rhythm with underlying normal sinus rhythm. He did have an echocardiogram with Doppler study performed in September of this year which revealed an ejection fraction of 55-60%. VQ scan showed intermediate probability for pulmonary embolism and the patient was initiated on IV heparin. Blood pressure 149/60 with a heart rate of 60, sodium 139, potassium 3.9, BUN 15 , creatinine 1.9, hemoglobin 8.1, plasma lactic acid 2.2, troponin normal, BNP 4100. At the time of my examination, patient seemed to be resting comfortably in bed, we will resume the patient's baby aspirin, Lipitor, Coreg, and start the patient on IV Lasix twice a day. Past Medical History Past Medical History: Heart Failure, Dementia, Diabetes Mellitus, Hypertension, Syncope, Vascular Disorder Additional Past Medical History / Comment(s): IDDM type II, recent R 3rd toe amputation/wound, SEVERAL SYNCOPAL EPISODES PRIOR TO RECEIVING HIS PACEMAKER, PVD, carotid stenosis History of Any Multi-Drug Resistant Organisms: None Reported Past Surgical History: Appendectomy, Pacemaker, Tonsillectomy Additional Past Surgical History / Comment(s): LEFT GREAT TOE HALF REMOVED, R 3RD TOE AMP, PICC LINE IN UPPER R ARM, COLONOSCOPY. R below the knee amputation Past Anesthesia/Blood Transfusion Reactions: Previous Problems w/ Anesthesia Additional Past Anesthesia/Blood Transfusion Reaction / Comment(s): HARD TIME WAKING UP FROM ANESETHIA Type of Cardiac Device: Permanent Pacemaker Device Placement Date:: 03/02/2017 Past Psychological History: No Psychological Hx Reported Additional Psychological History / Comment(s): PT CURRENTLY AT [facility]. NORMALLY LIVES ALONE. PT IS GETTING UP WITH WALKER. HE NORMALLY IS INDEPENDENT. Smoking Status: Never smoker Past Alcohol Use History: Abuse, Daily Additional Past Alcohol Use History / Comment(s): PT. REPORTS DRINKING 2-3 BEERS A DAY BUT NONE SINCE GOING TO [place], PER PAST MEDICAL RECORD, PTS. DAUGHTER HAS STATED IT IS MORE THAN THAT AND ALSO INCLUDES SCOTCH Past Drug Use History: None Reported - Past Family History Father Family Medical History: Cancer Additional Family Medical History / Comment(s): PT STATES HIS FATHER NEVER WENT TO THE [place]. HE HAD A BAD COUGH AND AT THE AGE OF 78YRS. Mother History Unknown: Yes Additional Family Medical History / Comment(s): MOTHER LEFT FAMILY WHEN PT WAS 12 YRS OLD. PT STATES SHE WAS A HEAVY SMOKER. Medications and Allergies Home Medications Medication Instructions Recorded Confirmed Type Donepezil [Aricept] 10 mg PO DAILY 10/01/16 10/26/19 History Atorvastatin [Lipitor] 80 mg PO HS 08/07/19 10/26/19 History Cholecalciferol [Vitamin D3 (25 1,000 unit PO DAILY 08/07/19 10/26/19 History Mcg = 1000 Iu)] DULoxetine HCL [Cymbalta] 30 mg PO DAILY 08/07/19 10/26/19 History amLODIPine BESYLATE 5 mg PO DAILY 09/21/19 10/26/19 History Carvedilol [Coreg] 3.125 mg PO BID-W/MEALS #60 tab 09/30/19 10/26/19 Rx Darbepoetin Enmanuel [Aranesp] 60 mcg SQ Q7D #4 syringe 09/30/19 10/26/19 Rx Furosemide [Lasix] 40 mg PO DAILY #60 tablet 10/17/19 10/26/19 Rx Acetaminophen [Acetaminophen ER] 650 mg PO Q8H PRN 10/26/19 10/26/19 History Aspirin 81 mg PO DAILY 10/26/19 10/26/19 History INSULIN ASPART (NovoLOG) [NovoLOG See Protocol SQ ACHS 10/26/19 10/26/19 History (formulary)] Insulin Detemir (Levemir) [Levemir] 10 unit SQ HS 10/26/19 10/26/19 History LORazepam [Ativan] 0.5 mg PO Q12H 10/26/19 10/26/19 History Pantoprazole [Protonix] 40 mg PO DAILY 10/26/19 10/26/19 History Allergies Allergy/AdvReac Type Severity Reaction Status Date / Time No Known Allergies Allergy Verified 10/26/19 22:42 Physical Exam Vitals: Vital Signs Temp Pulse Pulse Resp BP BP Pulse Ox 10/27/19 04:00 98.6 F 60 16 149/64 92 L 10/27/19 02:08 98.6 F 60 16 149/64 92 L 10/27/19 01:36 70 16 161/71 97 10/26/19 23:53 71 16 98 10/26/19 21:39 98.5 F 60 18 140/64 96 Intake and Output 10/26/19 10/27/19 10/27/19 22:59 06:59 14:59 Intake Total 120 Output Total 450 Balance -450 120 Intake: Oral 120 Output: Urine 450 Other: Voiding Method Urinal Diaper # Voids 1 Weight 87.09 kg 83.5 kg PHYSICAL EXAMINATION: GENERAL: 79-year-old gentleman in no acute distress at the time of my examination HEENT: Head is atraumatic, normocephalic. Pupils equal, round. Sclera anicteric. Conjunctiva are clear. Mucous membranes of the mouth are moist. Nec k is supple. There is no elevated jugular venous pressure. No carotid bruit is heard. HEART EXAMINATION: Heart S1 and S2 1 systolic murmur is heard CHEST EXAMINATION: Lungs reveal fine rales to the bases bilaterally with diminished air entry to the bases. ABDOMEN: Soft, nontender. Bowel sounds are heard. No organomegaly noted. EXTREMITIES: 2+ peripheral pulses with trace evidence of peripheral edema to the left lower extremity, patient has a right BKA . NEUROLOGIC patient is awake, alert and oriented X2. . Results 10/26/19 23:37 10/26/19 22:03 Cardiac Enzymes 10/26/19 10/26/19 Range/Units 22:03 22:03 AST 23 (17-59) U/L Troponin I <0.012 (0.000-0.034) ng/mL Coagulation 10/26/19 10/26/19 Range/Units 22:03 23:37 PT 10.7 10.5 (9.0-12.0) sec APTT 28.0 29.4 (22.0-30.0) sec CBC 10/26/19 10/26/19 Range/Units 22:03 23:37 WBC 7.3 7.3 (3.8-10.6) k/uL RBC 2.96 L 2.95 L (4.30-5.90) m/uL Hgb 8.0 L 8.1 L (13.0-17.5) gm/dL Hct 26.2 L 26.6 L (39.0-53.0) % Plt Count 180 191 (150-450) k/uL Comprehensive Metabolic Panel 10/26/19 Range/Units 22:03 Sodium 131 L (137-145) mmol/L Potassium 3.9 (3.5-5.1) mmol/L Chloride 94 L (98-107) mmol/L Carbon Dioxide 31 H (22-30) mmol/L BUN 15 (9-20) mg/dL Creatinine 1.96 H (0.66-1.25) mg/dL Glucose 435 H (74-99) mg/dL Calcium 7.6 L (8.4-10.2) mg/dL AST 23 (17-59) U/L ALT 13 (4-49) U/L Alkaline Phosphatase 113 (38-126) U/L Total Protein 5.7 L (6.3-8.2) g/dL Albumin 2.7 L (3.5-5.0) g/dL Current Medications Generic Name Dose Route Start Last Admin Trade Name Freq PRN Reason Stop Dose Admin Aspirin 81 mg 10/27/19 09:00 Aspirin PO DAILY [facility] Atorvastatin Calcium 80 mg 10/27/19 21:00 Lipitor PO HS [facility] Carvedilol 3.125 mg 10/27/19 08:30 Coreg PO BID-W/MEALS [facility] Furosemide 40 mg 10/27/19 09:00 Lasix IV Q12HR [facility] Heparin Sodium/Sodium Chloride 250 mls @ 10.02 mls/hr 10/27/19 07:15 10/27/19 07:41 25,000 unit/ Sodium Chloride IV 12 units/kg/hr .Q24H VEENA 10.02 mls/hr Administration Protocol 12 UNITS/KG/HR Naloxone HCl 0.2 mg 10/26/19 23:21 Narcan IV Q2M PRN Opioid Reversal Intake and Output 10/26/19 10/27/19 10/27/19 22:59 06:59 14:59 Intake Total 120 Output Total 450 Balance -450 120 Intake: Oral 120 Output: Urine 450 Other: Voiding Method Urinal Diaper # Voids 1 Weight 87.09 kg 83.5 kg 10/26/19 23:37 10/26/19 22:03 EKG Interpretations (text) EKG shows a ventricular paced rhythm with underlying normal sinus rhythm Assessment and Plan Plan: Assessment and plan #1 syncope, VQ scan was performed because of elevated d-dimer, intermediate probability for pulmonary embolism. Patient is currently on IV heparin. #2 congestive heart failure, diastolic, acute on chronic. Patient had an echo performed in September of this year which revealed an ejection fraction of 55-60% #3 CAD, exact details unknown #4 PAD, prior right BKA #5 hypertension #6 diabetes #7 hyperlipidemia #8 prior pacemaker #9 history of EtOH abuse #10 chronic kidney disease Plan Patient just had an echo performed earlier this year in September, we will not repeat an echo, we will start the patient on IV Lasix twice a day, resume the baby aspirin, Lipitor, and Coreg. Monitor the patient's intake and output along with daily weights and daily lytes BUN and creatinine. DNP note has been reviewed, I agree with a documented findings and plan of care. Patient was seen and examined.
--- NOTE | 2019-10-27 14:16 | P.HPIM ---
History of Present Illness 80-year-old male with known history of chronic diastolic dysfunction was discharged recently from the hospital after he was treated for chronic diastolic dysfunction and the cardiorenal syndrome patient was started on hemodialysis diana torres still has minimal dialysis catheter. Patient came in because he was found unresponsive. Patient doesn't number any anything what happened at that time. Patient is found to have pulmonary edema because of which patient is on Lasix patient still makes urine. Patient is a VQ scan which showed intermediate probably although pretest probably is low exceptfor syncope which is not well explained. Patient was started on IV heparin because of this intermediate probability. Patient at one point of time was another course during his last hospitalization but this was discontinued because of his excessive bleeding from the dialysis access. Has elevated BNP of 4100. Review of Systems REVIEW OF SYSTEMS: CONSTITUTIONAL: No fever, no malaise, no fatigue. HEENT: No recent visual problems or hearing problems. Denied any sore throat. CARDIOVASCULAR: No chest pain, orthopnea, PND, no palpitations, no syncope. PULMONARY: No shortness of breath, no cough, no hemoptysis. GASTROINTESTINAL: No diarrhea, no nausea, no vomiting, no abdominal pain. NEUROLOGICAL: No headaches, no weakness, no numbness. HEMATOLOGICAL: Denies any bleeding or petechiae. GENITOURINARY: Denies any burning micturition, frequency, or urgency. MUSCULOSKELETAL/RHEUMATOLOGICAL: Denies any joint pain, swelling, or any muscle pain. ENDOCRINE: Denies any polyuria or polydipsia. The rest of the 14-point review of systems is negative. Past Medical History Past Medical History: Heart Failure, Dementia, Diabetes Mellitus, Hypertension, Syncope, Vascular Disorder Additional Past Medical History / Comment(s): IDDM type II, recent R 3rd toe amputation/wound, SEVERAL SYNCOPAL EPISODES PRIOR TO RECEIVING HIS PACEMAKER, PVD, carotid stenosis History of Any Multi-Drug Resistant Organisms: None Reported Past Surgical History: Appendectomy, Pacemaker, Tonsillectomy Additional Past Surgical History / Comment(s): LEFT GREAT TOE HALF REMOVED, R 3 RD TOE AMP, PICC LINE IN UPPER R ARM, COLONOSCOPY. R below the knee amputation Past Anesthesia/Blood Transfusion Reactions: Previous Problems w/ Anesthesia Additional Past Anesthesia/Blood Transfusion Reaction / Comment(s): HARD TIME WAKING UP FROM ANESETHIA Type of Cardiac Device: Permanent Pacemaker Device Placement Date:: 03/02/2017 Past Psychological History: No Psychological Hx Reported Additional Psychological History / Comment(s): PT CURRENTLY AT [facility]. NORMALLY LIVES ALONE. PT IS GETTING UP WITH WALKER. HE NO RMALLY IS INDEPENDENT. Smoking Status: Never smoker Past Alcohol Use History: Abuse, Daily Additional Past Alcohol Use History / Comment(s): PT. REPORTS DRINKING 2-3 BEERS A DAY BUT NONE SINCE GOING TO [facility], PER PAST MEDICAL RECORD, PTS. DAUGHTER HAS STATED IT IS MORE THAN THAT AND ALSO INCLUDES SCOTCH Past Drug Use History: None Reported - Past Family History Father Family Medical History: Cancer Additional Family Medical History / Comment(s): PT STATES HIS FATHER NEVER WENT TO THE [place]. HE HAD A BAD COUGH AND AT THE AGE OF 78YRS. Mother History Unknown: Yes Additional Family Medical History / Comment(s): MOTHER LEFT FAMILY WHEN PT WAS 12 YRS OLD. PT STATES SHE WAS A HEAVY SMOKER. Medications and Allergies Home Medications Medication Instructions Recorded Confirmed Type Donepezil [Aricept] 10 mg PO DAILY 10/01/16 10/26/19 History Atorvastatin [Lipitor] 80 mg PO HS 08/07/19 10/26/19 History Cholecalciferol [Vitamin D3 (25 1,000 unit PO DAILY 08/07/19 10/26/19 History Mcg = 1000 Iu)] DULoxetine HCL [Cymbalta] 30 mg PO DAILY 08/07/19 10/26/19 History amLODIPine BESYLATE 5 mg PO DAILY 09/21/19 10/26/19 History Carvedilol [Coreg] 3.125 mg PO BID-W/MEALS #60 tab 09/30/19 10/26/19 Rx Darbepoetin Enmanuel [Aranesp] 60 mcg SQ Q7D #4 syringe 09/30/19 10/26/19 Rx Furosemide [Lasix] 40 mg PO DAILY #60 tablet 10/17/19 10/26/19 Rx Acetaminophen [Acetaminophen ER] 650 mg PO Q8H PRN 10/26/19 10/26/19 History Aspirin 81 mg PO DAILY 10/26/19 10/26/19 History INSULIN ASPART (NovoLOG) [NovoLOG See Protocol SQ ACHS 10/26/19 10/26/19 History (formulary)] Insulin Detemir (Levemir) [Levemir] 10 unit SQ HS 10/26/19 10/26/19 History LORazepam [Ativan] 0.5 mg PO Q12H 10/26/19 10/26/19 History Pantoprazole [Protonix] 40 mg PO DAILY 10/26/19 10/26/19 History Allergies Allergy/AdvReac Type Severity Reaction Status Date / Time No Known Allergies Allergy Verified 10/26/19 22:42 Physical Exam Vitals: Vital Signs Temp Pulse Pulse Resp BP BP Pulse Ox 10/27/19 12:00 98.1 F 60 16 141/65 96 10/27/19 08:00 72 16 141/65 96 10/27/19 04:00 98.6 F 60 16 149/64 92 L 10/27/19 02:08 98.6 F 60 16 149/64 92 L 10/27/19 01:36 70 16 161/71 97 10/26/19 23:53 71 16 98 10/26/19 21:39 98.5 F 60 18 140/64 96 Intake and Output 10/26/19 10/27/19 10/27/19 22:59 06:59 14:59 Intake Total 240 Output Total 450 100 Balance -450 140 Intake: Oral 240 Output: Urine 450 100 Other: Voiding Method Urinal Urinal Diaper Diaper # Voids 1 Weight 87.09 kg 83.5 kg PHYSICAL EXAMINATION: GENERAL: The patient is alert and oriented x3, not in any acute distress. Well developed, well nourished. HEENT: Pupils are round and equally reacting to light. EOMI. No scleral icterus. No conjunctival pallor. Normocephalic, atraumatic. No pharyngeal erythema. No thyromegaly. CARDIOVASCULAR: S1 and S2 present. No murmurs, rubs, or gallops. PULMONARY: Chest is clear to auscultation, no wheezing or crackles. ABDOMEN: Soft, nontender, nondistended, normoactive bowel sounds. No palpable organomegaly. MUSCULOSKELETAL: No joint swelling or deformity. EXTREMITIES: No cyanosis, clubbing, or pedal edema. NEUROLOGICAL: Gross neurological examination did not reveal any focal deficits. SKIN: No rashes. Results CBC & Chem 7: 10/26/19 23:37 10/26/19 22:03 Labs: Abnormal Lab Results - Last 24 Hours (Table) 10/26/19 10/26/19 10/26/19 Range/Units 22:03 22:03 22:03 RBC 2.96 L (4.30-5.90) m/uL Hgb 8.0 L (13.0-17.5) gm/dL Hct 26.2 L (39.0-53.0) % MCHC 30.4 L (31.0-37.0) g/dL RDW 16.2 H (11.5-15.5) % Lymphocytes # 0.9 L (1.0-4.8) k/uL D-Dimer 12.93 H (<0.60) mg/L FEU Sodium 131 L (137-145) mmol/L Chloride 94 L (98-107) mmol/L Carbon Dioxide 31 H (22-30) mmol/L Creatinine 1.96 H (0.66-1.25) mg/dL Glucose 435 H (74-99) mg/dL POC Glucose (mg/dL) (75-99) mg/dL Plasma Lactic Acid Jerome (0.7-2.0) mmol/L Calcium 7.6 L (8.4-10.2) mg/dL Total Protein 5.7 L (6.3-8.2) g/dL Albumin 2.7 L (3.5-5.0) g/dL 10/26/19 10/26/19 10/27/19 Range/Units 22:03 23:37 01:32 RBC 2.95 L (4.30-5.90) m/uL Hgb 8.1 L (13.0-17.5) gm/dL Hct 26.6 L (39.0-53.0) % MCHC 30.3 L (31.0-37.0) g/dL RDW 16.2 H (11.5-15.5) % Lymphocytes # (1.0-4.8) k/uL D-Dimer (<0.60) mg/L FEU Sodium (137-145) mmol/L Chloride (98-107) mmol/L Carbon Dioxide (22-30) mmol/L Creatinine (0.66-1.25) mg/dL Glucose (74-99) mg/dL POC Glucose (mg/dL) 454 H (75-99) mg/dL Plasma Lactic Acid Jerome 2.2 H* (0.7-2.0) mmol/L Calcium (8.4-10.2) mg/dL Total Protein (6.3-8.2) g/dL Albumin (3.5-5.0) g/dL 10/27/19 10/27/19 Range/Units 06:49 11:55 RBC (4.30-5.90) m/uL Hgb (13.0-17.5) gm/dL Hct (39.0-53.0) % MCHC (31.0-37.0) g/dL RDW (11.5-15.5) % Lymphocytes # (1.0-4.8) k/uL D-Dimer (<0.60) mg/L FEU Sodium (137-145) mmol/L Chloride (98-107) mmol/L Carbon Dioxide (22-30) mmol/L Creatinine (0.66-1.25) mg/dL Glucose (74-99) mg/dL POC Glucose (mg/dL) 163 H 218 H (75-99) mg/dL Plasma Lactic Acid Jerome (0.7-2.0) mmol/L Calcium (8.4-10.2) mg/dL Total Protein (6.3-8.2) g/dL Albumin (3.5-5.0) g/dL Assessment and Plan Plan: -syncope etiology is not clear patient will monitor 1 more day patient will be treated for heart failure patient has intermediate probably again VQ scan for now we'll continue with heparin until pulmonary evaluation patient although my suspicion is low for pulmonary embolism.patient was alert on Eliquis during his previous aspiration which was discontinued because of excessive bleeding from the dialysis access that was believed to be secondary to uremia platelet dysfunction along with anticoagulation. But this anti-correlation can be resumed now most probably which we will do after the evaluation by pulmonary -congestive failure chronic diastolic dysfunction with acute exacerbation. IV Lasix as mentioned above as patient still makes urine and nephrology was consulted patient was on hemodialysis unsure whether he is still on hemodialysis now. -coronary artery disease next and haven't peripheral arterial disease with right BKA. -Hypertension next and heparin type 2 diabetes mellitus patient will be resumed on his home regimen titrate the blood sugars depending on his insulin requirements -Hyperlipidemia -Chronic kidney disease stage V on hemodialysis secondary to cardiorenal syndrome. -hyponatremia hypervolemic hyponatremia expected to improve with the Lasix.
[2019-10-27 14:46] VITALS: BMI 26.4
--- NOTE | 2019-10-27 15:42 | CONS ---
CONSULTATION PULMONARY/CRITICAL CARE CONSULTATION: DATE OF SERVICE: 10/27/2019 A 79-year-old male who I am asked to see probably because of an abnormal chest x-ray. This is a 79-year-old male who apparently presented to the emergency room. He was brought in by EMS. He apparently has a history of right below-knee amputation, diabetes mellitus, hypertension, heart failure, pacemaker insertion, who apparently was complaining of shortness of breath and an episode of syncope. The patient is not a particular good historian. Does not really remember who he sees. Does not remember the last time he was actually seen by a doctor. The patient denies any major complaints at this time, but apparently came into the emergency room complaining of shortness of breath and passing out. Talking to the patient currently, he does not remember why he came into the hospital. He denies any chest pain or pressure. Denies any fever or chills. Denies any nausea, vomiting, diarrhea, or abdominal complaints. He also denies any genitourinary complaints. He really cannot tell me who his doctor is, although he apparently goes to the [facility]. We went back and looked to see if we had seen him in the past and apparently we have not. It appears he was seen by Dr. Bonilla in the emergency department. A chest x-ray shows fluid overload and right greater than left pleural effusions. He does have a hemodialysis catheter in place. The patient is not receiving any supplemental oxygen and looks perfectly stable. MEDICATIONS: Reviewed. He is on Aricept, Lipitor vitamin D3, Cymbalta, amlodipine, Tylenol, aspirin, insulin, Ativan, Protonix, Coreg, Aranesp, and Lasix. ALLERGIES: Denied. MEDICAL HISTORY: Heart failure, dementia, diabetes, hypertension, syncope, and peripheral vascular disease. Other surgical history includes recent right third toe amputation, previous pacemaker insertion for syncope, carotid stenosis, and some other minor medical problems. SURGICAL HISTORY: Includes previous appendectomy, pacemaker insertion, tonsillectomy, left great toe removal, right third toe amputation, right [id number] amputation, colonoscopy, and PICC line in the upper right arm. SOCIAL HISTORY: Apparently negative for tobacco. He apparently was a heavy drinker in the past. Denies any illicit drug use. FAMILY HISTORY: Apparently positive for cancer and mother's family history is not known. She was apparently a heavy smoker. REVIEW OF SYSTEMS: The patient cannot give a reliable review of systems. According to the ER chcio, he came into the emergency department with shortness of breath and apparently either passing out or having a murali episode of syncope. The rest of the review of systems is would be just a gas. PHYSICAL EXAMINATION: VITAL SIGNS: Current vital signs are reviewed temperature is 98.6 heart rate 80, respiratory rate 16, blood pressure 149/64 mean 92 room air saturation 92%. Appears in no acute distress. HEENT: Examination is grossly unremarkable. NECK: Supple full range of motion. No adenopathy. Neck veins are flat. CARDIOVASCULAR: Examination reveals regular rhythm rate. Sixty. No murmur. LUNGS: Reveal diffuse coarse rhonchi and crackles. Breath sounds are diminished on the right compared to the left. There is dullness at the right base. No wheezes. ABDOMEN: Soft, bowel sounds are heard. EXTREMITIES: Intact. He does have a right [id number] amputation. SKIN: Without rash. NEUROLOGIC: Examination is difficult to assess but he appears to move all 4 extremities at this time. LABS: Reviewed. White count 7.3, hemoglobin 8.1, hematocrit 26.6, platelet count 190,000, PTT, INR, PTT normal, D-dimer 12.93. Sodium 131, potassium 3.9, chloride 94, CO2 is 31, anion gap is 6. BUN and creatinine were 15 and 1.96. Lactic acid was 2.2. Calcium 7.6. N terminal proBNP 4100. Albumin is 2.7. Microbiology is negative or pending. A chest x-ray shows bilateral effusions, right greater than left with bilateral basilar infiltrates and/or atelectasis. Heart failure is favored. Because of the abnormal chest x-ray, 1 would expect a ventilation-perfusion lung scan to be nondiagnostic and it is. Current medications include aspirin, Lipitor, Coreg, Lasix, 0.45 IV, IV heparin, insulin, and Narcan. ASSESSMENT: 1. Shortness of breath, likely related to fluid overload in a patient who undergoes dialysis. 2. Bilateral pleural effusion as an explanation for the patient's shortness of breath. 3. Vague history of syncope. 4. Doubt pulmonary embolism as the patient's shortness of breath is likely explained based on the chest x-ray findings. 5. History of heart failure. 6. History of dementia. 7. History of diabetes mellitus. 8. Hypertension by history. 9. Previous history of syncope. 10.Peripheral vascular disease. 11.Right below-knee amputation. 12.History of carotid stenosis. 13.Status post pacemaker insertion. PLAN: I doubt the patient has pulmonary embolism. This chest x-ray more than explains his shortness of breath. He is currently being evaluated for this vague history of syncope. Additional recommendations and suggestions are forthcoming. Treatment is appropriate. The patient should resume his normal dialysis treatments. MMODL / IJN: [id number] /
--- NOTE | 2019-10-27 15:54 | CONS ---
CONSULTATION REASON FOR CONSULT: Renal failure, currently hemodialysis-dependent. HISTORY OF PRESENT ILLNESS: Patient is a 79-year-old male with a history of acute kidney injury and currently hemodialysis-dependent. Patient was started on dialysis on his last admission end of September and early part of October. He was discharged on dialysis. Currently he is doing well. The patient is maintained on a Thursday, , Thursday schedule at the [facility]. He was admitted to the hospital with complaints of feeling weak. He was also complaining of shortness of breath. Patient apparently had difficulty recalling material at the rehab at [facility] for the past day. There was no history of fever, chills, nausea, vomiting, abdominal pain or diarrhea. Details of the syncope are not available at this time. PAST MEDICAL HISTORY: His past medical history is significant for CHF, dementia, type 2 diabetes, hypertension, peripheral vascular disease, carotid artery stenosis. PAST SURGICAL HISTORY: Appendectomy, tonsillectomy, pacemaker placement, right BKA, colonoscopy, left great toe partial amputation. MEDICATIONS: Medications prior to admission included Protonix, Ativan, insulin, aspirin, amlodipine, Lipitor, Aricept, vitamin D, Cymbalta, Coreg, Aranesp, Lasix. ALLERGIES: NONE. PHYSICAL EXAMINATION: Patient is comfortable, awake. He is not in any acute distress. He is answering questions appropriately. Blood pressure was 149/64, heart rate 60 per minute. Patient is afebrile. EXAMINATION OF THE HEART: S1 and S2. EXAMINATION OF LUNGS: Bilateral breath sounds are heard. ABDOMEN: Soft, non-tender. Examination of lower extremities shows no significant edema. The patient has a right BKA. MANAGER PROGRAMMING exam is grossly intact. LABS: Labs show hemoglobin 8.1 g/dL. Sodium 131, potassium 3.9, BUN 15, serum creatinine 1.96. Lactic acid was 2.2 and it is down to 1.9 now. ASSESSMENT: 1. Acute kidney injury, currently hemodialysis-dependent. Serum creatinine is not significantly elevated. However, it is not appear that the patient has good urine output. He is maintained on a TTS schedule. I will arrange for hemodialysis tomorrow. 2. Syncope; details not available; possibly related to hypotension, although there is no documentation of low blood pressures. 3. Congestive heart failure, mainly diastolic, currently comfortable, CXR shows CHF 4. Chronic kidney disease with previous creatinine 2.2 to 2.7, mostly diabetic kidney disease. 5. History of right below-knee amputation. PLAN: Hemodialysis in a.m. Monitor urine output. Encourage increased oral intake. Maintain patient on Aranesp for anemia. UF 2-3L as tolerated. Thank you for this consultation. Will continue to follow the patient with you during his hospitalization. GEGE / DEVEN: [id number] / ANN-MARIE
[2019-10-27 16:36] LABS: Glucose,Whole Blood 292 mg/dL (75-99)
[2019-10-27] MEDS: PANTOPRAZOLE 40 MG TABLET PO SCH (17:56)
[2019-10-27 20:23] LABS: Glucose,Whole Blood 380 mg/dL (75-99)
[2019-10-27] MEDS: INSULIN ASPART (NovoLOG) 100 UNIT/ML VIAL SQ SCH (20:41)
[2019-10-27] MEDS ORDERED: INSULIN DETEMIR (LEVEMIR) 100 UNIT/ML SYR SQ SCH (21:00)
[2019-10-27] MEDS ORDERED: ATORVASTATIN 80 MG TAB PO SCH (21:00)
[2019-10-28 06:19] LABS: Glucose,Whole Blood 163 mg/dL (75-99)
[2019-10-28] MEDS: INSULIN ASPART (NovoLOG) 100 UNIT/ML VIAL SQ SCH ×2 (06:24→14:01)
[2019-10-28] MEDS: PANTOPRAZOLE 40 MG TABLET PO SCH (06:24)
[2019-10-28] MEDS: CARVEDILOL 3.125 MG TAB PO SCH (06:24)
[2019-10-28 07:08] LABS: Calcium 7.9 mg/dL (8.4-10.2); Potassium 3.5 mmol/L (3.5-5.1)
--- NOTE | 2019-10-28 07:41 | P.DS ---
Providers Date of admission: 10/27/19 13:37 Attending physician: Kip Foster Consults: 10/26/19 23:21 Consult Physician Routine Consulting Provider: Jeronimo Veliz Consult Reason/Comments: CHF exacerbation Do you want consulting provider notified?: Yes 10/27/19 04:10 Consult Physician Routine Consulting Provider: Erin Yun Consult Reason/Comments: dialysis patient, hear CHF Do you want consulting provider notified?: Yes, Notify in am 10/27/19 07:40 Consult Physician Routine Consulting Provider: Kiel Ibarra Consult Reason/Comments: poss PE Do you want consulting provider notified?: Yes Primary care physician: [facility] Course: 80-year-old male with known history of chronic diastolic dysfunction was discharged recently from the hospital after he was treated for chronic diastolic dysfunction and the cardiorenal syndrome patient was started on hemodialysis patient still has minimal dialysis catheter. Patient came in because he was found unresponsive. Patient doesn't number any anything what happened at that time. Patient is found to have pulmonary edema because of which patient is on Lasix patient still makes urine. Patient is a VQ scan which showed intermediate probably although pretest probably is low exceptfor syncope which is not well explained. Patient was started on IV heparin because of this intermediate probability. Patient at one point of time was another course during his last hospitalization but this was discontinued because of his excessive bleeding from the dialysis access. Has elevated BNP of 4100. 10/28/2019 Patient was evaluated by multiple consultants and possibility of acute pulmonary embolism in him is low because of which I am discontinued and IV heparin, patient will undergo hemodialysis today after that patient will be discharged to subacute rehabilitation. Patient was an echo on Eliquis in the past 2.5 mg which was temporally held because of his excessive bleeding from the dialysis access site which was believed secondary to uremia which resolved at this time because of which I'll resume in him on his home Eliquis if that is agreeable from nephrology perspective and patient will be discharged today. PHYSICAL EXAMINATION: GENERAL: The patient is alert and oriented x3, not in any acute distress. Well developed, well nourished. HEENT: Pupils are round and equally reacting to light. EOMI. No scleral icterus. No conjunctival pallor. Normocephalic, atraumatic. No pharyngeal erythema. No thyromegaly. CARDIOVASCULAR: S1 and S2 present. No murmurs, rubs, or gallops. PULMONARY: Chest is clear to auscultation, no wheezing or crackles. ABDOMEN: Soft, nontender, nondistended, normoactive bowel sounds. No palpable organomegaly. MUSCULOSKELETAL: No joint swelling or deformity. Right below-knee amputation EXTREMITIES: No cyanosis, clubbing, or pedal edema. NEUROLOGICAL: Gross neurological examination did not reveal any focal deficits. SKIN: No rashes. Assessment and Plan Plan: -syncope etiology is can be secondary to heart failure exacerbation which improved now -congestive failure chronic diastolic dysfunction with acute exacerbation. Patient will undergo hemodialysis today and patient probably will be discharged after that -coronary artery disease peripheral arterial disease with right BKA. -Hypertension n -type 2 diabetes mellitus blood sugars are well controlled on his home regimen now there were elevated yesterday. -Hyperlipidemia -Chronic kidney disease stage V on hemodialysis secondary to cardiorenal syndrome. -hyponatremia hypervolemic hyponatremia Patient Condition at Discharge: Stable Plan - Discharge Summary Discharge Rx Participant: Yes New Discharge Prescriptions: New Apixaban [Eliquis] 2.5 mg PO BID #30 tab Continue Donepezil [Aricept] 10 mg PO DAILY Atorvastatin [Lipitor] 80 mg PO HS Cholecalciferol [Vitamin D3 (25 Mcg = 1000 Iu)] 1,000 unit PO DAILY DULoxetine HCL [Cymbalta] 30 mg PO DAILY amLODIPine BESYLATE 5 mg PO DAILY Darbepoetin Enmanuel [Aranesp] 60 mcg SQ Q7D #4 syringe Carvedilol [Coreg] 3.125 mg PO BID-W/MEALS #60 tab INSULIN ASPART (NovoLOG) [NovoLOG (formulary)] See Protocol SQ ACHS LORazepam [Ativan] 0.5 mg PO Q12H Pantoprazole [Protonix] 40 mg PO DAILY Insulin Detemir (Levemir) [Levemir] 10 unit SQ HS Aspirin 81 mg PO DAILY Acetaminophen [Acetaminophen ER] 650 mg PO Q8H PRN PRN Reason: Pain Changed Furosemide [Lasix] 40 mg PO BID #60 tablet Discharge Medication List Donepezil [Aricept] 10 mg PO DAILY 10/01/16 [History] Atorvastatin [Lipitor] 80 mg PO HS 08/07/19 [History] Cholecalciferol [Vitamin D3 (25 Mcg = 1000 Iu)] 1,000 unit PO DAILY 08/07/19 [History] DULoxetine HCL [Cymbalta] 30 mg PO DAILY 08/07/19 [History] amLODIPine BESYLATE 5 mg PO DAILY 09/21/19 [History] Carvedilol [Coreg] 3.125 mg PO BID-W/MEALS #60 tab 09/30/19 [Rx] Darbepoetin Enmanuel [Aranesp] 60 mcg SQ Q7D #4 syringe 09/30/19 [Rx] Acetaminophen [Acetaminophen ER] 650 mg PO Q8H PRN 10/26/19 [History] Aspirin 81 mg PO DAILY 10/26/19 [History] INSULIN ASPART (NovoLOG) [NovoLOG (formulary)] See Protocol SQ ACHS 10/26/19 [History] Insulin Detemir (Levemir) [Levemir] 10 unit SQ HS 10/26/19 [History] LORazepam [Ativan] 0.5 mg PO Q12H 10/26/19 [History] Pantoprazole [Protonix] 40 mg PO DAILY 10/26/19 [History] Apixaban [Eliquis] 2.5 mg PO BID #30 tab 10/28/19 [Rx] Furosemide [Lasix] 40 mg PO BID #60 tablet 10/28/19 [Rx] Follow up Appointment(s)/Referral(s): [facility] [Primary Care Provider] - 3 Days Discharge Disposition: TRANSFER TO SNF/ECF
[2019-10-28] MEDS ORDERED: DONEPEZIL 10 MG TAB PO SCH (09:00)
[2019-10-28] MEDS ORDERED: DULoxetine HCL 30 MG CAPSULE.DR PO SCH (09:00)
[2019-10-28] MEDS ORDERED: CHOLECALCIFEROL 1,000 UNIT TAB PO SCH (09:00)
[2019-10-28] MEDS ORDERED: amLODIPine 5 MG TAB PO SCH (09:00)
--- NOTE | 2019-10-28 11:02 | P.PN ---
Subjective Progress Note Date: 10/28/19 This a pleasant 80-year-old gentleman with a past medical history of CAD, P 80 with prior right BKA, diabetes, hypertension, hyperlipidemia, prior pacemaker, history of EtOH abuse, chronic kidney disease for which the patient has hemodialysis port in place. He is brought to the emergency department with possible syncopal episode was found to have some acute CHF. He Q scan showed intermediate probability of pulmonary embolism and patient was initiated originally on heparin IV. This has been discontinued and Eliquis has been started by primary. Labs this morning show potassium 3.5, BUN 29, creatinine 2.96. Upon examination patient is resting comfortably lying flat in bed. Denies current complaints of chest discomfort, shortness of breath, orthopnea, PND, dizziness or lightheadedness. Blood pressure has been elevated in the 150 systolic but is better this morning at 130/72. He has been afebrile. Objective - Vital Signs Vital signs: Vital Signs Temp 98.0 F 10/28/19 08:00 Pulse 61 10/28/19 08:00 Resp 14 10/28/19 08:00 BP 130/72 10/28/19 08:00 Pulse Ox 92 L 10/28/19 08:00 Intake & Output 10/27/19 10/28/19 10/28/19 18:59 06:59 18:59 Intake Total 582.705 Output Total 100 Balance 482.705 Weight 83.5 kg 82 kg Intake: Intake, IV Titration 102.705 Amount Heparin Sod,Pork in 0.45% 102.705 NaCl 25,000 unit In 0.45 % NaCl 1 250ml.bag @ 12 UNITS/KG/HR 10.02 mls/hr IV .Q[facility]H [facility] Rx#: [id number] Oral 480 Output: Urine 100 Other: Voiding Method Urinal Urinal Urinal Diaper Diaper Diaper # Voids 2 - Exam PHYSICAL EXAMINATION: HEENT: Head is atraumatic, normocephalic. Pupils equal, round. Neck is supple. There is no elevated jugular venous pressure. HEART EXAMINATION: Heart sounds regular, S1 and S2 with a systolic murmur. CHEST EXAMINATION: Lungs reveal diminished air entry bilateral bases. No chest wall tenderness is noted on palpation or with deep breathing. ABDOMEN: Soft, nontender. Bowel sounds are heard. No organomegaly noted. EXTREMITIES: 2+ peripheral pulses with no evidence of peripheral edema to the left lower extremity, right BKA noted. NEUROLOGIC patient is drowsy and oriented x2. . - Labs CBC & Chem 7: 10/26/19 23:37 10/28/19 06:11 Labs: Abnormal Lab Results - Last 24 Hours (Table) 10/27/19 10/27/19 10/27/19 Range/Units 11:55 16:04 16:33 APTT 50.8 H (22.0-30.0) sec Carbon Dioxide (22-30) mmol/L BUN (9-20) mg/dL Creatinine (0.66-1.25) mg/dL Glucose (74-99) mg/dL POC Glucose (mg/dL) 218 H 292 H (75-99) mg/dL Calcium (8.4-10.2) mg/dL 10/27/19 10/28/19 10/28/19 Range/Units 20:21 06:11 06:11 APTT 68.0 H (22.0-30.0) sec Carbon Dioxide 32 H (22-30) mmol/L BUN 29 H (9-20) mg/dL Creatinine 2.96 H (0.66-1.25) mg/dL Glucose 147 H (74-99) mg/dL POC Glucose (mg/dL) 380 H (75-99) mg/dL Calcium 7.9 L (8.4-10.2) mg/dL 10/28/19 Range/Units 06:18 APTT (22.0-30.0) sec Carbon Dioxide (22-30) mmol/L BUN (9-20) mg/dL Creatinine (0.66-1.25) mg/dL Glucose (74-99) mg/dL POC Glucose (mg/dL) 163 H (75-99) mg/dL Calcium (8.4-10.2) mg/dL Microbiology - Last 24 Hours (Table) 10/26/19 22:03 Blood Culture - Preliminary Blood No Growth after 24 hours Assessment and Plan Assessment: #1 syncope, VQ scan was performed because of elevated d-dimer, intermediate probability for pulmonary embolism. Patient is currently on IV heparin. #2 congestive heart failure, diastolic, acute on chronic. Patient had an echo performed in September of this year which revealed an ejection fraction of 55-60% #3 CAD, exact details unknown #4 PAD, prior right BKA #5 hypertension #6 diabetes #7 hyperlipidemia #8 prior pacemaker #9 history of EtOH abuse #10 chronic kidney disease Plan: From cardiology's perspective, medications reviewed and continue the same. Patient is being discharged by primary. We will see the patient in follow-up as an outpatient. EXPERIMENTAL ASSEMBLER note has been reviewed, I agree with a documented findings and plan of care. Patient was seen and examined.
[2019-10-28 11:28] LABS: Glucose,Whole Blood 229 mg/dL (75-99)
--- NOTE | 2019-10-28 12:24 | PN ---
PROGRESS NOTE PULMONARY/CRITICAL CARE PROGRESS NOTE: DATE OF SERVICE: 10/28/2019 This is a 79-year-old gentleman who I saw yesterday in consultation. My impression was that he had shortness of breath, likely related to fluid overload in a patient has chronic end-stage renal disease and undergoes hemodialysis. Anyway, the patient is doing reasonably well. Not requiring any oxygen therapy. The patient has a history of heart failure, dementia, diabetes, hypertension, syncope, right below-knee amputation, and status post pacemaker insertion, among other things. The patient was admitted with a vague diagnosis of syncope and shortness of breath. Currently, he is lying flat in bed. Not a particular good historian. Not receiving any supplemental oxygen. Not demonstrating any signs or symptoms of respiratory distress. Current vital signs are reviewed, temperature 98, heart rate 61, respiratory rate 14, blood pressure 130/72, mean 91, room air saturation 94%. Appears in no acute distress. HEENT: Examination is grossly unremarkable. No supplemental oxygen. NECK: Supple, full range of motion. No adenopathy. Neck veins are flat. CARDIOVASCULAR: Examination reveals regular rhythm and rate. Heart rate 60 beats per minute. S1, S2 normal. LUNGS: Reveal a few scattered rhonchi. Some crackles. No wheezes. Breath sounds equal. ABDOMEN: Soft. EXTREMITIES: Reveal a right [id number] amputation. No edema, cyanosis or clubbing in the opposite leg. SKIN: Without rash. NEUROLOGIC: Examination is difficult to assess but he does move all 4 extremities and he seems reasonably alert. LABS: Reviewed. Sodium 137, potassium 3.5, chloride 99, CO2 is 33, anion gap 6. BUN and creatinine were 29 and 3.96. Calcium 7.9. Microbiology is negative. Chest x-ray was previously looked at. ASSESSMENT: 1. Shortness of breath, seemingly resolved, likely related to fluid overload and the patient undergoes 3 time a week hemodialysis. 2. End-stage renal disease. 3. Small bilateral effusions. 4. Vague history of syncope. 5. Doubt pulmonary embolism. 6. History of heart failure. 7. History of dementia. 8. History of diabetes mellitus. 9. Hypertension by history. 10.Previous history of syncope. 11.Peripheral vascular occlusive disease. 12.Right [id number] amputation. 13.History of carotid stenosis. 14.Status post pacemaker insertion. PLAN: Currently, the patient seemed relatively stable. He is lying flat in bed. Not receiving any supplemental oxygen. The patient appears not to have any distress. Will continue to follow. No additional recommendations are made. MMODL / IJN: [id number] /
[2019-10-28 13:51] LABS: Glucose,Whole Blood 147 mg/dL (75-99)
[2019-10-28] MEDS ORDERED: HEPARIN SODIUM,PORCINE 5,000 UNIT/ML 1 ML VIAL ONE (14:00)
[2019-10-28 14:12] VITALS: RESP 16
[2019-10-28] MEDS: FUROSEMIDE 10 MG/ML 4 ML VIAL IV SCH (15:16)
[2019-10-28] MEDS: ASPIRIN 81 MG PO SCH (15:16)
[2019-10-28 15:43] VITALS: BP 132/66; PULSE 61; TEMP 98
--- NOTE | 2019-10-28 16:53 | PN ---
PROGRESS NOTE Patient is seen for followup for acute kidney injury, currently hemodialysis dependent. Patient is scheduled for hemodialysis today. His chest x-ray shows evidence of CHF, although he is fairly comfortable. Patient is eating well. PHYSICAL EXAMINATION: On examination, blood pressure was 94/56, heart rate 67 per minute, he is afebrile. Examination of the heart S1, S2. Examination of the lungs, bilateral breath sounds are heard. Abdomen is soft, nontender. Examination of the lower extremities shows edema 2+ bilaterally. ROOM INSPECTOR exam grossly intact. LABS: Show sodium 137, potassium 3.5, BUN 29, creatinine 2.96. ASSESSMENT: 1. Acute kidney injury, currently hemodialysis dependent mainly for cardiorenal syndrome and volume overload. Patient remains volume overloaded. Continue to maintain patient on dialysis for now. He states he is voiding, although urine output is not accurately charted. I do see a 450 mL and 100 mL charted for the same day. 2. Diastolic heart failure. 3. Chronic kidney disease stage 3B to 4 with previous creatinine 2.2-2.7, mostly diabetic nephropathy. 4. History of right below-knee amputation. PLAN: Hemodialysis today and patient can be discharged post dialysis. He will follow up as outpatient for his next treatment tomorrow at the [facility]. MMODL / IJN: [id number] /
--- NOTE | 2019-10-30 08:55 | CDI ---
Documentation Clarification Form Date: 10/30/19 From: Tita Jones Phone: If you have a question about this query, please contact Dominique Kam, Chrome Worker at [phone] between 8am and 5pm. Admit Date: 10/26/19 Discharge Date:10/28/19 Patient Name: Gilberto Balderas Visit Number: [id number] ATTENTION: The Clinical Documentation Specialists (CDI) and [facility] Coding Staff appreciate your assistance in clarifying documentation. Please respond to the clarification below the line at the bottom and electronically sign. The CDI & [facility] Coding staff will review the response and follow-up if needed. Please note: Queries are made part of the Legal Health Record. If you have any questions, please contact the author of this message via ITS. Dear Dr. Ho Altered Mental Status was documented in the ED note. History/Risk Factors: Diastolic CHF Exacerbation, Stage 5 CKD, dementia, carotid artery stenosis Clinical Indicators: Syncopal episode Labs: Hgb/Hct - 8.0/30.4, d-dimer 12.93, Creatinine 1.96, glucose 435, sodium 131, CO2 31, lactic acid 2.2 X Ray: PULVP: There is intermediate probability of PE. CXR: Bilateral plerual effusions and basilar pulmonary infiltrates and atelectasis. There is probably congestive heart failure. No significant changes compared to old exam. Treatment: PO Aricept - home med, IV Lasix, In your professional opinion, please clarify the etiology of the Altered Mental Status, if known. Delirium (specify cause): Dementia (if know, specify Type and if with/without Behavioral Disturbance) Encephalopathy (specify Type and Underlying Medical Illness) Other condition (please specify) Unable to determine Unable to determine MTDD
[2019-11-01] MEDS ORDERED: DARBEPOETIN ALFA 60 MCG/0.3 ML SYRINGE SQ SCH (12:00)
== END 2019-10-28 16:09 | DRG 291 ==
LOC: EC 21:29 → 3SCARD 23:23 → OBSVTOIN 10-27 13:37
PROVIDERS: ADMIT Internal Medicine; ATTEND Internal Medicine
PROC: 5A1D70Z Performance of Urinary Filtration, Intermittent, Less than 6 Hours Per Day (ICD-10-PCS; principal; 2019-10-28)
DX: I13.2 Hypertensive heart and chronic kidney disease with heart failure and with stage 5 chronic kidney disease, or end stage renal disease (principal); I50.33 Acute on chronic diastolic (congestive) heart failure; E87.1 Hypo-osmolality and hyponatremia; N17.9 Acute kidney failure, unspecified; N18.5 Chronic kidney disease, stage 5; E11.22 Type 2 diabetes mellitus with diabetic chronic kidney disease; E11.51 Type 2 diabetes mellitus with diabetic peripheral angiopathy without gangrene; F03.90 Unspecified dementia, unspecified severity, without behavioral disturbance, psychotic disturbance, mood disturbance, and anxiety; R41.82 Altered mental status, unspecified; E78.5 Hyperlipidemia, unspecified; I25.10 Atherosclerotic heart disease of native coronary artery without angina pectoris; I65.29 Occlusion and stenosis of unspecified carotid artery; R55 Syncope and collapse; Z20.828 Contact with and (suspected) exposure to other viral communicable diseases; Z79.4 Long term (current) use of insulin; Z79.82 Long term (current) use of aspirin; Z79.899 Other long term (current) drug therapy; Z89.511 Acquired absence of right leg below knee; Z95.0 Presence of cardiac pacemaker; Z95.828 Presence of other vascular implants and grafts; Z99.2 Dependence on renal dialysis; Z90.49 Acquired absence of other specified parts of digestive tract; Z89.412 Acquired absence of left great toe; Z80.9 Family history of malignant neoplasm, unspecified
CPT/HCPCS: 36415; 71046; 78582; 80048; 80053; 83605; 83735; 83880; 84484; 85025; 85379; 85610; 85730; 87040; 90935; 93005; 96374; 99285

== ENCOUNTER 2019-12-06 23:15 | Emergency (ER) | payer MEDICARE ==
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
--- NOTE | 2019-12-07 00:25 | XR ---
EXAMINATION TYPE: XR chest 1V DATE OF EXAM: 12/07/2019 COMPARISON: 10/26/2019 HISTORY: Short of breath TECHNIQUE: FINDINGS: There is no heart failure nor confluent pneumonic infiltrate. There is right-sided central venous catheter with tip in the superior vena cava. There is left axillary pacemaker. I see no defini te pleural effusion. IMPRESSION: No definite active cardiopulmonary disease. There is clearing of the infiltrates and pleu ral fluid at the lung bases compared to old exam. There is clearing of the pulmonary mild congestion.
--- NOTE | 2019-12-07 00:26 | XR ---
EXAMINATION TYPE: XR shoulder complete RT DATE OF EXAM: 12/07/2019 COMPARISON: NONE HISTORY: Shoulder pain TECHNIQUE: 3 views FINDINGS: There is some narrowing of the glenohumeral joint space with spurring of the inferior gleno id labrum. There is spurring at the AC joint. I see no fracture nor dislocation. IMPRESSION: Osteoarthritic changes. No fracture seen.
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
[2019-12-07 01:41] VITALS: BP 151/79; PULSE 65; RESP 16; TEMP 98.2
== END 2019-12-07 02:32 | disposition home or self-care (01) ==
LOC: EC 23:15
DX: S06.9X9A Unspecified intracranial injury with loss of consciousness of unspecified duration, initial encounter (principal); M25.511 Pain in right shoulder; I11.0 Hypertensive heart disease with heart failure; I50.9 Heart failure, unspecified; F03.90 Unspecified dementia, unspecified severity, without behavioral disturbance, psychotic disturbance, mood disturbance, and anxiety; E11.9 Type 2 diabetes mellitus without complications; Z95.0 Presence of cardiac pacemaker; Z79.899 Other long term (current) drug therapy; Z79.4 Long term (current) use of insulin; Z79.82 Long term (current) use of aspirin; Z89.511 Acquired absence of right leg below knee; Z89.412 Acquired absence of left great toe; Y04.2XXA Assault by strike against or bumped into by another person, initial encounter; Y92.009 Unspecified place in unspecified non-institutional (private) residence as the place of occurrence of the external cause
CPT/HCPCS: 70450; 71045; 99285